=== PATIENT | male | born 1950 | race Caucasian/White ===

== ENCOUNTER → 2016-04-19 | Outpatient (CLI) | payer OTHER ==
[~2016-04-19] MED LIST: ALBUAER2 INH; ALLO100T PO; ANTICRE6 PO; ASPI325T45 PO; EFFSR/75 PO; EFFSR75 PO; EZET10TA38 PO; HYDR-5688 PO; IBUP-1050 PO; INDO-24 PO; INSDGI SC; INSUINJ4 SQ; IPRASOL4 NEB; LISI10TA PO; MAGN200T3 PO; MAGN400C3 PO; MAGNESIUM PO; METF-384 PO; MGNO400 PO; MULT-845 PO; OMEG10007 PO; TPRSR/50 PO; TRAM-10 PO; UMEC1AER INH; VNTHFA/IN INH; VYT1020 PO
--- NOTE | 2016-04-19 08:42 | DIAGNOSTIC IMAGING REPORT ---
MRI OF THE BRAIN WITHOUT CONTRAST CLINICAL HISTORY: Short-term memory loss. COMPARISON STUDY: None. TECHNIQUE: Utilizing a 1.5 Li magnet and dedicated coil, multiplanar, multiecho imaging of the brain was performed without IV contrast. FINDINGS: There are no areas of restricted diffusion. No acute intracranial hemorrhage, midline shift or mass effect is present. Ventricular system is normal. Basilar cisterns are patent. There are no extra-axial collections. Flow-voids for the major intracranial vessels are present. No intracranial masses are identified on this unenhanced exam. There are several white matter T2 hyperintense foci which suggest mild small vessel disease. Brain volume is within normal limits for age. Calvarial signal is maintained. There is a small mucous retention cyst within the left maxillary sinus. Orbits are unremarkable. There is no fluid within the mastoid air cells. IMPRESSION: 1. No acute intracranial findings. 2. A few scattered T2 hypertense foci which suggest minimal small vessel disease. 3. Unremarkable unenhanced MRI of the brain for age. Electronically signed by: Clyde Tapia M.D. 04/19/2016 8:40 AM Dictated Date/Time: 04/19/2016 8:33 AM
== END | disposition home or self-care (01) ==
LOC: C.MRI 07:54
PROVIDERS: ATTEND Psychiatry & Neurology Neurology
DX: R41.3 Other amnesia (principal)

== ENCOUNTER → 2016-04-22 | Outpatient (CLI) | payer OTHER ==
--- NOTE | 2016-04-22 09:35 | DIAGNOSTIC IMAGING REPORT ---
LEFT KNEE 3 VIEWS CLINICAL HISTORY: Left knee pain. No reported history of trauma. FINDINGS: AP, crosstable lateral, and sunrise views of the left knee are obtained. No prior studies are available for comparison at the time of dictation. The skeletal structures are well mineralized. No fracture is seen. There is only minimal degenerative joint space narrowing. No joint effusion is identified. Mild prepatellar soft tissue swelling is observed. IMPRESSION: Mild soft tissue swelling with no acute bony abnormality identified. Electronically signed by: Rene Woods M.D. 04/22/2016 9:34 AM Dictated Date/Time: 04/22/2016 9:33 AM
[2016-04-22 13:46] LABS: FERRITIN 139.2 ng/ml (8.0-388.0); THYROID STIMULATING HORMONE 1.53 uIu/ml (0.300-4.500)
== END | disposition home or self-care (01) ==
LOC: C.RADPV 09:02
PROVIDERS: ATTEND Psychiatry & Neurology Neurology
DX: M25.562 Pain in left knee (principal); Z11.59 Encounter for screening for other viral diseases; R41.3 Other amnesia; G25.81 Restless legs syndrome

== ENCOUNTER 2016-06-27 18:54 | Emergency (ER) | payer OTHER ==
[~2016-06-27] VITALS: Ht 182.9 cm; Wt 110.4 kg
[~2016-06-27 18:54] MED LIST changes: -ANTICRE6 PO; -EFFSR75 PO; -EZET10TA38 PO; -HYDR-5688 PO; -IBUP-1050 PO; -INSDGI SC; -MAGN200T3 PO; -MAGN400C3 PO; -MAGNESIUM PO; -TRAM-10 PO; -VNTHFA/IN INH
[2016-06-27 18:59] VITALS: TEMP 36.6; Ht 182.9 cm; Wt 110.4 kg
[2016-06-27] MEDS ORDERED: ADENOSINE IV SOLN 3 MG/ML 2 ML VIAL ONE (19:13)
[2016-06-27 19:30] LABS: BASO % 0.2 %; BASO ABS # 0.03 K/uL (0-0.2); COMPLETE YES; EOS % 1.2 %; IG% 0.9 %; LYMPH % 22.9 %; LYMPH ABS # 2.95 K/uL (1.2-3.4); MEAN CELL VOLUME 89.2 fL (80-100); MEAN CORPUSCULAR HEMOGLOBIN 31.1 pg (25-34); MEAN CORPUSCULAR HGB CONC 34.9 g/dl (32-36); MEAN PLATELET VOLUME 8.5 fL (7.4-10.4); MONO % 10.7 %; NEUT % 64.1 %; PLATELET COUNT 403 K/uL (130-400); RED BLOOD COUNT 4.37 M/uL (4.7-6.1); WHITE BLOOD COUNT 12.86 K/uL (4.8-10.8)
--- NOTE | 2016-06-27 19:34 | DIAGNOSTIC IMAGING REPORT ---
CHEST ONE VIEW PORTABLE CLINICAL HISTORY: Atypical chest pain COMPARISON STUDY: 02/28/2016 FINDINGS: There are postsurgical changes of a midline sternotomy. There is an overlying cardiac electrode pad the left base. There is no focal pulmonary consolidation. There is decreased interstitial prominence. There is no overt failure. There are no pleural effusions.[ A right midlung zone opacity likely represents a summation IMPRESSION: No active disease in the chest. Electronically signed by: Miguel Zavaleta M.D. 06/27/2016 7:32 PM Dictated Date/Time: 06/27/2016 7:30 PM
[2016-06-27] MEDS ORDERED: SODIUM CHLORIDE 0.9% 1000ML 1,000 ML IV STA (19:37)
[2016-06-27 19:44] LABS: BUN/CREATININE RATIO 18.8 (10-20); CALCIUM 8.5 mg/dl (8.5-10.1); CREATININE 1.3 mg/dl (0.60-1.40); POTASSIUM 4.5 mmol/L (3.5-5.1)
[2016-06-27] MEDS ORDERED: MAGN400C3 PO (19:52)
[2016-06-27] MEDS ORDERED: VNTHFA/IN INH (19:52)
[2016-06-27] MEDS ORDERED: EFFSR75 PO (19:52)
[2016-06-27] MEDS ORDERED: INSDGI SC (19:52)
[2016-06-27] MEDS ORDERED: IBUP-1050 PO (19:52)
[2016-06-27 21:01] VITALS: BP 134/86; PULSE 84; O2SAT 94
--- NOTE | 2016-06-28 01:04 | EMERGENCY ROOM VISIT NOTE ---
History Report prepared by Abhilash: Elizabeth Mclaughlin Under the Supervision of: Dr. Arthur Lamar D.O. First contact with patient: 19:07 Chief Complaint: TACHYCARDIA Stated Complaint: SVT EPISODE History of Present Illness The patient is a 66 year old male who presents to the Emergency Room with complaints of constant tachycardia beginning 3 hours ago. The patient states that this has happened to him 3 times before and he had SVT and today it feels the same as it has in the past. The patient complains of heartburn when the heart beating was severe. He denies any shortness of breath, chest pain, nausea , vomiting, diarrhea, urinary symptoms, and blood in the stool. He notes that he had an ascending aortic aneurism in 2004. He notes that he had an MRI done on knee and was on the way home when he started to feel strange. The patient denies any history of heart disease but notes that he has hypertension, high cholesterol, and diabetes. Source of History: patient Onset: 3 hours ago Position: other (heart) Quality: other (tachycardia) Timing: constant Associated Symptoms: No SOB, No chest pain, No diarrhea, No nausea, No urinary symptoms, No vomiting Note: he patient complains of heartburn when the heart beating was severe. He denies any blood in the stool. Review of Systems See HPI for pertinent positives & negatives. A total of 10 systems reviewed and were otherwise negative. Past Medical & Surgical Medical Problems: (1) Aorta Dissection,Thoracic (2) Aortic aneurysm (3) Chest pain (4) COPD (chronic obstructive pulmonary disease) (5) Diabetes (6) Diverticulosis Colon (W/O Ment Of Hemorrhage) (7) Gout, Unspecified (8) Hypertension (9) Kidney stones (10) Obstructive Sleep Apnea (Adult) (Pediatric) Surgical Problems: (1) History of appendectomy Family History Cancer Diabetes mellitus Heart disease Hypertension Social History Smoking Status: Never Smoker Alcohol Use: occasionally Marital Status: Housing Status: lives with significant other Occupation Status: employed Current/Historical Medications Scheduled Allopurinol (Zyloprim), 100 MG PO DAILY Aspirin (Aspirin), 325 MG PO DAILY Ezetimibe/Simvastatin (Vytorin 10-20 mg), 1 TAB PO DAILY Fish Oil ([place]-3), 1 CAP PO DAILY Insulin Glargine (Lantus), 48 UNITS SC QPM Lisinopril (Prinivil), 10 MG PO DAILY Magnesium Oxide (Magnesium-Oxide), 400 MG PO BID Magnesium Oxide (mg Supplement (Magnesium Oxide), 400 MG PO DAILY Metformin Hcl (Glucophage), 1,000 MG PO BID Metoprolol Succinate (Metoprolol Succinate ER), 50 MG PO DAILY Multiple Vitamins W/ Minerals (Centrum Silver Adult 50+), 1 TAB PO DAILY Umeclidinium-Vilanterol (Anoro Ellipta 62.5-25 Mcg/INH), 1 PUFF INH DAILY Venlafaxine Hcl (Effexor Extended Rel), 75 MG PO DAILY Scheduled PRN Albuterol Hfa (Ventolin Hfa), 2 PUFFS INH QID PRN for SOB/Wheezing Ibuprofen (Advil), 200-600 MG PO Q4H PRN for Pain Ipratropium-Albuterol (Duoneb), 1 TREATMENT NEB Q4H PRN for SOB/Wheezing Allergies Coded Allergies: Codeine (Verified Adverse Reaction, Mild, NAUSEA, 06/27/16) Physical Exam Vital Signs Date Time Temp Pulse Resp B/P Pulse Ox O2 Delivery O2 Flow Rate FiO2 06/27/16 21:01 84 20 134/86 94 06/27/16 19:53 90 20 132/77 91 Room Air 06/27/16 19:20 98 06/27/16 19:09 160 06/27/16 19:04 93 Room Air 06/27/16 18:59 36.6 164 20 105/66 94 Room Air Physical Exam GENERAL: sitting up in bed, disheveled, ill-appearing EYE EXAM: normal conjunctiva OROPHARYNX: no exudate, no erythema, lips, buccal mucosa, and tongue normal and mucous membranes are moist NECK: supple, no nuchal rigidity, no adenopathy, non-tender LUNGS: Clear to auscultation. Normal chest wall mechanics HEART: Tachycardic and regular, no murmurs, S1 normal and S2 normal ABDOMEN: abdomen soft, non-tender, normo-active bowel sounds, no masses, no rebound or guarding. BACK: Back is symmetrical on inspection and there is no deformity, no midline tenderness, no CVA tenderness. SKIN: no rashes and no bruising UPPER EXTREMITIES: upper extremities are grossly normal. Radial pulses equal bilaterally. LOWER EXTREMITIES: No pitting edema. Calves are equal bilaterally. NEURO EXAM: Normal sensorium, cranial nerves II-XII grossly intact, normal speech, no gross weakness of arms, no gross weakness of legs. Medical Decision & Procedures ER Provider Diagnostic Interpretation: Radiology results as stated below per my review and the radiologist's interpretation: CHEST ONE VIEW PORTABLE FINDINGS: There are postsurgical changes of a midline sternotomy. There is an overlying cardiac electrode pad the left base. There is no focal pulmonary consolidation. There is decreased interstitial prominence. There is no overt failure. There are no pleural effusions.[ A right midlung zone opacity likely represents a summation IMPRESSION: No active disease in the chest. Electronically signed by: Miguel Zavaleta M.D. 06/27/2016 7:32 PM Dictated Date/Time: 06/27/2016 7:30 PM Laboratory Results 06/27/16 19:12 Red Blood Count 4.37, Mean Corpuscular Volume 89.2, Mean Corpuscular Hemoglobin 31.1, Mean Corpuscular Hemoglobin Concent 34.9, Mean Platelet Volume 8.5, Neutrophils (%) (Auto) 64.1, Lymphocytes (%) (Auto) 22.9, Monocytes (%) (Auto) 10.7, Eosinophils (%) (Auto) 1.2, Basophils (%) (Auto) 0.2, Neutrophils # (Auto ) 8.22, Lymphocytes # (Auto) 2.95, Monocytes # (Auto) 1.38, Eosinophils # (Auto ) 0.16, Basophils # (Auto) 0.03 06/27/16 19:12 Test 06/27/16 19:12 White Blood Count 12.86 K/uL (4.8-10.8) Red Blood Count 4.37 M/uL (4.7-6.1) Hemoglobin 13.6 g/dL (14.0-18.0) Hematocrit 39.0 % (42-52) Mean Corpuscular Volume 89.2 fL (80-100) Mean Corpuscular Hemoglobin 31.1 pg (25-34) Mean Corpuscular Hemoglobin Concent 34.9 g/dl (32-36) Platelet Count 403 K/uL (130-400) Mean Platelet Volume 8.5 fL (7.4-10.4) Neutrophils (%) (Auto) 64.1 % Lymphocytes (%) (Auto) 22.9 % Monocytes (%) (Auto) 10.7 % Eosinophils (%) (Auto) 1.2 % Basophils (%) (Auto) 0.2 % Neutrophils # (Auto) 8.22 K/uL (1.4-6.5) Lymphocytes # (Auto) 2.95 K/uL (1.2-3.4) Monocytes # (Auto) 1.38 K/uL (0.11-0.59) Eosinophils # (Auto) 0.16 K/uL (0-0.5) Basophils # (Auto) 0.03 K/uL (0-0.2) RDW Standard Deviation 44.9 fL (36.4-46.3) RDW Coefficient of Variation 13.7 % (11.5-14.5) Immature Granulocyte % (Auto) 0.9 % Immature Granulocyte # (Auto) 0.12 K/uL (0.00-0.02) Anion Gap 9.0 mmol/L (3-11) Est Creatinine Clear Calc Drug Dose 73.7 ml/min Estimated GFR () 66.8 Estimated GFR (Non- 57.7 BUN/Creatinine Ratio 18.8 (10-20) Calcium Level 8.5 mg/dl (8.5-10.1) Laboratory results per my review. Medications Administered Medications (Trade) Dose Ordered Sig/Jazmín Route Start Time Stop Time Status Last Admin Dose Admin Adenosine 12 mg 12 mg STK-MED ONCE .ROUTE 06/27/16 19:13 06/27/16 19:14 DC 06/27/16 19:24 6 MG Sodium Chloride (Nss 1000ml) 1,000 ml @ 999 mls/hr Q1H1M STAT IV 06/27/16 19:37 06/27/16 20:37 DC 06/27/16 19:15 999 MLS/HR ECG Indication: tachycardia Rate (beats per minute): 159 Rhythm: SVT Findings: ST depression (Inferior and Lateral ), other (normal axis) Comparison ECG Date: 28-FEB-2016 Change: no significant change Change: EKG #2: Sinus Rhythm, 95, Normal [place], ST depressions in the inferior leads have improved, nonspecific ST changes in lateral. ED Course ED COURSE: Vital signs were reviewed and showed tachycardia The patients medical record was reviewed The above diagnostic studies were performed and reviewed. ED treatments and interventions as stated above. 1910: The patient was evaluated in room C5. A complete history and physical examination was performed. Patient was seen here on 02/27 for SVT. 1912: Adenosine 6mg IV. 1936: Sodium Chloride 1000 ml @ 999 mls/hr IV. 1947: I reevaluated the patient. He feels completely back to normal. 2002: On review of previous puls Ox he is between 21-94% with his COPD. 2031: I reevaluated the patient and he feels completely fine. 2044: Upon reevaluation, the patient is hemodynamically stable.I discussed my findings with the patient and he understands and agrees with the treatment plan. Based on the patients age, coexisting illnesses, exam and lab findings the decision to treat as an outpatient was made. The patient remained stable while under my care. The patient appeared well at the time of discharge. Medical Decision Differential diagnoses includes but is not limited to acute coronary syndrome, myocardial infarction, pericarditis, pulmonary embolus, aortic dissection, pneumonia, pneumothorax, musculoskeletal, shingles, esophageal. Patient is a 66-year-old male who presents the ER for palpitations which has been going on since 4 PM. He notes they did have some chest burning with this but has resolved. He has had a history of SVT. I was called into C5 or he was found to be in SVT with a heart rate in the 160s. He has had this a total 4 times before. He notes it feels exactly like this. Attempted Valsalva maneuver but unsuccessful. Explained the risk and benefits of chemical cardioversion and he was given 6 mg of IV adenosine. Following this he converted to normal sinus rhythm 90. CBC and BMP were unremarkable. I repeated to EKGs his final EKG was completely normal. His was 100% back to baseline and asymptomatic. Chest x-ray was unremarkable. His previous admission for SVT was reviewed. There appears to be no benefit in increasing his beta shahzad per cardiology. Pulse ox remained 91-94% and I reviewed his previous ER visits and this is consistent. This is secondary to COPD. Nothing to suggest a PE. He was discharged to follow-up with his primary care doctor and cardiology as an outpatient. Discussed with Pt concerning signs and symptoms to watch out for. Pt was instructed to follow up with their PCP and discussed with the patient their option to return to the ED at anytime for persistent or worsening symptoms. The appropriate anticipatory guidance and out- patient management, including indications for return to the emergency department , were explained at length to the patient and understood. Impression Primary Impression: SVT (supraventricular tachycardia) Scribe Attestation The scribe's documentation has been prepared under my direction and personally reviewed by me in its entirety. I confirm that the note above accurately reflects all work, treatment, procedures, and medical decision making performed by me. Departure Information Dispostion Home / Self-Care Referrals Dulce Gomez M.D. (PCP) Forms HOME CARE DOCUMENTATION FORM, IMPORTANT VISIT INFORMATION, WORK / SCHOOL INSTRUCTIONS Patient Instructions My [facility], Understanding Supraventricular Tachycardia SVT Additional Instructions Please follow up with your primary care doctor with in the next 24 hours. Any worsening of your symptoms, please return to the ED immediately. This includes any chest pain, shortness of breath, passing out, tachycardia, palpitations or any other concerning signs or symptoms from your standpoint.
[2016-07-19] MEDS ORDERED: TRAM-10 PO (11:00)
[2016-07-19] MEDS ORDERED: MAGNESIUM PO (11:00)
[2016-07-19] MEDS ORDERED: HYDR-5688 PO (11:00)
[2016-07-19] MEDS ORDERED: EZET10TA38 PO (11:00)
[2016-07-19] MEDS ORDERED: ANTICRE6 PO (11:08)
== END 2016-06-27 20:45 | disposition home or self-care (01) ==
LOC: C.EDB 18:55 → C.EDC 20:45
DX: I47.1 Supraventricular tachycardia (principal); I71.9 Aortic aneurysm of unspecified site, without rupture; J44.9 Chronic obstructive pulmonary disease, unspecified; E11.9 Type 2 diabetes mellitus without complications; I10 Essential (primary) hypertension; G47.33 Obstructive sleep apnea (adult) (pediatric); Z83.3 Family history of diabetes mellitus; Z82.49 Family history of ischemic heart disease and other diseases of the circulatory system; Z79.82 Long term (current) use of aspirin

== ENCOUNTER → 2016-07-31 | Outpatient (CLI) | payer OTHER ==
[~2016-07-31] MED LIST changes: -ALBUAER2 INH; +ANTICRE6 PO; -EFFSR/75 PO; +EFFSR75 PO; +EZET10TA38 PO; +HYDR-5688 PO; -INDO-24 PO; +INSDGI SC; -INSUINJ4 SQ; -IPRASOL4 NEB; +MAGN200T3 PO; +MAGNESIUM PO; -MGNO400 PO; +TRAM-10 PO; +VNTHFA/IN INH; -VYT1020 PO
[2016-07-31 13:14] LABS: ESTIMATED AVERAGE GLUCOSE 160 mg/dl; HA1C FLAG Normal (Normal)
[2016-07-31 14:12] LABS: ALKALINE PHOSPHATASE 96 U/L (45-117); ALT/SGPT 31 U/L (12-78); AST/SGOT 22 U/L (15-37); BLOOD UREA NITROGEN 17 mg/dl (7-18); BUN/CREATININE RATIO 15.6 (10-20); CALCIUM 8.8 mg/dl (8.5-10.1); CARBON DIOXIDE 26 mmol/L (21-32); CHLORIDE 110 mmol/L (98-107); CHOLESTEROL 118 mg/dl (0-200); CHOLESTEROL/HDL RATIO 3.3; GLUCOSE 112 mg/dl (70-99); HDL CHOLESTEROL 36 mg/dl; POTASSIUM 4.9 mmol/L (3.5-5.1); SODIUM 142 mmol/L (136-145)
[2016-07-31 14:24] LABS: LDL CHOLESTEROL CALCULATED 45 mg/dl; TRIGLYCERIDES 185 mg/dl (0-150); VERY LOW DENSITY LIPOPROT CALC 37 mg/dl
== END | disposition home or self-care (01) ==
LOC: C.LABPVFM 08:57
PROVIDERS: ATTEND Family Medicine
DX: I10 Essential (primary) hypertension (principal); E11.9 Type 2 diabetes mellitus without complications; F32.9 Major depressive disorder, single episode, unspecified; R53.83 Other fatigue; E83.42 Hypomagnesemia; J44.9 Chronic obstructive pulmonary disease, unspecified; M79.676 Pain in unspecified toe(s)

== ENCOUNTER 2016-08-09 05:23 | Day surgery (SDC) | payer OTHER ==
[2016-07-19 11:04] VITALS: BMI 32.0
--- NOTE | 2016-07-19 11:34 | PAT Medication Instructions ---
Service Date Jul 19, 2016. Current Home Medication List Albuterol Hfa (Ventolin Hfa), 2 PUFFS INH QID PRN for SOB/Wheezing Allopurinol (Zyloprim), 100 MG PO QPM Aspirin (Aspirin), 325 MG PO QPM Ezetimibe/Simvastatin (Vytorin 10MG/20MG), 1 TAB PO QPM Fish Oil ([place]-3), 1 CAP PO QPM Hydrocodone/Acetaminophen 5MG/325MG ([place] 5MG/325MG), 1-2 TAB PO PRN PRN for Pain Insulin Glargine (Lantus), 48 UNITS SC QPM Lisinopril (Prinivil), 10 MG PO QPM Metformin Hcl (Glucophage), 1,000 MG PO BID Metoprolol Succinate (Metoprolol Succinate ER), 50 MG PO QPM Multiple Vitamins W/ Minerals (Centrum Silver Adult 50+), 1 TAB PO QPM Tramadol (Ultram), 50 MG PO Q6H PRN for RN Umeclidinium-Vilanterol (Anoro Ellipta 62.5-25 Mcg/INH), 1 PUFF INH QAM Venlafaxine Hcl (Effexor Extended Rel), 75 MG PO QPM [Antibiotic], 1 TAB PO BID [Magnesium], 200 MG PO BID Medication Instructions For Your Scheduled Surgery - Hold the following medications 2 weeks prior to surgery: Fish Oil ([place]-3), 1 CAP PO QPM - Hold the following medications 48 hours prior to surgery: Metformin Hcl (Glucophage), 1,000 MG PO BID - Hold the following medications 24 hours prior to surgery: Lisinopril (Prinivil), 10 MG PO QPM - Hold the following medications the morning of surgery: [Magnesium], 200 MG PO BID - Take the following medications the morning of surgery with a sip of water OTHERWISE NOTHING TO EAT OR DRINK AFTER MIDNIGHT: Umeclidinium-Vilanterol (Anoro Ellipta 62.5-25 Mcg/INH), 1 PUFF INH QAM Hydrocodone/Acetaminophen 5MG/325MG ([place] 5MG/325MG), 1-2 TAB PO PRN PRN for Pain (may take if needed up to 4 hours prior to surgery) Tramadol (Ultram), 50 MG PO Q6H PRN (may take if needed up to 4 hours prior to surgery) Albuterol Hfa (Ventolin Hfa), 2 PUFFS INH QID PRN for SOB/Wheezing (use if needed; BRING TO HOSPITAL) - Take the following medications as scheduled the night before surgery: [Magnesium], 200 MG PO BID Venlafaxine Hcl (Effexor Extended Rel), 75 MG PO QPM Insulin Glargine (Lantus), 48 UNITS SC QPM Aspirin (Aspirin), 325 MG PO QPM (okay to continue per surgeon) Ezetimibe/Simvastatin (Vytorin 10MG/20MG), 1 TAB PO QPM Hydrocodone/Acetaminophen 5MG/325MG ([place] 5MG/325MG), 1-2 TAB PO PRN PRN for Pain Allopurinol (Zyloprim), 100 MG PO QPM Metoprolol Succinate (Metoprolol Succinate ER), 50 MG PO QPM Tramadol (Ultram), 50 MG PO Q6H PRN Multiple Vitamins W/ Minerals (Centrum Silver Adult 50+), 1 TAB PO QPM Albuterol Hfa (Ventolin Hfa), 2 PUFFS INH QID PRN for SOB/Wheezing If you have any questions please call us at [phone] or [phone] or [phone]
[2016-07-19 11:53] LABS: BASO % 0.7 %; BASO ABS # 0.06 K/uL (0-0.2); COMPLETE YES; EOS % 2.2 %; LYMPH ABS # 2.81 K/uL (1.2-3.4); MEAN CELL VOLUME 92.1 fL (80-100); MEAN CORPUSCULAR HEMOGLOBIN 30.8 pg (25-34); MEAN CORPUSCULAR HGB CONC 33.4 g/dl (32-36); MEAN PLATELET VOLUME 8.4 fL (7.4-10.4); MONO % 11.4 %; NEUT % 50.7 %; PLATELET COUNT 298 K/uL (130-400); RED BLOOD COUNT 4.45 M/uL (4.7-6.1); WHITE BLOOD COUNT 8.27 K/uL (4.8-10.8)
--- NOTE | 2016-08-08 20:23 | HISTORY & PHYSICAL EXAMINATION ---
DATE OF ADMISSION: 08/09/2016 CHIEF COMPLAINT: Left knee pain. HISTORY OF PRESENT ILLNESS: This is a 66-year-old male patient of Dr. Reyes'moses complaining of chronic left knee pain longstanding, now progressively getting worse. The patient has been diagnosed with a medial meniscus tear per MRI and wishes to proceed with a left knee arthroscopy and partial medial meniscectomy. PAST MEDICAL HISTORY: 1. Hypertension, hypercholesterolemia, irregular heartbeat with a diagnosis of SVT. 2. COPD. 3. Sleep apnea. 4. Diabetes with insulin. 5. Obesity. SOCIAL HISTORY: Nonsmoker and nondrinker. SURGICAL HISTORY: Coronary artery bypass surgery, surgery for an aortic aneurysm, appendectomy and shoulder surgery. REVIEW OF SYSTEMS: The patient complains of left knee pain. Otherwise denies any shortness of breath, chest pain, nausea, vomiting or joint complaints. FAMILY HISTORY: Noncontributory. MEDICATIONS: Include; aspirin 325 mg daily, lisinopril 10 mg daily, metoprolol 50 mg daily, venlafaxine 75 mg daily, metformin 1000 mg twice daily, fish oil daily, Vytorin 10/20 daily. He uses albuterol rescue inhaler daily. Centrum Silver daily, magnesium twice daily. He uses Lantus insulin 40 units daily. He uses tramadol for pain as needed. ALLERGIES: TO CODEINE. PHYSICAL EXAMINATION: GENERAL: Well-developed and well-nourished 66-year-old male patient, in no acute distress. He is alert, oriented x3 and pleasant. HEENT: Normocephalic and atraumatic. Extraocular motions are intact. Pupils are equal and reactive to light. HEART: Regular rate and rhythm, no murmurs are appreciated. LUNGS: Clear. ABDOMEN: Soft and nontender, bowel sounds are present. EXTREMITIES: Left knee reveals painful range of flexion. He has medial joint line tenderness with a positive Petros's medially. He has no calf tenderness. NEUROLOGIC: Neurovascularly he is intact with 5/5 strength in his left lower extremity. DIAGNOSES: Left knee medial meniscus tear, history of hypertension, hypercholesterolemia, supraventricular tachycardia, chronic obstructive pulmonary disease, sleep apnea, diabetes mellitus with insulin and obesity. PLAN: The patient was advised of his diagnoses. Indications, risks, benefits and postoperative course have all been reviewed. The patient wishes to proceed with a left knee arthroscopy with partial medial meniscectomy. Necessary consent forms, preoperative testing and clearances have been obtained. LANA
[~2016-08-09] VITALS: Ht 182.9 cm; Wt 108.7 kg
[~2016-08-09 05:23] MED LIST changes: -MAGN200T3 PO
[2016-08-09 05:40] VITALS: BP 148/81; PULSE 56; TEMP 36.6; O2SAT 95; Ht 182.9 cm; Wt 108.7 kg
[2016-08-09] MEDS ORDERED: CEFAZOLIN 2000 MG/60 ML D5W IV SCH (06:00)
[2016-08-09] MEDS ORDERED: LACTATED RINGER'S 1000ML 1,000 ML IV SCH (06:00)
--- NOTE | 2016-08-09 07:00 | History & Physical Bridge Note ---
H&P Re-Evaluation Bridge Note: I have examined the patient, reviewed the History & Physical and in the interval since the performance of the History & Physical I have noted the following changes of clinical significance: No changes noted
[2016-08-09] MEDS ORDERED: ALBUTEROL 0.083% NEBU SOLN 3 ML VIAL INH STA (07:02)
[2016-08-09] MEDS ORDERED: FENTANYL CITRATE INJ 50 MCG/1 ML 2 ML VIAL ONE ×3 (07:04→08:44)
[2016-08-09] MEDS ORDERED: KETAMINE HCL INJ 50 MG/ML 10 ML VIAL ONE (07:04)
[2016-08-09] MEDS ORDERED: MIDAZOLAM HCL 1 MG/ML 2ML VIAL ONE (07:04)
[2016-08-09] MEDS ORDERED: BUPIVACAINE/EPINEPHRINE 0.25% 1:200,000 30 ML VIAL ONE (07:07)
[2016-08-09 07:13] VITALS: PULSE 64; O2SAT 94
[2016-08-09] MEDS ORDERED: SODIUM CHLORIDE 0.9% 1000ML 1,000 ML IV SCH (07:39)
[2016-08-09] MEDS ORDERED: HYDR-5688 PO (07:42)
[2016-08-09] MEDS ORDERED: HYDROCODONE/ACETAMOPHEN 5/325MG TAB PO PRN ×2 (07:45)
--- NOTE | 2016-08-09 07:48 | Discharge Instructions ---
Discharge Instructions Date of Service August 09, 2016. Admission Reason for Admission: Left Knee Medical Meniscus Tear Discharge Discharge Diagnosis / Problem: Left knee scope, partial medial menisectomy Discharge Goals Goal(s): Improve function Activity Recommendations Activity Limitations: as noted below . Instructions / Follow-Up Instructions / Follow-Up See Home Instruction sheet printed in chart. Begin PT Next week, prescription provided. Pain meds as ordered. Weight bear as tolerated on Left leg, crutches if needed. Ice/ elevate as needed. Follow up w Dr. Reyes's office as scheduled, call [phone] to confirm appt. Current Hospital Diet Patient's current hospital diet: Discharge Diet Recommended Diet: Diabetes Type 2 Diet Pending Studies Studies pending at discharge: no Laboratory Results Hemoglobin A1c Test 07/31/16 09:03 Range/Units Estimated Average Glucose 160 mg/dl Hemoglobin A1c 7.2 H 4.5-5.6 % Lipid Panel Test 07/31/16 09:03 Range/Units Triglycerides Level 185 H 0-150 mg/dl Cholesterol Level 118 0-200 mg/dl HDL Cholesterol 36 mg/dl Cholesterol/HDL Ratio 3.3 LDL Cholesterol, Calculated 45 mg/dl Medical Emergencies . Who to Call and When: Medical Emergencies: If at any time you feel your situation is an emergency, please call 911 immediately. . Non-Emergent Contact Non-Emergency issues call your: Primary Care Provider . "Provider Documentation" section prepared by Raimundo Cullen. . VTE Core Measure Inpt VTE Proph given/why not?: SCD's [place] Drug Monitoring Program Search Results: patient reviewed within database, no issues identified
[2016-08-09] MEDS ORDERED: DEXAMETHASONE SOD INJ 4 MG/ML VIAL ONE (07:59)
[2016-08-09] MEDS ORDERED: PROPOFOL IV EMULSION 10 MG/ML 20 ML VIAL IV ONE (07:59)
[2016-08-09] MEDS ORDERED: LIDOCAINE HCL 2% 2 ML VIAL (20MG/ML) ONE (07:59)
[2016-08-09] MEDS ORDERED: ONDANSETRON INJ 2 MG/ML 2 ML VIAL ONE (07:59)
[2016-08-09] MEDS ORDERED: PHENYLEPHRINE 100MCG/ML 5ML SYR ONE (08:27)
[2016-08-09] MEDS ORDERED: GLYCOPYRROLATE INJ 0.2 MG/ML VIAL ONE (08:29)
[2016-08-09] MEDS ORDERED: EpHEDrine SULFATE INJ 50 MG/ML AMP ONE (08:29)
--- NOTE | 2016-08-09 08:33 | [facility] Operative Report ---
Operative Report Operative Date August 09, 2016. Pre-Operative Diagnosis Left knee medial meniscus tear Post-Operative Diagnosis same djd patellofemoral and medial compartment Procedure(s) Performed left knee arthroscopy and partial medial meniscectomy and chondroplasty medial femoral condyle Surgeon Dr. Reyes Mechanical Engineering Advisor Surgeon(s) none Estimated Blood Loss 5 ML Findings as above Specimens none per surgeon Anesthesia general and local Complication(s) None Disposition Recovery Room / PACU Indications medial meniscal tear I attest to the content of the Intraoperative Record and any orders documented therein. Any exceptions are noted below.
[2016-08-09] MEDS ORDERED: ESMOLOL HCL 10 MG/ML 10 ML VIAL ONE (08:39)
[2016-08-09] MEDS ORDERED: FENTANYL CITRATE INJ 50 MCG/1 ML 2 ML VIAL IV PRN (08:45)
[2016-08-09] MEDS ORDERED: FLUMAZENIL 0.1 MG/1 ML 10 ML VIAL IV PRN (08:45)
[2016-08-09] MEDS ORDERED: PROMETHAZINE HCL INJ 12.5 MG in SODIUM CHLORIDE 0.9% 50ML 50 ML IV PRN (08:45)
[2016-08-09] MEDS ORDERED: EpHEDrine SULFATE INJ 50 MG/ML AMP IV PRN (08:45)
[2016-08-09] MEDS ORDERED: ATROPINE SULFATE 0.1 MG/ML 5ML SYR IV PRN (08:45)
[2016-08-09] MEDS ORDERED: LABETALOL HCL IV 5 MG/ML 20ML IV PRN (08:45)
[2016-08-09] MEDS ORDERED: NALOXONE HCL 0.4 MG/1 ML VIAL/CARP IV PRN (08:45)
[2016-08-09] MEDS ORDERED: ONDANSETRON INJ 2 MG/ML 2 ML VIAL IV PRN (08:45)
--- NOTE | 2016-08-09 09:01 | OPERATIVE REPORT ---
DATE OF OPERATION: 08/09/2016 INDICATION FOR PROCEDURE: A 66-year-old male with left knee pain and instability. X-rays and MRI demonstrate good joint spaces on the plain films. However, he does have a complex medial meniscus tear on MRI and all ligaments are intact. PREOPERATIVE DIAGNOSIS: Left knee medial meniscus tear. POSTOPERATIVE DIAGNOSES: Same with degenerative joint disease, medial compartment and patellofemoral joint. PROCEDURE: Arthroscopy left knee with partial medial meniscectomy, chondroplasty medial femoral condyle. SURGEON: Dr. Reyes. TOOL DISPATCHER: None. ANESTHESIA: General. OPERATIVE PROCEDURE: The patient was taken to the operating room, anesthetized under a general anesthetic. Pneumatic tourniquet was placed on the left upper thigh. Knee exam demonstrated he had slight varus knee with good range of motion and no instability. His left leg was then placed into a leg holding device. Left lower extremity was prepped and draped with ChloraPrep in usual sterile fashion. Leg was elevated, exsanguinated with Esmarch bandage. Pneumatic tourniquet was raised to 300 mmHg. Arthroscopy was performed using inferomedial and inferolateral arthroscopy portals with following findings noted. The patella had good articular surface and trochlear groove had just some very subtle thinning of the articular cartilage in the central trochlear groove. In the medial femoral condyle on the far medial side he had some grade 3 fraying in the lateral aspect of the medial femoral condyle toward the flexion surface. There was some loose delaminating flaps of articular surface on the femoral condyle. Tibial plateau had a few spots of just some slight superficial scuffing and fissuring consistent with some mild DJD. Meniscus had a large radial tear starting from the mid meniscus extending obliquely posteriorly out to the periphery between the posterior third and anterior two-thirds junction. There were 2 large unstable flaps because of this tear. The anterior horn was intact. The cruciate ligaments were intact. The lateral meniscus was stable to probing and intact. Lateral compartment had normal articular surface findings. Partial medial meniscectomy was performed removing the anterior and posterior flaps around the radial tear making it into a U-shaped resection. We did have to take this tear out to close to the periphery with fairly large resection enough to create stable U-shaped resection of the torn flaps. The 4.5 resector blade was used to smooth out resected portions with the basket punches as well as a 3.5 angled incisor blade. The remainder of the meniscus was probed and noted to be stable. All debris was irrigated out of the knee joint. I did do a chondroplasty of the femoral condyle using the 3.5 and 4.5 blades to smooth down the loose delaminating flaps. The knee was copiously irrigated and free of all debris, injected with 30 mL of Marcaine with epinephrine. Port sites were closed with nylon sutures. Sterile dressing was applied and Rachid wrap was placed from foot to thigh. Tourniquet was let down. The patient tolerated the procedure well. Blood loss approximately 5 mL or less. I attest to the content of the Intraoperative Record and any orders documented therein. Any exceptions are noted below. MTDD
--- NOTE | 2016-08-09 09:13 | Anesthesiology Progress Note ---
Anesthesia Post Op Note Date & Time August 09, 2016 at 09:13 Vital Signs Pain Intensity: 4 Vital Signs Past 12 Hours Date Time Temp Pulse Resp B/P Pulse Ox O2 Delivery O2 Flow Rate FiO2 08/09/16 09:08 65 14 08/09/16 09:08 65 14 96 08/09/16 09:06 142/73 08/09/16 09:05 36.9 16 94 Room Air 10 08/09/16 09:05 36.9 65 16 142/73 94 Room Air 08/09/16 09:03 66 15 89 08/09/16 09:03 67 15 08/09/16 09:01 139/79 08/09/16 08:58 67 17 92 08/09/16 08:58 67 17 08/09/16 08:56 152/70 08/09/16 08:53 62 9 08/09/16 08:53 63 9 97 08/09/16 08:52 63 11 98 08/09/16 08:52 63 11 98 08/09/16 08:52 64 11 08/09/16 08:52 64 11 08/09/16 08:51 133/67 08/09/16 08:51 133/67 08/09/16 08:47 59 9 99 08/09/16 08:47 61 9 08/09/16 08:47 61 9 08/09/16 08:47 59 9 99 08/09/16 08:46 142/70 08/09/16 08:46 142/70 08/09/16 08:42 59 18 08/09/16 08:42 60 18 100 08/09/16 08:42 60 18 100 08/09/16 08:42 59 18 08/09/16 08:41 147/62 08/09/16 08:41 36.4 153 20 127/96 97 Mask 10 08/09/16 08:41 147/62 08/09/16 08:37 60 12 08/09/16 08:37 61 12 99 08/09/16 08:37 61 12 99 08/09/16 08:37 60 12 08/09/16 08:36 142/69 08/09/16 08:36 142/69 08/09/16 08:32 59 15 98 08/09/16 08:32 59 15 08/09/16 08:32 59 15 08/09/16 08:32 59 15 98 08/09/16 08:31 146/80 08/09/16 08:31 146/80 08/09/16 08:29 152/67 08/09/16 08:29 152/67 08/09/16 08:28 128/96 08/09/16 08:28 128/67 08/09/16 08:27 142 17 97 08/09/16 08:27 140 17 08/09/16 08:27 140 17 08/09/16 08:27 142 17 97 08/09/16 08:26 140/93 08/09/16 08:26 140/93 08/09/16 08:24 124/97 08/09/16 08:24 124/97 08/09/16 08:23 127/96 08/09/16 08:23 127/96 08/09/16 08:22 154 08/09/16 08:22 154 08/09/16 08:22 154 97 08/09/16 08:22 154 97 08/09/16 07:13 64 16 94 Room Air 08/09/16 05:40 36.6 56 20 148/81 95 Room Air Notes Mental Status: alert / awake / arousable, participated in evaluation Pt Amnestic to Procedure: Yes Nausea / Vomiting: adequately controlled Pain: adequately controlled Airway Patency, RR, SpO2: stable & adequate BP & HR: stable & adequate Hydration State: stable & adequate Anesthetic Complications: no major complications apparent
[2016-08-09 09:30] VITALS: BP 134/58; PULSE 61; TEMP 36.4; O2SAT 92
[2016-08-09 10:00] VITALS: BP 131/64; PULSE 59; O2SAT 97
[2016-08-09 10:30] VITALS: BP 146/69; PULSE 60; TEMP 36.4; O2SAT 97
== END 2016-08-09 10:50 | disposition home or self-care (01) ==
LOC: C.ACU 05:23
PROVIDERS: ATTEND Orthopaedic Surgery Sports Medicine
DX: M23.232 Derangement of other medial meniscus due to old tear or injury, left knee (principal); I10 Essential (primary) hypertension; E78.00 Pure hypercholesterolemia, unspecified; E11.9 Type 2 diabetes mellitus without complications; G47.30 Sleep apnea, unspecified; E66.9 Obesity, unspecified; M19.90 Unspecified osteoarthritis, unspecified site; J44.9 Chronic obstructive pulmonary disease, unspecified; Z79.4 Long term (current) use of insulin; Z95.1 Presence of aortocoronary bypass graft; Z79.82 Long term (current) use of aspirin

== ENCOUNTER → 2016-09-30 | Outpatient (CLI) | payer OTHER ==
[~2016-09-30] MED LIST changes: +MAGN200T3 PO; -TRAM-10 PO
--- NOTE | 2016-10-01 07:34 | PAP/PSG TECHNICIAN REPORT ---
[facility] Party Plan Demonstrator Polysomnogram Report Study name: None Report date: 10/01/2016 Study date: 09/30/2016 Referring Physician: JEAN PLUMMER DO, DO Name: HORTENCIA TRINH Interpreting Physician: Jean Plummer D.O. Date of : 1950 Party Plan Demonstrator: ADAN MartinezT. Sex: Male Age: 66 StudyType: PSG Weight: 237.4 lbs Height: 66 years, Height 6' 0" Neck Circum:18.5 inches BMI: 32.19 Medications: ANORO, VENLAFAXINE HCI ER 75 MG, LANTUS SOLO STAR 100 UNIT, METFORMIN HCI 1000 MG, ALLOPURINOL 100 MG, SIMVASTATIN 40 MG, LISINOPRIL 10 MG, METOPROLOL ER 50 MG, VENTOLIN HFA 108 MCG, MAGNESIUM OXIDE 400 MG, ASPIRIN 325 MG, FISH OIL 1000 MG. Patient History 66 yr. old male in room 5, presents [facility] for a diagnostic split night sleep study. pt. states that he had a routine study done in 2003 had an AHI of 70. Pt. stated that he tried c-pap but wasn't able to tolerate it and gave back the machine. Pt. states that he snores, has short term memory loss and has witnessed apnea's= 18, Neck = 18.5 inches. Parameters Monitored NPSG: E1-M2, E2-M1, Fp1-M2, Fp2-M1, F3-M2, F4-M2, F4-M1, C3-M2, C4-M2, C4-M1, O1-M2, O2-M2, O2-M1, T3-M2, T4-M1, P3-M2, P4-M1, CHIN1, CHIN2, HR, EKG, Legs, PFLOW, SNOR, FLOW, CFLOW, Tidal Volume, THOR, ABDO, SpO2, PLTH, CPRESS, ETCO2 Wave, ETCO2, pH Sleep Architecture Sleep Stages Time at Lights Off 10:09:57 PM STAGES Time (min.) TST (%) Time at Lights On 5:30:27 AM Wake 47.0 -- Total Recording Time (TRT) 439.00 min. N1 31.0 8 Total Sleep Period (TSP) 414.0 min. N2 312.0 80 Total Sleep Time (TST) 392.0min. N3 0.0 0 Awake Time 47.0 min. REM 49.0 13 Wake after Sleep Onset 22.5 min. Sleep Efficiency (SE) 89 % Sleep Onset Latency (QUIQUE) 26.0 min. Number of Stage 1 Shifts None Awakenings 6 Stage Changes 42 Number of REM periods 3 REM 49.0 13 REM Latency 339.5 min. NREM 343.0 88 Body Position Analysis Supine Right Left Side Prone Vertical Total Sleep Time (min.) 307.7 0.0 124.6 124.63 0.0 1.0 Total Sleep Time (%) 68% 0% 32% 32 0% N/A% Total Sleep Time REM (min.) 49.0 0.0 0.0 None 0.0 0.0 Total Sleep Time NREM (min.) 218.4 0.0 124.6 None 0.0 0.0 Intermittent Wake (min.) 40.4 3.1 2.6 None 0.0 1.0 Total Sleep Period (%) 69% None None None None None Arousals Myoclonus (PLM) * Events Count Index Events Count Index Spontaneous 44 7 Events Awake (PLMW) 2 2.6 Respiratory 13 2.0 Events Asleep w/ Arousal (PLMA) 21 3.2 PLM 20 3 Events Asleep w/o Arousal (PLMS) 341 52.2 Snoring 16 2 Total Asleep 362 55.4 Total 92 14 Total 364 50 Respiratory Analysis * CA OA MA CH H RERA Total Count 0 6 0 0 143 0 149 Index 0.0 0.9 0.0 0 21.9 0 22.8 Mean Duration 0.0 16.6 0.0 0.00 17.3 0.0 17.3 Longest Duration 0.0 19.2 0.0 0.00 0.0 0.0 35.6 Respiratory Event Summary Total Supine ~Supine Right Left Prone REM NREM Apneas Count 6 6 0 N/A 0 N/A 0 6 Index 0.9 1 0 N/A 0.0 N/A 0 1 Hypopneas (4% Desat) Count 143 141 2 N/A 2 N/A 7 136 Index 21.9 31.6 1 N/A 1.0 N/A 8.6 23.8 Apneas & All Hypopneas Count 149 147 2 N/A 2 N/A 7 142 Index 22.8 33 1 N/A 1 N/A 8.6 24.8 Respiratory Events (Pastry Decorator+All Hyp+RERA) Count 149 147 2 N/A 2 N/A 7 142 Index 22.8 33 1 N/A 1.0 N/A 8.6 24.8 Respiratory Related Arousal Count 13 147 0 N/A 0 N/A 0 13 Index 2.0 3 0 N/A 0 N/A 0 2 Snoring Analysis Supine Right Left Prone REM NREM Total Snore duration 22.7 min Snores count 771 N/A 288 N/A 23 1,036 1,059 Snore mean duration 1.3 Sec Snores index 173 N/A 139 N/A 28.2 181.2 162.1 TST with snoring (%) 5.8% Desaturation Event Summary: Minimum %SpO2 Event Count Mean/Min/Max Duration(sec.) Desaturation Index % Time In Bed > 90 196 21.9 / 7.0 / 52.8 115.9 23.1 86 - 90 39 18.4 / 9.0 / 38.8 7.1 74.7 81 - 85 0 N/A 0.0 2.1 76 - 80 0 N/A 0.0 0.1 71 - 75 0 N/A 0.0 0.0 66 - 70 0 N/A 0.0 0.0 61 - 65 0 N/A 0.0 0.0 56 - 60 0 N/A 0.0 0.0 51 - 55 0 N/A 0.0 0.0 < 50 0 N/A 0.0 0.0 Total REM NREM Awake <50% 0.0 min. 0.0 min. 0.0 min. 0.0 min. 51 - 60% 0.0 min. 0.0 min. 0.0 min. 0.0 min. 61 - 70% 0.0 min. 0.0 min. 0.0 min. 0.0 min. 71 - 80% 0.3 min. 0.0 min. 0.3 min. 0.0 min. 81 - 90% 337.1 min. 44.6 min. 261.6 min. 31.0 min. 91 - 100% 101.5 min. 4.4 min. 81.0 min. 16.0 min. Average 89 89 89 90 Minimum SpO2 79 85 79 83 Desaturation Event Index 27.7 13.5 33.6 0.0 # Desat. Events below 89% 169 8 161 0 Time(%) with Saturation below 89% 32.9 5.6 25.9 1.5 Time(min.) with Saturation below 89% 144.2 24.4 113.5 6.4 Time (mins) REM (mins) NREM (mins) % of TST SpO2 Below 90% 203 11 N192 61.6 SpO2 Below 88% 63 0 0 14 Heart Rate Analysis Min (bpm) Max (bpm) Average (bpm) Awake 54 75 65 NREM 53 127 63 REM 52 71 57 Overall 52 127 62 Supplemental O2 Values Minimum O2 level: None Value Start Time End Time Party Plan Demonstrator Comments PSG Study Mr. Trinh slept in the right, left, and supine positions. Cardiac arrhythmia or PLM's noted. No bruxism noted. Snoring was noted and scored as a 3 on a scale of 1 through 5. (0=no snoring, 5=snoring loud enough to be heard through a closed door or down the [address]) Mr. Trinh awoke to use the restroom zero times during the night. Mr. Trinh stated, I did sleep as well as I do when I am in my own bed. Very restless. The final report will be interpreted and signed by a sleep physician. The completed physician report will then be placed in the patient medical record. Therapy (cm H2O) 0 TIB (min.) 439.0 TST (min.) 392.0 Sleep Onset (min.) 26.0 REM Onset From Sleep (min.) 339.5 Sleep Efficiency % 89 Wakefulness (%) 11 Wakefulness (min.) 47.0 NREM 1 (%) 8 NREM 1 (min.) 31.0 NREM 2 (%) 80 NREM 2 (min.) 312.0 NREM 3 (%) 0 NREM 3 (min.) 0.0 REM (%) 13 REM (min.) 49.0 # Arousals 92 Arousal Index 14 # Snore 1,059 Snore Index 162.1 AHI 22.8 AHI Supine 33 AHI Non-Supine 1 NREM AHI 24.8 REM AHI 8.6 RDI 22.8 # Obstructive Apnea 6 # Central Apnea 0 # Mixed Apnea 0 # Hypopneas 143 RERAs 0 Total Respiratory Events 150 Time Below SpO2 89% (min.) 137.9 Mean NREM SpO2 (%) 89 Mean REM SpO2 (%) 89 Mean Sleep SpO2 (%) 89 Min NREM SpO2 (%) 79 Min REM SpO2 (%) 85 Position Supine (min.) 307.7 Position Non-supine (min.) 124.6 LM Index Sleep 55.4 LM Index NREM 59.8 LM Index REM 24.5 Mean Heart Rate (bpm) 62 Min Heart Rate (bpm) 52
--- NOTE | 2016-10-08 08:51 | Sleep Study ---
Sleep Study Report Date of Service: 09/30/2016 Sleep Study Report Clinical data: Patient is a 66-year-old male with a history of snoring, observed apneas, disturbed nocturnal sleep, and problems with concentration. He has an [place] score of 18 out of a possible 24. He had a sleep study done in 2003 showing severe sleep apnea. He did not do well with nasal CPAP therapy. His BMI is 32.19. This was an in-lab diagnostic sleep study. Sleep architecture: A total sleep. Was 414.0 minutes. The total sleep time was 392.0 minutes. Sleep efficiency was near normal at 89 percent. Sleep latency was prolonged mildly to 26.0 minutes. Wake after sleep onset was 22.5 minutes. The REM latency was 339.5 minutes which was prolonged. Sleep consisted of stage N1 8 percent, stage N2 80 percent, stage N3 0 percent, stage REM 13 percent. Arousal data: Patient had a total of 92 arousals including 44 spontaneous arousals, 13 respiratory arousals, 20 PLM arousals, and 16 snoring arousals. The arousal index was 14. PLM data: Patient had a total of 362 periodic limb movements of sleep for an index severely elevated at 55.4. He had 21 arousals associated with limb movements for a PLM arousal index of 3.2. Respiratory data: The patient had a total of 149 respiratory events including 6 obstructive apneas and 143 hypopneas. Hypopneas were scored according to the 4 percent desaturation rule. The apnea-hypopnea index was elevated at 22.8 events per hour. This reflects moderate obstructive sleep apnea. The mean duration of the hypopneas was 17.3 seconds. The longest apnea was 19.2 seconds. Oximetry data: The average saturation was 89 percent. The minimum saturation was 79 percent. He had a total of 144.2 minutes with saturations less than 89 percent. EKG data: The underlying cardiac rhythm was normal sinus. He had frequent extrasystoles that appeared to be primarily supraventricular. The cardiac rates ranged from 52 to 75 beats per minute with an average of 62 beats per minute. Corrugator Operator comments: The patient slept on the right, left, and supine positions. Cardiac arrhythmia and PLMS noted. No bruxism noted. Snoring was noted and scored as a 3 on a scale of 1 through 5. The patient was very restless. Impressions: 1. Obstructive sleep apnea-moderate 2. Periodic limb movement disorder with history of restless legs syndrome 3. Cardiac arrhythmia-supraventricular premature contractions Comments: The patient has moderate sleep apnea. This was associated with hypoxia. The patient should be treated for this. Trial of nasal CPAP or BiPAP would be advised. He has frequent periodic limb movements with a clinical history of restless legs. He does take venlafaxine which can contribute to restless legs. A ferritin level should be checked to rule out iron deficiency as a contributing factor in his leg movements. It does not appear that he is currently on medication for restless leg syndrome. Typically the sleep apnea should be treated 1st and then have a reassessment of his leg movement abnormalities. Recommendations: 1. It is suggested that the patient a trial of nasal CPAP or BiPAP. This could be done with an in-lab titration study. Alternatively he could be given a trial of auto CPAP. 2. Treatment of the underlying limb movement disorder should await the treatment of the sleep apnea. 3. It is suggested that the patient have a serum ferritin level checked and if it is less than 50 he should be treated with iron supplementation. 4. A weight reduction program is advised in light of the elevation of body mass index at 32.19. 5. It is suggested that the patient avoid sleeping in the supine position if possible as there is typically more respiratory events supine than other positions. Copies To 1: Dulce Gomez M.D.; Jean Correia DO
== END | disposition home or self-care (01) ==
LOC: C.NEUR 20:00
PROVIDERS: ATTEND Internal Medicine Pulmonary Disease
DX: G47.33 Obstructive sleep apnea (adult) (pediatric) (principal)

== ENCOUNTER → 2016-10-17 | Outpatient (CLI) | payer OTHER ==
[~2016-10-17] VITALS: Ht 182.9 cm; Wt 240.9 kg
[2016-10-17 14:24] VITALS: BP 124/73; PULSE 56; Ht 182.9 cm; Wt 240.9 kg
== END | disposition home or self-care (01) ==
LOC: C.NEUR 13:42
PROVIDERS: ATTEND Internal Medicine Pulmonary Disease
DX: R41.3 Other amnesia (principal); G25.81 Restless legs syndrome; G47.33 Obstructive sleep apnea (adult) (pediatric)

== ENCOUNTER 2016-11-01 21:17 | Emergency (ER) | payer OTHER ==
[~2016-11-01] VITALS: Ht 182.9 cm; Wt 111.1 kg
[~2016-11-01 21:17] MED LIST changes: -MAGN200T3 PO
[2016-11-01 21:36] VITALS: TEMP 37.4; Ht 182.9 cm; Wt 111.1 kg
[2016-11-01 21:40] VITALS: O2SAT 94
[2016-11-01] MEDS ORDERED: ADENOSINE IV SOLN 3 MG/ML 2 ML VIAL ONE (21:50)
[2016-11-01] MEDS ORDERED: SODIUM CHLORIDE 0.9% 1000ML 500 ML IV STA (21:58)
[2016-11-01 22:12] LABS: BASO % 0.4 %; BASO ABS # 0.03 K/uL (0-0.2); COMPLETE YES; EOS % 3.5 %; HEMATOCRIT 41.7 % (42-52); IG% 0.3 %; LYMPH % 32.1 %; LYMPH ABS # 2.32 K/uL (1.2-3.4); MEAN CELL VOLUME 91.6 fL (80-100); MEAN CORPUSCULAR HEMOGLOBIN 30.8 pg (25-34); MEAN CORPUSCULAR HGB CONC 33.6 g/dl (32-36); MEAN PLATELET VOLUME 8.9 fL (7.4-10.4); MONO % 16.3 %; NEUT % 47.4 %; PLATELET COUNT 235 K/uL (130-400); RED BLOOD COUNT 4.55 M/uL (4.7-6.1); WHITE BLOOD COUNT 7.22 K/uL (4.8-10.8)
[2016-11-01 22:17] LABS: BLOOD UREA NITROGEN 18 mg/dl (7-18); BUN/CREATININE RATIO 14.1 (10-20); CALCIUM 8.5 mg/dl (8.5-10.1); CARBON DIOXIDE 25 mmol/L (21-32); CHLORIDE 107 mmol/L (98-107); GLUCOSE 255 mg/dl (70-99); POTASSIUM 4.4 mmol/L (3.5-5.1); SODIUM 140 mmol/L (136-145)
[2016-11-01 22:20] LABS: MAGNESIUM 1.6 mg/dl (1.8-2.4)
[2016-11-01] MEDS ORDERED: MAGNESIUM SULFATE 1GM / D5W 1 GM BAG IV STA (22:31)
[2016-11-01] MEDS ORDERED: MAGN200T3 PO (22:39)
[2016-11-01 23:37] VITALS: BP 131/58; PULSE 85; O2SAT 96
--- NOTE | 2016-11-02 01:11 | EMERGENCY ROOM VISIT NOTE ---
History Report prepared by Abhilash: Rosi Medina Under the Supervision of: Dr. Ortiz Michel M.D. First contact with patient: 21:46 Chief Complaint: CARDIAC ASSESSMENT Stated Complaint: SVT Nursing Triage Summary: patient reports feeling this way at 2029 patient reports hx of SVT,AAA repair patient given adenosine in the past History of Present Illness The patient is a 66 year old male who presents to the Emergency Room with complaints of persistent tachycardia starting around 2029 today. The patient has a history of SVT. His last episode of SVT was 2 months ago. He has received adenosine in the past. He tried bearing down and cold water to the face which did not help. He denies any chest pain or abdominal pain. His symptoms are the same as his previous episodes of SVT. He was going about his day as normal today. He had normal fluid intake. He spoke with his manager civil 2 days ago who said that he did not need an ablation yet. He did not miss any medications. He has a history of diabetes. He is on aspirin. He denies any history of OK. He had surgery on his ascending aorta because of an aneurysm. Source of History: patient Onset: 2029 Position: other (global) Quality: other (tachycardia) Timing: other (persistent) Associated Symptoms: No chest pain, No abdominal pain Review of Systems See HPI for pertinent positives & negatives. A total of 10 systems reviewed and were otherwise negative. Past Medical & Surgical Medical Problems: (1) Aorta Dissection,Thoracic (2) Aortic aneurysm (3) Chest pain (4) COPD (chronic obstructive pulmonary disease) (5) Diabetes (6) Diverticulosis Colon (W/O Ment Of Hemorrhage) (7) Gout, Unspecified (8) Hypertension (9) Kidney stones (10) Obstructive Sleep Apnea (Adult) (Pediatric) Surgical Problems: (1) History of appendectomy Old medical records were reviewed. Nurse's notes were reviewed and I agree with. Family History Cancer Diabetes mellitus Heart disease Hypertension Social History Smoking Status: Former Smoker Alcohol Use: occasionally Marital Status: Housing Status: lives with significant other Occupation Status: employed Current/Historical Medications Scheduled Allopurinol (Zyloprim), 100 MG PO QPM Aspirin (Aspirin), 325 MG PO QPM Ezetimibe/Simvastatin (Vytorin 10MG/20MG), 1 TAB PO QPM Fish Oil ([place]-3), 1 CAP PO QPM Insulin Glargine (Lantus), 48 UNITS SC QPM Lisinopril (Prinivil), 10 MG PO QPM Magnesium (Magnesium), 200 MG PO BID Metformin Hcl (Glucophage), 1,000 MG PO BID Metoprolol Succinate (Metoprolol Succinate ER), 50 MG PO QPM Multiple Vitamins W/ Minerals (Centrum Silver Adult 50+), 1 TAB PO QPM Umeclidinium-Vilanterol (Anoro Ellipta 62.5-25 Mcg/INH), 1 PUFF INH QAM Venlafaxine Hcl (Effexor Extended Rel), 75 MG PO QPM Scheduled PRN Albuterol Hfa (Ventolin Hfa), 2 PUFFS INH QID PRN for SOB/Wheezing Hydrocodone/Acetaminophen 5MG/325MG ([place] 5MG/325MG), 1-2 TABLETS PO Q4H PRN for Pain Allergies Coded Allergies: Codeine (Verified Adverse Reaction, Mild, NAUSEA, 08/09/16) Physical Exam Vital Signs Date Time Temp Pulse Resp B/P (MAP) Pulse Ox O2 Delivery O2 Flow Rate FiO2 11/01/16 23:37 85 20 131/58 96 11/01/16 22:30 88 20 130/76 93 Room Air 11/01/16 21:58 91 11/01/16 21:54 88 18 108/93 94 Room Air 11/01/16 21:40 94 Room Air 11/01/16 21:36 37.4 159 20 121/107 96 Room Air 11/01/16 21:30 154 Physical Exam General: Non ill appearing middle age male in no acute distress. Well developed well nourished, breathing comfortably on room air. Normal speech HEENT: Normal cephalic atraumatic. Pupils are equal round and reactive to light. Extraocular movements are intact. Oropharynx is pink with moist mucous membranes. No swelling of the mouth lips or tongue. Neck: Supple with a midline trachea. No meningeal signs or stiffness, no JVD or bruits. No Stridor. Chest: Clear to auscultation bilaterally. No wheezes or rhonchi. No increased work of breathing. Heart: Tachycardic rate and regular rhythm, narrow complex tachycardia consistent with PSVT seen on the monitor. Abdomen: Soft nontender, nondistended without rebound guarding or rigidity. Extremities: No cyanosis clubbing or edema. No calf tenderness or assymetry Spine/Back. Non tender to palpation. No CVA tenderness Skin: Good turgor without rashes. Neurologic exam: Cranial nerves two through 12 are intact. Motor and sensation are intact and symmetrical throughout. Medical Decision & Procedures Laboratory Results 11/01/16 21:30 Red Blood Count 4.55, Mean Corpuscular Volume 91.6, Mean Corpuscular Hemoglobin 30.8, Mean Corpuscular Hemoglobin Concent 33.6, Mean Platelet Volume 8.9, Neutrophils (%) (Auto) 47.4, Lymphocytes (%) (Auto) 32.1, Monocytes (%) (Auto) 16.3, Eosinophils (%) (Auto) 3.5, Basophils (%) (Auto) 0.4, Neutrophils # (Auto ) 3.42, Lymphocytes # (Auto) 2.32, Monocytes # (Auto) 1.18, Eosinophils # (Auto ) 0.25, Basophils # (Auto) 0.03 11/01/16 21:30 Test 11/01/16 21:30 White Blood Count 7.22 K/uL (4.8-10.8) Red Blood Count 4.55 M/uL (4.7-6.1) Hemoglobin 14.0 g/dL (14.0-18.0) Hematocrit 41.7 % (42-52) Mean Corpuscular Volume 91.6 fL (80-100) Mean Corpuscular Hemoglobin 30.8 pg (25-34) Mean Corpuscular Hemoglobin Concent 33.6 g/dl (32-36) Platelet Count 235 K/uL (130-400) Mean Platelet Volume 8.9 fL (7.4-10.4) Neutrophils (%) (Auto) 47.4 % Lymphocytes (%) (Auto) 32.1 % Monocytes (%) (Auto) 16.3 % Eosinophils (%) (Auto) 3.5 % Basophils (%) (Auto) 0.4 % Neutrophils # (Auto) 3.42 K/uL (1.4-6.5) Lymphocytes # (Auto) 2.32 K/uL (1.2-3.4) Monocytes # (Auto) 1.18 K/uL (0.11-0.59) Eosinophils # (Auto) 0.25 K/uL (0-0.5) Basophils # (Auto) 0.03 K/uL (0-0.2) RDW Standard Deviation 47.4 fL (36.4-46.3) RDW Coefficient of Variation 14.1 % (11.5-14.5) Immature Granulocyte % (Auto) 0.3 % Immature Granulocyte # (Auto) 0.02 K/uL (0.00-0.02) Anion Gap 8.0 mmol/L (3-11) Est Creatinine Clear Calc Drug Dose 73.9 ml/min Estimated GFR () 66.8 Estimated GFR (Non- 57.7 BUN/Creatinine Ratio 14.1 (10-20) Calcium Level 8.5 mg/dl (8.5-10.1) Magnesium Level 1.6 mg/dl (1.8-2.4) Troponin I < 0.015 ng/ml (0-0.045) Laboratory studies as stated above per my review. Medications Administered Medications (Trade) Dose Ordered Sig/Jazmín Route Start Time Stop Time Status Last Admin Dose Admin Adenosine (Adenosine IV) 18 mg STK-MED ONCE .ROUTE 11/01/16 21:50 11/01/16 21:51 DC 11/01/16 21:54 6 MG Sodium Chloride 500 ml @ 999 mls/hr Q31M STAT IV 11/01/16 21:58 11/01/16 22:28 DC 11/01/16 21:58 999 MLS/HR Magnesium Sulfate (Magnesium Sulfate) 1 gm NOW STAT IV 11/01/16 22:31 11/01/16 22:32 DC 11/01/16 22:35 1 GM ECG Indication: palpitations Rate (beats per minute): 158 Rhythm: SVT Findings: no ectopy, other (nonspecific T wave abnormality) Comparison ECG Date: 27-Jun-2016 Change: SVT replaced NSR. ED Course 2146: Past medical records reviewed. The patient was evaluated in room A1, and a complete history and physical examination were performed. 2149: Adenosine 6 mg IV. 2155: A repeat EKG was obtained which showed NSR, rate 89, nonspecific T wave abnormality, no ectopy, compared to initial EKG, NSR has replaced SVT. 2157: NSS 500 mls @ 999 mls/hr IV. 2227: I reevaluated the patient. He is resting comfortably. 223: Magnesium Sulfate 1 gm IV. 2326: Upon reevaluation, the patient is resting comfortably. I discussed the results and treatment plan with him. He verbalized agreement of the treatment plan. The patient was discharged home. Medical Decision Differentials include, but are not limited to; PSVT, ACS, electrolyte or metabolic abnormality, ventricular arrhythmia. This patient comes in as described above. He has a rapid heart rate and was placed in room A1. He has a history of PSVT and says he did sit about every 2 months. His last episode here was in Apri. L he does tend to respond either vagal maneuvers and if that doesn't work he said adenosine a couple times as well. He has no chest pain or shortness breath and has had no recent illness. He's been keeping up with his fluids. IV access established placed on a pit and auxiliaries supervisor. EKG does confirm PSVT. He did try vagal maneuvers at home and we tried him here with no avail. We gave him adenosine 6 mg IV push and he converted into normal sinus rhythm. He tolerated this well and was observed for another hour or so in the ER he received some IV hydration. We checked his electrolytes his magnesium and it is a little bit low at 1.6. This could certainly be contributing. He does take magnesium at home and I did him 1 g of IV magnesium and he's can take an extra dose at home this evening as well. He has no elevation of troponin. He's remained asymptomatic and will be discharged home. I encouraged him follow-up with his regular doctor and/or manager civil. I do think he may ultimately need to be seen by brush polisher such as Dr. Man locally as he's had this with increasing frequency. He was encouraged to return ER if : worsening symptoms, recurrence of symptoms, chest pain, shortness of breath, any new problems or concerns. The patient and his were happy with plan and he was discharged home with his driving. Medication Reconcilliation Current Medication List: was personally reviewed by me Blood Pressure Screening Patient's blood pressure: Normal blood pressure Blood pressure disposition: Did not require urgent referral Impression Primary Impression: PSVT (paroxysmal supraventricular tachycardia) Scribe Attestation The scribe's documentation has been prepared under my direction and personally reviewed by me in its entirety. I confirm that the note above accurately reflects all work, treatment, procedures, and medical decision making performed by me. Departure Information Dispostion Home / Self-Care Referrals Dulce Gomez M.D. (PCP) Forms IMPORTANT VISIT INFORMATION Patient Instructions My [facility] Additional Instructions Rest. Drink plenty of fluids. Return if: Worsening of symptoms, chest pain, shortness of breath, recurrence of symptoms, any new problems or concerns Follow-up with your doctor on Friday for recheck. Call Dr. Alexander's office. You may need close follow-up with him as well and they may want to consider having you see Dr. Man
== END 2016-11-01 23:37 | disposition home or self-care (01) ==
LOC: C.EDB 21:17 → C.EDA 23:37
DX: I47.1 Supraventricular tachycardia (principal); E11.9 Type 2 diabetes mellitus without complications; I25.2 Old myocardial infarction; J44.9 Chronic obstructive pulmonary disease, unspecified; M10.9 Gout, unspecified; I10 Essential (primary) hypertension; Z87.440 Personal history of urinary (tract) infections; G47.33 Obstructive sleep apnea (adult) (pediatric); Z80.9 Family history of malignant neoplasm, unspecified; Z83.3 Family history of diabetes mellitus; Z82.49 Family history of ischemic heart disease and other diseases of the circulatory system; Z87.891 Personal history of nicotine dependence; Z79.4 Long term (current) use of insulin; Z79.899 Other long term (current) drug therapy

== ENCOUNTER → 2016-11-15 | Outpatient (CLI) | payer OTHER ==
[~2016-11-15] MED LIST changes: -ANTICRE6 PO; +MAGN200T3 PO; -MAGNESIUM PO
--- NOTE | 2016-11-15 13:58 | DIAGNOSTIC IMAGING REPORT ---
LEFT TIBIA AND FIBULA 2 VIEWS CLINICAL HISTORY: Left leg pain. No reported history of trauma. FINDINGS: AP and lateral views of the left tibia and fibula are obtained. No prior studies are available for comparison at the time of dictation. The skeletal structures appear osteopenic. No tibial or fibular fracture is seen. The knee and ankle joints appear maintained. Mild soft tissue swelling is present in the calf. IMPRESSION: Soft tissue swelling with no acute bony abnormality seen in the left tibia or fibula. Electronically signed by: Rene Woods M.D. 11/15/2016 1:57 PM Dictated Date/Time: 11/15/2016 1:56 PM
== END | disposition home or self-care (01) ==
LOC: C.RADPV 13:41
PROVIDERS: ATTEND Nurse Practitioner Family
DX: M79.662 Pain in left lower leg (principal)

== ENCOUNTER 2017-02-04 18:05 | Emergency (ER) | payer OTHER ==
[~2017-02-04] VITALS: Ht 182.9 cm; Wt 113.0 kg
[2017-02-04 18:13] VITALS: TEMP 36.8; Ht 182.9 cm; Wt 113.0 kg
[2017-02-04 18:19] VITALS: O2SAT 94
[2017-02-04] MEDS ORDERED: ADENOSINE IV SOLN 3 MG/ML 2 ML VIAL ONE (18:23)
[2017-02-04] MEDS ORDERED: ADENOSINE IV SOLN 3 MG/ML 2 ML VIAL IV STA ×2 (18:23)
[2017-02-04] MEDS ORDERED: SODIUM CHLORIDE 0.9% 1000ML 1,000 ML IV STA (18:27)
--- NOTE | 2017-02-04 18:32 | EMERGENCY ROOM VISIT NOTE ---
History Report prepared by Abhilash: Chyna Osorio Under the Supervision of: Dr. Lance Barahona M.D. First contact with patient: 18:19 Chief Complaint: TACHYCARDIA Stated Complaint: SVT History of Present Illness The patient is a 66 year old male who presents to the Emergency Room with complaints of constant chest burning beginning 30 minutes ago. He notes feeling nervous and fatigued beginning yesterday. The patient states he has had 4 episodes of SVT previously. He has had adenosine before and states it has worked very well for him. The patient follows up with a commercial lines assistant. who is discussing a possible ablation for the near future. The patient has a history of aortic aneurysm which was repaired in 2004 in [place]. He denies missing any of his medications this morning. The patient takes Aspirin daily. Source of History: patient Onset: 30 minutes agp Position: chest Quality: burning Timing: constant Modifying Factors (Relieving): other (none) Review of Systems See HPI for pertinent positives & negatives. A total of 10 systems reviewed and were otherwise negative. Past Medical & Surgical Medical Problems: (1) Aorta Dissection,Thoracic (2) Aortic aneurysm (3) Chest pain (4) COPD (chronic obstructive pulmonary disease) (5) Diabetes (6) Diverticulosis Colon (W/O Ment Of Hemorrhage) (7) Gout, Unspecified (8) Hypertension (9) Kidney stones (10) Obstructive Sleep Apnea (Adult) (Pediatric) Surgical Problems: (1) History of appendectomy Family History Cancer Diabetes mellitus Heart disease Hypertension Social History Smoking Status: Former Smoker Alcohol Use: occasionally Marital Status: Housing Status: lives with significant other Occupation Status: employed Current/Historical Medications Scheduled Allopurinol (Zyloprim), 100 MG PO QPM Aspirin (Aspirin), 325 MG PO QPM Ezetimibe/Simvastatin (Vytorin 10MG/20MG), 1 TAB PO QPM Fish Oil ([place]-3), 1 CAP PO QPM Insulin Glargine (Lantus), 48 UNITS SC QPM Lisinopril (Prinivil), 10 MG PO QPM Magnesium (Magnesium), 200 MG PO BID Metformin Hcl (Glucophage), 1,000 MG PO BID Metoprolol Succinate (Metoprolol Succinate ER), 50 MG PO QPM Multiple Vitamins W/ Minerals (Centrum Silver Adult 50+), 1 TAB PO QPM Umeclidinium-Vilanterol (Anoro Ellipta 62.5-25 Mcg/INH), 1 PUFF INH QAM Venlafaxine Hcl (Effexor Extended Rel), 75 MG PO QPM Scheduled PRN Albuterol Hfa (Ventolin Hfa), 2 PUFFS INH QID PRN for SOB/Wheezing Hydrocodone/Acetaminophen 5MG/325MG ([place] 5MG/325MG), 1-2 TABLETS PO Q4H PRN for Pain Allergies Coded Allergies: Codeine (Verified Adverse Reaction, Mild, NAUSEA, 08/09/16) Physical Exam Vital Signs Date Time Temp Pulse Resp B/P (MAP) Pulse Ox O2 Delivery O2 Flow Rate FiO2 02/04/17 19:18 75 18 140/78 95 02/04/17 18:32 95 Room Air 02/04/17 18:32 72 16 152/84 94 Room Air 02/04/17 18:26 77 02/04/17 18:25 147 02/04/17 18:19 94 Room Air 02/04/17 18:19 94 Room Air 02/04/17 18:13 36.8 150 18 102/68 95 Room Air Physical Exam GENERAL: Patient is a healthy-appearing well-nourished male HEAD: Normocephalic atraumatic EYES: Ocular movements intact pupils equal and react to light OROPHARYNX mucous membranes are moist no exudates present no erythema or edema present NECK: Supple no nuchal rigidity CHEST: Good equal expansion LUNGS: Clear and equal to auscultation CARDIAC: Normal S1 and S2 ABDOMEN: Soft nontender no guarding BACK: No CVA tenderness EXTREMITIES: No pain upon palpation normal muscle strength in all groups no clubbing cyanosis or edema NEURO: Patient is following commands and answering questions appropriately. Alert and oriented x3 Cranial Nerves 2-12 grossly intact Medical Decision & Procedures ER Provider Diagnostic Interpretation: Radiology results as stated below per my review and radiologist interpretation: CHEST ONE VIEW PORTABLE FINDINGS: Median sternotomy wires with breakage of one of the superior wires unchanged. Cardiomediastinal silhouette unchanged. Mild prominence of the right paratracheal region may relate prominent superior mediastinal fat. No focal infiltrate. No pleural effusion or pneumothorax. Osseous structures normal. Upper abdomen normal. IMPRESSION: 1. Postsurgical changes without evidence of acute intrathoracic pathology. Electronically signed by: Ben Bhatia M.D. Laboratory Results 02/04/17 18:22 Red Blood Count 4.66, Mean Corpuscular Volume 92.7, Mean Corpuscular Hemoglobin 31.1, Mean Corpuscular Hemoglobin Concent 33.6, Mean Platelet Volume 8.7, Neutrophils (%) (Auto) 51.5, Lymphocytes (%) (Auto) 33.0, Monocytes (%) (Auto) 12.7, Eosinophils (%) (Auto) 1.9, Basophils (%) (Auto) 0.6, Neutrophils # (Auto ) 5.25, Lymphocytes # (Auto) 3.36, Monocytes # (Auto) 1.29, Eosinophils # (Auto ) 0.19, Basophils # (Auto) 0.06 02/04/17 18:22 Test 02/04/17 18:22 White Blood Count 10.18 K/uL (4.8-10.8) Red Blood Count 4.66 M/uL (4.7-6.1) Hemoglobin 14.5 g/dL (14.0-18.0) Hematocrit 43.2 % (42-52) Mean Corpuscular Volume 92.7 fL (80-100) Mean Corpuscular Hemoglobin 31.1 pg (25-34) Mean Corpuscular Hemoglobin Concent 33.6 g/dl (32-36) Platelet Count 252 K/uL (130-400) Mean Platelet Volume 8.7 fL (7.4-10.4) Neutrophils (%) (Auto) 51.5 % Lymphocytes (%) (Auto) 33.0 % Monocytes (%) (Auto) 12.7 % Eosinophils (%) (Auto) 1.9 % Basophils (%) (Auto) 0.6 % Neutrophils # (Auto) 5.25 K/uL (1.4-6.5) Lymphocytes # (Auto) 3.36 K/uL (1.2-3.4) Monocytes # (Auto) 1.29 K/uL (0.11-0.59) Eosinophils # (Auto) 0.19 K/uL (0-0.5) Basophils # (Auto) 0.06 K/uL (0-0.2) RDW Standard Deviation 47.2 fL (36.4-46.3) RDW Coefficient of Variation 14.0 % (11.5-14.5) Immature Granulocyte % (Auto) 0.3 % Immature Granulocyte # (Auto) 0.03 K/uL (0.00-0.02) Anion Gap 7.0 mmol/L (3-11) Est Creatinine Clear Calc Drug Dose 83.5 ml/min Estimated GFR () 76.7 Estimated GFR (Non- 66.2 BUN/Creatinine Ratio 16.0 (10-20) Calcium Level 9.0 mg/dl (8.5-10.1) Magnesium Level 1.9 mg/dl (1.8-2.4) Total Bilirubin 0.2 mg/dl (0.2-1) Direct Bilirubin < 0.1 mg/dl (0-0.2) Aspartate Amino Transf (AST/SGOT) 30 U/L (15-37) Alanine Aminotransferase (ALT/SGPT) 43 U/L (12-78) Alkaline Phosphatase 133 U/L (45-117) Total Creatine Kinase 323 U/L (39-308) Creatine Kinase MB 3.4 ng/ml (0.5-3.6) Creatine Kinase MB Ratio 1.1 (0-3.0) Troponin I < 0.015 ng/ml (0-0.045) Total Protein 8.1 gm/dl (6.4-8.2) Albumin 4.0 gm/dl (3.4-5.0) Lipase 142 U/L (73-393) Labs reviewed by ED physician. Medications Administered Medications (Trade) Dose Ordered Sig/Jazmín Route Start Time Stop Time Status Last Admin Dose Admin Adenosine (Adenosine Iv) 6 mg NOW STAT IV 02/04/17 18:23 02/04/17 18:25 DC 02/04/17 18:29 6 MG Sodium Chloride 1,000 ml @ 999 mls/hr Q1H1M STAT IV 02/04/17 18:27 02/04/17 19:27 DC 02/04/17 18:30 999 MLS/HR ECG Indication: chest pain Rate (beats per minute): 148 Rhythm: SVT Findings: no acute ischemic change, no ectopy Comparison ECG Date: Repeat EKG: Sinus Rhythm rate of 70 bpm, no ectopy, no ischemia ED Course 1820: Past medical records reviewed. The patient was evaluated in room B2. A complete history and physical examination was performed. 1822: Adenosine 12 mg IV, Adenosine 6 mg IV, Adenosine 18 mg .ROUTE. 1827: Sodium Chloride 1000 ml @ 999 mls/hr. 182: After adenosine administration, the patient reports that he feels much better. 1910: On reevaluation, the patient is resting comfortably. 192: Upon reexamination the patient is resting comfortably. I discussed results and treatment plan with the patient. He verbalizes agreement and understanding. The patient is ready for discharge. Medical Decision Differential diagnosis: Etiologies such as cardiac ischemia, aortic dissection, pulmonary embolism, pneumonia, pneumothorax, musculoskeletal, infections, pericarditis, myocarditis , esophageal rupture, gastrointestinal, as well as others were entertained. This is a 66-year-old male who has a history of SVT that presents emergency department in SVT. The patient has been broken before with adenosine. He was given 6 mg of adenosine which resulted in immediate conversion to normal sinus rhythm. The patient's laboratory work shows an elevation in his CK as well as his BUN. I do feel he is slightly dehydrated. He was given a liter fluid here in the emergency department. I do feel he as well as to be discharged home for follow-up with his primary care physician and commercial lines assistant. Both patient and his are in agreement with the treatment plan. Blood Pressure Screening Patient's blood pressure: Elevated blood pressure Blood pressure disposition: Elevated BP felt to be situational Impression Primary Impression: SVT (supraventricular tachycardia) Additional Impression: Dehydration Scribe Attestation The scribe's documentation has been prepared under my direction and personally reviewed by me in its entirety. I confirm that the note above accurately reflects all work, treatment, procedures, and medical decision making performed by me. Departure Information Dispostion Home / Self-Care Referrals Dulce Gomez M.D. (PCP) Forms HOME CARE DOCUMENTATION FORM, IMPORTANT VISIT INFORMATION, WORK / SCHOOL INSTRUCTIONS Patient Instructions ED Tachycardia Pat PSVT, My [facility], Treatment for Supraventricular Tachycardia SVT, Understanding Supraventricular Tachycardia SVT Additional Instructions Follow up with DR Alexander's office Increase fluid intake next 48 hours You have been examined and treated today on an emergency basis only. This is not a substitute for, or an effort to provide, complete comprehensive medical care. It is impossible to recognize and treat all injuries or illnesses in a single emergency department visit. It is therefore important that you follow up closely with Dr Gomez. Call as soon as possible for an appointment. Thank you for your time and consideration. I look forward to speaking with you again soon. Please don't hesitate to call us if you have any questions. Problem Qualifiers
[2017-02-04 18:37] LABS: BASO % 0.6 %; BASO ABS # 0.06 K/uL (0-0.2); COMPLETE YES; EOS % 1.9 %; HEMATOCRIT 43.2 % (42-52); IG% 0.3 %; LYMPH ABS # 3.36 K/uL (1.2-3.4); MEAN CELL VOLUME 92.7 fL (80-100); MEAN CORPUSCULAR HEMOGLOBIN 31.1 pg (25-34); MEAN CORPUSCULAR HGB CONC 33.6 g/dl (32-36); MEAN PLATELET VOLUME 8.7 fL (7.4-10.4); MONO % 12.7 %; NEUT % 51.5 %; PLATELET COUNT 252 K/uL (130-400); RED BLOOD COUNT 4.66 M/uL (4.7-6.1); WHITE BLOOD COUNT 10.18 K/uL (4.8-10.8)
[2017-02-04 18:59] LABS: ALT/SGPT 43 U/L (12-78); BLOOD UREA NITROGEN 19 mg/dl (7-18); CARBON DIOXIDE 27 mmol/L (21-32); CHLORIDE 107 mmol/L (98-107); CREATININE 1.16 mg/dl (0.60-1.40); GLUCOSE 114 mg/dl (70-99); MAGNESIUM 1.9 mg/dl (1.8-2.4); POTASSIUM 4.3 mmol/L (3.5-5.1); SODIUM 141 mmol/L (136-145)
[2017-02-04 19:02] LABS: ALKALINE PHOSPHATASE 133 U/L (45-117); AST/SGOT 30 U/L (15-37); CKMB/CK RATIO 1.1 (0-3.0)
--- NOTE | 2017-02-04 19:03 | DIAGNOSTIC IMAGING REPORT ---
CHEST ONE VIEW PORTABLE CLINICAL HISTORY: 66 years-old Male presenting with CHEST PAIN. TECHNIQUE: Portable upright AP view of the chest was obtained. COMPARISON: 06/27/2016. FINDINGS: Median sternotomy wires with breakage of one of the superior wires unchanged. Cardiomediastinal silhouette unchanged. Mild prominence of the right paratracheal region may relate prominent superior mediastinal fat. No focal infiltrate. No pleural effusion or pneumothorax. Osseous structures normal. Upper abdomen normal. IMPRESSION: 1. Postsurgical changes without evidence of acute intrathoracic pathology. Electronically signed by: Ben Bhatia M.D. 02/04/2017 7:02 PM Dictated Date/Time: 02/04/2017 7:00 PM
[2017-02-04 19:18] VITALS: BP 140/78; PULSE 75; O2SAT 95
== END 2017-02-04 19:19 | disposition home or self-care (01) ==
LOC: C.EDB 18:07
DX: I47.1 Supraventricular tachycardia (principal); E86.0 Dehydration; R07.89 Other chest pain; R53.83 Other fatigue; R45.0 Nervousness; E11.9 Type 2 diabetes mellitus without complications; I10 Essential (primary) hypertension; G47.33 Obstructive sleep apnea (adult) (pediatric); J44.9 Chronic obstructive pulmonary disease, unspecified; Z79.4 Long term (current) use of insulin; Z79.82 Long term (current) use of aspirin; Z79.899 Other long term (current) drug therapy; Z87.442 Personal history of urinary calculi; Z87.891 Personal history of nicotine dependence; Z87.898 Personal history of other specified conditions; Z82.49 Family history of ischemic heart disease and other diseases of the circulatory system; Z83.3 Family history of diabetes mellitus

== ENCOUNTER 2017-03-05 23:34 | Emergency (ER) | payer OTHER ==
[~2017-03-05] VITALS: Ht 182.9 cm; Wt 114.3 kg
[~2017-03-05 23:34] MED LIST changes: -HYDR-5688 PO
[2017-03-05 23:38] VITALS: TEMP 36.5; Ht 182.9 cm; Wt 114.3 kg
[2017-03-05] MEDS ORDERED: ADENOSINE IV SOLN 3 MG/ML 2 ML VIAL ONE (23:47)
--- NOTE | 2017-03-05 23:58 | EMERGENCY ROOM VISIT NOTE ---
History Report prepared by Abhilsah: Gonzalo Lennon Under the Supervision of: Dr. Macy Muniz D.O. First contact with patient: 23:43 Chief Complaint: TACHYCARDIA Stated Complaint: SVT History of Present Illness The patient is a 66 year old male who presents to the Emergency Room with complaints of tachycardia at 140-150 that began 1 hour ago. He has a past medical history of an ascending aortic aneurysm repair, supraventricular tachycardia, and atrial fibrillation. He has had 6 episodes of SVT and 1 episode of atrial fibrillation in the past. He states that he does not think anything triggers it, but it may be triggered by his medications. Last night, the patient notes that he ran out of Magnesium, only missing one dose. He states that in the past, Adenosine had helped normalize his heart rate. When he is having an episode of SVT, he notes that he feels really nervous, has a mild burning across his chest, his arms get heavy, and he feels fatigued and diaphoretic. He denies any shortness of breath, lightheadedness, or dizziness. He notes that he attempted to place his face in the snow to lower his rate, but it did not work. He also has a past medical history of COPD and diabetes. Source of History: patient Onset: 1 hour ago Position: other (Heart Rate) Symptom Intensity: 140-150 bpm Quality: other (Tachycardia) Timing: constant Associated Symptoms: + diaphoresis, + chest pain (mild burning across chest) , + fatigue, No SOB Note: He denies any lightheadedness or dizziness. His arms feel heavy bilaterally. Review of Systems See HPI for pertinent positives & negatives. A total of 10 systems reviewed and were otherwise negative. Past Medical & Surgical Medical Problems: (1) Aorta Dissection,Thoracic (2) Aortic aneurysm (3) Chest pain (4) COPD (chronic obstructive pulmonary disease) (5) Diabetes (6) Diverticulosis Colon (W/O Ment Of Hemorrhage) (7) Gout, Unspecified (8) Hypertension (9) Kidney stones (10) Obstructive Sleep Apnea (Adult) (Pediatric) Surgical Problems: (1) History of appendectomy Family History Cancer Diabetes mellitus Heart disease Hypertension Social History Smoking Status: Former Smoker Alcohol Use: occasionally Marital Status: Housing Status: lives with significant other Occupation Status: employed Current/Historical Medications Scheduled Allopurinol (Zyloprim), 100 MG PO QPM Aspirin (Aspirin), 325 MG PO QPM Ezetimibe/Simvastatin (Vytorin 10MG/20MG), 1 TAB PO QPM Fish Oil ([place]-3), 1 CAP PO QPM Insulin Glargine (Lantus), 48 UNITS SC QPM Lisinopril (Prinivil), 10 MG PO QPM Magnesium (Magnesium), 200 MG PO BID Metformin Hcl (Glucophage), 1,000 MG PO BID Metoprolol Succinate (Metoprolol Succinate ER), 50 MG PO QPM Multiple Vitamins W/ Minerals (Centrum Silver Adult 50+), 1 TAB PO QPM Umeclidinium-Vilanterol (Anoro Ellipta 62.5-25 Mcg/INH), 1 PUFF INH QAM Venlafaxine Hcl (Effexor Extended Rel), 75 MG PO QPM Scheduled PRN Albuterol Hfa (Ventolin Hfa), 2 PUFFS INH QID PRN for SOB/Wheezing Allergies Coded Allergies: Codeine (Verified Adverse Reaction, Mild, NAUSEA, 03/06/17) Physical Exam Vital Signs Date Time Temp Pulse Resp B/P (MAP) Pulse Ox O2 Delivery O2 Flow Rate FiO2 03/06/17 02:46 65 18 128/76 93 03/06/17 01:38 61 20 135/78 93 Room Air 03/06/17 00:15 83 20 159/89 95 Room Air 03/06/17 00:05 98 Room Air 03/05/17 23:50 151 03/05/17 23:38 36.5 153 24 134/83 94 Room Air Physical Exam GENERAL: alert, well appearing, well nourished, no distress, non-toxic EYE EXAM: normal conjunctiva OROPHARYNX: no exudate, no erythema, lips, buccal mucosa, and tongue normal and mucous membranes are moist NECK: supple, no nuchal rigidity, no adenopathy, non-tender LUNGS: Clear to auscultation. Normal chest wall mechanics HEART: Tachycardic rate with a regular rhythm. No murmurs, S1 normal and S2 normal ABDOMEN: abdomen soft, non-tender, normo-active bowel sounds, no masses, no rebound or guarding. BACK: Back is symmetrical on inspection and there is no deformity, no midline tenderness, no CVA tenderness. SKIN: Well healed midline sternotomy scar. No rashes and no bruising UPPER EXTREMITIES: upper extremities are grossly normal. LOWER EXTREMITIES: No pitting edema. NEURO EXAM: Normal sensorium, cranial nerves II-XII grossly intact, normal speech, no gross weakness of arms, no gross weakness of legs. Medical Decision & Procedures ER Provider Diagnostic Interpretation: Radiology results have been interpreted by me. CHEST X-RAY 1 VIEW: No cardiomegaly, generous mediastinum, sternotomy wires notes, no effusion, no focal infiltrate, no pulmonary edema. Unchanged compared to prior. Laboratory Results 03/05/17 23:45 Red Blood Count 4.40, Mean Corpuscular Volume 93.6, Mean Corpuscular Hemoglobin 31.4, Mean Corpuscular Hemoglobin Concent 33.5, Mean Platelet Volume 9.0, Neutrophils (%) (Auto) 50.0, Lymphocytes (%) (Auto) 32.2, Monocytes (%) (Auto) 14.3, Eosinophils (%) (Auto) 2.6, Basophils (%) (Auto) 0.7, Neutrophils # (Auto ) 4.19, Lymphocytes # (Auto) 2.70, Monocytes # (Auto) 1.20, Eosinophils # (Auto ) 0.22, Basophils # (Auto) 0.06 03/05/17 23:45 Test 03/05/17 23:45 White Blood Count 8.39 K/uL (4.8-10.8) Red Blood Count 4.40 M/uL (4.7-6.1) Hemoglobin 13.8 g/dL (14.0-18.0) Hematocrit 41.2 % (42-52) Mean Corpuscular Volume 93.6 fL (80-100) Mean Corpuscular Hemoglobin 31.4 pg (25-34) Mean Corpuscular Hemoglobin Concent 33.5 g/dl (32-36) Platelet Count 250 K/uL (130-400) Mean Platelet Volume 9.0 fL (7.4-10.4) Neutrophils (%) (Auto) 50.0 % Lymphocytes (%) (Auto) 32.2 % Monocytes (%) (Auto) 14.3 % Eosinophils (%) (Auto) 2.6 % Basophils (%) (Auto) 0.7 % Neutrophils # (Auto) 4.19 K/uL (1.4-6.5) Lymphocytes # (Auto) 2.70 K/uL (1.2-3.4) Monocytes # (Auto) 1.20 K/uL (0.11-0.59) Eosinophils # (Auto) 0.22 K/uL (0-0.5) Basophils # (Auto) 0.06 K/uL (0-0.2) RDW Standard Deviation 47.6 fL (36.4-46.3) RDW Coefficient of Variation 14.0 % (11.5-14.5) Immature Granulocyte % (Auto) 0.2 % Immature Granulocyte # (Auto) 0.02 K/uL (0.00-0.02) Anion Gap 7.0 mmol/L (3-11) Est Creatinine Clear Calc Drug Dose 71.6 ml/min Estimated GFR () 63.3 Estimated GFR (Non- 54.6 BUN/Creatinine Ratio 13.9 (10-20) Calcium Level 8.2 mg/dl (8.5-10.1) Phosphorus Level 2.6 mg/dl (2.5-4.9) Magnesium Level 1.6 mg/dl (1.8-2.4) Total Bilirubin 0.3 mg/dl (0.2-1) Aspartate Amino Transf (AST/SGOT) 21 U/L (15-37) Alanine Aminotransferase (ALT/SGPT) 39 U/L (12-78) Alkaline Phosphatase 109 U/L (45-117) Troponin I < 0.015 ng/ml (0-0.045) Total Protein 7.5 gm/dl (6.4-8.2) Albumin 3.6 gm/dl (3.4-5.0) Globulin 3.9 gm/dl (2.5-4.0) Albumin/Globulin Ratio 0.9 (0.9-2) Thyroid Stimulating Hormone (TSH) 2.620 uIu/ml (0.300-4.500) Laboratory results per my review. Medications Administered Medications (Trade) Dose Ordered Sig/Jazmín Route Start Time Stop Time Status Last Admin Dose Admin Adenosine (Adenosine Iv) 12 mg STK-MED ONCE .ROUTE 03/05/17 23:47 03/05/17 23:48 DC 03/05/17 23:47 12 MG Magnesium Sulfate (Magnesium Sulfate) 1 gm NOW STAT IV 03/06/17 01:25 03/06/17 01:26 DC 03/06/17 01:36 1 GM ECG Indication: chest pain, other (Tachycardia) Rate (beats per minute): 152 Rhythm: SVT Findings: T-wave inversion (II, III, aVF, V5, V6), other (Normal QRS, normal QTC, normal axis) Change: 2nd ECG results: NSR 78, normal intervals, normal axis, previous seen t-wave inversions have now resolved. ED Course 2343: The patient was evaluated in room A11. A complete history and physical exam was performed. 2354: After pushing 6 mg of Adenosine, the patient's heart rate decreased and now seems to be in sinus rhythm. We will get a second ECG for confirmation. 0125: Ordered Magnesium Sulfate 1 gm IV 0144: I updated the patient at this time. He is feeling fine. There has been on recurrence of SVT. He will be getting a Mag and then be going home. 0247: Upon reevaluation, the patient is feeling better. I discussed the findings and the treatment plan with the patient. He verbalizes agreement and understanding. He was discharged home. Medical Decision Differential diagnoses includes but is not limited to acute coronary syndrome, myocardial infarction, pericarditis, pulmonary embolus, aortic dissection, pneumonia, pneumothorax, musculoskeletal, shingles, esophageal. Patient well-appearing here despite symptoms and complaints. Patient with multiple prior similar episodes. Patient does follow with cardiology regularly. He believes he had had a normal echo within the past year. Patient states abrupt onset, and was never noted any triggers. Patient denies any recent illness or fevers area patient found to have an elevated heart rate initially and appeared possibly of SVT, but also discussed the patient possible differential diagnosis of his dysrhythmia including atrial fibrillation and atrial flutter. Patient states he does not recall being told he had either of those previously. Administration of 6 mg IV adenosine, patient's heart rate slowed and broke to a normal sinus rhythm in the 70s and 80s. Patient symptoms then resolved. Patient had no recurrence of any SVT and no recurrence of any symptoms following resolution. Patient's magnesium level repleted and patient encouraged undiscovered missed any doses. Discussed with them follow-up with cardiology, symptoms to watch and return for, he verbalized understanding was agreeable with plan. I do not suspect ACS, PE, tamponade, effusion, occult infectious etiology including peritonitis or myocarditis, patient denies any other drug or alcohol use, patient appears in a euthyroid state. Patient well- appearing at time of discharge are stable vital signs and agreeable with his care and plan. Medication Reconcilliation Current Medication List: was personally reviewed by me Blood Pressure Screening Patient's blood pressure: Elevated blood pressure Blood pressure disposition: Elevated BP felt to be situational Impression Primary Impression: SVT (supraventricular tachycardia) Additional Impressions: Chest pain Hypomagnesemia Critical Care I have personally spent greater than 35 minutes of critical care time in the direct management of this patient. This includes bedside care, interpretation of diagnostic studies, and testing, discussion with consultants, patient, and family members, and other required patient management activities. This 35 minutes is in excess of all separately billable procedures. Scribe Attestation The scribe's documentation has been prepared under my direction and personally reviewed by me in its entirety. I confirm that the note above accurately reflects all work, treatment, procedures, and medical decision making performed by me. Departure Information Dispostion Home / Self-Care Referrals Dulce Gomez M.D. (PCP) Forms HOME CARE DOCUMENTATION FORM, IMPORTANT VISIT INFORMATION, WORK / SCHOOL INSTRUCTIONS Patient Instructions My [facility] Additional Instructions Please keep your appointment with your insert operator. If you have any recurrent episodes such as tonight, you may try the maneuvers your previously instructed on at home, otherwise please return to the emergency room immediately. These continue regular medications as prescribed and do not skip any doses. If you have any other new or concerning symptoms, please return the emergency room. Problem Qualifiers Additional Impressions: Chest pain Chest pain type: unspecified Qualified Codes: R07.9 - Chest pain, unspecified
[2017-03-06 00:26] LABS: BASO % 0.7 %; BASO ABS # 0.06 K/uL (0-0.2); COMPLETE YES; EOS % 2.6 %; HEMATOCRIT 41.2 % (42-52); IG% 0.2 %; LYMPH % 32.2 %; MEAN CELL VOLUME 93.6 fL (80-100); MEAN CORPUSCULAR HEMOGLOBIN 31.4 pg (25-34); MEAN CORPUSCULAR HGB CONC 33.5 g/dl (32-36); MONO % 14.3 %; PLATELET COUNT 250 K/uL (130-400); WHITE BLOOD COUNT 8.39 K/uL (4.8-10.8)
[2017-03-06 00:51] LABS: ALT/SGPT 39 U/L (12-78); AST/SGOT 21 U/L (15-37); BLOOD UREA NITROGEN 19 mg/dl (7-18); BUN/CREATININE RATIO 13.9 (10-20); CALCIUM 8.2 mg/dl (8.5-10.1); CARBON DIOXIDE 22 mmol/L (21-32); CHLORIDE 110 mmol/L (98-107); CREATININE 1.36 mg/dl (0.60-1.40); GLUCOSE 165 mg/dl (70-99); MAGNESIUM 1.6 mg/dl (1.8-2.4); POTASSIUM 3.9 mmol/L (3.5-5.1); SODIUM 139 mmol/L (136-145)
[2017-03-06 01:02] LABS: ALB/GLOB RATIO 0.9 (0.9-2); ALKALINE PHOSPHATASE 109 U/L (45-117); PHOSPHORUS 2.6 mg/dl (2.5-4.9)
[2017-03-06] MEDS ORDERED: MAGNESIUM SULFATE 1GM / D5W 1 GM BAG IV STA (01:25)
[2017-03-06 02:46] VITALS: BP 128/76; PULSE 65; O2SAT 93
--- NOTE | 2017-03-06 07:31 | DIAGNOSTIC IMAGING REPORT ---
CHEST ONE VIEW PORTABLE CLINICAL HISTORY: 66 years-old Male presenting with chest pain. TECHNIQUE: Portable upright AP view of the chest was obtained. COMPARISON: 02/04/2017. FINDINGS: Median sternotomy wires intact. Atherosclerosis of aortic arch. Cardiac silhouette normal in size. Prominence of pulmonary vasculature, stable slightly increased from prior. Lungs and pleural spaces clear. Osseous structures normal. Upper abdomen normal. IMPRESSION: 1. Pulmonary vascular congestion stable to slightly increased from prior consistent with volume overload. No rosalva pulmonary edema. Electronically signed by: Ben Bhatia M.D. 03/06/2017 7:29 AM Dictated Date/Time: 03/06/2017 7:28 AM
== END 2017-03-06 02:46 | disposition home or self-care (01) ==
LOC: C.EDB 23:35 → C.EDA 03-06 02:46
DX: I47.1 Supraventricular tachycardia (principal); E83.42 Hypomagnesemia; R07.9 Chest pain, unspecified; I48.91 Unspecified atrial fibrillation; J44.9 Chronic obstructive pulmonary disease, unspecified; E11.9 Type 2 diabetes mellitus without complications; M10.9 Gout, unspecified; I10 Essential (primary) hypertension; Z87.442 Personal history of urinary calculi; G47.33 Obstructive sleep apnea (adult) (pediatric); Z80.9 Family history of malignant neoplasm, unspecified; Z83.3 Family history of diabetes mellitus; Z82.49 Family history of ischemic heart disease and other diseases of the circulatory system; Z87.891 Personal history of nicotine dependence; Z79.82 Long term (current) use of aspirin; Z79.4 Long term (current) use of insulin; Z79.899 Other long term (current) drug therapy

== ENCOUNTER → 2017-03-13 | Day surgery (SDC) | payer OTHER ==
[2017-03-05 10:47] VITALS: BMI 31.0
[~2017-03-13] VITALS: Ht 182.9 cm; Wt 104.5 kg
[~2017-03-13] MED LIST changes: +AMOX875T PO; +ASPECOTC PO; -ASPI325T45 PO; +AZITTAB PO; +GFNSR600 PO; +IPRA-64 INH; +LCTX OR; +LEVO-18 PO; +LEVO1TAB34 PO; +LIDOCAINE HCL 2% 2 ML VIAL (20MG/ML) ONE; +MIDAZOLAM HCL 1 MG/ML 2ML VIAL ONE; +ONDANSETRON INJ 2 MG/ML 2 ML VIAL ONE; +OSEL75CA12 PO; +PRD20 PO; +PRED20TA PO; +PROPOFOL IV EMULSION 10 MG/ML 20 ML VIAL IV ONE; +SIMV40TA2 PO; +SLWMEC PO; +SODIUM CHLORIDE 0.9% 500ML 500 ML IV ONE; +TRMCR515 TOP
[2017-03-13 07:54] VITALS: Ht 182.9 cm; Wt 104.5 kg
--- NOTE | 2017-03-13 08:04 | Endo History and Physical ---
History & Physical Date of Service: Mar 13, 2017. Chief Complaint: Referring Physician: History of Present Illness FHx of colon cancer, here for screening colonoscopy Past Medical History Diabetes, Fractures, High Cholesterol Past Surgical History Hx Cardiac Surgery: Yes (HEART CATH, AORTIC ANUERYSM REPAIR) Hx Internal Defibrillator: No Hx Pacemaker: No Hx Abdominal Surgery: Yes (APPY) Hx of Implantable Prosthesis: No Hx Post-Op Nausea and Vomiting: No Hx Cancer Surgery: No Hx Thoracic Surgery: No Hx Orthopedic: Yes (ORIF RIGHT HIP, LT SHOULDER SURG) Hx Urinary Tract Surgery: Yes (URETEROSCOPY AND KIDNEY STONE REMOVED) Family History Colon CA, Polyp Social History Smoking Status: Never Smoker Hx Substance Use: No Hx Alcohol Use: Yes (RARELY) Allergies Coded Allergies: Codeine (Verified Adverse Reaction, Mild, NAUSEA, 03/13/17) Current Medications Reported Home Medications Medications Dose Route/Sig Max Daily Dose Days Date Category Magnesium 200 Mg Tab 200 Mg PO BID 11/01/16 Reported Vytorin 10MG/20MG (Ezetimibe/Simvastatin) Tab 1 Tab PO QPM 07/19/16 Reported Ventolin Hfa (Albuterol) 200 Puffs/12410 Mcg Aers 2 Puffs INH QID PRN 06/27/16 Reported Lantus (Insulin Glargine) 100 Unit/Ml Inj 48 Units SC QPM 06/27/16 Reported Effexor Extended Rel (Venlafaxine Hcl) 75 Mg Capcr 75 Mg PO QPM 06/27/16 Reported Centrum Silver Adult 50+ (Multiple Vitamins W/ Minerals) 1 Tab Tab 1 Tab PO QPM 04/24/15 Reported Anoro Ellipta 62.5-25 Mcg/INH (Umeclidinium-Vilanterol) 1 Aer Aer 1 Puff INH QAM 04/24/15 Reported Zyloprim (Allopurinol) 100 Mg Tab 100 Mg PO QPM 04/24/15 Reported Aspirin 325 Mg Tab 325 Mg PO QPM 04/24/15 Reported Glucophage (Metformin Hcl) 1,000 Mg Tab 1,000 Mg PO BID 04/24/15 Reported Metoprolol Succinate ER (Metoprolol Succinate) 50 Mg Tabcr 50 Mg PO QPM 12/02/14 Reported Prinivil (Lisinopril) 10 Mg Tab 10 Mg PO QPM 01/15/11 Reported [place]-3 (Fish Oil) 1 Ea Cap 1 Cap PO QPM 08/04/08 Reported Vital Signs Weight (Kilograms): 104.55 Height (Feet): 6 Height (Inches): 0 Physical Exam General Appearance: no apparent distress Respiratory/Chest: Auscultation: breath sounds normal Cardiovascular: Heart Auscultation: RRR Abdomen: Inspection & Palpation: soft, non-distended Assessment and Plan Stable for colonoscopy
--- NOTE | 2017-03-13 08:53 | Discharge Instructions ---
Endoscopy Patient Instructions Date / Procedure(s) Performed Mar 13, 2017. Colonoscopy Allergy Information Coded Allergies: Codeine (Verified Adverse Reaction, Mild, NAUSEA, 03/13/17) Discharge Date / Findings Mar 13, 2017. Polyps, resected. Diverticulosis Hemorrhoids Medication Instructions Stopped Medication(s): ASA GLUCOPHAGE Provider Instructions Activity Restrictions - No exercising or heavy lifting for 24 hours. - Do not drink alcohol the day of the procedure. - Do not drive a car or operate machinery until the day after the procedure. - Do not make any important decisions or sign important papers in 24 hours after the procedure. Following Day: - Return to full activity which may include returning to work/school. Diet Start your diet with liquids and light foods (jello, soup, juice, toast). Then eat your usual diet if not nauseated. Treatment For Common After Affects For mild abdominal pain, bloating, or excessive gas: - Rest - Eat lightly - Lie on right side Follow-Up Information Follow-up with PMD as scheduled Repeat colonoscopy in 3 years Anesthesia Information What You Should Know You have had a procedure that required some medicine to reduce anxiety and discomfort. This treatment is called moderate sedation. After receiving the treatment, you may be sleepy, but you will be able to breathe on your own. The effects of the treatment may last for several hours. Follow these instructions along with Activity/Diet recommendations noted above: * Do NOT do anything where dizziness or clumsiness would be dangerous. * Rest quietly at home today, then you can be up and about tomorrow. * Have a responsible person stay with you the rest of today. * You may have had an I.V. today. If so, you may take the dressing off later today. Recommendations Call your doctor if: * Trouble breathing * Continuous vomiting for more than 24 hours * Temperature above 101 degrees * Severe abdominal pain or bloating * Pain not relieved by pain medicine ordered * There is increased drainage or redness from any incision * A large amount of rectal bleeding greater than 2-3 tablespoons. (If you had a polyp/s removed or have hemorrhoids, a small amount of blood - from the rectum is to be expected.) * You have any unanswered questions or concerns. IN THE EVENT OF A SERIOUS EMERGENCY, GO TO THE NEAREST EMERGENCY ROOM Your discharge instructions were prepared by provider Valentina Ball. Patient Instructions Signature Page Barrett Trinh Patient (or Guardian) Signature/Date: I have read and understand the instructions given to me by my caregivers. Caregiver/RN/Doctor Signature/Date: The above-named patient and/or guardian has received patient instructions on this date. + Original Patient Signature Page (only) stays with chart. Please make copy for patient.
--- NOTE | 2017-03-13 08:59 | GI REPORT ---
Procedure Date: 03/13/2017 8:11 AM Procedure: Colonoscopy Indications: Screening in patient at increased risk: Family history of 1st-degree relative with colorectal cancer Medicines: Monitored Anesthesia Care Complications: No immediate complications. Estimated Blood Loss: Estimated blood loss: none. Procedure: Pre-Anesthesia Assessment: - Prior to the procedure, a History and Physical was performed, and patient medications and allergies were reviewed. The patient is competent. The risks and benefits of the procedure and the sedation options and risks were discussed with the patient. All questions were answered and informed consent was obtained. Patient identification and proposed procedure were verified by the physician and the nurse in the procedure room. Mental Status Examination: alert and oriented. Airway Examination: normal oropharyngeal airway and neck mobility. Respiratory Examination: clear to auscultation. CV Examination: normal. ASA Grade Assessment: III - A patient with severe systemic disease. After reviewing the risks and benefits, the patient was deemed in satisfactory condition to undergo the procedure. The anesthesia plan was to use monitored anesthesia care (MAC). Immediately prior to administration of medications, the patient was re-assessed for adequacy to receive sedatives. The heart rate, respiratory rate, oxygen saturations, blood pressure, adequacy of pulmonary ventilation, and response to care were monitored throughout the procedure. The physical status of the patient was re-assessed after the procedure. After I obtained informed consent, the scope was passed under direct vision. Throughout the procedure, the patient's blood pressure, pulse, and oxygen saturations were monitored continuously. The Scope was introduced through the anus and advanced to the cecum, identified by appendiceal orifice and ileocecal valve. The colonoscopy was performed without difficulty. The patient tolerated the procedure well. The quality of the bowel preparation was good. The ileocecal valve, appendiceal orifice, and rectum were photographed. Scope withdrawal time was 12 minutes. Findings: The perianal and digital rectal examinations were normal. Two sessile polyps were found in the cecum. The polyps were 5 mm in size. These polyps were removed with a cold snare. Resection and retrieval were complete. Verification of patient identification for the specimen was done by the physician and nurse using the patient's name and date. A 10 mm polyp was found in the ascending colon. The polyp was sessile. The polyp was removed with a hot snare. Resection and retrieval were complete. Three sessile polyps were found in the descending colon. The polyps were 6 mm in size. These polyps were removed with a cold snare. Resection and retrieval were complete. A 10 mm polyp was found in the sigmoid colon. The polyp was sessile. The polyp was removed with a hot snare. Resection and retrieval were complete. Multiple small and large-mouthed diverticula were found in the sigmoid colon. Non-bleeding internal hemorrhoids were found during retroflexion. The hemorrhoids were small. Impression: - Two 5 mm polyps in the cecum, removed with a cold snare. Resected and retrieved. - One 10 mm polyp in the ascending colon, removed with a hot snare. Resected and retrieved. - Three 6 mm polyps in the descending colon, removed with a cold snare. Resected and retrieved. - One 10 mm polyp in the sigmoid colon, removed with a hot snare. Resected and retrieved. - Diverticulosis in the sigmoid colon. - Non-bleeding internal hemorrhoids. Recommendation: - Discharge patient to home. - Await pathology results. - Repeat colonoscopy for surveillance based on pathology results. - Return to referring physician. Valentina Ball MD 03/13/2017 8:58:59 AM This report has been signed electronically. Note Initiated On: 03/13/2017 8:11 AM I attest to the content of the Intraoperative Record and orders documented therein, exceptions below
[2017-03-13 09:26] VITALS: BP 138/69; PULSE 54; O2SAT 92
--- NOTE | 2017-03-13 09:27 | Anesthesiology Progress Note ---
Anesthesia Post Op Note Date & Time Mar 13, 2017 at 09:27 Vital Signs Pain Intensity: 0 Vital Signs Past 12 Hours Date Time Temp Pulse Resp B/P (MAP) Pulse Ox O2 Delivery O2 Flow Rate FiO2 03/13/17 09:11 60 18 136/71 (92) 92 Room Air 03/13/17 08:56 65 18 121/79 (93) 95 Room Air 03/13/17 08:09 35.9 50 18 145/71 (95) 97 Room Air Notes Mental Status: alert / awake / arousable, participated in evaluation Pt Amnestic to Procedure: Yes Nausea / Vomiting: adequately controlled Pain: adequately controlled Airway Patency, RR, SpO2: stable & adequate BP & HR: stable & adequate Hydration State: stable & adequate Anesthetic Complications: no major complications apparent
== END | disposition home or self-care (01) ==
LOC: C.GI 07:46
PROVIDERS: ATTEND Student in an Organized Health Care Education/Training Program
DX: Z12.11 Encounter for screening for malignant neoplasm of colon (principal); Z80.0 Family history of malignant neoplasm of digestive organs; D12.2 Benign neoplasm of ascending colon; D12.0 Benign neoplasm of cecum; D12.4 Benign neoplasm of descending colon; D12.5 Benign neoplasm of sigmoid colon; K57.50 Diverticulosis of both small and large intestine without perforation or abscess without bleeding; K64.8 Other hemorrhoids; I10 Essential (primary) hypertension; I47.1 Supraventricular tachycardia; E78.00 Pure hypercholesterolemia, unspecified; E11.9 Type 2 diabetes mellitus without complications; J44.9 Chronic obstructive pulmonary disease, unspecified; G47.33 Obstructive sleep apnea (adult) (pediatric); K44.9 Diaphragmatic hernia without obstruction or gangrene; M19.90 Unspecified osteoarthritis, unspecified site; M10.9 Gout, unspecified; F32.9 Major depressive disorder, single episode, unspecified; E66.9 Obesity, unspecified; Z68.31 Body mass index [BMI] 31.0-31.9, adult; Z79.4 Long term (current) use of insulin; Z79.82 Long term (current) use of aspirin; Z79.899 Other long term (current) drug therapy

== ENCOUNTER 2017-03-18 21:13 | Emergency (ER) | payer OTHER ==
[~2017-03-18] VITALS: Ht 182.9 cm; Wt 110.4 kg
[~2017-03-18 21:13] MED LIST changes: -AMOX875T PO; -ASPECOTC PO; +ASPI325T45 PO; -AZITTAB PO; -GFNSR600 PO; -IPRA-64 INH; -LCTX OR; -LEVO-18 PO; -LEVO1TAB34 PO; -LIDOCAINE HCL 2% 2 ML VIAL (20MG/ML) ONE; -MIDAZOLAM HCL 1 MG/ML 2ML VIAL ONE; -ONDANSETRON INJ 2 MG/ML 2 ML VIAL ONE; -OSEL75CA12 PO; -PRD20 PO; -PRED20TA PO; -PROPOFOL IV EMULSION 10 MG/ML 20 ML VIAL IV ONE; -SIMV40TA2 PO; -SLWMEC PO; -SODIUM CHLORIDE 0.9% 500ML 500 ML IV ONE; -TRMCR515 TOP
[2017-03-18 21:27] VITALS: Ht 182.9 cm; Wt 110.4 kg
[2017-03-18] MEDS ORDERED: ALBUT/IPRATROP 3MG/0.5MG NEB 3 ML VIAL INH STA ×2 (21:44→22:50)
[2017-03-18] MEDS ORDERED: METHYLPREDNISOLONE 125 MG VIAL IV STA (21:44)
[2017-03-18 21:48] VITALS: O2SAT 93
--- NOTE | 2017-03-18 22:03 | DIAGNOSTIC IMAGING REPORT ---
CHEST ONE VIEW PORTABLE CLINICAL HISTORY: EVALUATE RESPIRATORY DISTRESS.DYSPNEA COMPARISON STUDY: Chest radiograph March 06, 2017. FINDINGS: Lung volumes are normal. No pneumothorax or pleural effusion is present. There is no evidence of pulmonary edema. There is no consolidation to suggest pneumonia. There are median sternotomy wires. Cardiomediastinal silhouette is stable. The patient is mildly rotated. IMPRESSION: No acute cardiopulmonary findings. Electronically signed by: Clyde Tapia M.D. 03/18/2017 10:02 PM Dictated Date/Time: 03/18/2017 10:01 PM
[2017-03-18] MEDS ORDERED: ACETAMINOPHEN 500 MG TAB PO STA (22:04)
[2017-03-18 22:09] LABS: BASO % 0.6 %; BASO ABS # 0.05 K/uL (0-0.2); COMPLETE YES; EOS % 0.3 %; HEMATOCRIT 44.2 % (42-52); IG% 0.3 %; LYMPH % 13.3 %; LYMPH ABS # 1.18 K/uL (1.2-3.4); MEAN CELL VOLUME 91.5 fL (80-100); MEAN CORPUSCULAR HEMOGLOBIN 30.8 pg (25-34); MEAN CORPUSCULAR HGB CONC 33.7 g/dl (32-36); MONO % 18.2 %; NEUT % 67.3 %; PLATELET COUNT 209 K/uL (130-400); RED BLOOD COUNT 4.83 M/uL (4.7-6.1); WHITE BLOOD COUNT 8.85 K/uL (4.8-10.8)
[2017-03-18 22:13] LABS: CALCIUM 8.9 mg/dl (8.5-10.1); CREATININE 1.19 mg/dl (0.60-1.40); POTASSIUM 4.4 mmol/L (3.5-5.1)
[2017-03-18] MEDS ORDERED: OSELTAMIVIR PHOSPHATE 75 MG CAP PO STA ×2 (22:13→23:50)
[2017-03-18 22:15] LABS: ALB/GLOB RATIO 0.9 (0.9-2)
--- NOTE | 2017-03-18 22:22 | EMERGENCY ROOM VISIT NOTE ---
History Report prepared by Abhilash: Elizabeth Cano Under the Supervision of: Dr. Yunier Hanks M.D. First contact with patient: 21:37 Chief Complaint: FEVER Stated Complaint: FEVER,NAUSEA History of Present Illness The patient is a 66 year old male who presents to the Emergency Room with complaints of a worsening fever starting yesterday. The patient states that he has a cough with substance production, body aches, and nausea. He states that it hit him fast. He reports that he took Tylenol this morning and took Ibuprofen two hours ago. He notes that he also took Aspirin this morning. The patient denies being around anyone sick. He notes a history of COPD and Diabetes. He states that he took his sugar four hours ago and it was 120. Pt denies LOC, headache, chills, diaphoresis, visual changes, neck pain, chest pain, breathing difficulties, nausea, vomiting, abdominal pain, back pain, melena, hematochezia, urinary symptoms, numbness, weakness, lymphadenopathy, rash, or other complaints. Source of History: patient Onset: yesterday Position: other (global) Quality: ache Timing: worsening Associated Symptoms: + cough, + nausea Note: The patient complains of substance production with her cough. Review of Systems See HPI for pertinent positives and negatives. A total of ten systems were reviewed and were otherwise negative. Past Medical & Surgical Medical Problems: (1) Aorta Dissection,Thoracic (2) Aortic aneurysm (3) Chest pain (4) COPD (chronic obstructive pulmonary disease) (5) Diabetes (6) Diverticulosis Colon (W/O Ment Of Hemorrhage) (7) Gout, Unspecified (8) Hypertension (9) Kidney stones (10) Obstructive Sleep Apnea (Adult) (Pediatric) Surgical Problems: (1) History of appendectomy Family History Cancer Diabetes mellitus Heart disease Hypertension Social History Smoking Status: Never Smoker Alcohol Use: occasionally Marital Status: Housing Status: lives with significant other Occupation Status: employed Current/Historical Medications Scheduled Allopurinol (Zyloprim), 100 MG PO QPM Aspirin (Aspirin), 325 MG PO QPM Ezetimibe/Simvastatin (Vytorin 10MG/20MG), 1 TAB PO QPM Fish Oil ([place]-3), 1 CAP PO QPM Insulin Glargine (Lantus), 48 UNITS SC QPM Lisinopril (Prinivil), 10 MG PO QPM Magnesium (Magnesium), 200 MG PO BID Metformin Hcl (Glucophage), 1,000 MG PO BID Metoprolol Succinate (Metoprolol Succinate ER), 50 MG PO QPM Multiple Vitamins W/ Minerals (Centrum Silver Adult 50+), 1 TAB PO QPM Oseltamivir (Tamiflu), 75 MG PO BID Prednisone (Prednisone), 20 MG PO DAILY Umeclidinium-Vilanterol (Anoro Ellipta 62.5-25 Mcg/INH), 1 PUFF INH QAM Venlafaxine Hcl (Effexor Extended Rel), 75 MG PO QPM Scheduled PRN Albuterol Hfa (Ventolin Hfa), 2 PUFFS INH QID PRN for SOB/Wheezing Allergies Coded Allergies: Codeine (Verified Adverse Reaction, Mild, NAUSEA, 03/18/17) Physical Exam Vital Signs Date Time Temp Pulse Resp B/P (MAP) Pulse Ox O2 Delivery O2 Flow Rate FiO2 03/19/17 00:08 36.8 91 18 163/72 93 Room Air 03/19/17 00:05 93 16 93 03/19/17 00:04 03/18/17 23:50 94 18 91 03/18/17 23:35 92 18 93 03/18/17 23:20 83 97 03/18/17 23:15 75 97 Nebulizer 03/18/17 23:13 36.7 03/18/17 23:00 82 17 93 03/18/17 22:45 82 16 93 03/18/17 22:43 37.1 82 20 137/77 94 Room Air 03/18/17 21:48 93 Room Air 03/18/17 21:42 82 03/18/17 21:27 37.0 93 20 161/72 93 Room Air Physical Exam GENERAL: Awake, alert, mildly ill appearing, no distress HEAD: Normocephalic, atraumatic. No edema. EYES: Normal conjunctiva. Sclera non-icteric. NOSE: Mild congestion. OROPHARYNX: Lips, tongue, and mucosa unremarkable. No erythema or exudate. NECK: Supple. No nuchal rigidity. FROM. No adenopathy. Negative jolt accentuation test. RESPIRATORY: CTA bilaterally. No wheezes rales or rhonchi. CARDIAC: Borderline tachycardic rate, normal rhythm. ABDOMEN: Soft, non distended. No tenderness to palpation. NEURO: Normal sensorium. SKIN: No rash or jaundice noted Medical Decision & Procedures ER Provider Diagnostic Interpretation: Radiology results as stated below per my review and radiologist interpretation: CHEST ONE VIEW PORTABLE CLINICAL HISTORY: EVALUATE RESPIRATORY DISTRESS.DYSPNEA COMPARISON STUDY: Chest radiograph March 06, 2017. FINDINGS: Lung volumes are normal. No pneumothorax or pleural effusion is present. There is no evidence of pulmonary edema. There is no consolidation to suggest pneumonia. There are median sternotomy wires. Cardiomediastinal silhouette is stable. The patient is mildly rotated. IMPRESSION: No acute cardiopulmonary findings. Electronically signed by: Clyde Tapia M.D. 03/18/2017 10:02 PM Dictated Date/Time: 03/18/2017 10:01 PM Laboratory Results 03/18/17 21:39 Red Blood Count 4.83, Mean Corpuscular Volume 91.5, Mean Corpuscular Hemoglobin 30.8, Mean Corpuscular Hemoglobin Concent 33.7, Mean Platelet Volume 9.0, Neutrophils (%) (Auto) 67.3, Lymphocytes (%) (Auto) 13.3, Monocytes (%) (Auto) 18.2, Eosinophils (%) (Auto) 0.3, Basophils (%) (Auto) 0.6, Neutrophils # (Auto ) 5.95, Lymphocytes # (Auto) 1.18, Monocytes # (Auto) 1.61, Eosinophils # (Auto ) 0.03, Basophils # (Auto) 0.05 03/18/17 21:39 Test 03/18/17 21:35 03/18/17 21:39 03/18/17 23:15 Influenza Type A Antigen POS for Influ A (NEG) Influenza Type B Antigen Neg for Influ B (NEG) White Blood Count 8.85 K/uL (4.8-10.8) Red Blood Count 4.83 M/uL (4.7-6.1) Hemoglobin 14.9 g/dL (14.0-18.0) Hematocrit 44.2 % (42-52) Mean Corpuscular Volume 91.5 fL (80-100) Mean Corpuscular Hemoglobin 30.8 pg (25-34) Mean Corpuscular Hemoglobin Concent 33.7 g/dl (32-36) Platelet Count 209 K/uL (130-400) Mean Platelet Volume 9.0 fL (7.4-10.4) Neutrophils (%) (Auto) 67.3 % Lymphocytes (%) (Auto) 13.3 % Monocytes (%) (Auto) 18.2 % Eosinophils (%) (Auto) 0.3 % Basophils (%) (Auto) 0.6 % Neutrophils # (Auto) 5.95 K/uL (1.4-6.5) Lymphocytes # (Auto) 1.18 K/uL (1.2-3.4) Monocytes # (Auto) 1.61 K/uL (0.11-0.59) Eosinophils # (Auto) 0.03 K/uL (0-0.5) Basophils # (Auto) 0.05 K/uL (0-0.2) RDW Standard Deviation 45.9 fL (36.4-46.3) RDW Coefficient of Variation 13.7 % (11.5-14.5) Immature Granulocyte % (Auto) 0.3 % Immature Granulocyte # (Auto) 0.03 K/uL (0.00-0.02) Anion Gap 9.0 mmol/L (3-11) Est Creatinine Clear Calc Drug Dose 80.5 ml/min Estimated GFR () 74.4 Estimated GFR (Non- 64.2 BUN/Creatinine Ratio 14.0 (10-20) Calcium Level 8.9 mg/dl (8.5-10.1) Total Bilirubin 0.5 mg/dl (0.2-1) Aspartate Amino Transf (AST/SGOT) 26 U/L (15-37) Alanine Aminotransferase (ALT/SGPT) 38 U/L (12-78) Alkaline Phosphatase 129 U/L (45-117) Total Protein 8.1 gm/dl (6.4-8.2) Albumin 3.9 gm/dl (3.4-5.0) Globulin 4.2 gm/dl (2.5-4.0) Albumin/Globulin Ratio 0.9 (0.9-2) Urine Color DK YELLOW Urine Appearance CLEAR (CLEAR) Urine pH 5.0 (4.5-7.5) Urine Specific [place] 1.030 (1.000-1.030) Urine Protein 1+ (NEG) Urine Glucose (UA) NEG (NEG) Urine Ketones TRACE (NEG) Urine Occult Blood NEG (NEG) Urine Nitrite NEG (NEG) Urine Bilirubin NEG (NEG) Urine Urobilinogen NEG (NEG) Urine Leukocyte Esterase NEG (NEG) Urine WBC (Auto) 1-5 /hpf (0-5) Urine RBC (Auto) 0-4 /hpf (0-4) Urine Hyaline Casts (Auto) 1-5 /lpf (0-5) Urine Epithelial Cells (Auto) >30 /lpf (0-5) Urine Bacteria (Auto) NEG (NEG) Urine Renal Epithelial Cells /lpf (0-5) Urine Mucus PRESENT (NONE PRSENT) Laboratory results reviewed by me Medications Administered Medications (Trade) Dose Ordered Sig/Jazmín Route Start Time Stop Time Status Last Admin Dose Admin Albuterol/ Ipratropium (Duoneb) 3 ml NOW STAT INH 03/18/17 21:44 03/18/17 21:46 DC 03/18/17 22:12 3 ML Methylprednisolone Sodium Succinate (Solu-Medrol IV) 125 mg NOW STAT IV 03/18/17 21:44 03/18/17 21:46 DC 03/18/17 22:12 125 MG Acetaminophen (Tylenol Tab) 1,000 mg NOW STAT PO 03/18/17 22:04 03/18/17 22:05 DC 03/18/17 22:12 1,000 MG Oseltamivir Phosphate (Tamiflu Cap) 75 mg NOW STAT PO 03/18/17 22:13 03/18/17 22:14 DC 03/18/17 22:29 75 MG Albuterol/ Ipratropium (Duoneb) 3 ml NOW STAT INH 03/18/17 22:50 03/18/17 22:51 DC 03/18/17 23:13 3 ML Oseltamivir Phosphate (Tamiflu Cap) 75 mg NOW STAT PO 03/18/17 23:50 03/18/17 23:53 DC 03/19/17 00:27 75 MG Prednisone (PredniSONE TAB) 60 mg NOW STAT PO 03/18/17 23:50 03/18/17 23:53 DC 03/19/17 00:05 60 MG ECG Indication: nausea Rate (beats per minute): 82 Rhythm: normal sinus Findings: no acute ischemic change, no ectopy ED Course 2138: The patient was evaluated in room A11B. A complete history and physical exam was performed. 2143: Ordered Solu-Medrol IV 125 mg IV, Duoneb 3 ml INH. 2204: Ordered Tylenol Tab 1000 mg PO. 2213: Ordered Tamiflu Cap 75 mg PO. 2218: I reevaluated the patient and he is feeling better. I updated him on his results. 2254: I reevaluated the patient and he is feeling better. 2330: Patient reassessed. Feeling better. 0015: Patient reassessed and is doing well. Prednisone given. Patient will have a Tamiflu given to go for the morning. He is feeling much better. Return instructions outlined. Medical Decision Prior records/ancillary studies reviewed. Triage Nursing notes reviewed and agree them. Additional history obtained from family. The patient's history was concerning for fever and flulike symptoms. Differential diagnosis: Etiologies such as influenza, otitis, pharyngitis, pneumonia,meningitis, urinary tract infection, sepsis, bacteremia, viral syndrome, as well as others were entertained. Physical examination: As above. Some mild left-sided wheezing. ER treatment provided: DuoNeb 2 Tylenol Tamiflu Solu-Medrol On reassessment the patient felt better. Present Diagnostics interpreted by me: ECG: No ischemia The labs revealed an unremarkable CBC and chemistry panel. The patient has a positive influenza A screen. Imaging studies: Chest x-ray as above The patient has influenza A. After the above treatment he is doing much better. Conservative management was discussed. He will follow-up with the primary clinic. He worsens in any way he will come back. He has a nebulizer at home. By the evaluation outlined above other emergent etiologies such as those listed in the differential, as well as others, were deemed relatively unlikely. The patient was educated about the findings as listed above. All questions were answered and the patient was pleased with the treatment. Return instructions were outlined and the patient was discharged in stable condition. The patient was referred to to his PCP for follow-up for a recheck of the current condition. Medication Reconcilliation Current Medication List: was personally reviewed by me Impression Primary Impression: Influenza Additional Impression: COPD (chronic obstructive pulmonary disease) Scribe Attestation The scribe's documentation has been prepared under my direction and personally reviewed by me in its entirety. I confirm that the note above accurately reflects all work, treatment, procedures, and medical decision making performed by me. Departure Information Dispostion Home / Self-Care Prescriptions Prednisone (Prednisone) 20 Mg Tab 20 MG PO DAILY for 3 Days, #3 TAB Prov: Yunier Hanks MD 03/19/17 Oseltamivir (Tamiflu) 75 Mg Cap 75 MG PO BID, #8 CAP Prov: Yunier Hanks MD 03/19/17 Referrals Dulce Gomez M.D. (PCP) Patient Instructions My [facility] Additional Instructions Tamiflu 75 mg twice daily for 5 days. You were given a morning dose for tomorrow. Fill the prescription and start Friday night . Prednisone 20 mg: Once daily until the prescription is finished. Fill the prescription and start that on Friday. Continue your nebulizers and other medications. Monitor blood sugars closely as the prednisone and illness can cause the sugars to elevate. Adjust her diet accordingly. Watch intake of simple carbohydrates and sugars. Acetaminophen(Tylenol) may be used for fever or pain. Use 1000mg every six hours as needed. Avoid using more than 4000mg in a 24 hour period. (AND/OR) Ibuprofen(Motrin, Advil) may be used for fever or pain. Use 600mg every six hours as needed. Take with food. Avoid using more than 2400mg in a 24 hour period. Do not use 2400mg per day for more than three consecutive days without physician direction. Prolonged inappropriate use can lead to stomach upset or ulcers. Stay away from anyone that may be or have a compromised immune system. Notify close contacts that become ill that you have influenza A. Have your spouse check in with her primary provider tomorrow. Rest and drink plenty of fluids. Controlling your fever with Tylenol and Ibuprofen as above will make you feel better. Wash your hands after nose blowing, sneezing, or coughing. Most germs are spread through contact, therefore improper hygiene may result in your close contacts and loved ones becoming ill just like you. Return to the ER for severe headache, neck stiffness, chest pain, difficulty breathing, fevers, vomiting, worsening of your condition, or as needed. Follow up with your primary physician this week for a recheck of your current condition. Problem Qualifiers
[2017-03-18 23:30] LABS: URINE APPEARANCE CLEAR (CLEAR); URINE BILIRUBIN NEG (NEG); URINE COLOR DK YELLOW; URINE EPITHELIAL CELL AUTO >30 /lpf (0-5); URINE NITRITE NEG (NEG); UROBILINOGEN NEG (NEG)
[2017-03-18 23:41] LABS: MANUAL MICROSCOPIC REQUIRED? NO; REVIEW REQ? YES
[2017-03-19 00:08] VITALS: BP 163/72; PULSE 91; TEMP 36.8; O2SAT 93
[2017-03-19] MEDS ORDERED: PRED20TA PO (00:08)
[2017-03-19] MEDS ORDERED: OSEL75CA12 PO (00:08)
[2017-03-19 00:14] LABS: URINE MUCUS PRESENT (NONE PRSENT)
== END 2017-03-19 00:29 | disposition home or self-care (01) ==
LOC: C.EDB 21:14 → C.EDA 03-19 00:29
DX: J09.X2 Influenza due to identified novel influenza A virus with other respiratory manifestations (principal); J44.9 Chronic obstructive pulmonary disease, unspecified; R11.0 Nausea; I10 Essential (primary) hypertension; E11.9 Type 2 diabetes mellitus without complications; G47.33 Obstructive sleep apnea (adult) (pediatric); Z79.4 Long term (current) use of insulin; Z79.82 Long term (current) use of aspirin; Z79.899 Other long term (current) drug therapy; Z86.79 Personal history of other diseases of the circulatory system; Z87.19 Personal history of other diseases of the digestive system; Z87.442 Personal history of urinary calculi; Z82.49 Family history of ischemic heart disease and other diseases of the circulatory system; Z83.3 Family history of diabetes mellitus

== ENCOUNTER 2017-03-20 19:08 | Inpatient (IN) | payer OTHER ==
[~2017-03-20] VITALS: Ht 182.9 cm; Wt 100.0 kg
[~2017-03-20 19:08] MED LIST changes: +ASPECOTC PO; -ASPI325T45 PO; +OSEL75CA12 PO; +PRED20TA PO
[2017-03-20] MEDS ORDERED: SODIUM CHLORIDE 0.9% 1000ML 2,000 ML IV STA (19:42)
[2017-03-20] MEDS ORDERED: LEVAQUIN 750MG / 150ML D5W IV STA (19:42)
--- NOTE | 2017-03-20 20:06 | DIAGNOSTIC IMAGING REPORT ---
CHEST ONE VIEW PORTABLE CLINICAL HISTORY: 66 years-old Male presenting with fever. TECHNIQUE: Portable upright AP view of the chest was obtained. COMPARISON: 03/18/2017. FINDINGS: Median sternotomy wires with breakage of one of the wires, unchanged. Atherosclerosis of the aortic arch. Cardiac silhouette normal in size. Left perihilar and basilar hazy opacities. This does not silhouette the left heart border but does result in partial obscuration of the medial left hemidiaphragm. No large pleural effusion or pneumothorax. Right lung and pleural space clear. Osseous structures normal. Upper abdomen normal. IMPRESSION: 1. Left lower lobe pneumonia. Electronically signed by: Ben Bhatia M.D. 03/20/2017 8:05 PM Dictated Date/Time: 03/20/2017 8:03 PM
[2017-03-20 20:09] LABS: HEMATOCRIT 40.4 % (42-52); MEAN CELL VOLUME 90.4 fL (80-100); MEAN CORPUSCULAR HEMOGLOBIN 31.3 pg (25-34); MEAN CORPUSCULAR HGB CONC 34.7 g/dl (32-36); MEAN PLATELET VOLUME 9.1 fL (7.4-10.4); PLATELET COUNT 197 K/uL (130-400); RED CELL DISTRIBUTION WIDTH SD 46.5 fL (36.4-46.3); WHITE BLOOD COUNT 4.28 K/uL (4.8-10.8)
[2017-03-20] MEDS ORDERED: CEFEPIME IV 1,000 MG in DEXTROSE 5% 100ML 100 ML IV STA (20:10)
[2017-03-20 20:13] LABS: ISTAT CREATININE 1.4 mg/dl (0.6-1.3); ISTAT IONIZED CALCIUM 1.03 mmol/l (1.12-1.32); ISTAT POTASSIUM 4.6 mEq/L (3.3-5.0)
[2017-03-20 20:28] LABS: ALBUMIN 3.4 gm/dl (3.4-5.0); ALT/SGPT 31 U/L (12-78); CALCIUM 8.4 mg/dl (8.5-10.1); CARBON DIOXIDE 18 mmol/L (21-32); CREATININE 1.56 mg/dl (0.60-1.40); GLUCOSE 202 mg/dl (70-99); POTASSIUM 4.3 mmol/L (3.5-5.1); SODIUM 134 mmol/L (136-145)
[2017-03-20 20:31] LABS: EOS % 0.5 %; EOS ABS # 0.02 K/uL (0-0.5); IG# 0.02 K/uL (0.00-0.02); LYMPH % 16.4 %; MONO % 11.4 %; MONO ABS # 0.49 K/uL (0.11-0.59); NEUT % 71.2 %; NEUT ABS # 3.05 K/uL (1.4-6.5)
[2017-03-20 20:33] LABS: ALKALINE PHOSPHATASE 98 U/L (45-117); AST/SGOT 24 U/L (15-37); CKMB 1.7 ng/ml (0.5-3.6); TOTAL PROTEIN 7.6 gm/dl (6.4-8.2)
[2017-03-20] MEDS ORDERED: MoRPHine SULFATE 10 MG/ML CARP/VIAL IV STA (20:44)
[2017-03-20] MEDS ORDERED: MAGNESIUM OXIDE 400 MG TAB PO ONE (21:55)
[2017-03-20] MEDS ORDERED: VENLAFAXINE HCL XR 75 MG CAPXR PO ONE (21:55)
[2017-03-20] MEDS ORDERED: INSULIN GLARGINE SOLOSTAR 100 UNITS/ML 3 ML PEN SC ONE (21:55)
[2017-03-20 22:06] LABS: BLOOD UREA NITROGEN 33 mg/dl (7-18)
[2017-03-20] MEDS ORDERED: GLUCAGON FOR INJ 1 MG VIAL SQ PRN (22:15)
[2017-03-20] MEDS ORDERED: GLUCOSE 10 TABS/TUBE PO PRN (22:15)
[2017-03-20] MEDS ORDERED: DEXTROSE 50% 50 ML SYR IV PRN (22:15)
[2017-03-20] MEDS ORDERED: GLUCOSE 40% GEL 15 GM TUBE PO PRN (22:15)
[2017-03-20] MEDS ORDERED: ONDANSETRON 8MG OD TAB PO PRN (22:15)
[2017-03-20] MEDS: MAGNESIUM SULFATE 1GM / D5W 1 GM in PREMIXED IN D5W 100 ML IV SCH ×2 (22:18→23:48)
[2017-03-20 23:00] VITALS: BP 134/76; PULSE 101; TEMP 38; O2SAT 92; BMI 33.4
--- NOTE | 2017-03-20 23:00 | NUR ---
Patient arrives at this time to room 222, transferred from stretcher to bed, clinical research monitor applied and vital signs obtained. Patient becomes very SOB with very minimal activity, SOB with speaking. Currently on 6L nasal cannula c saturations >90% at rest, desaturates to 86% rapidly with any exertion. Lungs noted to have coarse rhonchi bilaterally, wheezes through the L lung gonzalez. +1 edema noted to bilateral lower extremities. Magnesium Sulfate infusing into patent [id number] in the R hand. Admission information obtained at this time, see EMR for further admission details. present at bedside for completion of code word and fall risk paperwork. Primary RN Lara aware of patient arrival and updated to patient condition.
[2017-03-20] MEDS ORDERED: METHYLPREDNISOLONE IV 20 MG in SYRINGE 0 ML IV STA (23:19)
--- NOTE | 2017-03-20 23:24 | EMERGENCY ROOM VISIT NOTE ---
History Report prepared by Abhilash: Tanya White Under the Supervision of: Steffen GouldO. First contact with patient: 19:26 Chief Complaint: SHORTNESS OF BREATH Stated Complaint: SOB, FEVER, CONVULSIONS History of Present Illness The patient is a 66 year old male who presents to the Emergency Room with complaints of persistent shortness of breath that began yesterday. The patient states that he was seen in the Emergency Department 2 days ago, noting he was diagnosed with flu A. He notes that he felt better after his visit, noting he began feeling about a day after his visit. The patient states he has a runny nose, chills, nausea, and short of breath. He notes he has chest pain when he coughs. The patient states that he has not been eating or drinking anything lately. The patient took Tylenol 2 hours prior to arrival. He notes a history of COPD and diabetes, noting his sugar has been high lately. Pt denies headache , change in vision, fevers, vomiting, diarrhea, pain with urination, and melena. Patient denies diabetes, hypertension, hyperlipidemia, and CAD. Patient denies swelling of calves, recent trips, history of immobilization or recent surgery, prior history of DVT, hemoptysis, history of malignancy. Source of History: patient Onset: 2 nights ago Position: chest Quality: other (SOB) Timing: other (persistent) Associated Symptoms: + cough, + chest pain, + nausea Review of Systems See HPI for pertinent positives & negatives. A total of 10 systems reviewed and were otherwise negative. Past Medical & Surgical Medical Problems: (1) Aorta Dissection,Thoracic (2) Aortic aneurysm (3) Chest pain (4) COPD (chronic obstructive pulmonary disease) (5) Diabetes (6) Diverticulosis Colon (W/O Ment Of Hemorrhage) (7) Gout, Unspecified (8) Hypertension (9) Influenza A (10) Kidney stones (11) Obstructive Sleep Apnea (Adult) (Pediatric) (12) Pneumonia involving left lung Surgical Problems: (1) History of appendectomy Family History Cancer Diabetes mellitus Heart disease Hypertension Social History Smoking Status: Former Smoker Alcohol Use: occasionally Marital Status: Housing Status: lives with significant other Occupation Status: employed Current/Historical Medications Scheduled Allopurinol (Zyloprim), 100 MG PO QPM Aspirin (Aspirin), 325 MG PO QPM Ezetimibe/Simvastatin (Vytorin 10MG/20MG), 1 TAB PO QPM Fish Oil (Star-3), 1 CAP PO QPM Insulin Glargine (Lantus), 48 UNITS SC QPM Lisinopril (Prinivil), 10 MG PO QPM Magnesium (Magnesium), 200 MG PO BID Metformin Hcl (Glucophage), 1,000 MG PO BID Metoprolol Succinate (Metoprolol Succinate ER), 50 MG PO QPM Multiple Vitamins W/ Minerals (Centrum Silver Adult 50+), 1 TAB PO QPM Oseltamivir (Tamiflu), 75 MG PO BID Prednisone (Prednisone), 20 MG PO DAILY Umeclidinium-Vilanterol (Anoro Ellipta 62.5-25 Mcg/INH), 1 PUFF INH QAM Venlafaxine Hcl (Effexor Extended Rel), 75 MG PO QPM Scheduled PRN Albuterol Hfa (Ventolin Hfa), 2 PUFFS INH QID PRN for SOB/Wheezing Allergies Coded Allergies: Codeine (Verified Adverse Reaction, Mild, NAUSEA, 03/20/17) Physical Exam Vital Signs Date Time Temp Pulse Resp B/P (MAP) Pulse Ox O2 Delivery O2 Flow Rate FiO2 03/20/17 21:50 92 24 89 03/20/17 21:48 Nasal Cannula 6.0 03/20/17 21:35 99 29 90 Nasal Cannula 4.0 03/20/17 21:30 108/68 03/20/17 21:23 102 25 91 03/20/17 21:08 97 21 92 03/20/17 21:00 125/69 03/20/17 20:53 104 28 92 03/20/17 20:38 99 23 90 03/20/17 20:30 129/65 03/20/17 20:23 98 26 93 03/20/17 20:08 104 23 90 03/20/17 20:00 Nasal Cannula 4.0 03/20/17 20:00 125/69 03/20/17 19:53 101 31 90 03/20/17 19:41 107 03/20/17 19:38 106 29 90 03/20/17 19:37 124/67 03/20/17 19:34 88 Nasal Cannula 3.0 03/20/17 19:22 39.3 112 18 131/70 90 Room Air Physical Exam GENERAL: Sitting up in bed, alert, ill-appearing, well nourished, moderate distress EYE EXAM: normal conjunctiva. OROPHARYNX: no exudate, no erythema, lips, buccal mucosa, and tongue normal and mucous membranes are dry NECK: supple, no nuchal rigidity, no adenopathy, non-tender LUNGS: Diffused wheezing bilaterally. HEART: no murmurs, S1 normal and S2 normal ABDOMEN: abdomen soft, non-tender, normo-active bowel sounds, no masses, no rebound or guarding. BACK: Back is symmetrical on inspection and there is no deformity, no midline tenderness, no CVA tenderness. SKIN: no rashes and no bruising UPPER EXTREMITIES: upper extremities are grossly normal. LOWER EXTREMITIES: No pitting edema. NEURO EXAM: Normal sensorium, cranial nerves II-XII grossly intact, normal speech, no gross weakness of arms, no gross weakness of legs. Medical Decision & Procedures ER Provider Diagnostic Interpretation: Radiology results as stated below per my review and the radiologist's interpretation: CHEST ONE VIEW PORTABLE CLINICAL HISTORY: 66 years-old Male presenting with fever. TECHNIQUE: Portable upright AP view of the chest was obtained. COMPARISON: 03/18/2017. FINDINGS: Median sternotomy wires with breakage of one of the wires, unchanged. Atherosclerosis of the aortic arch. Cardiac silhouette normal in size. Left perihilar and basilar hazy opacities. This does not silhouette the left heart border but does result in partial obscuration of the medial left hemidiaphragm. No large pleural effusion or pneumothorax. Right lung and pleural space clear. Osseous structures normal. Upper abdomen normal. IMPRESSION: 1. Left lower lobe pneumonia. Electronically signed by: Ben Bhatia M.D. 03/20/2017 8:05 PM Dictated Date/Time: 03/20/2017 8:03 PM Laboratory Results 03/20/17 19:50 Red Blood Count 4.47, Mean Corpuscular Volume 90.4, Mean Corpuscular Hemoglobin 31.3, Mean Corpuscular Hemoglobin Concent 34.7, Mean Platelet Volume 9.1, Neutrophils (%) (Auto) 71.2, Lymphocytes (%) (Auto) 16.4, Monocytes (%) (Auto) 11.4, Eosinophils (%) (Auto) 0.5, Basophils (%) (Auto) 0.0, Neutrophils # (Auto ) 3.05, Lymphocytes # (Auto) 0.70, Monocytes # (Auto) 0.49, Eosinophils # (Auto ) 0.02, Basophils # (Auto) 0.00 03/20/17 19:50 Test 03/20/17 19:50 03/20/17 19:58 03/20/17 20:02 03/20/17 21:30 White Blood Count 4.28 K/uL (4.8-10.8) Red Blood Count 4.47 M/uL (4.7-6.1) Hemoglobin 14.0 g/dL (14.0-18.0) Hematocrit 40.4 % (42-52) Mean Corpuscular Volume 90.4 fL (80-100) Mean Corpuscular Hemoglobin 31.3 pg (25-34) Mean Corpuscular Hemoglobin Concent 34.7 g/dl (32-36) Platelet Count 197 K/uL (130-400) Mean Platelet Volume 9.1 fL (7.4-10.4) Neutrophils (%) (Auto) 71.2 % Lymphocytes (%) (Auto) 16.4 % Monocytes (%) (Auto) 11.4 % Eosinophils (%) (Auto) 0.5 % Basophils (%) (Auto) 0.0 % Neutrophils # (Auto) 3.05 K/uL (1.4-6.5) Lymphocytes # (Auto) 0.70 K/uL (1.2-3.4) Monocytes # (Auto) 0.49 K/uL (0.11-0.59) Eosinophils # (Auto) 0.02 K/uL (0-0.5) Basophils # (Auto) 0.00 K/uL (0-0.2) RDW Standard Deviation 46.5 fL (36.4-46.3) RDW Coefficient of Variation 14.0 % (11.5-14.5) Immature Granulocyte % (Auto) 0.5 % Immature Granulocyte # (Auto) 0.02 K/uL (0.00-0.02) Prothrombin Time 10.7 SECONDS (9.0-12.0) Prothromb Time International Ratio 1.0 (0.9-1.1) Est Creatinine Clear Calc Drug Dose 61.0 ml/min Estimated GFR () 53.6 Estimated GFR (Non- 46.3 BUN/Creatinine Ratio 21.0 (10-20) Calcium Level 8.4 mg/dl (8.5-10.1) Magnesium Level 1.2 mg/dl (1.8-2.4) Total Bilirubin 0.5 mg/dl (0.2-1) Direct Bilirubin 0.2 mg/dl (0-0.2) Aspartate Amino Transf (AST/SGOT) 24 U/L (15-37) Alanine Aminotransferase (ALT/SGPT) 31 U/L (12-78) Alkaline Phosphatase 98 U/L (45-117) Total Creatine Kinase 491 U/L (39-308) Creatine Kinase MB 1.7 ng/ml (0.5-3.6) Creatine Kinase MB Ratio 0.3 (0-3.0) Troponin I < 0.015 ng/ml (0-0.045) Total Protein 7.6 gm/dl (6.4-8.2) Albumin 3.4 gm/dl (3.4-5.0) Bedside Lactic Acid Venous 2.68 mmol/L (0.90-1.70) Bedside Hemoglobin 14.3 g/dl (14.0-18.0) Bedside Hematocrit 42 % (42-52) Bedside Sodium 136 mEq/L (135-144) Bedside Potassium 4.6 mEq/L (3.3-5.0) Bedside Chloride 104 mEq/L (101-112) Bedside Total CO2 18 mEq/l (24-31) Anion Gap 19.0 mmol/L (16-25) Bedside Blood Urea Nitrogen 32 mg/dl (7-18) Bedside Creatinine 1.4 mg/dl (0.6-1.3) Bedside Glucose (other) 213 mg/dl (70-99) Bedside Ionized Calcium (Rachael) 1.03 mmol/l (1.12-1.32) Lactic Acid Level 2.1 mmol/L (0.4-2.0) Laboratory results per my review. Medications Administered Medications (Trade) Dose Ordered Sig/Jazmín Route Start Time Stop Time Status Last Admin Dose Admin Sodium Chloride 2,000 ml @ 999 mls/hr Q2H1M STAT IV 03/20/17 19:42 03/20/17 21:42 DC 03/20/17 20:00 999 MLS/HR Levofloxacin (Levaquin / D5W) 750 mg NOW STAT IV 03/20/17 19:42 12/28/17 19:44 DC 03/20/17 20:00 750 MG Cefepime HCl 1000 mg/Dextrose 111 ml @ 200 mls/hr NOW STAT IV 03/20/17 20:10 03/20/17 20:43 DC 03/20/17 21:08 200 MLS/HR Morphine Sulfate (MoRPHine SULFATE INJ) 6 mg NOW STAT IV 03/20/17 20:44 03/20/17 20:46 DC 03/20/17 21:04 6 MG ECG Indication: SOB/dyspnea Rate (beats per minute): 105 Rhythm: sinus tachycardia Findings: ST depression (Lateral and inferior), no ectopy ED Course ED COURSE: Vital signs were reviewed and showed normal vitals. The patients medical record was reviewed The above diagnostic studies were performed and reviewed. ED treatments and interventions as stated above. 1929: The patient was evaluated in room C11. A complete history and physical examination was performed. 1941: Ordered Levofloxacin 750mg IV and Sodium Chloride 2000ml @ 999mls/hr IV. 2009: Ordered Cefepime HCL 1000mg/Dextrose 111ml @ 200mls/hr IV. 2043: Ordered Morphine Sulfate 6mg IV. 2109: I reviewed the patient's case with Dr. Brooks [facility] [place]. He will evaluate the patient for further management. Medical Decision Differential diagnosis: Etiologies such as sepsis, UTI, pneumonia, metabolic, electrolyte abnormalities , cardiac sources, intracerebral event, toxicologic, neurologic, as well as others were entertained. The patient is a 66 year old male who presents to the ED with complaints of persistent shortness of breath. Patient was seen in the ER 2 days ago for similar symptoms. At that time he was diagnosed with influenza and discharge. He notes his symptoms have worsened significantly. He has been taking Tamiflu. He admits to diffuse shaking chills and fevers. He's been unable to eat or drink. He is a diabetic. Labs show a white count of 4. Lactate was 2.8. Patient was given broad-spectrum IV antibiotics. He was given 2 L normal saline. Patient went for updated at bedside. Oxygen saturations continued decline slightly. O2 was increased to 5 L nasal cannula. Patient was monitored closely along the ER. He did maintain his blood pressures. He was tachycardic but this did improve with fluids. Patient was admitted to internal medicine with sepsis secondary to pneumonia and influenza a with a lactic acidosis. Medication Reconcilliation Current Medication List: was personally reviewed by me Blood Pressure Screening Patient's blood pressure: Normal blood pressure Consults Time Called: 2109 Consulting Physician: FAISAL Bolton Returned Call: 2109 I reviewed the patient's case with FAISAL Bolton. He will evaluate the patient for further management. Impression Primary Impression: Sepsis Additional Impressions: Lactic acid acidosis Pneumonia Influenza A Hypoxia Critical Care I have personally spent 35 minutes of critical care time in the direct management of this patient. This includes bedside care, interpretation of diagnostic studies, and testing, discussion with consultants, patient, and family members, and other required patient management activities. This 35 minutes is in excess of all separately billable procedures. Scribe Attestation The scribe's documentation has been prepared under my direction and personally reviewed by me in its entirety. I confirm that the note above accurately reflects all work, treatment, procedures, and medical decision making performed by me. Departure Information Referrals Dulce Gomez M.D. (PCP) Forms HOME CARE DOCUMENTATION FORM, IMPORTANT VISIT INFORMATION Patient Instructions My [facility] Problem Qualifiers Primary Impression: Sepsis Sepsis type: sepsis due to unspecified organism Qualified Codes: A41.9 - Sepsis, unspecified organism Additional Impressions: Pneumonia Pneumonia type: due to unspecified organism Laterality: left Lung location : unspecified part of lung Qualified Codes: J18.9 - Pneumonia, unspecified organism
[2017-03-20] MEDS ORDERED: IPRATROPIUM BROMIDE NEB SOLN 0.02% 2.5 ML VIAL INH PRN (23:30)
[2017-03-20] MEDS ORDERED: LEVALBUTEROL 1.25MG/0.5ML NEB INH PRN (23:30)
[2017-03-20] MEDS ORDERED: NSS + 20MEQ KCL 1000ML 1,000 ML IV SCH (23:30)
--- NOTE | 2017-03-20 23:30 | NUR ---
Respiratory paged to provide PRN treatment, primary RN placing patient on continuous pulse ox.
[2017-03-20] MEDS: GUAIFENESIN 600 MG TABCR PO SCH (23:57)
[2017-03-21] VITALS (10 sets, daily range): BP systolic 118–166; BP diastolic 73–77; PULSE 77–99; TEMP 36.7–37.1; O2SAT 92–97; BMI 33.1
[2017-03-21] MEDS ORDERED: CEFTRIAXONE SOD INJ 1 GM in DEXTROSE 5% ADD-VANTAGE 50ML 50 ML IV SCH ×2
--- NOTE | 2017-03-21 | NUR ---
Pt reporting neb improved his breathing. Remains on 2/l O2. Continue to monitor closely. Addendum: 03/21/17 at 0444 by Aurora Tinoco RN O2 6/l via NC
[2017-03-21] MEDS: ACETAMINOPHEN 325 MG TAB PO PRN ×2 (00:24→17:32)
[2017-03-21] MEDS: MAGNESIUM SULFATE 1GM / D5W 1 GM in PREMIXED IN D5W 100 ML IV SCH (00:51)
[2017-03-21] MEDS: IPRATROPIUM BROMIDE NEB SOLN 0.02% 2.5 ML VIAL INH SCH ×4 (02:30→19:34)
--- NOTE | 2017-03-21 02:30 | NUR ---
Pt's temp 37.1. Pt reporting "I feel so much better; I could go home." Resp low 20's. Moist harsh cough continues. Audible wheezing with activity. Scattered wheezes and rhonchi continue.
[2017-03-21] MEDS: LEVALBUTEROL 1.25MG/0.5ML NEB INH SCH ×4 (02:31→19:34)
--- NOTE | 2017-03-21 02:38 | History and Physical ---
History & Physical Date & Time of Service: Mar 21, 2017 at 02:16. The patient was seen and examined on 03/20/2017 Chief Complaint: Influenza A, Pneumonia Involving Left Lung Primary Care Physician: Dulce Gomez M.D. History of Present Illness Source: patient, spouse, hospital records The patient is a 66-year-old male presents to the emergency department with worsening shortness of breath and cough over the past 24 hours. He had been seen emergency department 2 days ago and was diagnosed with influenza A was started on Tamiflu. Initially felt better immediately after the visit, but then has developed a runny nose, chills, nausea shortness of breath worsening since that time. His chest hurts when he coughs he notes that his sugar has been higher than usual recently. He has not had any recent travels and was not aware of any sick exposures. Past Medical/Surgical History Medical Problems: (1) Aortic aneurysm Status: Resolved (2) Diabetes Status: Chronic (3) Hypertension Status: Chronic (4) Kidney stones Status: Resolved Family History Cancer Diabetes mellitus Heart disease Hypertension Social History Smoking Status: Former Smoker Smokeless Tobacco Use: No Alcohol Use: none Drug Use: none Marital Status: Housing status: lives with family Occupational Status: employed Immunizations History of Influenza Vaccine: No History of Tetanus Vaccine?: No History of Pneumococcal: No History of Hepatitis B Vaccine: No Multi-Drug Resistant Organisms History of MDRO: No Allergies Coded Allergies: Codeine (Verified Adverse Reaction, Mild, NAUSEA, 03/20/17) Home Medications Scheduled Allopurinol (Zyloprim), 100 MG PO QPM Aspirin (Aspirin), 325 MG PO QPM Ezetimibe/Simvastatin (Vytorin 10MG/20MG), 1 TAB PO QPM Fish Oil (Iselin-3), 1 CAP PO QPM Insulin Glargine (Lantus), 48 UNITS SC QPM Lisinopril (Prinivil), 10 MG PO QPM Magnesium (Magnesium), 200 MG PO BID Metformin Hcl (Glucophage), 1,000 MG PO BID Metoprolol Succinate (Metoprolol Succinate ER), 50 MG PO QPM Multiple Vitamins W/ Minerals (Centrum Silver Adult 50+), 1 TAB PO QPM Oseltamivir (Tamiflu), 75 MG PO BID Prednisone (Prednisone), 20 MG PO DAILY Umeclidinium-Vilanterol (Anoro Ellipta 62.5-25 Mcg/INH), 1 PUFF INH QAM Venlafaxine Hcl (Effexor Extended Rel), 75 MG PO QPM Scheduled PRN Albuterol Hfa (Ventolin Hfa), 2 PUFFS INH QID PRN for SOB/Wheezing Review of Systems The patient denies chest pain, palpitations, lower extremity swelling, vision change, hearing change, sore throat, fevers, chills, sweats, weight change,vomiting, diarrhea or constipation, abdominal pain, pelvic pain, blood in urine or stool, dysuria, urinary frequency or urgency, memory loss, loss of consciousness, rash, abnormal bruising or bleeding, imbalance, focal weakness, numbness or tingling in arms or legs, or night sweats. The review of systems is otherwise negative other than for that already noted above, and at least 10 systems have been reviewed. Physical Exam Vital Signs Date Time Temp Pulse Resp B/P (MAP) Pulse Ox O2 Delivery O2 Flow Rate FiO2 03/21/17 00:01 98 18 93 Nasal Cannula 6.0 03/20/17 23:00 38.0 101 22 134/76 92 Nasal Cannula 6.0 03/20/17 22:20 95 25 92 Nasal Cannula 6.0 03/20/17 22:18 108/66 03/20/17 22:05 96 22 89 03/20/17 22:00 101/65 03/20/17 21:50 92 24 89 03/20/17 21:48 Nasal Cannula 6.0 03/20/17 21:35 99 29 90 Nasal Cannula 4.0 03/20/17 21:30 108/68 03/20/17 21:23 102 25 91 03/20/17 21:08 97 21 92 03/20/17 21:00 125/69 03/20/17 20:53 104 28 92 03/20/17 20:38 99 23 90 03/20/17 20:30 129/65 03/20/17 20:23 98 26 93 03/20/17 20:08 104 23 90 03/20/17 20:00 Nasal Cannula 4.0 03/20/17 20:00 125/69 03/20/17 19:53 101 31 90 03/20/17 19:41 107 03/20/17 19:38 106 29 90 03/20/17 19:37 124/67 03/20/17 19:34 88 Nasal Cannula 3.0 03/20/17 19:22 39.3 112 18 131/70 90 Room Air The patient is awake, alert and oriented 3, looks extremely fatigued, normocephalic and atraumatic, sitting upright on the edge of the bed and in no acute distress. HEENT--PERRL, EOMI, mucous membranes and oropharynx dry. Neck--supple, no JVD or bruits, thyroid normal, trachea midline, no adenopathy. Heart--normal S1 and S2, no extra beats, no murmurs, rubs or gallops. Lungs--decreased breath sounds at the bases bilaterally left worse than right, coarse breath sounds and wheezes otherwise, no respiratory distress, no accessory muscle use. Abdomen--normal bowel sounds and soft, nontender and nondistended, no hernias or masses, no organomegaly. Extremities--no cyanosis, clubbing or edema. There are good distal pulses b/l. Dermatologic--normal skin turgor, normal color, warm and dry, no abnormal lymph nodes, no rash. Neurologic--cranial nerves II through XII grossly intact. Rheumatologic--normal range of motion. Psychiatric--normal affect. Diagnostics Laboratory Results Results Past 24 Hours Test 03/20/17 19:50 03/20/17 19:58 03/20/17 20:02 03/20/17 21:30 Range/Units White Blood Count 4.28 4.8-10.8 K/uL Red Blood Count 4.47 4.7-6.1 M/uL Hemoglobin 14.0 14.0-18.0 g/dL Hematocrit 40.4 42-52 % Mean Corpuscular Volume 90.4 80-100 fL Mean Corpuscular Hemoglobin 31.3 25-34 pg Mean Corpuscular Hemoglobin Concent 34.7 32-36 g/dl Platelet Count 197 130-400 K/uL Mean Platelet Volume 9.1 7.4-10.4 fL Neutrophils (%) (Auto) 71.2 % Lymphocytes (%) (Auto) 16.4 % Monocytes (%) (Auto) 11.4 % Eosinophils (%) (Auto) 0.5 % Basophils (%) (Auto) 0.0 % Neutrophils # (Auto) 3.05 1.4-6.5 K/uL Lymphocytes # (Auto) 0.70 1.2-3.4 K/uL Monocytes # (Auto) 0.49 0.11-0.59 K/uL Eosinophils # (Auto) 0.02 0-0.5 K/uL Basophils # (Auto) 0.00 0-0.2 K/uL RDW Standard Deviation 46.5 36.4-46.3 fL RDW Coefficient of Variation 14.0 11.5-14.5 % Immature Granulocyte % (Auto) 0.5 % Immature Granulocyte # (Auto) 0.02 0.00-0.02 K/uL Prothrombin Time 10.7 9.0-12.0 SECONDS Prothromb Time International Ratio 1.0 0.9-1.1 Sodium Level 134 136-145 mmol/L Potassium Level 4.3 3.5-5.1 mmol/L Chloride Level 103 98-107 mmol/L Carbon Dioxide Level 18 21-32 mmol/L Anion Gap 12.0 19.0 16-25 mmol/L Blood Urea Nitrogen 33 7-18 mg/dl Creatinine 1.56 0.60-1.40 mg/dl Est Creatinine Clear Calc Drug Dose 61.0 ml/min Estimated GFR () 53.6 Estimated GFR (Non- 46.3 BUN/Creatinine Ratio 21.0 10-20 Random Glucose 202 70-99 mg/dl Calcium Level 8.4 8.5-10.1 mg/dl Magnesium Level 1.2 1.8-2.4 mg/dl Total Bilirubin 0.5 0.2-1 mg/dl Direct Bilirubin 0.2 0-0.2 mg/dl Aspartate Amino Transf (AST/SGOT) 24 15-37 U/L Alanine Aminotransferase (ALT/SGPT) 31 12-78 U/L Alkaline Phosphatase 98 45-117 U/L Total Creatine Kinase 491 39-308 U/L Creatine Kinase MB 1.7 0.5-3.6 ng/ml Creatine Kinase MB Ratio 0.3 0-3.0 Troponin I < 0.015 0-0.045 ng/ml Total Protein 7.6 6.4-8.2 gm/dl Albumin 3.4 3.4-5.0 gm/dl Bedside Lactic Acid Venous 2.68 0.90-1.70 mmol/L Bedside Hemoglobin 14.3 14.0-18.0 g/dl Bedside Hematocrit 42 42-52 % Bedside Sodium 136 135-144 mEq/L Bedside Potassium 4.6 3.3-5.0 mEq/L Bedside Chloride 104 101-112 mEq/L Bedside Total CO2 18 24-31 mEq/l Bedside Blood Urea Nitrogen 32 7-18 mg/dl Bedside Creatinine 1.4 0.6-1.3 mg/dl Bedside Glucose (other) 213 70-99 mg/dl Bedside Ionized Calcium (Rachael) 1.03 1.12-1.32 mmol/l Lactic Acid Level 2.1 0.4-2.0 mmol/L Test 03/21/17 00:05 Range/Units Bedside Glucose 159 70-99 mg/dl Microbiology Results 03/20/17 Blood Culture, Received Pending 03/20/17 Blood Culture, Received Pending Diagnostic Radiology Patient Name: HORTENCIA HUGHES JR Unit Number: [id number] Dictated: 03/20/172002 Transcribed: 03/20/172002 PBS Printed Date/Time: [~ rep prt dt]/[~ rep prt tm] [~ rep ct labl] - [~ rep ct ivnm] [facility] Radiology Department [place] [id number] Dictated: 03/20/172002 Transcribed: 03/20/172002 PBS Printed Date/Time: [~ rep prt dt]/[~ rep prt tm] [~ rep ct labl] - [~ rep ct ivnm] [~ rep ct add3]] CHEST ONE VIEW PORTABLE CLINICAL HISTORY: 66 years-old Male presenting with fever. TECHNIQUE: Portable upright AP view of the chest was obtained. COMPARISON: 03/18/2017. FINDINGS: Median sternotomy wires with breakage of one of the wires, unchanged. Atherosclerosis of the aortic arch. Cardiac silhouette normal in size. Left perihilar and basilar hazy opacities. This does not silhouette the left heart border but does result in partial obscuration of the medial left hemidiaphragm. No large pleural effusion or pneumothorax. Right lung and pleural space clear. Osseous structures normal. Upper abdomen normal. IMPRESSION: 1. Left lower lobe pneumonia. Electronically signed by: Ben Bhatia M.D. 03/20/2017 8:05 PM Dictated Date/Time: 03/20/2017 8:03 PM The status of this report is Signed. Draft = Not yet reviewed or approved by Radiologist. Signed = Reviewed and approved by Radiologist. <AttendingPhy></AttendingPhy> <FamilyPhy>Dulce Gomez M.D.</FamilyPhy > <PrimaryPhy>Dulce Gomez M.D.</PrimaryPhy> <UnitNumber>[id number]</ UnitNumber> <VisitNumber>[id number]</VisitNumber> <PatientName>HORTENCIA HUGHES JR</PatientName> <DateOfBirth>1950</DateOfBirth> <Location>[facility]</Location > <ServiceDate>03/20/17</ServiceDate> <MNE>ESINDI</MNE> <OrderingPhy>Arthur Lamar DO</OrderingPhy> <OrderingPhyMNE>f rep ord dr de la rosa</OrderingPhyMNE> < DictatingPhyMNE>f rep dict dr de la rosa</DictatingPhyMNE> <CCListMNE>f rep ct mne</ CCListMNE> <AdmittingPhyMNE>f pt admit dr de la rosa</AdmittingPhyMNE> <AttendingPhyMNE >f pt attend dr de la rosa</AttendingPhyMNE> <ConsultingPhyMNE>f pt consult dr de la rosa</ConsultingPhyMNE> <FamilyPhyMNE>f pt fam dr de la rosa</FamilyPhyMNE> <OtherPhyMNE>f pt other dr de la rosa</OtherPhyMNE> < PrimaryPhyMNE>f pt prim care dr de la rosa</PrimaryPhyMNE> <ReferringPhyMNE>f pt referring dr de la rosa</ReferringPhyMNE> EKG EKG shows sinus tachycardia at 105 bpm, with new inferolateral changes compared to most recent EKG of 03/18/2017 Impression Assessment and Plan Left lower lobe pneumonia/influenza A-- Continue Tamiflu 75 mg by mouth twice a day Ceftriaxone 1 g IV daily Levofloxacin 500 mg IV every 24 hours Solu-Medrol 20 mg IV every 12 hours Guaifenesin extended release 600 mg by mouth twice a day Xopenex/Atrovent nebulizers every 6 hours while awake and every 2 hours when necessary Hold prednisone, and Anoro Ellipta Hypertension/history thoracic aortic dissection/new inferior lateral changes on EKG compared to 03/18/2017-- The patient will be admitted to telemetry for serial cardiac enzymes, serial EKGs, cardiac rhythm monitoring and a 2-D echocardiogram with Dopplers. Continue metoprolol succinate ER 50 mg by mouth every afternoon and aspirin 325 mg by mouth daily Hold lisinopril due to MIGUEL NSS with KCl 20 mEq at 50 ML's per hour Diabetes mellitus-- Decrease Lantus from 48 units to 24 units subcutaneous every evening due to significantly decreased oral intake, however, watch closely while on IV Solu- Medrol. Hold metformin Place on Accu-Cheks before meals and at bedtime with NovoLog coverage per scale Hyperlipidemia-- Continue Vytorin 10/20 daily and fish oil 1 capsule daily. Gout-- Continue allopurinol 100 mg daily Depression-- Continue Effexor XR 75 mg daily Kidney stones, history-- Keep hydrated Level of Care Telemetry Advanced Directives Existing Advance Directive: No Existing Living Will: No Existing Power of Pneumatic Jacketer: No Resuscitation Status FULL RESUSCITATION VTE Prophylaxis VTE Risk Assessment Done? Y/N: Yes Risk Level: Moderate Given or contraindicated: SCD's Social Service Consult None Apply
[2017-03-21] MEDS ORDERED: LEVALBUTEROL/IPRATROPIUM NEB INH SCH (03:00)
[2017-03-21 03:25] LABS: CKMB 1.7 ng/ml (0.5-3.6)
--- NOTE | 2017-03-21 04:00 | NUR ---
Pt awake. Assessment completed; see emr. SR/ST with activity Pt afebrile; diaphoretic. Lungs continue with I/E wheezes, rhonchi, O2 6/l via NC. Harsh cough, with bloody streaked sputum. Assisted pt oob to BR to void clear concentrated vijay urine; BHARDWAJ. Recovered with rest. Assisted with comfort bath; gown and linens changed. Pt drinking water, 800cc this shift. Call rodriguez within touch. Continue to monitor closely.
[2017-03-21 07:21] LABS: HEMATOCRIT 37.4 % (42-52); HEMOGLOBIN 12.4 g/dL (14.0-18.0); MEAN CELL VOLUME 91.7 fL (80-100); MEAN CORPUSCULAR HEMOGLOBIN 30.4 pg (25-34); MEAN CORPUSCULAR HGB CONC 33.2 g/dl (32-36); MEAN PLATELET VOLUME 8.9 fL (7.4-10.4); PLATELET COUNT 165 K/uL (130-400); RED CELL DISTRIBUTION WIDTH CV 14.5 % (11.5-14.5)
[2017-03-21 07:39] LABS: INR 1.1 (0.9-1.1); PTT PATIENT 31.9 SECONDS (21.0-31.0)
[2017-03-21 07:45] LABS: BASO % 0.1 %; BASO ABS # 0.01 K/uL (0-0.2); IG# 0.22 K/uL (0.00-0.02); LYMPH % 10.8 %; LYMPH ABS # 1.04 K/uL (1.2-3.4); MONO % 9.9 %; MONO ABS # 0.95 K/uL (0.11-0.59); NEUT % 76.9 %; NEUT ABS # 7.38 K/uL (1.4-6.5)
[2017-03-21 07:56] LABS: CALCIUM 7.9 mg/dl (8.5-10.1); CREATININE 1.67 mg/dl (0.60-1.40); POTASSIUM 5.1 mmol/L (3.5-5.1)
--- NOTE | 2017-03-21 09:00 | NUR ---
Pt in bed, alert and oriented. No complaints at this time. Assessment complete, for details see EMR. 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 Call rodriguez within reach, encouraged to ring for assistance. Will continue to monitor.
[2017-03-21] MEDS ORDERED: CEFEPIME IV 2,000 MG in DEXTROSE 5% 100ML 100 ML IV SCH (09:30)
[2017-03-21] MEDS: OSELTAMIVIR PHOSPHATE 75 MG CAP PO SCH ×2 (09:42→20:49)
[2017-03-21] MEDS: METHYLPREDNISOLONE IV 20 MG in SYRINGE 0 ML IV SCH ×2 (09:42→20:44)
[2017-03-21] MEDS: MAGNESIUM OXIDE 400 MG TAB PO SCH ×2 (09:43→20:49)
[2017-03-21] MEDS: INSULIN ASPART 100 UNITS/ML 3 ML PEN SC SCH ×4 (09:46→21:03)
[2017-03-21] MEDS: HEPARIN SOD 5000 UNIT/0.5 ML CARP SQ SCH ×2 (09:47→21:02)
[2017-03-21] MEDS: SODIUM CHLORIDE 0.9% 1000ML 1,000 ML IV SCH ×2 (10:13→20:03)
--- NOTE | 2017-03-21 10:26 | ECHOCARDIOGRAM REPORT ---
*NOTICE TO RECEIVING [employer] AGENCY This information is strictly Confidential and protected under [place] law. [place] law prohibits you from making any further disclosure of this information unless further disclosure is expressly permitted by the written consent of the person to whom it pertains or is authorized by law. A general authorization for the release of medical or other information is not sufficient for this purpose. Hospital accepts no responsibility if the information is made available to any other person, INCLUDING THE PATIENT. Interpretation Summary * Name: HORTENCIA HUGHES JR Study Date: 03/21/2017 08:18 AM BP: 135/73 mmHg * Patient Location: C.2T\S\E222\S\1 HR: 90 * : 1950 (M/d/yyyy) Gender: Male Height: 72 in * Age: 66 yrs Ethnicity: CA Weight: 243 lb * Ordering Physician: Darius Brooks * Referring Physician: Self, Referred * Performed By: Anh Thomas RDCS * * Reason For Study: INFEROLAT ISCHEMIA ON EKG * BSA: 2.3 m2 * -- Conclusions -- * Technically limited study * 1. Normal LV size. Borderline concentric LVH. * 2. Normal LV systolic function. LVEF 55-60%. No regional wall motion abnormalities. * 3. Normal RV size and function. * 4. Trace aortic regurgitation. * 5. Compared with prior study on 04/25/2015: No significant changes. Procedure Details * A contrast injection of Definity was performed to improve assessment of LV function. * Contrast was injected into an intravenous site in the left arm. * One vial of Definity ultrasound contrast was diluted in normal saline to a total volume of 10 ml. A total of '1' ml of solution was administered during imaging. * Lot # [id number] of Definity utilized for procedure. * Expiration date 1 MAY 12. * The attending nurse who injected the contrast agent was JENNIFER CABRERA. Left Ventricle * The left ventricle is grossly normal size. * There is borderline concentric left ventricular hypertrophy. * Ejection Fraction = 55-60%. * Flattened septum is consistent with RV volume overload. Right Ventricle * The right ventricle is not well visualized. * The right ventricle is grossly normal size. * The right ventricular systolic function is qualitatively normal. Atria * The left atrial size is normal. * Right atrium not well visualized. * No ASD detected; PFO is not assessed. Mitral Valve * The mitral valve is grossly normal. * There is no mitral valve stenosis. * Significant mitral regurgitation is absent. Tricuspid Valve * The tricuspid valve is not well visualized. * Significant tricuspid regurgitation is absent. Aortic Valve * The aortic valve is not well visualized. * No hemodynamically significant valvular aortic stenosis. * Trace aortic regurgitation. Pulmonic Valve * The pulmonary valve is inadequately visualized, but the Doppler data is adequate for interpretation. * Pulmonic stenosis is absent. * There is no significant pulmonary regurgitation. Pericardium/Pleural * There is no pericardial effusion. MMode 2D Measurements and Calculations LA dimension 4.3 cm LVAd ap4 36.8 cm\S\2 LVLd ap4 9.4 cm EDV(MOD-sp4) 118.7 ml EDV(sp4-el) 122.0 ml LVAs ap4 22.7 cm\S\2 LVLs ap4 7.8 cm ESV(MOD-sp4) 56.0 ml ESV(sp4-el) 55.8 ml EF(MOD-sp4) 52.8 % EF(sp4-el) 54.2 % LVAd ap2 35.9 cm\S\2 LVLd ap2 9.4 cm EDV(MOD-sp2) 120.9 ml EDV(sp2-el) 116.5 ml LVAs ap2 20.9 cm\S\2 LVLs ap2 7.3 cm ESV(MOD-sp2) 53.5 ml ESV(sp2-el) 50.9 ml EF(MOD-sp2) 55.8 % EF(sp2-el) 56.3 % LVLd %diff -0.10 % EDV(MOD-bp) 119.0 ml LVLs %diff -7.39 % ESV(MOD-bp) 56.8 ml EF(MOD-bp) 52.3 % SV(MOD-sp4) 62.7 ml SI(MOD-sp4) 27.1 ml/m\S\2 SV(MOD-sp2) 67.4 ml SI(MOD-sp2) 29.1 ml/m\S\2 SV(MOD-bp) 62.2 ml SI(MOD-bp) 26.9 ml/m\S\2 SV(sp4-el) 66.2 ml SI(sp4-el) 28.6 ml/m\S\2 SV(sp2-el) 65.6 ml SI(sp2-el) 28.3 ml/m\S\2 Doppler Measurements and Calculations MV E max timothy 95.5 cm/sec MV A max timothy 64.3 cm/sec MV E/A 1.5 MV dec time 0.18 sec Ao V2 max 173.4 cm/sec Ao max PG 12.0 mmHg Ao max PG (full) 6.9 mmHg LV V1 max PG 5.2 mmHg LV V1 max 113.8 cm/sec
[2017-03-21] MEDS ORDERED: VANCOMYCIN CONSULT ACTIVE PRN ×2 (10:30→11:15)
[2017-03-21] MEDS: CEFEPIME IV 2,000 MG in SYRINGE 7.5 ML IV SCH ×2 (10:33→17:26)
[2017-03-21] MEDS ORDERED: VANCOMYCIN IV 2,000 MG in SODIUM CHLORIDE 0.9% 500ML 500 ML IV SCH (11:00)
--- NOTE | 2017-03-21 11:23 | Pharmacy Progress Note ---
Pharmacy Antibiotic Consult Date of Service: Mar 21, 2017. Pharmacy Dosing Scope Pharmacy is consulted to initiate Vancomycin IV dosing therapy, order appropriate labs and adjust drug dose/frequency. Subjective The patient is a 66 year old male admitted on Mar 20, 2017 at 21:53. Objective Height (Feet): 6 Height (Inches): 0 Weight (Kilograms): 110.600 Lab Results (24hrs): Test 03/20/17 19:50 03/20/17 19:58 03/20/17 20:02 03/20/17 21:30 White Blood Count 4.28 K/uL (4.8-10.8) Red Blood Count 4.47 M/uL (4.7-6.1) Hemoglobin 14.0 g/dL (14.0-18.0) Hematocrit 40.4 % (42-52) Mean Corpuscular Volume 90.4 fL (80-100) Mean Corpuscular Hemoglobin 31.3 pg (25-34) Mean Corpuscular Hemoglobin Concent 34.7 g/dl (32-36) Platelet Count 197 K/uL (130-400) Mean Platelet Volume 9.1 fL (7.4-10.4) Neutrophils (%) (Auto) 71.2 % Lymphocytes (%) (Auto) 16.4 % Monocytes (%) (Auto) 11.4 % Eosinophils (%) (Auto) 0.5 % Basophils (%) (Auto) 0.0 % Neutrophils # (Auto) 3.05 K/uL (1.4-6.5) Lymphocytes # (Auto) 0.70 K/uL (1.2-3.4) Monocytes # (Auto) 0.49 K/uL (0.11-0.59) Eosinophils # (Auto) 0.02 K/uL (0-0.5) Basophils # (Auto) 0.00 K/uL (0-0.2) RDW Standard Deviation 46.5 fL (36.4-46.3) RDW Coefficient of Variation 14.0 % (11.5-14.5) Immature Granulocyte % (Auto) 0.5 % Immature Granulocyte # (Auto) 0.02 K/uL (0.00-0.02) Prothrombin Time 10.7 SECONDS (9.0-12.0) Prothromb Time International Ratio 1.0 (0.9-1.1) Sodium Level 134 mmol/L (136-145) Potassium Level 4.3 mmol/L (3.5-5.1) Chloride Level 103 mmol/L (98-107) Carbon Dioxide Level 18 mmol/L (21-32) Blood Urea Nitrogen 33 mg/dl (7-18) Creatinine 1.56 mg/dl (0.60-1.40) Est Creatinine Clear Calc Drug Dose 61.0 ml/min Estimated GFR () 53.6 Estimated GFR (Non- 46.3 BUN/Creatinine Ratio 21.0 (10-20) Random Glucose 202 mg/dl (70-99) Calcium Level 8.4 mg/dl (8.5-10.1) Magnesium Level 1.2 mg/dl (1.8-2.4) Total Bilirubin 0.5 mg/dl (0.2-1) Direct Bilirubin 0.2 mg/dl (0-0.2) Aspartate Amino Transf (AST/SGOT) 24 U/L (15-37) Alanine Aminotransferase (ALT/SGPT) 31 U/L (12-78) Alkaline Phosphatase 98 U/L (45-117) Total Protein 7.6 gm/dl (6.4-8.2) Albumin 3.4 gm/dl (3.4-5.0) Bedside Lactic Acid Venous 2.68 mmol/L (0.90-1.70) Bedside Hemoglobin 14.3 g/dl (14.0-18.0) Bedside Hematocrit 42 % (42-52) Bedside Sodium 136 mEq/L (135-144) Bedside Potassium 4.6 mEq/L (3.3-5.0) Bedside Chloride 104 mEq/L (101-112) Bedside Total CO2 18 mEq/l (24-31) Anion Gap 19.0 mmol/L (16-25) Bedside Blood Urea Nitrogen 32 mg/dl (7-18) Bedside Creatinine 1.4 mg/dl (0.6-1.3) Bedside Glucose (other) 213 mg/dl (70-99) Bedside Ionized Calcium (Rachael) 1.03 mmol/l (1.12-1.32) Lactic Acid Level 2.1 mmol/L (0.4-2.0) Test 03/21/17 00:05 03/21/17 02:44 03/21/17 03:30 03/21/17 07:02 Bedside Glucose 159 mg/dl (70-99) 200 mg/dl (70-99) Total Creatine Kinase 347 U/L (39-308) Creatine Kinase MB 1.7 ng/ml (0.5-3.6) Creatine Kinase MB Ratio 0.5 (0-3.0) Troponin I < 0.015 ng/ml (0-0.045) Urine Color YELLOW Urine Appearance CLEAR (CLEAR) Urine pH 5.0 (4.5-7.5) Urine Specific Waka 1.021 (1.000-1.030) Urine Protein TRACE (NEG) Urine Glucose (UA) NEG (NEG) Urine Ketones TRACE (NEG) Urine Occult Blood NEG (NEG) Urine Nitrite NEG (NEG) Urine Bilirubin NEG (NEG) Urine Urobilinogen NEG (NEG) Urine Leukocyte Esterase NEG (NEG) Urine WBC (Auto) 5-10 /hpf (0-5) Urine RBC (Auto) 0-4 /hpf (0-4) Urine Hyaline Casts (Auto) >30 /lpf (0-5) Urine Epithelial Cells (Auto) >30 /lpf (0-5) Urine Bacteria (Auto) NEG (NEG) Urine Renal Epithelial Cells /lpf (0-5) Urine Pathogenic Casts 1-5 WBC CASTS /lpf (0) Test 03/21/17 07:07 03/21/17 10:16 White Blood Count 9.60 K/uL (4.8-10.8) Red Blood Count 4.08 M/uL (4.7-6.1) Hemoglobin 12.4 g/dL (14.0-18.0) Hematocrit 37.4 % (42-52) Mean Corpuscular Volume 91.7 fL (80-100) Mean Corpuscular Hemoglobin 30.4 pg (25-34) Mean Corpuscular Hemoglobin Concent 33.2 g/dl (32-36) Platelet Count 165 K/uL (130-400) Mean Platelet Volume 8.9 fL (7.4-10.4) Neutrophils (%) (Auto) 76.9 % Lymphocytes (%) (Auto) 10.8 % Monocytes (%) (Auto) 9.9 % Eosinophils (%) (Auto) 0.0 % Basophils (%) (Auto) 0.1 % Neutrophils # (Auto) 7.38 K/uL (1.4-6.5) Lymphocytes # (Auto) 1.04 K/uL (1.2-3.4) Monocytes # (Auto) 0.95 K/uL (0.11-0.59) Eosinophils # (Auto) 0.00 K/uL (0-0.5) Basophils # (Auto) 0.01 K/uL (0-0.2) RDW Standard Deviation 49.0 fL (36.4-46.3) RDW Coefficient of Variation 14.5 % (11.5-14.5) Immature Granulocyte % (Auto) 2.3 % Immature Granulocyte # (Auto) 0.22 K/uL (0.00-0.02) Echinocytes 1+ Prothrombin Time 12.0 SECONDS (9.0-12.0) Prothromb Time International Ratio 1.1 (0.9-1.1) Activated Partial Thromboplast Time 31.9 SECONDS (21.0-31.0) Partial Thromboplastin Ratio 1.2 Sodium Level 132 mmol/L (136-145) Potassium Level 5.1 mmol/L (3.5-5.1) Chloride Level 102 mmol/L (98-107) Carbon Dioxide Level 19 mmol/L (21-32) Anion Gap 11.0 mmol/L (3-11) Blood Urea Nitrogen 33 mg/dl (7-18) Creatinine 1.67 mg/dl (0.60-1.40) Est Creatinine Clear Calc Drug Dose 57.4 ml/min Estimated GFR () 49.4 Estimated GFR (Non- 42.6 BUN/Creatinine Ratio 19.8 (10-20) Random Glucose 207 mg/dl (70-99) Calcium Level 7.9 mg/dl (8.5-10.1) Magnesium Level 2.0 mg/dl (1.8-2.4) Hepatitis C Antibody Screen NEG (NEG) Creatine Kinase MB Ratio (0-3.0) Assessment & Plan Pt is a 66yo M p/w worsening SOB. 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 Since then, he has developed chills, nausea, hypoxia. At this juncture his qSOFA score is 1: Nil AMS, RR>22, SBP>100 mmHg. He is currently sating at 97% via NC. Chest X-ray indicative of PNA. I have ordered a MRSA nasal swab to potentially help with de-escalation. His habitus is slightly indicative of Vancomycin accumulation, if his renal fxn doesn't improve it may be necessary to extend dosing interval. His renal fxn is below baseline. I have dosed his Vancomycin based on kinetic data bt his baseline and current renal fxn. Current population p'kinetics: t1/2= 13, ke=0.0517, Vd=0.7. Vancomycin: * Vancomycin 2000mg (18mg/kg) x1 to achieve a peak of ~30mcg/mL * Then Vancomycin 1750mg (16mg/kg) q14 * Goal trough for pulmonary source: 15-20mcg/mL * Trough ordered for 03/23 @ 0130, prior to [facility] will continue to follow and will adjust dose/frequency as necessary. Thank you
[2017-03-21 11:33] LABS: CKMB 1.9 ng/ml (0.5-3.6)
--- NOTE | 2017-03-21 12:00 | NUR ---
Pt in bed, family at bedside. No complaints. Call rodriguez within reach, will continue to monitor.
--- NOTE | 2017-03-21 12:25 | NUR ---
DIABETES: Pt seen on clinical alert for BS > 200mg/dl frequently. states this is just recently since being on prednisone. See DM network & DM teaching interventions. Addendum: 03/21/17 at 1226 by Ana Rosa Castro RN Amended: Links added.
--- NOTE | 2017-03-21 13:01 | CARDIOLOGY CONSULTATION ---
DATE OF CONSULTATION: 03/21/2017 DATE OF CONSULTATION: 03/21/2017 CONSULTATION REQUESTED BY: Dr. Scott. PRIMARY FANCY SEWER: Dr. Alexander. REASON FOR CONSULTATION: Abnormal EKG. HISTORY OF PRESENT ILLNESS: Mr. Trinh is a 66-year-old man with a history of thoracic aortic aneurysm status post surgical repair in 2006, COPD, insulin-dependent diabetes, who was admitted in the setting of influenza and pneumonia who was found to have subtle EKG changes on presenting EKG, for which cardiology was consulted. The patient states that he has been in his usual state of health recently. He was most recently seen by Dr. Alexander 4 months ago. Since that time, he has had no real significant changes to his health. He remains active and denies any limiting cardiac symptoms or chest pain. He states that he has put on some weight and plans to increase his exercise regimen in the new year. Approximately 5 days ago, the patient started noticing some generalized fatigue then developed fevers and chills, and presented to the ED 3 days ago. At that time his influenza A was positive and was started on Tamiflu. He initially felt better, in fact went for a 2 mile walk on treadmill the day after his ED visit, however the next day he began feeling worse with increasing shortness of breath, recurrent fevers, chills and rigors. He also endorsed intermittent productive cough of some yellow/red sputum. Due to symptoms returned to the ED, was noted on chest to have a left lower lobe infiltrate and was started on broad spectrum antibiotics for suspected pneumonia. Overnight, he has been treated with IV fluids and states that he feels better this morning, although still not at baseline. On arrival, he was hemodynamically stable and I initially hypoxic requiring up to 6 liters oxygen and tachycardic with sinus tachycardia. His initial EKG showed sinus tachycardia with borderline LVH. There was subtle ST T-wave depressions in V4, V5 and V6. The patient had no chest pain at that time. PAST MEDICAL HISTORY: 1. Thoracic aortic aneurysm status post repair with aortic valve sparing operation per patient. 2. COPD, moderate. 3. Insulin-dependent diabetes. 4. Hypertension. 5. Paroxysmal supraventricular tachycardia. 6. Depression. 7. Gout. FAMILY HISTORY: No history of premature coronary disease. SOCIAL HISTORY: He is for 43 years, quit smoking in the s. 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 HOME MEDICATIONS: Include allopurinol, Ellipta inhaler, aspirin, fish oil, DuoNebs, Lantus insulin, lisinopril 10 mg, magnesium oxide, metformin, metoprolol succinate 50 mg daily, simvastatin, triamcinolone, venlafaxine and Ventolin. REVIEW OF SYSTEMS: A 10-point review of systems completed and otherwise negative unless stated in HPI. PHYSICAL EXAMINATION: VITAL SIGNS: Temperature 37.1, pulse 90, blood pressure 135/73, he is satting 97% on 6 liters. GENERAL: The patient appears mildly ill but in no acute distress. HEAD, EYES, EARS, NOSE, AND THROAT: Sclerae are anicteric. Oropharynx is clear. NECK: Supple. He has JVP approximately 7 or 8. LUNGS: He has rhonchi and wheezing in his left mid to lower lobe with few crackles, otherwise prolonged expiratory phase and scattered wheezes on the right. CARDIAC: He has distant heart sounds, but regular. No appreciable murmurs. ABDOMEN: Soft, nontender. EXTREMITIES: Warm. He has no significant lower extremity edema. He had intact distal pulses. SKIN: Shows no rashes or lesions. NEUROLOGIC: Nonfocal. PSYCHIATRIC: Alert and appropriate. LABORATORY DATA: White blood cell count 9.6, hemoglobin was 12.4, platelets 165. Sodium 132, potassium 5.1, BUN of 33, creatinine of 1.6, glucose ranging from 150-200. Troponin negative x2. Chest x-ray showed a left lower lobe pneumonia. Echocardiogram showed normal LV size with borderline LVH. LV function was normal, although less robust than on prior studies. There were no regional wall motion abnormalities. There was trace AI. TELEMETRY: Telemetry reviewed, sinus rhythm with brief episodes of SVT, max [address]-T there was subtle T-wave inversions. IMPRESSION AND PLAN: 1. Pneumonia/influenza. 2. Paroxysmal Supraventricular tachycardia. 3. Subtle lateral ST changes on presenting EKG. 4. Hypertension. 5. Insulin-dependent diabetes. Mr. Trinh is here with recently diagnosed influenza infection now complicated by left lower lobe pneumonia. Upon presentation, he was noted to be tachycardic with an EKG with some subtle lateral ST changes. These have resolved on subsequent EKGs. Echo completed this morning showed normal LV function without significant wall motion abnormalities, although function was less robust than on prior studies. Overall suspicion for any active cardiac conditions including acute coronary syndrome is very low. The patient may have some degree of underlying coronary artery disease but has been largely asymptomatic as an outpatient without change in prior exercise tolerance. Going forward, I do not feel any additional inpatient cardiac testing is necessary at this time. Would plan to continue on his home cardiac regimen including beta shahzad, NIYAH inhibitor, and statin. Ideally, should be on a baby aspirin as well. As an outpatient, with subtle ST changes when tachycardia both on presenting EKG and with brief paroxysmal SVT on telemetry feel that it would be reasonable to do a stress test to rule out high risk disease. However , would defer to after resolution of acute illness. Thank you for allowing us to participate in the care of this patient. LANA
--- NOTE | 2017-03-21 14:09 | Hospitalist Progress Note ---
Hospitalist Progress Note Date of Service Mar 21, 2017. Subjective Pt evaluation today including: conversation w/ patient Pt feeling much better than yesterday, but still feeling poorly. Achy all over. Coughing but not much sputum production. No chest pain. Has some SOB and wheezing. No diarrhea, no abd pain. Has a mild headache that is worse with coughing. All Other Systems: Reviewed and Negative Objective Vital Signs Date Time Temp Pulse Resp B/P (MAP) Pulse Ox O2 Delivery O2 Flow Rate FiO2 03/21/17 11:45 Nasal Cannula 6.0 03/21/17 11:27 36.8 86 24 136/73 (94) 96 Nasal Cannula 6.0 03/21/17 09:00 Nasal Cannula 6.0 03/21/17 07:41 37.1 90 22 135/73 (93) 97 Nasal Cannula 6.0 03/21/17 07:09 80 18 94 Nasal Cannula 6.0 03/21/17 04:00 Nasal Cannula 6.0 03/21/17 04:00 37.1 98 25 118/73 (88) 92 Nasal Cannula 6.0 03/21/17 02:31 99 20 93 Nasal Cannula 6.0 03/21/17 00:01 98 18 93 Nasal Cannula 6.0 03/20/17 23:00 38.0 101 22 134/76 92 Nasal Cannula 6.0 03/20/17 22:20 95 25 92 Nasal Cannula 6.0 03/20/17 22:18 108/66 03/20/17 22:05 96 22 89 03/20/17 22:00 101/65 03/20/17 21:50 92 24 89 03/20/17 21:48 Nasal Cannula 6.0 03/20/17 21:35 99 29 90 Nasal Cannula 4.0 03/20/17 21:30 108/68 03/20/17 21:23 102 25 91 03/20/17 21:08 97 21 92 03/20/17 21:00 125/69 03/20/17 20:53 104 28 92 03/20/17 20:38 99 23 90 03/20/17 20:30 129/65 03/20/17 20:23 98 26 93 03/20/17 20:08 104 23 90 03/20/17 20:00 Nasal Cannula 4.0 03/20/17 20:00 125/69 03/20/17 19:53 101 31 90 03/20/17 19:41 107 03/20/17 19:38 106 29 90 03/20/17 19:37 124/67 03/20/17 19:34 88 Nasal Cannula 3.0 03/20/17 19:22 39.3 112 18 131/70 90 Room Air Physical Exam General Appearance: + mild distress (appears ill but is AAOx3) Eyes: normal inspection, EOMI, sclerae normal ENT: hearing grossly normal, pharynx normal Neck: trachea midline Respiratory/Chest: no respiratory distress, no accessory muscle use, + crackles (and rhonchi at left base and middle lung field; diffuse exp wheezes) Cardiovascular: regular rate, rhythm, no murmur, + pertinent finding (trace edema legs bilat) Abdomen: normal bowel sounds, non tender, soft Extremities: non-tender, no calf tenderness Neurologic/Psychiatric: alert, normal mood/affect, oriented x 3 Skin: normal color, no rash, + diaphoresis Laboratory Results Last 24 Hours Test 03/20/17 19:50 03/20/17 19:58 03/20/17 20:02 03/20/17 21:30 White Blood Count 4.28 K/uL Red Blood Count 4.47 M/uL Hemoglobin 14.0 g/dL Hematocrit 40.4 % Mean Corpuscular Volume 90.4 fL Mean Corpuscular Hemoglobin 31.3 pg Mean Corpuscular Hemoglobin Concent 34.7 g/dl Platelet Count 197 K/uL Mean Platelet Volume 9.1 fL Neutrophils (%) (Auto) 71.2 % Lymphocytes (%) (Auto) 16.4 % Monocytes (%) (Auto) 11.4 % Eosinophils (%) (Auto) 0.5 % Basophils (%) (Auto) 0.0 % Neutrophils # (Auto) 3.05 K/uL Lymphocytes # (Auto) 0.70 K/uL Monocytes # (Auto) 0.49 K/uL Eosinophils # (Auto) 0.02 K/uL Basophils # (Auto) 0.00 K/uL RDW Standard Deviation 46.5 fL RDW Coefficient of Variation 14.0 % Immature Granulocyte % (Auto) 0.5 % Immature Granulocyte # (Auto) 0.02 K/uL Prothrombin Time 10.7 SECONDS Prothromb Time International Ratio 1.0 Sodium Level 134 mmol/L Potassium Level 4.3 mmol/L Chloride Level 103 mmol/L Carbon Dioxide Level 18 mmol/L Anion Gap 12.0 mmol/L 19.0 mmol/L Blood Urea Nitrogen 33 mg/dl Creatinine 1.56 mg/dl Est Creatinine Clear Calc Drug Dose 61.0 ml/min Estimated GFR () 53.6 Estimated GFR (Non- 46.3 BUN/Creatinine Ratio 21.0 Random Glucose 202 mg/dl Calcium Level 8.4 mg/dl Magnesium Level 1.2 mg/dl Total Bilirubin 0.5 mg/dl Direct Bilirubin 0.2 mg/dl Aspartate Amino Transf (AST/SGOT) 24 U/L Alanine Aminotransferase (ALT/SGPT) 31 U/L Alkaline Phosphatase 98 U/L Total Creatine Kinase 491 U/L Creatine Kinase MB 1.7 ng/ml Creatine Kinase MB Ratio 0.3 Troponin I < 0.015 ng/ml Total Protein 7.6 gm/dl Albumin 3.4 gm/dl Bedside Lactic Acid Venous 2.68 mmol/L Bedside Hemoglobin 14.3 g/dl Bedside Hematocrit 42 % Bedside Sodium 136 mEq/L Bedside Potassium 4.6 mEq/L Bedside Chloride 104 mEq/L Bedside Total CO2 18 mEq/l Bedside Blood Urea Nitrogen 32 mg/dl Bedside Creatinine 1.4 mg/dl Bedside Glucose (other) 213 mg/dl Bedside Ionized Calcium (Rachael) 1.03 mmol/l Lactic Acid Level 2.1 mmol/L Test 03/21/17 00:05 03/21/17 02:44 03/21/17 03:30 03/21/17 07:02 Bedside Glucose 159 mg/dl 200 mg/dl Total Creatine Kinase 347 U/L Creatine Kinase MB 1.7 ng/ml Creatine Kinase MB Ratio 0.5 Troponin I < 0.015 ng/ml Urine Color YELLOW Urine Appearance CLEAR Urine pH 5.0 Urine Specific [place] 1.021 Urine Protein TRACE Urine Glucose (UA) NEG Urine Ketones TRACE Urine Occult Blood NEG Urine Nitrite NEG Urine Bilirubin NEG Urine Urobilinogen NEG Urine Leukocyte Esterase NEG Urine WBC (Auto) 5-10 /hpf Urine RBC (Auto) 0-4 /hpf Urine Hyaline Casts (Auto) >30 /lpf Urine Epithelial Cells (Auto) >30 /lpf Urine Bacteria (Auto) NEG Urine Renal Epithelial Cells /lpf Urine Pathogenic Casts 1-5 WBC CASTS /lpf Test 03/21/17 07:07 03/21/17 10:16 03/21/17 11:24 White Blood Count 9.60 K/uL Red Blood Count 4.08 M/uL Hemoglobin 12.4 g/dL Hematocrit 37.4 % Mean Corpuscular Volume 91.7 fL Mean Corpuscular Hemoglobin 30.4 pg Mean Corpuscular Hemoglobin Concent 33.2 g/dl Platelet Count 165 K/uL Mean Platelet Volume 8.9 fL Neutrophils (%) (Auto) 76.9 % Lymphocytes (%) (Auto) 10.8 % Monocytes (%) (Auto) 9.9 % Eosinophils (%) (Auto) 0.0 % Basophils (%) (Auto) 0.1 % Neutrophils # (Auto) 7.38 K/uL Lymphocytes # (Auto) 1.04 K/uL Monocytes # (Auto) 0.95 K/uL Eosinophils # (Auto) 0.00 K/uL Basophils # (Auto) 0.01 K/uL RDW Standard Deviation 49.0 fL RDW Coefficient of Variation 14.5 % Immature Granulocyte % (Auto) 2.3 % Immature Granulocyte # (Auto) 0.22 K/uL Echinocytes 1+ Prothrombin Time 12.0 SECONDS Prothromb Time International Ratio 1.1 Activated Partial Thromboplast Time 31.9 SECONDS Partial Thromboplastin Ratio 1.2 Sodium Level 132 mmol/L Potassium Level 5.1 mmol/L Chloride Level 102 mmol/L Carbon Dioxide Level 19 mmol/L Anion Gap 11.0 mmol/L Blood Urea Nitrogen 33 mg/dl Creatinine 1.67 mg/dl Est Creatinine Clear Calc Drug Dose 57.4 ml/min Estimated GFR () 49.4 Estimated GFR (Non- 42.6 BUN/Creatinine Ratio 19.8 Random Glucose 207 mg/dl Calcium Level 7.9 mg/dl Magnesium Level 2.0 mg/dl Hepatitis C Antibody Screen NEG Total Creatine Kinase 277 U/L Creatine Kinase MB 1.9 ng/ml Creatine Kinase MB Ratio 0.7 Troponin I < 0.015 ng/ml Bedside Glucose 252 mg/dl Assessment and Plan This pt is a 66 yo male with a h/o paroxysmal SVT, HTN, TAA repair, COPD, DMII, gout, depression, HL, and nephrolithiasis, who presents with worsening cough, fevers 2 days after being diagnosed with Influenza A. Found to have LLL PNA and sepsis. LLL PNA/Influenza A/Sepsis/COPD with exacerbation/Acute hypoxemic respiratory failure-- with tachycardia, fevers, post-influenza PNA. At risk for MRSA PNA post-flu. Not hypotensive, is improved somewhat since admission. Was leukopenic and now improved, on steroids as well. FluA+ from 03/18. Lactate elevated -Continue Tamiflu 75 mg by mouth twice a day for total 5 day course (last dose evening of 03/23) -Change abx for broader coverage to include MRSA with Cefepime, Vanco, and continue Levaquin for atypical coverage too (QT ok on ECG) -continue Solu-Medrol 20 mg IV every 12 hours -continue Guaifenesin extended release 600 mg by mouth twice a day -continue Xopenex/Atrovent nebulizers every 6 hours while awake and every 2 hours when necessary -on Anoro Ellipta at home but not available here, ok to hold while getting ATC nebs and IV steroids -wean supplemental O2 as able to keep POx>92% -continue IVFs but change to NS for hyperkalemia Hypertension/h/o TAA repair/new inferior lateral changes on EKG/PSVT-- troponin negative x 3, TWIs resolved with lower rate. Some brief SVT on tele here. BPs controlled ECHO normal EF but less robust than previous as per Cardio, mild AI, mod LVH. Could have underlying CAD but ACS ruled out -Continue metoprolol succinate ER 50 mg by mouth every afternoon and aspirin 325 mg by mouth daily -would perform outpatient stress test once recovered from acute illness -Holding lisinopril due to MIGUEL MIGUEL-wool dyer continues to increase to 1.67 here, baseline 1.14. Likely secondary to prerenal azotemia -IVFs -follow PRP -renally dose meds as per pharmacy -avoid nephrotoxins -holding ACEI Diabetes mellitus II, well controlled, on intermediate teacher insulin, with hyperglycemia secondary to steroids-HgbA1C 7.0% in 01/2017 -received half dose Lantus 24 units on first night of admission due to significantly decreased oral intake -now return to home Lantus dose 48 units qhs due to hyperglycemia Hold metformin -continue Accu-Cheks before meals and at bedtime with NovoLog coverage per scale Hyperlipidemia--stable Continue Vytorin 10/20 daily and fish oil 1 capsule daily. Gout--stable Continue allopurinol 100 mg daily Depression--stable Continue Effexor XR 75 mg daily Kidney stones, history-- Keep hydrated Proph-Heparin SQ Dispo-remain on tele FULL CODE
[2017-03-21] MEDS ORDERED: ALBUTEROL 0.083% NEBU SOLN 3 ML VIAL INH SCH (15:00)
--- NOTE | 2017-03-21 16:15 | NUR ---
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
--- NOTE | 2017-03-21 16:48 | NUR ---
A- BSG MISSED...NO COVERAGE GIVEN
[2017-03-21] MEDS ORDERED: LEVOFLOXACIN / D5W 500 MG in PREMIXED IN D5W 100 ML IV SCH (20:00)
--- NOTE | 2017-03-21 20:00 | NUR ---
Assessment completed; see emr. SR per telemetry. HR 70s. Pt denies chest pain or sob at rest. BHARDWAJ continues. Remains on 6/l O2 via NC. Lungs with EW, rhonchi scattered throughout lung gonzalez, crackles shelter up on left lung gonzalez. Pt reports head hurts with coughing; medicate with Tylenol. Cont pulse on. Call rodriguez within touch. Continue to monitor closely.
[2017-03-21] MEDS: LEVOFLOXACIN / D5W 750 MG in PREMIXED IN D5W 150 ML IV SCH (20:02)
[2017-03-21] MEDS: ASPIRIN 325 MG ECTAB PO SCH (20:45)
[2017-03-21] MEDS: GUAIFENESIN 600 MG TABCR PO SCH (20:45)
[2017-03-21] MEDS: METOPROLOL SUCC 50MG EXT REL TAB PO SCH (20:46)
[2017-03-21] MEDS: VENLAFAXINE HCL XR 75 MG CAPXR PO SCH (20:46)
[2017-03-21] MEDS: OMEGA-3 (PURIFIED FISH OIL) 1 GM CAP PO SCH (20:47)
[2017-03-21] MEDS: CEROVITE ADV FORMULA TAB PO SCH (20:47)
[2017-03-21] MEDS: EZETIMIBE/SIMVASTATIN 10/20 TAB PO SCH (20:48)
[2017-03-21] MEDS: ALLOPURINOL 100 MG TAB PO SCH (20:48)
[2017-03-21] MEDS ORDERED: VANCOMYCIN IV 1,000 MG in SODIUM CHLORIDE 0.9% 250ML 250 ML IV SCH (21:00)
[2017-03-21] MEDS: INSULIN GLARGINE SOLOSTAR 100 UNITS/ML 3 ML PEN SC SCH (21:01)
[2017-03-21] MEDS: VANCOMYCIN IV 1,750 MG in SODIUM CHLORIDE 0.9% 500ML 500 ML IV SCH (21:51)
[2017-03-22] VITALS (13 sets, daily range): BP systolic 142–166; BP diastolic 82–96; PULSE 63–77; TEMP 36.4–37; O2SAT 94–98
--- NOTE | 2017-03-22 | NUR ---
Pt awake. Assessment completed; see emr. VSS. Remains on 6/l O2 and cont pulse ox. Spo2 94%. Crackles long-term up left lung gonzalez with scattered rhonchi and EW. Pt denies chest pain or sob at rest. Denies needs at this time. Call rodriguez within touch. continue to monitor closely.
[2017-03-22] MEDS: LEVALBUTEROL 1.25MG/0.5ML NEB INH SCH ×4 (02:06→20:00)
[2017-03-22] MEDS: IPRATROPIUM BROMIDE NEB SOLN 0.02% 2.5 ML VIAL INH SCH ×4 (02:06→20:00)
[2017-03-22] MEDS: CEFEPIME IV 2,000 MG in SYRINGE 7.5 ML IV SCH ×3 (02:18→17:30)
--- NOTE | 2017-03-22 04:00 | NUR ---
Pt awake; reading. Assessment completed; see emr. SR per telemetry. Decreased O2 to 4/l. Pt's Spo2 remains upper 90s. Lungs sounds remain unchanged. Pt denies needs at this time. Call rodriguez within touch. Continue to monitor closely.
[2017-03-22 06:34] LABS: HEMATOCRIT 34.2 % (42-52); HEMOGLOBIN 11.4 g/dL (14.0-18.0); MEAN CELL VOLUME 91.7 fL (80-100); MEAN CORPUSCULAR HEMOGLOBIN 30.6 pg (25-34); MEAN CORPUSCULAR HGB CONC 33.3 g/dl (32-36); MEAN PLATELET VOLUME 9.2 fL (7.4-10.4); PLATELET COUNT 175 K/uL (130-400); RED CELL DISTRIBUTION WIDTH CV 14.4 % (11.5-14.5); RED CELL DISTRIBUTION WIDTH SD 48.8 fL (36.4-46.3); WHITE BLOOD COUNT 10.76 K/uL (4.8-10.8)
[2017-03-22 07:18] LABS: BASO % 0.1 %; BASO ABS # 0.01 K/uL (0-0.2); IG# 0.16 K/uL (0.00-0.02); LYMPH % 9.8 %; LYMPH ABS # 1.05 K/uL (1.2-3.4); MONO % 9.9 %; MONO ABS # 1.07 K/uL (0.11-0.59); NEUT % 78.7 %; NEUT ABS # 8.47 K/uL (1.4-6.5)
[2017-03-22 07:19] LABS: CALCIUM 8.4 mg/dl (8.5-10.1); CREATININE 1.1 mg/dl (0.60-1.40); POTASSIUM 4.9 mmol/L (3.5-5.1)
--- NOTE | 2017-03-22 08:20 | NUR ---
A/ID; A/OX4. Resting in bed. c/o productive cough that is blood tinged. Patient teaching reinforced about need for sputum sample. SR on monitor. Lungs with rales in bases with rhonchi scattered throughout. O2 on at 4L. Call rodriguez within reach.
[2017-03-22] MEDS: SODIUM CHLORIDE 0.9% 1000ML 1,000 ML IV SCH (09:06)
[2017-03-22] MEDS: INSULIN ASPART 100 UNITS/ML 3 ML PEN SC SCH ×4 (09:06→20:43)
[2017-03-22] MEDS: GUAIFENESIN 600 MG TABCR PO SCH ×2 (09:07→20:32)
[2017-03-22] MEDS: MAGNESIUM OXIDE 400 MG TAB PO SCH ×2 (09:07→20:30)
[2017-03-22] MEDS: METHYLPREDNISOLONE IV 20 MG in SYRINGE 0 ML IV SCH ×2 (09:07→20:30)
[2017-03-22] MEDS: OSELTAMIVIR PHOSPHATE 75 MG CAP PO SCH ×2 (09:08→20:31)
[2017-03-22] MEDS: HEPARIN SOD 5000 UNIT/0.5 ML CARP SQ SCH ×2 (09:10→20:44)
[2017-03-22] MEDS: VANCOMYCIN IV 1,750 MG in SODIUM CHLORIDE 0.9% 500ML 500 ML IV SCH (12:25)
--- NOTE | 2017-03-22 12:43 | NUR ---
Bloody sputum sample sent to lab per order. Audible wheezes with slight exertion. Lungs diminished with rhonchi, crackles and expiratory wheezes. Pulse ox 94% on 4L. Denies chest pain and palpitations. c/o lower back pain/ muscle spasms intermittently. Assisted OOB to chair with standby assist. Call rodriguez within reach. Family at bedside.
--- NOTE | 2017-03-22 14:43 | Hospitalist Progress Note ---
Hospitalist Progress Note Date of Service Mar 22, 2017. Subjective Pt evaluation today including: conversation w/ patient Pt feeling better today. Reports he has had some small amounts of hemoptysis the last 2 days that he forgot to tell me about. RN collected a sample today. Otherwise, he can now walk to the bathroom and back without BHARDWAJ. Feels he can breathe easier. O2 down to 4LNC. Afebrile Cardiovascular: No chest pain Musculoskeletal: + problem reported (lower back pain with sitting in bed a lot, improved with sitting in chair today) All Other Systems: Reviewed and Negative Objective Vital Signs Date Time Temp Pulse Resp B/P (MAP) Pulse Ox O2 Delivery O2 Flow Rate FiO2 03/22/17 14:09 67 18 94 Nasal Cannula 4.0 03/22/17 11:41 36.4 64 19 162/96 (118) 98 Nasal Cannula 4.0 03/22/17 08:00 97 Nasal Cannula 4.0 03/22/17 07:52 36.4 69 19 160/89 (112) 97 Nasal Cannula 4.0 03/22/17 07:05 63 18 98 Nasal Cannula 4.0 03/22/17 04:00 Nasal Cannula 6.0 03/22/17 04:00 37.0 69 20 150/85 (106) 97 Room Air 4.0 Nasal Cannula 03/22/17 02:06 77 18 96 Nasal Cannula 4.0 03/22/17 00:09 36.8 75 18 142/82 (102) 95 Nasal Cannula 03/22/17 00:00 Nasal Cannula 6.0 03/21/17 20:00 Nasal Cannula 6.0 03/21/17 19:37 77 18 96 Nasal Cannula 5.0 03/21/17 19:10 36.8 85 20 150/73 (98) 97 Nasal Cannula 5.0 03/21/17 16:00 Nasal Cannula 6.0 03/21/17 15:24 36.7 94 24 166/77 (106) 92 Nasal Cannula 5.0 Physical Exam General Appearance: WD/WN, no apparent distress Eyes: normal inspection, sclerae normal ENT: hearing grossly normal Neck: trachea midline Respiratory/Chest: no respiratory distress, no accessory muscle use, + crackles (in left lower and middle lung gonzalez), + wheezing (diffusely insp and exp) Cardiovascular: regular rate, rhythm, no edema, no murmur Abdomen: normal bowel sounds, non tender, soft, no organomegaly Extremities: non-tender, normal inspection, no pedal edema, no calf tenderness Neurologic/Psychiatric: alert, normal mood/affect, oriented x 3 Skin: normal color, warm/dry, no rash Laboratory Results Last 24 Hours Test 03/21/17 20:12 03/22/17 06:24 03/22/17 06:39 03/22/17 11:22 Bedside Glucose 265 mg/dl 234 mg/dl 264 mg/dl White Blood Count 10.76 K/uL Red Blood Count 3.73 M/uL Hemoglobin 11.4 g/dL Hematocrit 34.2 % Mean Corpuscular Volume 91.7 fL Mean Corpuscular Hemoglobin 30.6 pg Mean Corpuscular Hemoglobin Concent 33.3 g/dl Platelet Count 175 K/uL Mean Platelet Volume 9.2 fL Neutrophils (%) (Auto) 78.7 % Lymphocytes (%) (Auto) 9.8 % Monocytes (%) (Auto) 9.9 % Eosinophils (%) (Auto) 0.0 % Basophils (%) (Auto) 0.1 % Neutrophils # (Auto) 8.47 K/uL Lymphocytes # (Auto) 1.05 K/uL Monocytes # (Auto) 1.07 K/uL Eosinophils # (Auto) 0.00 K/uL Basophils # (Auto) 0.01 K/uL RDW Standard Deviation 48.8 fL RDW Coefficient of Variation 14.4 % Immature Granulocyte % (Auto) 1.5 % Immature Granulocyte # (Auto) 0.16 K/uL Toxic Granulation 1+ Toxic Vacuolation 1+ Dohle Bodies 1+ Sodium Level 135 mmol/L Potassium Level 4.9 mmol/L Chloride Level 104 mmol/L Carbon Dioxide Level 24 mmol/L Anion Gap 7.0 mmol/L Blood Urea Nitrogen 24 mg/dl Creatinine 1.10 mg/dl Est Creatinine Clear Calc Drug Dose 83.1 ml/min Estimated GFR () 81.8 Estimated GFR (Non- 70.6 BUN/Creatinine Ratio 22.0 Random Glucose 252 mg/dl Calcium Level 8.4 mg/dl Magnesium Level 2.1 mg/dl Assessment and Plan This pt is a 66 yo male with a h/o paroxysmal SVT, HTN, TAA repair, COPD, DMII, gout, depression, HL, and nephrolithiasis, who presents with worsening cough, fevers 2 days after being diagnosed with Influenza A. Found to have LLL PNA and sepsis. LLL PNA/Influenza A/Sepsis/COPD with exacerbation/Acute hypoxemic respiratory failure-- with tachycardia, fevers, post-influenza PNA. At risk for MRSA PNA post-flu but MRSA swab negative, BCxs no growth. Was leukopenic and now improved , on steroids as well. FluA+ from 03/18. Lactate elevated and then came down. Improving today, weaning down on O2, breathing is better. With hemoptysis-scant -dc Vanco now that MRSA swab neg and BCxs neg x almost 48 hrs -Continue Tamiflu 75 mg by mouth twice a day for total 5 day course (last dose evening of 03/23) -continue Cefepime and continue Levaquin for atypical coverage too (QT ok on ECG ) -continue Solu-Medrol 20 mg IV every 12 hours -continue Guaifenesin extended release 600 mg by mouth twice a day -continue Xopenex/Atrovent nebulizers every 6 hours while awake and every 2 hours when necessary -on Anoro Ellipta at home but not available here, ok to hold while getting ATC nebs and IV steroids -wean supplemental O2 as able to keep POx>92% -dc continue IVFs -follow BCxs, Sputum gram stain and cx Hypertension/h/o TAA repair/new inferior lateral changes on EKG/PSVT-- troponin negative x 3, TWIs resolved with lower rate. Some brief SVT on tele here x 1 episode. BPs elevated now, lisinopril was on hold for MIGUEL initially. No chest pain at all. ECHO normal EF but less robust than previous as per Cardio, mild AI, mod LVH. Could have underlying CAD but ACS ruled out -Continue metoprolol succinate ER 50 mg by mouth every afternoon and aspirin 325 mg by mouth daily -would perform outpatient stress test once recovered from acute illness -ok to restart lisinopril now that fur farmer improved MIGUEL-fur farmer peaked at 1.67 here, baseline 1.14. Likely secondary to prerenal azotemia. Now improved to 1.1 with IVFs -dc IVFs -follow PRP -renally dose meds as per pharmacy -avoid nephrotoxins Diabetes mellitus II, well controlled, on fdc insulin, with hyperglycemia secondary to steroids-HgbA1C 7.0% in 01/2017 -received half dose Lantus 24 units on first night of admission due to significantly decreased oral intake -now returned to home Lantus dose 48 units qhs due to hyperglycemia Hold metformin but can likely restart tomorrow if renal function remains normal -continue Accu-Cheks before meals and at bedtime with NovoLog coverage per scale --> tightened correction factor and carb coverage today Hyperlipidemia--stable Continue Vytorin 10/20 daily and fish oil 1 capsule daily. Gout--stable Continue allopurinol 100 mg daily Depression--stable Continue Effexor XR 75 mg daily Kidney stones, history-- Keep hydrated Proph-Heparin SQ Dispo-ok to transfer to medical FULL CODE
[2017-03-22] MEDS ORDERED: LISINOPRIL 10 MG TAB PO ONE (15:00)
--- NOTE | 2017-03-22 15:00 | NUR ---
Patient is being transferred to [facility]. Patient called his . Willow RODRIGUEZ was called with report. Patient left with belongings by wheelchair.
--- NOTE | 2017-03-22 15:27 | NUR ---
Lisinopril given for high b/p.
--- NOTE | 2017-03-22 16:00 | NUR ---
A: Pt arrived in room from 222-1, alert and oriented x4, denies pain, with ongoing IVF at R FA, Lungs are with expiratory wheezes and fine crackles at bases on 4L sat at 94%, with moist productive cough, +BS, soft, non tender, non distended abdomen, void on toilet/ urinal, VSS, call rodriguez within reach, orient to room environment, Will continue monitoring
[2017-03-22] MEDS: LEVOFLOXACIN / D5W 750 MG in PREMIXED IN D5W 150 ML IV SCH (20:27)
[2017-03-22] MEDS: VENLAFAXINE HCL XR 75 MG CAPXR PO SCH (20:30)
[2017-03-22] MEDS: ASPIRIN 325 MG ECTAB PO SCH (20:31)
[2017-03-22] MEDS: METOPROLOL SUCC 50MG EXT REL TAB PO SCH (20:31)
[2017-03-22] MEDS: CEROVITE ADV FORMULA TAB PO SCH (20:31)
[2017-03-22] MEDS: OMEGA-3 (PURIFIED FISH OIL) 1 GM CAP PO SCH (20:32)
[2017-03-22] MEDS: EZETIMIBE/SIMVASTATIN 10/20 TAB PO SCH (20:32)
[2017-03-22] MEDS: ALLOPURINOL 100 MG TAB PO SCH (20:32)
[2017-03-22] MEDS: INSULIN GLARGINE SOLOSTAR 100 UNITS/ML 3 ML PEN SC SCH (20:43)
[2017-03-23] VITALS (9 sets, daily range): BP systolic 165–184; BP diastolic 73–79; PULSE 50–77; TEMP 36.5–36.6; O2SAT 90–97
[2017-03-23] MEDS ORDERED: VANCOMYCIN TROUGH ONE (01:30)
[2017-03-23] MEDS: LEVALBUTEROL 1.25MG/0.5ML NEB INH SCH ×4 (02:15→19:56)
[2017-03-23] MEDS: IPRATROPIUM BROMIDE NEB SOLN 0.02% 2.5 ML VIAL INH SCH ×4 (02:15→19:56)
[2017-03-23] MEDS: CEFEPIME IV 2,000 MG in SYRINGE 7.5 ML IV SCH ×3 (02:43→18:20)
[2017-03-23 06:18] LABS: HEMATOCRIT 36.4 % (42-52); HEMOGLOBIN 12.3 g/dL (14.0-18.0); MEAN CELL VOLUME 91.9 fL (80-100); MEAN CORPUSCULAR HEMOGLOBIN 31.1 pg (25-34); MEAN CORPUSCULAR HGB CONC 33.8 g/dl (32-36); MEAN PLATELET VOLUME 9.8 fL (7.4-10.4); PLATELET COUNT 213 K/uL (130-400); RED CELL DISTRIBUTION WIDTH CV 14.5 % (11.5-14.5); RED CELL DISTRIBUTION WIDTH SD 49.4 fL (36.4-46.3); WHITE BLOOD COUNT 15.62 K/uL (4.8-10.8)
[2017-03-23 06:45] LABS: CALCIUM 8.9 mg/dl (8.5-10.1); CREATININE 1.2 mg/dl (0.60-1.40)
[2017-03-23 06:57] LABS: BASO % 0.4 %; BASO ABS # 0.06 K/uL (0-0.2); IG# 0.41 K/uL (0.00-0.02); LYMPH % 10.3 %; LYMPH ABS # 1.61 K/uL (1.2-3.4); MONO % 13.3 %; MONO ABS # 2.08 K/uL (0.11-0.59); NEUT % 73.4 %; NEUT ABS # 11.46 K/uL (1.4-6.5)
[2017-03-23] MEDS ORDERED: HydrALAZINE HCL 20 MG/ML VIAL IV. PRN (07:45)
[2017-03-23] MEDS: METHYLPREDNISOLONE IV 20 MG in SYRINGE 0 ML IV SCH (08:12)
[2017-03-23] MEDS: GUAIFENESIN 600 MG TABCR PO SCH ×2 (08:13→20:38)
[2017-03-23] MEDS: OSELTAMIVIR PHOSPHATE 75 MG CAP PO SCH ×2 (08:13→20:35)
[2017-03-23] MEDS: MAGNESIUM OXIDE 400 MG TAB PO SCH ×2 (08:14→20:35)
[2017-03-23] MEDS: LISINOPRIL 10 MG TAB PO SCH (08:14)
[2017-03-23] MEDS: INSULIN ASPART 100 UNITS/ML 3 ML PEN SC SCH ×3 (08:27→20:50)
[2017-03-23] MEDS: HEPARIN SOD 5000 UNIT/0.5 ML CARP SQ SCH ×2 (08:28→20:49)
--- NOTE | 2017-03-23 13:10 | NUR ---
ID: Patient alert and oriented, remains on droplet precautions for flu. VSS. Patient independent in room with steady gait. Patient lives at home with family plans to return home when medically stable. Discharge date uncertain at present. Will continue to monitor patients overall status.
[2017-03-23] MEDS ORDERED: NURSING VERBAL MED ORDER ONE (16:45)
[2017-03-23] MEDS ORDERED: INSULIN ASPART 100 UNITS/ML 3 ML PEN SC SCH (17:00)
--- NOTE | 2017-03-23 17:44 | Hospitalist Progress Note ---
Hospitalist Progress Note Date of Service Mar 23, 2017. Subjective Pt evaluation today including: conversation w/ patient Patient feeling improved today. I walked with him in the loop around the hallway and his oxygen stayed at or above 90% on room air. He did not feel short of breath or dyspneic on exertion. His cough is about the same as yesterday, but he is weaned completely off oxygen now. His sugars remained very elevated. When I came into the room, he was snoring very loudly while he was sleeping. He reports he never brought his CPAP in from home but will have his do that for tonight. Tolerating by mouth, no nausea vomiting or diarrhea. Remains afebrile. All Other Systems: Reviewed and Negative Objective Vital Signs Date Time Temp Pulse Resp B/P (MAP) Pulse Ox O2 Delivery O2 Flow Rate FiO2 03/23/17 16:00 90 Room Air 03/23/17 14:51 36.6 75 22 167/73 (104) 03/23/17 14:17 64 18 96 Nasal Cannula 2.0 03/23/17 08:00 95 Nasal Cannula 4.0 03/23/17 07:38 36.5 63 18 184/79 (114) 95 Room Air 03/23/17 07:07 59 18 97 Nasal Cannula 4.0 03/23/17 02:15 50 18 97 Nasal Cannula 4.0 03/23/17 00:00 Nasal Cannula 4.0 03/22/17 23:21 36.8 63 16 166/87 (113) 95 Nasal Cannula 4.0 03/22/17 20:00 70 18 95 Nasal Cannula 4.0 Physical Exam General Appearance: WD/WN, no apparent distress Eyes: normal inspection, sclerae normal ENT: hearing grossly normal Neck: trachea midline Respiratory/Chest: no respiratory distress, no accessory muscle use, + wheezing (diffuse wheezing and rhonchi throughout but improved from yesterday and moving air well throughout) Cardiovascular: regular rate, rhythm, no edema, no murmur Abdomen: normal bowel sounds, non tender, soft, no organomegaly Extremities: non-tender, normal inspection, no pedal edema, no calf tenderness Neurologic/Psychiatric: alert, normal mood/affect, oriented x 3 Skin: normal color, warm/dry, no rash Laboratory Results Last 24 Hours Test 03/22/17 20:32 03/23/17 05:37 03/23/17 07:32 03/23/17 11:22 Bedside Glucose 279 mg/dl 220 mg/dl 277 mg/dl White Blood Count 15.62 K/uL Red Blood Count 3.96 M/uL Hemoglobin 12.3 g/dL Hematocrit 36.4 % Mean Corpuscular Volume 91.9 fL Mean Corpuscular Hemoglobin 31.1 pg Mean Corpuscular Hemoglobin Concent 33.8 g/dl Platelet Count 213 K/uL Mean Platelet Volume 9.8 fL Neutrophils (%) (Auto) 73.4 % Lymphocytes (%) (Auto) 10.3 % Monocytes (%) (Auto) 13.3 % Eosinophils (%) (Auto) 0.0 % Basophils (%) (Auto) 0.4 % Neutrophils # (Auto) 11.46 K/uL Lymphocytes # (Auto) 1.61 K/uL Monocytes # (Auto) 2.08 K/uL Eosinophils # (Auto) 0.00 K/uL Basophils # (Auto) 0.06 K/uL RDW Standard Deviation 49.4 fL RDW Coefficient of Variation 14.5 % Immature Granulocyte % (Auto) 2.6 % Immature Granulocyte # (Auto) 0.41 K/uL Rouleau 1+ Sodium Level 135 mmol/L Potassium Level 5.0 mmol/L Chloride Level 105 mmol/L Carbon Dioxide Level 25 mmol/L Anion Gap 5.0 mmol/L Blood Urea Nitrogen 29 mg/dl Creatinine 1.20 mg/dl Est Creatinine Clear Calc Drug Dose 76.1 ml/min Estimated GFR () 73.6 Estimated GFR (Non- 63.5 BUN/Creatinine Ratio 24.3 Random Glucose 215 mg/dl Calcium Level 8.9 mg/dl Magnesium Level 1.9 mg/dl Test 03/23/17 16:21 Bedside Glucose 383 mg/dl Assessment and Plan This pt is a 66 yo male with a h/o paroxysmal SVT, HTN, TAA repair, COPD, DMII, gout, depression, HL, and nephrolithiasis, who presents with worsening cough, fevers 2 days after being diagnosed with Influenza A. Found to have LLL PNA and sepsis. LLL PNA/Influenza A/Sepsis/COPD with exacerbation/Acute hypoxemic respiratory failure-- with tachycardia, fevers, post-influenza PNA. At risk for MRSA PNA post-flu but MRSA swab negative, BCxs no growth. Was leukopenic and now improved , on steroids as well. FluA+ from 03/18. Lactate elevated and then came down. Improved today, weaned off O2, breathing is better. With hemoptysis-scant -dc Vanco now that MRSA swab neg and BCxs neg x almost 48 hrs -Continue Tamiflu 75 mg by mouth twice a day for total 5 day course (last dose evening of 03/23)- completed course tonight -continue Cefepime and continue Levaquin for atypical coverage too (QT ok on ECG ) -will discontinue Solu-Medrol IV given hyperglycemia and elevated BPS, both likely from steroids -switch to po prednisone 40mg daily in AM and taper down after dc -continue Guaifenesin extended release 600 mg by mouth twice a day -continue Xopenex/Atrovent nebulizers every 6 hours while awake and every 2 hours when necessary -on Anoro Ellipta at home but not available here, ok to hold while getting ATC nebs and IV steroids -follow BCxs NGTD, Sputum gram stain and cx light normal vince Hypertension/h/o TAA repair/new inferior lateral changes on EKG/PSVT-- troponin negative x 3, TWIs resolved with lower rate. Some brief SVT on tele here x 1 episode. BPs elevated now, lisinopril was on hold for MIGUEL initially. No chest pain at all. ECHO normal EF but less robust than previous as per Cardio, mild AI, mod LVH. Could have underlying CAD but ACS ruled out BPs elevated despite restarting lisinopril yesterday, could be secondary to IV steroids -Continue metoprolol succinate ER 50 mg by mouth every afternoon and aspirin 325 mg by mouth daily -would perform outpatient stress test once recovered from acute illness -continue lisinopril -IV hydralazine prn -dc-ing IV steroids MIGUEL-machine tender peaked at 1.67 here, baseline 1.14. Likely secondary to prerenal azotemia. Now improved to 1.2 with IVFs -dcd IVFs -follow PRP -renally dose meds as per pharmacy -avoid nephrotoxins Diabetes mellitus II, well controlled, on terminal worker insulin, with hyperglycemia secondary to steroids-HgbA1C 7.0% in 01/2017 -increase Lantus to 53 units qhs due to hyperglycemia -restart metformin as renal function normalized -continue Accu-Cheks before meals and at bedtime with NovoLog coverage per scale -->again tightened correction factor and carb coverage today Hyperlipidemia--stable Continue Vytorin 10/20 daily and fish oil 1 capsule daily. Gout--stable Continue allopurinol 100 mg daily Depression--stable Continue Effexor XR 75 mg daily Kidney stones, history-- Keep hydrated Proph-Heparin SQ Dispo-possibly to home tomorrow FULL CODE
[2017-03-23] MEDS: METFORMIN HCL 500 MG TAB PO SCH (18:21)
[2017-03-23] MEDS: LEVOFLOXACIN / D5W 750 MG in PREMIXED IN D5W 150 ML IV SCH (20:30)
[2017-03-23] MEDS: EZETIMIBE/SIMVASTATIN 10/20 TAB PO SCH (20:35)
[2017-03-23] MEDS: OMEGA-3 (PURIFIED FISH OIL) 1 GM CAP PO SCH (20:35)
[2017-03-23] MEDS: ALLOPURINOL 100 MG TAB PO SCH (20:38)
[2017-03-23] MEDS: ASPIRIN 325 MG ECTAB PO SCH (20:38)
[2017-03-23] MEDS: METOPROLOL SUCC 50MG EXT REL TAB PO SCH (20:38)
[2017-03-23] MEDS: CEROVITE ADV FORMULA TAB PO SCH (20:38)
[2017-03-23] MEDS: VENLAFAXINE HCL XR 75 MG CAPXR PO SCH (20:39)
[2017-03-23] MEDS: INSULIN GLARGINE SOLOSTAR 100 UNITS/ML 3 ML PEN SC SCH (20:50)
[2017-03-24] VITALS (9 sets, daily range): BP systolic 142–165; BP diastolic 78–79; PULSE 63–86; TEMP 36.6–36.7; O2SAT 86–94
[2017-03-24] MEDS: CEFEPIME IV 2,000 MG in SYRINGE 7.5 ML IV SCH ×2 (02:06→09:21)
[2017-03-24] MEDS: IPRATROPIUM BROMIDE NEB SOLN 0.02% 2.5 ML VIAL INH SCH ×4 (02:22→20:33)
[2017-03-24] MEDS: LEVALBUTEROL 1.25MG/0.5ML NEB INH SCH ×4 (02:22→20:33)
[2017-03-24 07:37] LABS: CALCIUM 8.9 mg/dl (8.5-10.1); CREATININE 1.23 mg/dl (0.60-1.40); POTASSIUM 3.8 mmol/L (3.5-5.1)
[2017-03-24] MEDS: METFORMIN HCL 500 MG TAB PO SCH ×2 (07:56→17:23)
[2017-03-24] MEDS: MAGNESIUM OXIDE 400 MG TAB PO SCH ×2 (07:57→20:26)
[2017-03-24] MEDS: GUAIFENESIN 600 MG TABCR PO SCH ×2 (07:57→20:27)
[2017-03-24] MEDS: LISINOPRIL 10 MG TAB PO SCH (07:59)
[2017-03-24] MEDS: INSULIN ASPART 100 UNITS/ML 3 ML PEN SC SCH ×4 (08:13→20:35)
[2017-03-24] MEDS: HEPARIN SOD 5000 UNIT/0.5 ML CARP SQ SCH ×2 (08:14→20:34)
--- NOTE | 2017-03-24 09:55 | NUR ---
The patient has demonstrated progress toward goals and readiness for discharge as demonstrated by:patient alert and oriented,vss,lungs clear,room air ,moist cough,droplet precautions,ambulating independently,heplock,receiving antibiotic therapy,possible discharge today
[2017-03-24 11:02] LABS: HEMATOCRIT 36.7 % (42-52); HEMOGLOBIN 12.3 g/dL (14.0-18.0); MEAN CELL VOLUME 91.1 fL (80-100); MEAN CORPUSCULAR HEMOGLOBIN 30.5 pg (25-34); MEAN CORPUSCULAR HGB CONC 33.5 g/dl (32-36); MEAN PLATELET VOLUME 9.4 fL (7.4-10.4); PLATELET COUNT 260 K/uL (130-400); RED CELL DISTRIBUTION WIDTH CV 14.3 % (11.5-14.5); RED CELL DISTRIBUTION WIDTH SD 47.8 fL (36.4-46.3); WHITE BLOOD COUNT 16.53 K/uL (4.8-10.8)
[2017-03-24] MEDS ORDERED: PRD20 PO (12:27)
[2017-03-24] MEDS ORDERED: INSDGI SC (12:27)
[2017-03-24] MEDS ORDERED: LEVO-18 PO (12:27)
[2017-03-24] MEDS ORDERED: GFNSR600 PO (12:27)
--- NOTE | 2017-03-24 12:40 | NUR ---
A:PATIENT AMBULATED 200 FT WITH RN WITH O2 SAT ON , WHILE AMBULATING READING OF 86%,88%,89%,90%,91%
--- NOTE | 2017-03-24 12:52 | Discharge Instructions ---
Discharge Instructions Date of Service Mar 24, 2017. Admission Reason for Admission: Influenza A, Pneumonia Involving Left Lung Discharge Discharge Diagnosis / Problem: Influenza, pneumonia Discharge Goals Goal(s): Decrease discomfort, Improve function, Diagnostic testing, Therapeutic intervention Activity Recommendations Activity Limitations: resume your previous activity (as tolerated) . Instructions / Follow-Up Instructions / Follow-Up You were admitted to the hospital after presenting with worsening shortness of breath and cough. You were found to have the flu as well as pneumonia. You were treated with an antiviral for the flu as well as IV antibiotics and steroids for the pneumonia. During your stay, you did have some transient EKG changes which resolved on their own, as well as 1 episode of SVT. You were evaluated by cardiology who recommended that you have a stress test done as an outpatient after the pneumonia resolves. Your blood pressure and blood sugars also became elevated, likely due to the steroids, so your home Lantus dose has been changed as described below. As you are now breathing better, but will require supplemental oxygen at 2 L via nasal cannula with exertion/walking. You are medically stable to return home. Medications: *Please take Levaquin (levofloxacin) 750 mg by mouth daily for 3 more days. This is an antibiotic. Please take the first dose tomorrow 03/25/17. *Please take prednisone as directed below. This is an oral steroid. -Take 40 mg (2 tablets) by mouth once a day for 2 more days, starting tomorrow, 03/25/17. Then, -Take 20 mg (1 tablet) by mouth once a day for 3 days, starting , 03/27 , until Friday, 03/29, then stop. *You may take Mucinex (guaifenesin) 600 mg by mouth twice daily for the next week. *Your Lantus dose has been increased to 50 units at nighttime, as your blood sugars have been elevated due to the steroids. If you are noticing low blood sugars, you can reduce the dose back to 48 units. *Continue your other home medications as prescribed. Use your albuterol inhaler every 4-6 hours as needed for shortness of breath and/or wheezing. Follow up: *You will be scheduled for a follow up appointment at Dr. Gomez's office. *Please keep your scheduled follow up appointment with Dr. Alexander later this month. It is recommended that you have an outpatient stress test once you recover, but your pneumonia may take a few weeks to fully resolve. Please seek medical attention if you experience fevers, chills, sweats, dizziness/lightheadedness, loss of consciousness, chest pain, shortness of breath, nausea, vomiting, numbness or tingling. Current Hospital Diet Patient's current hospital diet: AHA Diet (Heart Healthy), Diabetes Type 2 Diet Discharge Diet Recommended Diet: AHA Diet (Heart Healthy), Diabetes Type 2 Diet Procedures Procedures Performed: Chest xray Pending Studies Studies pending at discharge: yes List of pending studies: Final Blood cultures drawn 03/20/17-no growth to date Laboratory Results Last 24 Hours Test 03/23/17 20:18 03/24/17 06:23 03/24/17 07:36 03/24/17 11:24 Bedside Glucose 258 mg/dl 94 mg/dl 166 mg/dl White Blood Count 16.53 K/uL Red Blood Count 4.03 M/uL Hemoglobin 12.3 g/dL Hematocrit 36.7 % Mean Corpuscular Volume 91.1 fL Mean Corpuscular Hemoglobin 30.5 pg Mean Corpuscular Hemoglobin Concent 33.5 g/dl RDW Standard Deviation 47.8 fL RDW Coefficient of Variation 14.3 % Platelet Count 260 K/uL Mean Platelet Volume 9.4 fL Sodium Level 139 mmol/L Potassium Level 3.8 mmol/L Chloride Level 106 mmol/L Carbon Dioxide Level 28 mmol/L Anion Gap 5.0 mmol/L Blood Urea Nitrogen 33 mg/dl Creatinine 1.23 mg/dl Est Creatinine Clear Calc Drug Dose 74.3 ml/min Estimated GFR () 71.5 Estimated GFR (Non- 61.7 BUN/Creatinine Ratio 26.9 Random Glucose 100 mg/dl Calcium Level 8.9 mg/dl Test 03/24/17 15:54 Bedside Glucose 181 mg/dl Hemoglobin A1c Test 01/22/17 09:19 Range/Units Estimated Average Glucose 154 mg/dl Hemoglobin A1c 7.0 H 4.5-5.6 % Lipid Panel Test 01/22/17 09:19 Range/Units Triglycerides Level 214 H 0-150 mg/dl Cholesterol Level 113 0-200 mg/dl HDL Cholesterol 37 mg/dl Cholesterol/HDL Ratio 3.1 LDL Cholesterol, Calculated 33 mg/dl Medical Emergencies . Who to Call and When: Medical Emergencies: If at any time you feel your situation is an emergency, please call 911 immediately. . Non-Emergent Contact Non-Emergency issues call your: Primary Care Provider, Ac/Dc Rewinder Call Non-Emergent contact if: you have a fever, you have any medication questions . Past History Medical & Surgical History: (1) Influenza A (2) Pneumonia (3) PSVT (paroxysmal supraventricular tachycardia) . "Provider Documentation" section prepared by Marilyn Saldana. . VTE Core Measure Inpt VTE Proph given/why not?: Unfractionated heparin SQ, SCD's
--- NOTE | 2017-03-24 14:22 | NUR ---
Case Management- Patient doc potentially need home o2 on discharge. Two step has nt been completed at this time. Called [facility] in the meantime to find out what o2 supplier patient can use locally. Spoke with julio at [facility]. They coordinate o2 supplies we would need to fax them prescription face sheet two step and h&p and they coordinate home o2. Fax for [facility] [employer] [phone] CM following
--- NOTE | 2017-03-24 15:40 | Discharge Summary ---
Discharge Summary Date of Service Mar 24, 2017. Discharge Summary Admission Date: Mar 20, 2017 at 21:53 Discharge Date: Mar 24, 2017 Discharge Disposition: Home Principal Diagnosis: Influenza, pneumonia Problems/Secondary Diagnoses: Paroxysmal SVT Abnormal ECG Trace aortic regurgitation HTN H/o TAA repair COPD DM II Gout Depression HLD H/o nephrolithiasis Immunizations: Have You Had Influenza Vaccine: No History of Tetanus Vaccine?: No History of Pneumococcal: No History of Hepatitis B Vaccine: No Procedures: CHEST ONE VIEW PORTABLE CLINICAL HISTORY: 66 years-old Male presenting with fever. TECHNIQUE: Portable upright AP view of the chest was obtained. COMPARISON: 03/18/2017. FINDINGS: Median sternotomy wires with breakage of one of the wires, unchanged. Atherosclerosis of the aortic arch. Cardiac silhouette normal in size. Left perihilar and basilar hazy opacities. This does not silhouette the left heart border but does result in partial obscuration of the medial left hemidiaphragm. No large pleural effusion or pneumothorax. Right lung and pleural space clear. Osseous structures normal. Upper abdomen normal. IMPRESSION: 1. Left lower lobe pneumonia. Echo: Interpretation Summary * Name: HORTENCIA HUGHES JR Study Date: 03/21/2017 08:18 AM BP: 135/73 mmHg * Patient Location: [facility]\S\1 HR: 90 * : 1950 (M/d/yyyy) Gender: Male Height: 72 in * Age: 66 yrs Ethnicity: [place] Weight: 243 lb * Ordering Physician: Darius Brooks * Referring Physician: Self, Referred * Performed By: Anh Thomas RDCS * * Reason For Study: INFEROLAT ISCHEMIA ON EKG * BSA: 2.3 m2 * -- Conclusions -- * Technically limited study * 1. Normal LV size. Borderline concentric LVH. * 2. Normal LV systolic function. LVEF 55-60%. No regional wall motion abnormalities. * 3. Normal RV size and function. * 4. Trace aortic regurgitation. * 5. Compared with prior study on 04/25/2015: No significant changes. Procedure Details * A contrast injection of Definity was performed to improve assessment of LV function. * Contrast was injected into an intravenous site in the left arm. * One vial of Definity ultrasound contrast was diluted in normal saline to a total volume of 10 ml. A total of '1' ml of solution was administered during imaging. * Lot # [id number] of Definity utilized for procedure. * Expiration date 1 MAY 12. * The attending nurse who injected the contrast agent was JENNIFER CABRERA. Left Ventricle * The left ventricle is grossly normal size. * There is borderline concentric left ventricular hypertrophy. * Ejection Fraction = 55-60%. * Flattened septum is consistent with RV volume overload. Right Ventricle * The right ventricle is not well visualized. * The right ventricle is grossly normal size. * The right ventricular systolic function is qualitatively normal. Atria * The left atrial size is normal. * Right atrium not well visualized. * No ASD detected; PFO is not assessed. Mitral Valve * The mitral valve is grossly normal. * There is no mitral valve stenosis. * Significant mitral regurgitation is absent. Tricuspid Valve * The tricuspid valve is not well visualized. * Significant tricuspid regurgitation is absent. Aortic Valve * The aortic valve is not well visualized. * No hemodynamically significant valvular aortic stenosis. * Trace aortic regurgitation. Pulmonic Valve * The pulmonary valve is inadequately visualized, but the Doppler data is adequate for interpretation. * Pulmonic stenosis is absent. * There is no significant pulmonary regurgitation. Pericardium/Pleural * There is no pericardial effusion. Consultations: Cardiology Medication Reconciliation New Medications: Levofloxacin (Levaquin) 750 Mg Tab 1 TAB PO DAILY for 3 Days, #3 TAB First dose on 03/24/17 Guaifenesin Ext Rel (Mucinex Ext Rel) 600 Mg Tabcr 600 MG PO Q12 for 7 Days, #14 TABS Prednisone (Prednisone) 20 Mg Tab 20 MG PO UD for 5 Days, #7 TAB Take 40 mg (2 tabs) on 03/25 and 03/26, then 20 mg (1 tab) on 03/27, 03/28, 03/29, then stop Changed Medications: Insulin Glargine (Lantus) 100 Unit/Ml Inj 50 UNITS SC QPM for 30 Days, #30 DOSE (Changed from: 48 UNITS) Continued Medications: Albuterol Hfa (Ventolin Hfa) 200 Puffs/66896 Mcg Aers 2 PUFFS INH QID PRN for SOB/Wheezing, #1 INHALER Allopurinol (Zyloprim) 100 Mg Tab 100 MG PO QPM, TAB Aspirin (Aspirin) 325 Mg Tab 325 MG PO QPM Ezetimibe/Simvastatin (Vytorin 10MG/20MG) Tab 1 TAB PO QPM, TAB Fish Oil ([place]ille-3) 1 Ea Cap 1 CAP PO QPM Lisinopril (Prinivil) 10 Mg Tab 10 MG PO QPM, 0 Refills Magnesium (Magnesium) 200 Mg Tab 200 MG PO BID Metformin Hcl (Glucophage) 1,000 Mg Tab 1000 MG PO BID, TAB Metoprolol Succinate (Metoprolol Succinate ER) 50 Mg Tabcr 50 MG PO QPM Multiple Vitamins W/ Minerals (Centrum Silver Adult 50+) 1 Tab Tab 1 TAB PO QPM Umeclidinium-Vilanterol (Anoro Ellipta 62.5-25 Mcg/INH) 1 Aer Aer 1 PUFF INH QAM Venlafaxine Hcl (Effexor Extended Rel) 75 Mg Capcr 75 MG PO QPM, CAP Discontinued Medications: Oseltamivir (Tamiflu) 75 Mg Cap 75 MG PO BID, #8 CAP Discharge Exam The patient reports feeling well. He denies any shortness of breath at rest and was able to walk a few loops in the hallway without dyspnea on exertion, however he did feel fatigued afterwards. He still has a cough that is sometimes productive but is improving. He does note some wheezing as well. Nursing walked the patient again and he did desaturate, so a 2-step was done for home oxygen prior to discharge. The patient denies fevers, chills, sweats, chest pain, palpitations, claudication, shortness of breath, nausea, vomiting, abdominal pain, dysuria, hematuria, urinary retention, paralysis, weakness, numbness and tingling. Constitutional: No fever, No chills, No sweats Eyes: No worsening of vision, No eye pain, No diplopia ENT: No hearing loss, No nasal symptoms, No trouble swallowing Respiratory: +Cough, wheezing. No shortness of breath Cardiovascular: No chest pain, No claudication, No palpitations Abdomen: No pain, No nausea, No vomiting Musculoskeletal: No joint pain, No muscle pain, No swelling Genitourinary - Male: No dysuria, No urinary retention, No hematuria Neurologic: No paralysis, No weakness, No numbness/tingling Integumentary: No rash, No itch, No color change General appearance: Well-developed, well-nourished, no apparent distress Head: Normocephalic, atraumatic Eyes: Normal inspection, PERRL, EOMI ENT: Normal ENT inspection, hearing grossly normal, pharynx normal Neck: Supple, no JVD, trachea midline Respiratory/Chest: +Decreased breath sounds. Lungs clear to auscultation, no respiratory distress Cardiovascular: Regular rate & rhythm, no gallop, no murmur Abdomen/GI: Normal bowel sounds, non-tender, soft Extremities/Musculoskeletal: Normal inspection, no calf tenderness, no pedal edema Neurological/Psych: Alert, normal mood/affect, oriented x 3 Skin: Normal color, warm/dry, no rash Hospital Course 66 y/o male with a history of paroxysmal SVT, HTN, HLD, TAA repair, COPD, DM II , gout, depression, and nephrolithiasis, who presents with worsening cough and fevers. Diagnosed with influenza A 2 days prior to arrival. Found septic and with LLL PNA on admission Sepsis secondary to LLL PNA and influenza A--resolving -Diagnosed with influenza A 03/18, discharged from ED with Tamiflu. Returned feeling worse -Blood cultures negative -Sputum culture normal vince -MRSA swab negative, vanc d/c'd -Received cefepime and Levaquin while in pt. Will discharge with Levaquin 750 mg PO qd x 3 more days to complete 7 day course -Elevated lactic acid on admission, then trended down -Completed 5 day course of Tamiflu 03/23 -Weaned down on O2. Did desat with ambulation prior to d/c. 2 step completed, will need 2L NC with ambulation -Continue Mucinex 600 mg PO BID Acute respiratory failure, COPD exacerbation--resolving -Solu-Medrol d/c'd due to hyperglycemia and HTN -Prednisone 40 mg taper for discharge: 40 mg PO qd x 2 more days, then 20 mg PO qd x 3 days, then stop -O2 as above -Xopenex/Atrovent nebs here. Resume Anoro and albuterol at home MIGUEL--resolved -Baseline creatine 1.14, had been up to 1.67 while inpt -Resolved with IVFs, now back to baseline, stable pSVT, HTN, HLD--stable -Did have inferolateral TWI on EKG but resolved -Troponin negative x 3 -BP coming down with IV steroids stopped -1 episode of brief SVT on tele here -Cardiology consulted, no further testing needed at this time but recommend outpt stress testing after acute illness resolved. Continue current meds -Echo with LVEF of 55-60%, no wall motion abnormalities. No significant change from 04/25/15 study but EF less robust per cardio -Continue ASA, Toprol XL 50 mg PO qd, lisinopril 10 mg PO qd, and Vytorin 10/20 mg PO qd -IV hydralazine prn DM II--last hgbA1c 7.0 on 01/22/17 -Home Lantus increased from 48 to 53 units SC hs due to hyperglycemia/steroids. D/C with Lantus 50 units SC hs, can reduce back to 48 if getting hypoglycemic -Metformin 1000 mg PO BID resumed -Insulin sliding scale -Check BSGs q ac and qhs Gout--stable -Continue allopurinol 100 mg PO qd Depression--stable -Continue Effexor XR 75 mg PO qd DVT prophylaxis -Heparin 5000 units SC q12h Code Status -Level I, FULL RESUSCITATION STATUS Dispo -D/C home, oxygen w/ambulation Total Time Spent: Greater than 30 minutes This includes examination of the patient, discharge planning, medication reconciliation, and communication with other providers. Discharge Instructions Please refer to the electronic Patient Visit Report (Discharge Instructions) for additional information. Follow-Up F/u with PCP. Scheduled to see senior strategy manager (Dr. Alexander) later this month (04/08) Additional Copies To Dulce Gomez M.D.; [place] Alexander M.D. Reviewed: Pt Seen/Exam by Me History Physician Wildlife Photographer Supervision Note: I interviewed and examined the patient. Discussed with NAE Saldana and agree with findings and plan as documented in the note. Any exceptions or clarifications are listed here: Patient feeling better, is able to ambulate without dyspnea on exertion, however he will require 2 L nasal cannula oxygen upon discharge at home. His cough is improved and he is ready for discharge. Denies chest pain or diarrhea. Vitals reviewed NAD, in good spirits, sitting in chair RRR, no MGR Lungs with scattered wheezes and rhonchi, but moving air well and much improved from previous Abdomen positive bowel sounds soft nontender nondistended Extremities no edema 66-year-old male here with influenza a left lower lobe pneumonia, acute on chronic hypoxemic respiratory failure. -We'll discharge to home to finish out a course of Levaquin -He will go out on 2 L nasal cannula for use with exertion and can be weaned off of this through his PCP at follow-up visit -Finish out steroid tapering continue inhalers for COPD Documented By: Indy Scott
[2017-03-24] MEDS ORDERED: LEVOFLOXACIN 750 MG TAB PO ONE (16:00)
--- NOTE | 2017-03-24 16:38 | NUR ---
Case Management: Script and testing faxed to [facility]. Will have to await set up of oxygen by [employer]. Addendum: 03/24/17 at 1659 by Aurora Hernández SERV Face sheet, H&P, and discharge summary faxed to [facility].
[2017-03-24] MEDS: EZETIMIBE/SIMVASTATIN 10/20 TAB PO SCH (20:26)
[2017-03-24] MEDS: CEROVITE ADV FORMULA TAB PO SCH (20:26)
[2017-03-24] MEDS: ALLOPURINOL 100 MG TAB PO SCH (20:27)
[2017-03-24] MEDS: VENLAFAXINE HCL XR 75 MG CAPXR PO SCH (20:27)
[2017-03-24] MEDS: METOPROLOL SUCC 50MG EXT REL TAB PO SCH (20:27)
[2017-03-24] MEDS: ASPIRIN 325 MG ECTAB PO SCH (20:27)
[2017-03-24] MEDS: OMEGA-3 (PURIFIED FISH OIL) 1 GM CAP PO SCH (20:28)
[2017-03-24] MEDS: INSULIN GLARGINE SOLOSTAR 100 UNITS/ML 3 ML PEN SC SCH (20:35)
[2017-03-25 00:04] VITALS: BP_SYST 182; BP_SYST 183; BP_DIAS 82; BP_DIAS 87; PULSE 77; TEMP 36.6; O2SAT 93
[2017-03-25 00:15] VITALS: BP 170/90; PULSE 75
[2017-03-25] MEDS: IPRATROPIUM BROMIDE NEB SOLN 0.02% 2.5 ML VIAL INH SCH ×3 (03:00→13:58)
[2017-03-25] MEDS: LEVALBUTEROL 1.25MG/0.5ML NEB INH SCH ×3 (03:00→13:58)
[2017-03-25] MEDS: INSULIN ASPART 100 UNITS/ML 3 ML PEN SC SCH ×2 (06:30→11:00)
[2017-03-25 07:15] VITALS: PULSE 86; O2SAT 90
[2017-03-25 07:45] VITALS: BP 122/70; PULSE 60; TEMP 36.5; O2SAT 92
[2017-03-25] MEDS: HEPARIN SOD 5000 UNIT/0.5 ML CARP SQ SCH (07:56)
[2017-03-25] MEDS: METFORMIN HCL 500 MG TAB PO SCH (07:56)
[2017-03-25] MEDS: GUAIFENESIN 600 MG TABCR PO SCH (07:57)
[2017-03-25] MEDS: MAGNESIUM OXIDE 400 MG TAB PO SCH (07:57)
[2017-03-25] MEDS: LISINOPRIL 10 MG TAB PO SCH (07:57)
--- NOTE | 2017-03-25 09:00 | NUR ---
Case Management- [facility] that was faxed 03/24. Per ld they did not receive fax. Went over patient need for oxygen received ref # [id number] refaxed clinical she believes the oxygen company will be [place]. [facility] needs to run his benefits to ensur coverage for home o2 once they receive clinical. CM following
--- NOTE | 2017-03-25 10:09 | NUR ---
I have been asked to arrange a PCP follow up appointment for Mr. Trinh. Mr. Trinh has an already scheduled follow up appointment with Dr. Gomez, the appointment information is below as it has been documented in the discharge. MARTINEZ "Important Appointment Information Mr. Trinh, Please keep your already scheduled follow up appointment with Dr. Gomez on March at 10:00am. Thank you."
--- NOTE | 2017-03-25 12:33 | NUR ---
A: Patient alert and oriented x 4. No complaints of pain. independent in room. BSG stable at this time. See EMR for full head to toe assessment. D/C home today. Will continue to monitor.
[2017-03-25 13:58] VITALS: PULSE 67; O2SAT 94
--- NOTE | 2017-03-25 14:27 | NUR ---
Case Management-Spoke with rojas at [facility] patient approved for home o2 through [facility]. Spoke with ju from [facility] once they have documentation from us they send o2 in two to four hours. Explained that patients ride would be here at 1500. Per ju they will call patient directly to coordinate home o2 set up. Asked wilson lloyd if patient would be okay going home without home o2 at this time. Per darlin he should be fine just needs o2 for ambulation. Provided [facility] with patients cell. CM following
[2017-03-25 14:42] VITALS: Ht 182.9 cm; Wt 100.0 kg
--- NOTE | 2017-03-25 14:43 | NUR ---
DIABETES Pt identified for low BG < 70mg/dl via BG report. BG 202 on admit. A1c 7% (eAG 154) on 01/22/17. Current Meds: Lantus 53units PM daily, Novolog 1:6 plus CF:20 with BG goal of 100-150 and Metformin 1000mg BID. BG low (61) this AM. Treated with breakfast tray per pts request. BG 100 pre-lunch. Other values [phone] yesterday. Suspect low this AM d/t too much Lantus in r/t weaning steroids (Solu Medrol --> Prednisone). Please see [facility]: Inpatient Teaching Record (note pad icon) for additional info. INPATIENT RECOMMENDATIONS: 1. Fasting low BG this AM- decrease Lantus by 20% to prevent repeat lows. Addendum: 03/25/17 at [address] Amended: Links added.
--- NOTE | 2017-03-25 16:08 | Progress Note ---
Progress Note Date of Service Mar 24, 2017. (Marilyn Saldana, PEEWEE) 03/24/17 (Indy Scott MD) Progress Note Late entry for service on Mar 24, 2017 The patient reports feeling well. He denies any shortness of breath at rest or with exertion but did feel fatigued following a walk. The patient denies fevers , chills, sweats, chest pain, palpitations, claudication, shortness of breath, nausea, vomiting, abdominal pain, dysuria, hematuria, urinary retention, paralysis, weakness, numbness and tingling. Constitutional: No fever, No chills, No sweats Eyes: No worsening of vision, No eye pain, No diplopia ENT: No hearing loss, No nasal symptoms, No trouble swallowing Respiratory: +Cough, wheezing. No shortness of breath Cardiovascular: No chest pain, No claudication, No palpitations Abdomen: No pain, No nausea, No vomiting Musculoskeletal: No joint pain, No muscle pain, No swelling Genitourinary - Male: No dysuria, No urinary retention, No hematuria Neurologic: No paralysis, No weakness, No numbness/tingling Integumentary: No rash, No itch, No color change General appearance: Well-developed, well-nourished, no apparent distress Head: Normocephalic, atraumatic Eyes: Normal inspection, PERRL, EOMI ENT: Normal ENT inspection, hearing grossly normal, pharynx normal Neck: Supple, no JVD, trachea midline Respiratory/Chest: +Decreased breath sounds. Lungs clear to auscultation, no respiratory distress Cardiovascular: Regular rate & rhythm, no gallop, no murmur Abdomen/GI: Normal bowel sounds, non-tender, soft Extremities/Musculoskeletal: Normal inspection, no calf tenderness, no pedal edema Neurological/Psych: Alert, normal mood/affect, oriented x 3 Skin: Normal color, warm/dry, no rash 66 y/o male with a history of paroxysmal SVT, HTN, HLD, TAA repair, COPD, DM II , gout, depression, and nephrolithiasis, who presents with worsening cough and fevers. Diagnosed with influenza A 2 days prior to arrival. Found septic and with LLL PNA on admission Sepsis secondary to LLL PNA and influenza A--resolving -Diagnosed with influenza A 03/18, discharged from ED with Tamiflu. Returned feeling worse -Blood cultures negative -Sputum culture normal vince -MRSA swab negative, vanc d/c'd -Received cefepime and Levaquin while in pt. Will discharge with Levaquin 750 mg PO qd x 3 more days -Elevated lactic acid on admission, then trended down -Completed 5 day course of Tamiflu 03/23 -Weaned down on O2. Did desat with ambulation prior to d/c. 2 step completed, will need 2L NC with ambulation -Continue Mucinex 600 mg PO BID Acute respiratory failure, COPD exacerbation--resolving -Solu-Medrol d/c'd due to hyperglycemia and HTN -Prednisone 40 mg taper for discharge: 40 mg PO qd x 2 more days, then 20 mg PO qd x 3 days, then stop -O2 as above -Xopenex/Atrovent nebs here. Resume Anoro and albuterol at home MIGUEL--resolved -Baseline creatine 1.14, had been up to 1.67 while inpt -Resolved with IVFs, now back to baseline, stable pSVT, HTN, HLD--stable -Did have inferolateral TWI on EKG but resolved -Troponin negative x 3 -BP coming down with IV steroids stopped -1 episode of brief SVT on tele here -Cardiology consulted, no further testing needed at this time but recommend outpt stress testing after acute illness resolved. Continue current meds -Echo with LVEF of 55-60%, no wall motion abnormalities. No significant change from 04/25/15 study but EF less robust per cardio -Continue ASA, Toprol XL 50 mg PO qd, lisinopril 10 mg PO qd, and Vytorin 10/20 mg PO qd -IV hydralazine prn DM II--last hgbA1c 7.0 on 01/22/17 -Home Lantus increased from 48 to 53 units SC hs due to hyperglycemia/steroids. D/C with Lantus 50 units SC hs, can reduce back to 48 if getting hypoglycemic -Metformin 1000 mg PO BID resumed -Insulin sliding scale -Check BSGs q ac and qhs Gout--stable -Continue allopurinol 100 mg PO qd Depression--stable -Continue Effexor XR 75 mg PO qd DVT prophylaxis -Heparin 5000 units SC q12h Code Status -Level I, FULL RESUSCITATION STATUS Dispo -D/C home, oxygen w/ambulation (Marilyn Saldana ., PEEWEE) Physician Lace Cutter Supervision Note: I interviewed and examined the patient. Discussed with NAE Saldana and agree with findings and plan as documented in the note. Any exceptions or clarifications are listed here: Patient feeling better, is able to ambulate without dyspnea on exertion, however he will require 2 L nasal cannula oxygen upon discharge at home. His cough is improved and he is ready for discharge. Denies chest pain or diarrhea. Vitals reviewed NAD, in good spirits, sitting in chair RRR, no MGR Lungs with scattered wheezes and rhonchi, but moving air well and much improved from previous Abdomen positive bowel sounds soft nontender nondistended Extremities no edema 66-year-old male here with influenza a left lower lobe pneumonia, acute on chronic hypoxemic respiratory failure. -plan to discharge to home to finish out a course of Levaquin -He will go out on 2 L nasal cannula for use with exertion and can be weaned off of this through his PCP at follow-up visit -Finish out steroid tapering continue inhalers for COPD Documented By: Indy Scott (Indy Scott MD)
--- NOTE | 2017-03-25 16:20 | NUR ---
A: Pt discharged with instruction given, IV site removed, belonging with the pt.
--- NOTE | 2017-03-27 15:35 | Discharge Summary ---
Discharge Summary Date of Service Mar 25, 2017. (Marilyn Saldana, PEEWEE) Discharge Summary Admission Date: Mar 20, 2017 at 21:53 Discharge Date: Mar 25, 2017 Discharge Disposition: Home Principal Diagnosis: Influenza, pneumonia Problems/Secondary Diagnoses: Paroxysmal SVT Abnormal ECG Trace aortic regurgitation HTN H/o TAA repair COPD DM II Gout Depression HLD H/o nephrolithiasis Immunizations: Have You Had Influenza Vaccine: No History of Tetanus Vaccine?: No History of Pneumococcal: No History of Hepatitis B Vaccine: No Procedures: CHEST ONE VIEW PORTABLE CLINICAL HISTORY: 66 years-old Male presenting with fever. TECHNIQUE: Portable upright AP view of the chest was obtained. COMPARISON: 03/18/2017. FINDINGS: Median sternotomy wires with breakage of one of the wires, unchanged. Atherosclerosis of the aortic arch. Cardiac silhouette normal in size. Left perihilar and basilar hazy opacities. This does not silhouette the left heart border but does result in partial obscuration of the medial left hemidiaphragm. No large pleural effusion or pneumothorax. Right lung and pleural space clear. Osseous structures normal. Upper abdomen normal. IMPRESSION: 1. Left lower lobe pneumonia. Echo: Interpretation Summary * Name: HORTENCIA HUGHESJR Study Date: 03/21/2017 08:18 AM BP: 135/73 mmHg * Patient Location: [facility]\\22\S\1 HR: 90 * : 1950 (M/d/yyyy) Gender: Male Height: 72 in * Age: 66 yrs Ethnicity: [place] Weight: 243 lb * Ordering Physician: Darius Brooks * Referring Physician: Self, Referred * Performed By: Anh Thomas RDCS * * Reason For Study: INFEROLAT ISCHEMIA ON EKG * BSA: 2.3 m2 * -- Conclusions -- * Technically limited study * 1. Normal LV size. Borderline concentric LVH. * 2. Normal LV systolic function. LVEF 55-60%. No regional wall motion abnormalities. * 3. Normal RV size and function. * 4. Trace aortic regurgitation. * 5. Compared with prior study on 04/25/2015: No significant changes. Procedure Details * A contrast injection of Definity was performed to improve assessment of LV function. * Contrast was injected into an intravenous site in the left arm. * One vial of Definity ultrasound contrast was diluted in normal saline to a total volume of 10 ml. A total of '1' ml of solution was administered during imaging. * Lot # [id number] of Definity utilized for procedure. * Expiration date 1 MAY 12. * The attending nurse who injected the contrast agent was JENNIFER CABRERA. Left Ventricle * The left ventricle is grossly normal size. * There is borderline concentric left ventricular hypertrophy. * Ejection Fraction = 55-60%. * Flattened septum is consistent with RV volume overload. Right Ventricle * The right ventricle is not well visualized. * The right ventricle is grossly normal size. * The right ventricular systolic function is qualitatively normal. Atria * The left atrial size is normal. * Right atrium not well visualized. * No ASD detected; PFO is not assessed. Mitral Valve * The mitral valve is grossly normal. * There is no mitral valve stenosis. * Significant mitral regurgitation is absent. Tricuspid Valve * The tricuspid valve is not well visualized. * Significant tricuspid regurgitation is absent. Aortic Valve * The aortic valve is not well visualized. * No hemodynamically significant valvular aortic stenosis. * Trace aortic regurgitation. Pulmonic Valve * The pulmonary valve is inadequately visualized, but the Doppler data is adequate for interpretation. * Pulmonic stenosis is absent. * There is no significant pulmonary regurgitation. Pericardium/Pleural * There is no pericardial effusion. Consultations: Cardiology Medication Reconciliation New Medications: Levofloxacin (Levaquin) 750 Mg Tab 1 TAB PO DAILY for 3 Days, #3 TAB First dose on 03/24/17 Guaifenesin Ext Rel (Mucinex Ext Rel) 600 Mg Tabcr 600 MG PO Q12 for 7 Days, #14 TABS Prednisone (Prednisone) 20 Mg Tab 20 MG PO UD for 5 Days, #7 TAB Take 40 mg (2 tabs) on 03/25 and 03/26, then 20 mg (1 tab) on 03/27, 03/28, 03/29, then stop Changed Medications: Insulin Glargine (Lantus) 100 Unit/Ml Inj 50 UNITS SC QPM for 30 Days, #30 DOSE (Changed from: 48 UNITS) Continued Medications: Albuterol Hfa (Ventolin Hfa) 200 Puffs/19361 Mcg Aers 2 PUFFS INH QID PRN for SOB/Wheezing, #1 INHALER Allopurinol (Zyloprim) 100 Mg Tab 100 MG PO QPM, TAB Aspirin (Aspirin) 325 Mg Tab 325 MG PO QPM Ezetimibe/Simvastatin (Vytorin 10MG/20MG) Tab 1 TAB PO QPM, TAB Fish Oil ([place]-3) 1 Ea Cap 1 CAP PO QPM Lisinopril (Prinivil) 10 Mg Tab 10 MG PO QPM, 0 Refills Magnesium (Magnesium) 200 Mg Tab 200 MG PO BID Metformin Hcl (Glucophage) 1,000 Mg Tab 1000 MG PO BID, TAB Metoprolol Succinate (Metoprolol Succinate ER) 50 Mg Tabcr 50 MG PO QPM Multiple Vitamins W/ Minerals (Centrum Silver Adult 50+) 1 Tab Tab 1 TAB PO QPM Umeclidinium-Vilanterol (Anoro Ellipta 62.5-25 Mcg/INH) 1 Aer Aer 1 PUFF INH QAM Venlafaxine Hcl (Effexor Extended Rel) 75 Mg Capcr 75 MG PO QPM, CAP Discontinued Medications: Oseltamivir (Tamiflu) 75 Mg Cap 75 MG PO BID, #8 CAP Discharge Exam The patient reports feeling well. He denies any shortness of breath at rest and was able to walk a few loops in the hallway without dyspnea on exertion, however he did feel fatigued afterwards. He still has a cough that is sometimes productive but is improving. He does note some wheezing as well. Nursing walked the patient again and he did desaturate, so a 2-step was done for home oxygen prior to discharge. The patient denies fevers, chills, sweats, chest pain, palpitations, claudication, shortness of breath, nausea, vomiting, abdominal pain, dysuria, hematuria, urinary retention, paralysis, weakness, numbness and tingling. Constitutional: No fever, No chills, No sweats Eyes: No worsening of vision, No eye pain, No diplopia ENT: No hearing loss, No nasal symptoms, No trouble swallowing Respiratory: +Cough, wheezing. No shortness of breath Cardiovascular: No chest pain, No claudication, No palpitations Abdomen: No pain, No nausea, No vomiting Musculoskeletal: No joint pain, No muscle pain, No swelling Genitourinary - Male: No dysuria, No urinary retention, No hematuria Neurologic: No paralysis, No weakness, No numbness/tingling Integumentary: No rash, No itch, No color change General appearance: Well-developed, well-nourished, no apparent distress Head: Normocephalic, atraumatic Eyes: Normal inspection, PERRL, EOMI ENT: Normal ENT inspection, hearing grossly normal, pharynx normal Neck: Supple, no JVD, trachea midline Respiratory/Chest: +Decreased breath sounds. Lungs clear to auscultation, no respiratory distress Cardiovascular: Regular rate & rhythm, no gallop, no murmur Abdomen/GI: Normal bowel sounds, non-tender, soft Extremities/Musculoskeletal: Normal inspection, no calf tenderness, no pedal edema Neurological/Psych: Alert, normal mood/affect, oriented x 3 Skin: Normal color, warm/dry, no rash Hospital Course 66 y/o male with a history of paroxysmal SVT, HTN, HLD, TAA repair, COPD, DM II , gout, depression, and nephrolithiasis, who presents with worsening cough and fevers. Diagnosed with influenza A 2 days prior to arrival. Found septic and with LLL PNA on admission Sepsis secondary to LLL PNA and influenza A--resolving -Diagnosed with influenza A 03/18, discharged from ED with Tamiflu. Returned feeling worse -Blood cultures negative -Sputum culture normal vince -MRSA swab negative, vanc d/c'd -Received cefepime and Levaquin while in pt. Will discharge with Levaquin 750 mg PO qd x 3 more days to complete 7 day course -Elevated lactic acid on admission, then trended down -Completed 5 day course of Tamiflu 03/23 -Weaned down on O2. Did desat with ambulation prior to d/c. 2 step completed, will need 2L NC with ambulation -Continue Mucinex 600 mg PO BID Acute respiratory failure, COPD exacerbation--resolving -Solu-Medrol d/c'd due to hyperglycemia and HTN -Prednisone 40 mg taper for discharge: 40 mg PO qd x 2 more days, then 20 mg PO qd x 3 days, then stop -O2 as above -Xopenex/Atrovent nebs here. Resume Anoro and albuterol at home MIGUEL--resolved -Baseline creatine 1.14, had been up to 1.67 while inpt -Resolved with IVFs, now back to baseline, stable pSVT, HTN, HLD--stable -Did have inferolateral TWI on EKG but resolved -Troponin negative x 3 -BP coming down with IV steroids stopped -1 episode of brief SVT on tele here -Cardiology consulted, no further testing needed at this time but recommend outpt stress testing after acute illness resolved. Continue current meds -Echo with LVEF of 55-60%, no wall motion abnormalities. No significant change from 04/25/15 study but EF less robust per cardio -Continue ASA, Toprol XL 50 mg PO qd, lisinopril 10 mg PO qd, and Vytorin 10/20 mg PO qd -IV hydralazine prn DM II--last hgbA1c 7.0 on 01/22/17 -Home Lantus increased from 48 to 53 units SC hs due to hyperglycemia/steroids. D/C with Lantus 50 units SC hs, can reduce back to 48 if getting hypoglycemic -Metformin 1000 mg PO BID resumed -Insulin sliding scale -Check BSGs q ac and qhs Gout--stable -Continue allopurinol 100 mg PO qd Depression--stable -Continue Effexor XR 75 mg PO qd DVT prophylaxis -Heparin 5000 units SC q12h Code Status -Level I, FULL RESUSCITATION STATUS Dispo -D/C home, oxygen w/ambulation Total Time Spent: Greater than 30 minutes This includes examination of the patient, discharge planning, medication reconciliation, and communication with other providers. Discharge Instructions Please refer to the electronic Patient Visit Report (Discharge Instructions) for additional information. Follow-Up F/u with PCP. Scheduled to see gasket supervisor (Dr. Alexander) later this month (04/08) Additional Copies To Dulce Gomez M.D.; Montana Alexander M.D. (Marilyn Saldana ., PA-C) Supervising Note Dr. Dunlap I performed a history and physical examination on the patient. I reviewed above discharge summary note and agree with it. I discussed discharge plan with APC and patient. During my face to face encounter with the patient, I answered all of the patient's questions. (Hortencia Dunlap M.D.)
[2017-04-17] MEDS ORDERED: LCTX OR ×2 (11:08→11:15)
[2017-04-17] MEDS ORDERED: LEVO1TAB34 PO (11:14)
[2017-06-18] MEDS ORDERED: TRMCR515 TOP (11:18)
[2017-06-18] MEDS ORDERED: SLWMEC PO (11:18)
[2017-06-18] MEDS ORDERED: IPRA-64 INH (11:18)
[2017-06-19] MEDS ORDERED: SIMV40TA2 PO (10:24)
== END 2017-03-25 16:21 | disposition home or self-care (01) | DRG 871 ==
LOC: C.EDB 19:09 → C.2T 21:53 → ENRESERV 22:03 → C.MS2W 03-22 15:23
PROVIDERS: ADMIT Hospitalist; ATTEND Family Medicine
DX: A41.9 Sepsis, unspecified organism (principal); J18.9 Pneumonia, unspecified organism; J96.01 Acute respiratory failure with hypoxia; J10.00 Influenza due to other identified influenza virus with unspecified type of pneumonia; J44.1 Chronic obstructive pulmonary disease with (acute) exacerbation; N17.9 Acute kidney failure, unspecified; Z82.49 Family history of ischemic heart disease and other diseases of the circulatory system; Z83.3 Family history of diabetes mellitus; Z87.891 Personal history of nicotine dependence; I10 Essential (primary) hypertension; E78.5 Hyperlipidemia, unspecified; E11.9 Type 2 diabetes mellitus without complications; M10.9 Gout, unspecified; Z87.442 Personal history of urinary calculi

== ENCOUNTER 2017-04-01 23:14 | Emergency (ER) | payer OTHER ==
[~2017-04-01] VITALS: Ht 182.9 cm; Wt 108.3 kg
[~2017-04-01 23:14] MED LIST changes: -ASPECOTC PO; +ASPI325T45 PO; +GFNSR600 PO; -OSEL75CA12 PO; +PRD20 PO; -PRED20TA PO
[2017-04-01 23:17] VITALS: TEMP 36.7; Ht 182.9 cm; Wt 108.3 kg
[2017-04-01] MEDS ORDERED: KETOROLAC TROMETHAMINE 30 MG/ML VIAL IV STA (23:42)
[2017-04-01] MEDS ORDERED: OXYCODONE/ACETAMINOPHEN 5-325 TAB PO ONE (23:45)
[2017-04-02 00:08] LABS: BASO % 0.4 %; BASO ABS # 0.04 K/uL (0-0.2); HEMATOCRIT 43.1 % (42-52); HEMOGLOBIN 14.3 g/dL (14.0-18.0); IG# 0.08 K/uL (0.00-0.02); LYMPH % 25.7 %; LYMPH ABS # 2.64 K/uL (1.2-3.4); MEAN CELL VOLUME 93.1 fL (80-100); MEAN CORPUSCULAR HEMOGLOBIN 30.9 pg (25-34); MEAN CORPUSCULAR HGB CONC 33.2 g/dl (32-36); MEAN PLATELET VOLUME 8.8 fL (7.4-10.4); MONO % 11.1 %; MONO ABS # 1.14 K/uL (0.11-0.59); NEUT ABS # 6.28 K/uL (1.4-6.5); PLATELET COUNT 401 K/uL (130-400); RED CELL DISTRIBUTION WIDTH CV 14.7 % (11.5-14.5); RED CELL DISTRIBUTION WIDTH SD 49.5 fL (36.4-46.3); WHITE BLOOD COUNT 10.28 K/uL (4.8-10.8)
[2017-04-02 00:54] LABS: BLOOD UREA NITROGEN 23 mg/dl (7-18); CARBON DIOXIDE 26 mmol/L (21-32); CREATININE 1.31 mg/dl (0.60-1.40); GLUCOSE 231 mg/dl (70-99); POTASSIUM 4.6 mmol/L (3.5-5.1); SODIUM 138 mmol/L (136-145)
[2017-04-02] MEDS ORDERED: SODIUM CHLORIDE 0.9% 500ML 500 ML IV STA (01:11)
[2017-04-02] MEDS ORDERED: OPTIRAY 320 IV PRN (01:15)
[2017-04-02 05:07] VITALS: BP 124/68; PULSE 65; O2SAT 92
[2017-04-02] MEDS ORDERED: AMOXICILLIN/CLAVULANATE TAB 875 MG TAB PO ONE (05:15)
[2017-04-02] MEDS ORDERED: AMOX875T PO (05:17)
[2017-04-02] MEDS ORDERED: AZITTAB PO (05:17)
--- NOTE | 2017-04-02 06:31 | DIAGNOSTIC IMAGING REPORT ---
(CHEST FOR PE) ANGIO WITH CT DOSE: 568.34 mGycm HISTORY: Chest pain dyspnea TECHNIQUE: Multiaxial CT images of the chest were performed following the intravenous administration of contrast to evaluate the pulmonary arteries. Maximal intensity projection images were also obtained. A dose lowering technique was utilized adhering to the principles of ALARA. COMPARISON STUDY: None 2014 FINDINGS: Vascular is minimal atherosclerotic change. Pulmonary arterial vasculature enhances appropriately with no significant filling defects. Parenchymal infiltrate with consolidative change posterior aspect left lower lobe. Minimal right basilar atelectatic change. 6 mm pleural-based right middle lobe nodule unchanged in the prior exam. Mild stable cardiomegaly. IMPRESSION: No evidence for pulmonary embolus. Infiltrate left base. Stable 6 mm nodule right middle lobe. The above report was generated using voice recognition software. It may contain grammatical, syntax or spelling errors. Electronically signed by: Raimundo Reed M.D. 04/02/2017 6:30 AM Dictated Date/Time: 04/02/2017 6:28 AM
--- NOTE | 2017-04-02 07:48 | DIAGNOSTIC IMAGING REPORT ---
L RIBS UNILATERAL WITH PA CHEST CLINICAL HISTORY: left anterior rib pain pain COMPARISON STUDY: None FINDINGS: Nondisplaced cortical fracture anterior left seventh rib. Basilar interstitial change versus bibasilar atelectatic change. No evidence pneumothorax. IMPRESSION: 1. Hairline nondisplaced cortical fracture anterior left seventh rib. 2. No evidence pneumothorax. 3. Bibasilar atelectasis. The above report was generated using voice recognition software. It may contain grammatical, syntax or spelling errors. Electronically signed by: Raimundo Reed M.D. 04/02/2017 7:47 AM Dictated Date/Time: 04/02/2017 7:45 AM
--- NOTE | 2017-04-02 09:38 | EMERGENCY ROOM VISIT NOTE ---
History Report prepared by Abhilash: Elizabeth Cano Under the Supervision of: Dr. Carol Ann Carey D.O. First contact with patient: 23:27 Chief Complaint: RESPIRATORY PROBLEMS Stated Complaint: TROUBLE BREATHING History of Present Illness The patient is a 67 year old male who presents to the Emergency Room with complaints of worsening respiratory problems starting last night. The patient states that he started having a twinge of pain in his ribs on the left side last night. He reports that it was still there this morning and it felt sore. He states that it has been getting worse as the day has gone on. He notes that he was here on the and diagnosed with Influenza A and back on the and diagnosed with pneumonia on the left side. He reports that he was then admitted till the 24 of March. The patient states that he felt like he had gotten better. The patient states that the pain is worse when he coughs. The patient complains of a cough. The patient denies nausea, abdominal pain, and vomiting. The patient notes he has a history of SVT and an aortic aneurysm repair in 2001. He notes that he had an echocardiogram last week that was found to be normal. He notes that he uses Insulin and Lovenox shots. Source of History: patient Onset: last night Position: other (global) Quality: other (twinge, sore) Modifying Factors (Worsening): other (cough) Associated Symptoms: + cough, No nausea, No vomiting, No abdominal pain Review of Systems See HPI for pertinent positives & negatives. A total of 10 systems reviewed and were otherwise negative. Past Medical & Surgical Medical Problems: (1) Aorta Dissection,Thoracic (2) Aortic aneurysm (3) Chest pain (4) COPD (chronic obstructive pulmonary disease) (5) Diabetes (6) Diverticulosis Colon (W/O Ment Of Hemorrhage) (7) Gout, Unspecified (8) Hypertension (9) Influenza A (10) Kidney stones (11) Obstructive Sleep Apnea (Adult) (Pediatric) (12) Pneumonia involving left lung Surgical Problems: (1) H/O aortic aneurysm repair (2) History of appendectomy Family History Cancer Diabetes mellitus Heart disease Hypertension Social History Smoking Status: Former Smoker Alcohol Use: occasionally Drug Use: none Marital Status: Housing Status: lives with significant other Occupation Status: employed Current/Historical Medications Scheduled Allopurinol (Zyloprim), 100 MG PO QPM Amoxicillin & Pot Clavulanate (Augmentin 875-125 mg), 875 MG PO BID Aspirin (Aspirin), 325 MG PO QPM Azithromycin (Zithromax Z-Lenny), 1 PKT PO UD Ezetimibe/Simvastatin (Vytorin 10MG/20MG), 1 TAB PO QPM Fish Oil ([place]-3), 1 CAP PO QPM Insulin Glargine (Lantus), 50 UNITS SC QPM Lisinopril (Prinivil), 10 MG PO QPM Magnesium (Magnesium), 200 MG PO BID Metformin Hcl (Glucophage), 1,000 MG PO BID Metoprolol Succinate (Metoprolol Succinate ER), 50 MG PO QPM Multiple Vitamins W/ Minerals (Centrum Silver Adult 50+), 1 TAB PO QPM Umeclidinium-Vilanterol (Anoro Ellipta 62.5-25 Mcg/INH), 1 PUFF INH QAM Venlafaxine Hcl (Effexor Extended Rel), 75 MG PO QPM Scheduled PRN Albuterol Hfa (Ventolin Hfa), 2 PUFFS INH QID PRN for SOB/Wheezing Allergies Coded Allergies: Codeine (Verified Adverse Reaction, Mild, NAUSEA, 03/20/17) Physical Exam Vital Signs Date Time Temp Pulse Resp B/P (MAP) Pulse Ox O2 Delivery O2 Flow Rate FiO2 04/02/17 05:07 65 18 124/68 92 04/02/17 04:19 67 20 141/85 93 04/02/17 03:04 67 04/02/17 02:13 72 18 142/74 93 Room Air 04/02/17 00:23 66 20 148/70 93 Room Air 04/01/17 23:43 80 04/01/17 23:17 36.7 86 24 157/73 91 Room Air Physical Exam General: Appears extremely uncomfortable with coughing and deep breathing and therefore is breathing very shallow. HEENT: Head - normocephalic and atraumatic Pupils are equal, round, and reactive to light. Extraocular eye muscles are intact, and sclera are anicteric. Nose - moist nasal mucosa without discharge. Mouth - moist buccal mucosa. Oropharynx is nonerythematous and there is no tonsillar exudate or edema noted. Neck: Supple; no JVD, nuchal rigidity, cervical lymphadenopathy, or auscultated bruits. Heart: Regular rate and rhythm. There is a normal S1 and S2 with no murmurs, clicks, or gallops appreciated. Lungs: Clear to auscultation bilaterally with no wheezes, rales, or rhonchi. Lung sounds are diminished at the left lung base. Chest: Exquisite tenderness with even light palpation to the left anterior lower ribs. There were no skin lesions identified in that area Abdomen: Soft, completely nontender, nondistended, with good bowel sounds. There are no palpable pulsatile masses or hepatosplenomegaly. There is no guarding, rigidity, or rebound noted. Extremities: No evidence of cyanosis, clubbing, or edema. There are easily palpable peripheral pulses. Skin: warm and dry with good turgor and no rashes. Medical Decision & Procedures ER Provider Diagnostic Interpretation: Radiology results as stated below per my review and the radiologist's interpretation: CHEST X-RAY: The results were interpreted by me. No obvious rib fractures or pulmonary findings. CTA CHEST: Comparison: CT dated 12/02/2014 and CXR dated 03/20/2017 No evidence of pulmonary embolism. Opacity in the left lower lobe suspicious for pneumonia in the appropriate clinical setting. Recommend clinical correlation and follow-up imaging following completion of treatment to ensure resolution. Trace left pleural effusion. No pneumothorax. Emphysematous changes in the lungs, most prominent in the upper lobes. Additional findings: No thoracic aortic aneurysm or dissection. Stable 7 mm RML nodule. Stable osseous structures. Radiologist: Karla Nance MD Study ready at 01:58 and initial results transmitted at 03:06. Laboratory Results 04/02/17 00:00 Red Blood Count 4.63, Mean Corpuscular Volume 93.1, Mean Corpuscular Hemoglobin 30.9, Mean Corpuscular Hemoglobin Concent 33.2, Mean Platelet Volume 8.8, Neutrophils (%) (Auto) 61.0, Lymphocytes (%) (Auto) 25.7, Monocytes (%) (Auto) 11.1, Eosinophils (%) (Auto) 1.0, Basophils (%) (Auto) 0.4, Neutrophils # (Auto ) 6.28, Lymphocytes # (Auto) 2.64, Monocytes # (Auto) 1.14, Eosinophils # (Auto ) 0.10, Basophils # (Auto) 0.04 04/02/17 00:00 Test 04/02/17 00:00 White Blood Count 10.28 K/uL (4.8-10.8) Red Blood Count 4.63 M/uL (4.7-6.1) Hemoglobin 14.3 g/dL (14.0-18.0) Hematocrit 43.1 % (42-52) Mean Corpuscular Volume 93.1 fL (80-100) Mean Corpuscular Hemoglobin 30.9 pg (25-34) Mean Corpuscular Hemoglobin Concent 33.2 g/dl (32-36) Platelet Count 401 K/uL (130-400) Mean Platelet Volume 8.8 fL (7.4-10.4) Neutrophils (%) (Auto) 61.0 % Lymphocytes (%) (Auto) 25.7 % Monocytes (%) (Auto) 11.1 % Eosinophils (%) (Auto) 1.0 % Basophils (%) (Auto) 0.4 % Neutrophils # (Auto) 6.28 K/uL (1.4-6.5) Lymphocytes # (Auto) 2.64 K/uL (1.2-3.4) Monocytes # (Auto) 1.14 K/uL (0.11-0.59) Eosinophils # (Auto) 0.10 K/uL (0-0.5) Basophils # (Auto) 0.04 K/uL (0-0.2) RDW Standard Deviation 49.5 fL (36.4-46.3) RDW Coefficient of Variation 14.7 % (11.5-14.5) Immature Granulocyte % (Auto) 0.8 % Immature Granulocyte # (Auto) 0.08 K/uL (0.00-0.02) D-Dimer 770 ug/L FEU (0-500) Anion Gap 6.0 mmol/L (3-11) Est Creatinine Clear Calc Drug Dose 71.5 ml/min Estimated GFR () 65.8 Estimated GFR (Non- 56.7 BUN/Creatinine Ratio 17.9 (10-20) Calcium Level 9.0 mg/dl (8.5-10.1) Troponin I < 0.015 ng/ml (0-0.045) Laboratory results per my review. Medications Administered Medications (Trade) Dose Ordered Sig/Jazmín Route Start Time Stop Time Status Last Admin Dose Admin Ketorolac Tromethamine (Toradol Inj) 30 mg NOW STAT IV 04/01/17 23:42 04/01/17 23:45 DC 04/01/17 23:59 30 MG Oxycodone/ Acetaminophen (Percocet 5-325mg Tab) 2 tab NOW ONCE PO 04/01/17 23:45 04/01/17 23:46 DC 04/01/17 23:58 2 TAB Sodium Chloride 500 ml @ 999 mls/hr Q31M STAT IV 04/02/17 01:11 04/02/17 01:41 DC 04/02/17 01:11 999 MLS/HR Amoxicillin/ Clavulanate Potassium (Augmentin Tab) 875 mg ONE ONCE PO 04/02/17 05:15 04/02/17 05:16 DC 04/02/17 05:17 875 MG Procedure 2342: Ordered Toradol Inj 30 mg IV. 2345: Ordered Oxycodone/Acetaminophen 2 tab PO. 0111: Ordered NSS 500 ml @ 999 mls/hr IV. 0515: Ordered Augmenting Tab 875 mg PO. ECG Indication: SOB/dyspnea Rate (beats per minute): 72 Rhythm: normal sinus Findings: no acute ischemic change, no ectopy Comparison ECG Date: February Change: no significant change ED Course 2333: Past medical records reviewed. The patient was evaluated in room B8. A complete history and physical exam was performed. A twelve-lead EKG was obtained as described above. An IV lock was initiated and labs were drawn as above. 2342: Ordered Toradol Inj 30 mg IV. 2345: Ordered Oxycodone/Acetaminophen 2 tab PO. The patient had chest x-ray as described above. 0106: I reevaluated the patient and he has significant relief of pain. He can now take a deep breath. 0111: Ordered NSS 500 ml @ 999 mls/hr IV. The patient will go for CT scan of the chest to rule out PE. 0354: I reevaluated the patient and updated him on his test results. 0514: Upon reevaluation, the patient is resting comfortably. I discussed findings and results with him. He verbalized agreement of the treatment plan. The patient was discharged home. 0515: Ordered Augmentin Tab 875 mg PO. Medical Decision The patient is a 67 year old male who presents to the Emergency Room with complaints of worsening respiratory problems starting last night. Differential diagnoses include rib fracture, intrathoracic cartilage strain, pneumonia, PE. LABS: D dimer 770 No leukocytosis Stable H&H BUN 23 Creatine 1.3 Glucose 231 Normal troponin this is a 67-year-old male patient who presents to the emergency department with exquisite tenderness to the left anterior lower chest wall/ribs. The patient recently finished a course of Levaquin for a left-sided pneumonia. The patient had significant relief of his discomfort with IV Toradol. On chest x-ray, no obvious rib fractures were identified. However, the patient had an elevated d-dimer and therefore he went for CT scan of the chest. No PE was identified, however the patient has residual left lower lobe infiltrate. The patient had been treated with IV Levaquin, cefepime, and Rocephin. He was discharged home from the hospital on oral Levaquin. I decided to use double coverage in this situation with another atypical coverage-Zithromax and then Augmentin as well. I spent some time talking to the patient about the cause of his pain. There is most likely a small nondisplaced rib fracture on his left anterior chest wall secondary to coughing. I could not identify this initially. However the patient was symptom-free at the time of discharge. I encouraged him to continue to use NSAIDs the patient was asked to follow up with pulmonary medicine-Dr. Mo. Medication Reconcilliation Current Medication List: was personally reviewed by me Blood Pressure Screening Patient's blood pressure: Normal blood pressure Blood pressure disposition: Did not require urgent referral Impression Primary Impression: Left lower lobe pneumonia Additional Impression: Left-sided chest wall pain Scribe Attestation The scribe's documentation has been prepared under my direction and personally reviewed by me in its entirety. I confirm that the note above accurately reflects all work, treatment, procedures, and medical decision making performed by me. Departure Information Dispostion Home / Self-Care Prescriptions Amoxicillin & Pot Clavulanate (Augmentin 875-125 mg) 1 Tab Tab 875 MG PO BID, #20 TAB Prov: Carol Ann Carey D.O. 04/02/17 Azithromycin (ZITHROMAX Z-LENNY) 250 Mg Tab 1 PKT PO UD for 5 Days, #1 PKT Prov: Carol Ann Carey D.O. 04/02/17 Referrals No Doctor, Assigned (PCP) Forms HOME CARE DOCUMENTATION FORM, IMPORTANT VISIT INFORMATION, WORK / SCHOOL INSTRUCTIONS Patient Instructions My [facility] Additional Instructions Rest. Take Augmentin twice a day and a z-pack as directed. Return to The ED for worsening symptoms Use tylenol or motrin for chest wall pain Problem Qualifiers Primary Impression: Left lower lobe pneumonia Pneumonia type: due to unspecified organism Qualified Codes: J18.1 - Lobar pneumonia, unspecified organism
== END 2017-04-02 05:23 | disposition home or self-care (01) ==
LOC: C.EDB 23:15
DX: J18.1 Lobar pneumonia, unspecified organism (principal); R07.89 Other chest pain; J44.9 Chronic obstructive pulmonary disease, unspecified; E11.9 Type 2 diabetes mellitus without complications; I10 Essential (primary) hypertension; M10.9 Gout, unspecified; Z87.442 Personal history of urinary calculi; Z87.891 Personal history of nicotine dependence; Z83.3 Family history of diabetes mellitus; Z82.49 Family history of ischemic heart disease and other diseases of the circulatory system; Z79.4 Long term (current) use of insulin; Z79.82 Long term (current) use of aspirin; Z79.84 Long term (current) use of oral hypoglycemic drugs; Z79.899 Other long term (current) drug therapy

== ENCOUNTER → 2017-04-07 | Outpatient (CLI) | payer OTHER ==
[~2017-04-07] MED LIST changes: +AMOX875T PO; +AZITTAB PO; -GFNSR600 PO; -PRD20 PO
[2017-04-07 14:01] LABS: BLOOD UREA NITROGEN 18 mg/dl (7-18); CREATININE 1.23 mg/dl (0.60-1.40)
== END | disposition home or self-care (01) ==
LOC: C.LABPVFM 10:22
PROVIDERS: ATTEND Family Medicine
DX: E11.9 Type 2 diabetes mellitus without complications (principal)

== ENCOUNTER 2017-04-14 15:33 | Inpatient (IN) | payer OTHER ==
[~2017-04-14] VITALS: Ht 182.9 cm; Wt 108.2 kg
[~2017-04-14 15:33] MED LIST changes: -AMOX875T PO; -AZITTAB PO
[2017-04-14] MEDS ORDERED: ONDANSETRON INJ 2 MG/ML 2 ML VIAL IV STA (17:49)
[2017-04-14] MEDS ORDERED: FENTANYL CITRATE INJ 50 MCG/1 ML 2 ML VIAL IV STA ×2 (17:49→19:49)
--- NOTE | 2017-04-14 17:58 | EMERGENCY ROOM VISIT NOTE ---
History Report prepared by Abhilash: Nancy Osorio Under the Supervision of: Dr. Macy Muniz D.O. First contact with patient: 17:29 Chief Complaint: RIB PAIN Stated Complaint: BROKEN RIB, SEVERE PAIN, TROUBLE BREATHING History of Present Illness The patient is a 67 year old male who presents to the Emergency Room with complaints of severe worsening left flank pain beginning last night. The patient states his pain radiates up to his left abdomen. He reports movement and taking a deep breath worsen his pain. The patient states he recently had left sided pneumonia. He finished his last dose from his Augmentin course last night. The patient states he also recently broke his left rib. He states his rib pain has resided since breaking it. He also reports his symptoms from his pneumonia have resided. The patient has a history of kidney stones. He reports this pain does not feel like his previous kidney stones. He notes some nausea. Pt denies headache, change in vision, fevers, chest pain, shortness of breath, vomiting, diarrhea, pain with urination, and melena. Source of History: patient Onset: last night Position: other (flank-left) Symptom Intensity: severe Quality: other (radiates to abdomen) Timing: worsening Associated Symptoms: + nausea, + abdominal pain, + back pain, No fevers, No headache, No chest pain, No SOB, No vomiting, No diarrhea, No urinary symptoms Review of Systems See HPI for pertinent positives & negatives. A total of 10 systems reviewed and were otherwise negative. Past Medical & Surgical Medical Problems: (1) Aorta Dissection,Thoracic (2) Aortic aneurysm (3) Chest pain (4) COPD (chronic obstructive pulmonary disease) (5) Diabetes (6) Diverticulosis Colon (W/O Ment Of Hemorrhage) (7) Gout, Unspecified (8) Hypertension (9) Influenza A (10) Kidney stones (11) Obstructive Sleep Apnea (Adult) (Pediatric) (12) Pneumonia involving left lung (13) Pneumonia involving right lung Surgical Problems: (1) H/O aortic aneurysm repair (2) History of appendectomy Family History Cancer Diabetes mellitus Heart disease Hypertension Social History Smoking Status: Former Smoker Alcohol Use: occasionally Drug Use: none Marital Status: Housing Status: lives with significant other Occupation Status: employed Current/Historical Medications Scheduled Allopurinol (Zyloprim), 100 MG PO QPM Aspirin (Aspirin), 325 MG PO QPM Ezetimibe/Simvastatin (Vytorin 10MG/20MG), 1 TAB PO QPM Fish Oil ([place]-3), 1 CAP PO QPM Insulin Glargine (Lantus), 50 UNITS SC QPM Lisinopril (Prinivil), 10 MG PO QPM Magnesium (Magnesium), 200 MG PO BID Metformin Hcl (Glucophage), 1,000 MG PO BID Metoprolol Succinate (Metoprolol Succinate ER), 50 MG PO QPM Multiple Vitamins W/ Minerals (Centrum Silver Adult 50+), 1 TAB PO QPM Umeclidinium-Vilanterol (Anoro Ellipta 62.5-25 Mcg/INH), 1 PUFF INH QAM Venlafaxine Hcl (Effexor Extended Rel), 75 MG PO QPM Scheduled PRN Albuterol Hfa (Ventolin Hfa), 2 PUFFS INH QID PRN for SOB/Wheezing Allergies Coded Allergies: Codeine (Verified Adverse Reaction, Mild, NAUSEA, 03/20/17) Physical Exam Vital Signs Date Time Temp Pulse Resp B/P (MAP) Pulse Ox O2 Delivery O2 Flow Rate FiO2 04/14/17 22:02 86 04/14/17 20:59 80 18 145/95 94 Nasal Cannula 2.0 04/14/17 20:05 91 18 132/74 93 Nasal Cannula 2.0 04/14/17 19:09 91 18 132/74 91 Room Air 04/14/17 18:03 84 04/14/17 17:59 87 16 129/87 93 Room Air 04/14/17 15:43 36.8 74 22 133/74 94 Room Air Physical Exam GENERAL: alert, well appearing, well nourished, no distress, non-toxic EYE EXAM: normal conjunctiva, PERRL and EOM's grossly intact OROPHARYNX: no exudate, no erythema, lips, buccal mucosa, and tongue normal and mucous membranes are moist NECK: supple, no nuchal rigidity, no adenopathy, non-tender LUNGS: Clear to auscultation. Normal chest wall mechanics HEART: no murmurs, S1 normal and S2 normal ABDOMEN: abdomen soft, non-tender, normo-active bowel sounds, no masses, no rebound or guarding. BACK: Left flank tenderness to palpation. Back is symmetrical on inspection and there is no deformity, no midline tenderness, no CVA tenderness. SKIN: no rashes and no bruising UPPER EXTREMITIES: upper extremities are grossly normal. LOWER EXTREMITIES: No pitting edema. NEURO EXAM: Normal sensorium, cranial nerves II-XII grossly intact, normal speech, no gross weakness of arms, no gross weakness of legs. Medical Decision & Procedures ER Provider Diagnostic Interpretation: Radiology results have been interpreted by the radiologist and reviewed by me. CHEST 2 VIEWS ROUTINE FINDINGS: Persistent but smaller parenchymal infiltrate medial left lower lobe compared to the prior study. Subsegmental atelectasis right base. Mid and upper lungs are clear. IMPRESSION: Improving infiltrate left base with focal residual left retrocardiac region. Mild atelectasis right base. The above report was generated using voice recognition software. It may contain grammatical, syntax or spelling errors. Electronically signed by: Raimundo Reed M.D. ABD/PELVIS IV CONTRAST ONLY FINDINGS: Unchanging parenchymal infiltrate left base. Liver is uniform in appearance. Gallbladder is negative for distention. Kidneys enhance appropriately. The adrenal glands are normal. Spleen and pancreas are unremarkable. Bowel pattern is nonobstructive. Scattered colonic diverticuli with no evidence for diverticulitis. The abdominal aorta is normal in course and caliber. Bladder is midline. No free fluid within the pelvic cul-de-sac. IMPRESSION: No significant abnormality identified within the abdomen or pelvis. The above report was generated using voice recognition software. It may contain grammatical, syntax or spelling errors. Electronically signed by: Raimundo Reed M.D. (CHEST FOR PE) ANGIO WITH FINDINGS: There is a normal caliber thoracic aorta with no evidence for dissection. There is no evidence for pulmonary embolus. No pleural effusions. Parenchymal infiltrate left base unchanged. Small left effusion unchanged. Mild right basilar interstitial prominence unchanged. Small parenchymal infiltrative process right middle lobe. Stable 6 mm pleural nodule lateral aspect right midlung. IMPRESSION: 1. No evidence for pulmonary embolus. 2. Unchanging parenchymal infiltrate left base. 3. Small interval parenchymal infiltrate right middle lobe. The above report was generated using voice recognition software. It may contain grammatical, syntax or spelling errors. Electronically signed by: Raimundo Reed M.D. Laboratory Results Test 04/14/17 17:52 04/14/17 17:55 04/14/17 21:27 Total Bilirubin 0.3 mg/dl (0.2-1) Aspartate Amino Transf (AST/SGOT) U/L (15-37) Alanine Aminotransferase (ALT/SGPT) 43 U/L (12-78) Alkaline Phosphatase 128 U/L (45-117) Total Protein 8.3 gm/dl (6.4-8.2) Albumin 3.6 gm/dl (3.4-5.0) Globulin 4.7 gm/dl (2.5-4.0) Albumin/Globulin Ratio 0.8 (0.9-2) Urine Color YELLOW Urine Appearance CLEAR (CLEAR) Urine pH 5.0 (4.5-7.5) Urine Specific [place] 1.027 (1.000-1.030) Urine Protein NEG (NEG) Urine Glucose (UA) NEG (NEG) Urine Ketones NEG (NEG) Urine Occult Blood NEG (NEG) Urine Nitrite NEG (NEG) Urine Bilirubin NEG (NEG) Urine Urobilinogen NEG (NEG) Urine Leukocyte Esterase NEG (NEG) Troponin I < 0.015 ng/ml (0-0.045) Lipase 131 U/L (73-393) Laboratory results per my review. Medications Administered Medications (Trade) Dose Ordered Sig/Jazmín Route Start Time Stop Time Status Last Admin Dose Admin Fentanyl Citrate (Fentanyl Inj) 100 mcg NOW STAT IV 04/14/17 17:49 04/14/17 17:51 DC 04/14/17 18:01 100 MCG Ondansetron HCl (Zofran Inj) 4 mg NOW STAT IV 04/14/17 17:49 04/14/17 17:51 DC 04/14/17 18:01 4 MG Fentanyl Citrate (Fentanyl Inj) 100 mcg NOW STAT IV 04/14/17 19:49 04/14/17 19:50 DC 04/14/17 20:02 100 MCG Levofloxacin (Levaquin / D5W) 750 mg NOW STAT IV 04/14/17 20:08 04/14/17 20:10 DC 04/14/17 20:57 750 MG Sodium Chloride 1,000 ml @ 999 mls/hr Q1H1M STAT IV 04/14/17 20:36 04/14/17 21:36 DC 04/14/17 20:55 999 MLS/HR Ketorolac Tromethamine (Toradol Inj) 30 mg NOW STAT IV 04/14/17 20:36 04/14/17 20:38 DC 04/14/17 20:55 30 MG Methylprednisolone Sodium Succinate (Solu-Medrol IV) 60 mg NOW STAT IV 04/14/17 20:36 04/14/17 20:38 DC 04/14/17 20:54 60 MG Vancomycin HCl 2750 mg/Sodium Chloride 305 ml @ 125 mls/hr NOW STAT IV 04/14/17 21:22 04/14/17 23:48 DC 04/14/17 23:01 125 MLS/HR ECG Indication: back/shoulder pain Rate (beats per minute): 64 Rhythm: sinus rhythm Findings: T-wave inversion (in aVL), no acute ischemic change, no ectopy, other (normal axis normal intervals) Comparison ECG Date: 04/01/17 Change: no significant change Change: EKG interpreted by me. ED Course 1740: The patient was evaluated in room B9. A complete history and physical exam was performed. 1748: Ordered Zofran Inj 4 mg IV, Fentanyl Citrate 100 mcg IV. 1948: Ordered Fentanyl Citrate 100 mcg IV. 2007: Ordered Levofloxacin 750 mg IV. 2018: The patients pain is better after the medication. I updated him on his test results. He is agreeable to the treatment plan. 2035: Ordered Solu-Medrol IV 60 mg IV, Sodium Chloride 1000 ml @ 999 mls/hr IV. 2054: I reviewed the patient's case [facility] [place] [place] will evaluate the patient for further management. Medical Decision Differential diagnosis: Etiologies such as musculoskeletal, disc herniation, fracture, aortic disease, metastatic disease, cord compression, discitis, infection, renal colic, gastrointestinal, acute exacerbation of chronic back pain, sciatica, cauda equina, renal colic, appendicitis, diverticulitis, mesenteric ischemia, aortic pathology, infections, inflammatory bowel disease, PUD, biliary pathology, UTI, as well as others were entertained. Pt with stable VS. Well appearing despite results. Pain controlled here. Concern given apparent worsening pneumonia for failed outpt therapy. Pt with remote hx of tobacco use. No other recent travel or exposures, pt not immunocompromised. Pt aware of all results and is agreeable with plan for additional antibiotics and hospitalist evaluation. No evidence of bacteremia/ sepsis. Blood cultures pending. Medication Reconcilliation Current Medication List: was personally reviewed by me Blood Pressure Screening Patient's blood pressure: Elevated blood pressure Blood pressure disposition: Referred to PCP (evaluated by hospitalist) Consults Time Called: 2034 Consulting Physician: Dr. Johnson Returned Call: 2054 I reviewed the patient's case with Dr. Johnson. He will evaluate the patient for further management. Impression Primary Impression: Bilateral pneumonia Additional Impressions: Failure of outpatient treatment Left flank pain Scribe Attestation The scribe's documentation has been prepared under my direction and personally reviewed by me in its entirety. I confirm that the note above accurately reflects all work, treatment, procedures, and medical decision making performed by me. Departure Information Dispostion Being Evaluated By Hospitalist Referrals Dulce Gomez M.D. (PCP) Patient Instructions My [facility] Problem Qualifiers Primary Impression: Bilateral pneumonia Pneumonia type: due to unspecified organism Lung location: unspecified part of lung Qualified Codes: J18.9 - Pneumonia, unspecified organism
[2017-04-14 18:06] LABS: BASO % 0.2 %; BASO ABS # 0.03 K/uL (0-0.2); EOS % 1.5 %; EOS ABS # 0.19 K/uL (0-0.5); HEMATOCRIT 42.7 % (42-52); HEMOGLOBIN 14.2 g/dL (14.0-18.0); IG# 0.06 K/uL (0.00-0.02); LYMPH % 15.4 %; LYMPH ABS # 1.97 K/uL (1.2-3.4); MEAN CORPUSCULAR HEMOGLOBIN 30.6 pg (25-34); MEAN CORPUSCULAR HGB CONC 33.3 g/dl (32-36); MEAN PLATELET VOLUME 8.9 fL (7.4-10.4); MONO % 11.9 %; MONO ABS # 1.53 K/uL (0.11-0.59); NEUT % 70.5 %; NEUT ABS # 9.03 K/uL (1.4-6.5); PLATELET COUNT 245 K/uL (130-400); WHITE BLOOD COUNT 12.81 K/uL (4.8-10.8)
[2017-04-14 18:33] LABS: ALBUMIN 3.6 gm/dl (3.4-5.0); CALCIUM 9.2 mg/dl (8.5-10.1); CREATININE 1.3 mg/dl (0.60-1.40); TOTAL PROTEIN 8.3 gm/dl (6.4-8.2)
--- NOTE | 2017-04-14 18:48 | DIAGNOSTIC IMAGING REPORT ---
CHEST 2 VIEWS ROUTINE CLINICAL HISTORY: recent pneumonia, flank pain COMPARISON STUDY: 03/20/2017 FINDINGS: Persistent but smaller parenchymal infiltrate medial left lower lobe compared to the prior study. Subsegmental atelectasis right base. Mid and upper lungs are clear. IMPRESSION: Improving infiltrate left base with focal residual left retrocardiac region. Mild atelectasis right base. The above report was generated using voice recognition software. It may contain grammatical, syntax or spelling errors. Electronically signed by: Raimundo Reed M.D. 04/14/2017 6:47 PM Dictated Date/Time: 04/14/2017 6:46 PM
[2017-04-14] MEDS ORDERED: OPTIRAY 320 IV PRN (19:30)
--- NOTE | 2017-04-14 19:47 | DIAGNOSTIC IMAGING REPORT ---
(CHEST FOR PE) ANGIO WITH CT DOSE: HISTORY: Dyspnea TECHNIQUE: Multiaxial CT images of the chest were performed following the intravenous administration of contrast to evaluate the pulmonary arteries. Maximal intensity projection images were also obtained. A dose lowering technique was utilized adhering to the principles of ALARA. COMPARISON STUDY: 04/02/2017 FINDINGS: There is a normal caliber thoracic aorta with no evidence for dissection. There is no evidence for pulmonary embolus. No pleural effusions. Parenchymal infiltrate left base unchanged. Small left effusion unchanged. Mild right basilar interstitial prominence unchanged. Small parenchymal infiltrative process right middle lobe. Stable 6 mm pleural nodule lateral aspect right midlung. IMPRESSION: 1. No evidence for pulmonary embolus. 2. Unchanging parenchymal infiltrate left base. 3. Small interval parenchymal infiltrate right middle lobe. The above report was generated using voice recognition software. It may contain grammatical, syntax or spelling errors. Electronically signed by: Raimundo Reed M.D. 04/14/2017 7:46 PM Dictated Date/Time: 04/14/2017 7:41 PM
--- NOTE | 2017-04-14 19:50 | DIAGNOSTIC IMAGING REPORT ---
ABD/PELVIS IV CONTRAST ONLY CT DOSE: 1359.31 mGy.cm HISTORY: Trauma recent rib fx/pneumonia, left flank pain TECHNIQUE: Multiaxial CT images of the abdomen and pelvis were performed following the use of intravenous contrast. A dose lowering technique was utilized adhering to the principles of ALARA. COMPARISON STUDY: None. FINDINGS: Unchanging parenchymal infiltrate left base. Liver is uniform in appearance. Gallbladder is negative for distention. Kidneys enhance appropriately. The adrenal glands are normal. Spleen and pancreas are unremarkable. Bowel pattern is nonobstructive. Scattered colonic diverticuli with no evidence for diverticulitis. The abdominal aorta is normal in course and caliber. Bladder is midline. No free fluid within the pelvic cul-de-sac. IMPRESSION: No significant abnormality identified within the abdomen or pelvis. The above report was generated using voice recognition software. It may contain grammatical, syntax or spelling errors. Electronically signed by: Raimundo Reed M.D. 04/14/2017 7:49 PM Dictated Date/Time: 04/14/2017 7:47 PM
[2017-04-14] MEDS ORDERED: LEVAQUIN 750MG / 150ML D5W IV STA (20:08)
[2017-04-14] MEDS ORDERED: SODIUM CHLORIDE 0.9% 1000ML 1,000 ML IV STA (20:36)
[2017-04-14] MEDS ORDERED: METHYLPREDNISOLONE 125 MG VIAL IV STA (20:36)
[2017-04-14] MEDS ORDERED: KETOROLAC TROMETHAMINE 30 MG/ML VIAL IV STA (20:36)
[2017-04-14] MEDS ORDERED: VANCOMYCIN INJ 2,750 MG in SODIUM CHLORIDE 0.9% 250ML 250 ML IV STA (21:22)
[2017-04-14] MEDS ORDERED: VANCOMYCIN CONSULT ACTIVE PRN (21:30)
[2017-04-14 21:58] LABS: LIPASE 131 U/L (73-393)
[2017-04-14] MEDS ORDERED: ALUMINUM/MAGNESIUM/SIMETH (MAALOX MAX) 30 ML UDC PO PRN (22:00)
[2017-04-14] MEDS ORDERED: MAGNESIUM HYDROXIDE SUSP 30 ML UDC PO PRN (22:00)
[2017-04-14] MEDS ORDERED: ONDANSETRON INJ 2 MG/ML 2 ML VIAL IV PRN (22:00)
[2017-04-14] MEDS ORDERED: ACETAMINOPHEN 325 MG TAB PO PRN (22:00)
[2017-04-14] MEDS ORDERED: POLYETHYLENE (MIRALAX) 17 GM PACK PO PRN (23:15)
--- NOTE | 2017-04-14 23:48 | History and Physical ---
History & Physical Date & Time of Service: Apr 14, 2017 at 23:48 Chief Complaint: Pneumonia Involving Right Lung Primary Care Physician: Dulce Gomez M.D. History of Present Illness Source: patient, hospital records This is a 67 yo m with a h/o COPD, DMII, paroxysmal SVT and TAA repair (2001) that presents to us with sudden onset of left rib pain which started last night. The patient notes that he was laying in bed when he started to suffer from short lived, sharp intermittent left lower rib pain especially with deep breathing. This continued into today as well as progressive weakness which concerned both the and the patient. He denies any significant SOB or change in sputum production. He was originally assess on mar 18 and was positive for influenza. On mar 20 the patient returned and was found to have a left lower lobe PNA and treated with levaquin. The patient had similar symptoms on Apr 01 (the left rib pain) and was seen in the ED where he was given Azithro and Augmentin and d/c home. CTA completed to r/o PE and no PE however a new infiltrate in the right middle lobe with persistent infiltrate in the left lower lobe. Denies ever having any chest pain/ discomfort or presyncope. left rib pain is not reproducible with palpation Past Medical/Surgical History Paroxysmal SVT Abnormal ECG Trace aortic regurgitation HTN H/o TAA repair COPD DM II Gout Depression HLD H/o nephrolithiasis Family History Cancer Diabetes mellitus Heart disease Hypertension Social History Smoking Status: Former Smoker Smokeless Tobacco Use: No Alcohol Use: none Drug Use: none Marital Status: Housing status: lives with family Occupational Status: employed Immunizations History of Influenza Vaccine: No History of Tetanus Vaccine?: No History of Pneumococcal: No History of Hepatitis B Vaccine: No Multi-Drug Resistant Organisms History of MDRO: No Allergies Coded Allergies: Codeine (Verified Adverse Reaction, Mild, NAUSEA, 03/20/17) Home Medications Scheduled Allopurinol (Zyloprim), 100 MG PO QPM Aspirin (Aspirin), 325 MG PO QPM Ezetimibe/Simvastatin (Vytorin 10MG/20MG), 1 TAB PO QPM Fish Oil ([place]-3), 1 CAP PO QPM Insulin Glargine (Lantus), 50 UNITS SC QPM Lisinopril (Prinivil), 10 MG PO QPM Magnesium (Magnesium), 200 MG PO BID Metformin Hcl (Glucophage), 1,000 MG PO BID Metoprolol Succinate (Metoprolol Succinate ER), 50 MG PO QPM Multiple Vitamins W/ Minerals (Centrum Silver Adult 50+), 1 TAB PO QPM Umeclidinium-Vilanterol (Anoro Ellipta 62.5-25 Mcg/INH), 1 PUFF INH QAM Venlafaxine Hcl (Effexor Extended Rel), 75 MG PO QPM Scheduled PRN Albuterol Hfa (Ventolin Hfa), 2 PUFFS INH QID PRN for SOB/Wheezing Review of Systems Constitutional: No fever, No chills, No sweats Eyes: No worsening of vision ENT: No hearing loss Respiratory: + dyspnea on exertion, No cough, No sputum, No wheezing, No shortness of breath, No dyspnea at rest, No hemoptysis Cardiovascular: No chest pain Abdomen: No pain, No nausea, No vomiting, No diarrhea, No constipation Musculoskeletal: + problem reported (as above), No joint pain, No muscle pain Genitourinary - Male: No hematuria, No dysuria Neurologic: + weakness, No numbness/tingling, No balance problems Psychiatric: No depression symptoms Endocrine: + fatigue Hematologic / Lymphatic: No abnormal bleeding/bruising Integumentary: No rash Allergic / Immunologic: No environmental allergies Physical Exam Vital Signs Date Time Temp Pulse Resp B/P (MAP) Pulse Ox O2 Delivery O2 Flow Rate FiO2 04/14/17 22:37 36.8 86 18 148/75 94 Nasal Cannula 2.0 04/14/17 22:02 86 04/14/17 20:59 80 18 145/95 94 Nasal Cannula 2.0 04/14/17 20:05 91 18 132/74 93 Nasal Cannula 2.0 04/14/17 19:09 91 18 132/74 91 Room Air 04/14/17 18:03 84 04/14/17 17:59 87 16 129/87 93 Room Air 04/14/17 15:43 36.8 74 22 133/74 94 Room Air General Appearance: no apparent distress Head: normocephalic, atraumatic Eyes: normal inspection ENT: normal ENT inspection Neck: supple Respiratory/Chest: no respiratory distress, no accessory muscle use, + decreased breath sounds (bilat bases with crackles primarily left lower lobe) Cardiovascular: regular rate, rhythm, no murmur, normal peripheral pulses Abdomen/GI: normal bowel sounds, non tender, soft Back: normal inspection, no CVA tenderness, normal range of motion Extremities/Musculoskelatal: normal inspection, no calf tenderness, no pedal edema, normal range of motion Neurologic/Psych: alert, normal mood/affect, oriented x 3 Skin: normal color, warm/dry, no rash Lymphatic: no adenopathy Diagnostics Laboratory Results Results Past 24 Hours Test 04/14/17 17:52 04/14/17 17:55 04/14/17 21:27 04/14/17 22:18 Range/Units White Blood Count 12.81 4.8-10.8 K/uL Red Blood Count 4.64 4.7-6.1 M/uL Hemoglobin 14.2 14.0-18.0 g/dL Hematocrit 42.7 42-52 % Mean Corpuscular Volume 92.0 80-100 fL Mean Corpuscular Hemoglobin 30.6 25-34 pg Mean Corpuscular Hemoglobin Concent 33.3 32-36 g/dl Platelet Count 245 130-400 K/uL Mean Platelet Volume 8.9 7.4-10.4 fL Neutrophils (%) (Auto) 70.5 % Lymphocytes (%) (Auto) 15.4 % Monocytes (%) (Auto) 11.9 % Eosinophils (%) (Auto) 1.5 % Basophils (%) (Auto) 0.2 % Neutrophils # (Auto) 9.03 1.4-6.5 K/uL Lymphocytes # (Auto) 1.97 1.2-3.4 K/uL Monocytes # (Auto) 1.53 0.11-0.59 K/uL Eosinophils # (Auto) 0.19 0-0.5 K/uL Basophils # (Auto) 0.03 0-0.2 K/uL RDW Standard Deviation 47.0 36.4-46.3 fL RDW Coefficient of Variation 14.0 11.5-14.5 % Immature Granulocyte % (Auto) 0.5 % Immature Granulocyte # (Auto) 0.06 0.00-0.02 K/uL Sodium Level 135 136-145 mmol/L Potassium Level 3.5-5.1 mmol/L Chloride Level 106 98-107 mmol/L Carbon Dioxide Level 21 21-32 mmol/L Anion Gap 8.0 3-11 mmol/L Blood Urea Nitrogen 26 7-18 mg/dl Creatinine 1.30 0.60-1.40 mg/dl Est Creatinine Clear Calc Drug Dose 72.0 ml/min Estimated GFR () 66.4 Estimated GFR (Non- 57.3 BUN/Creatinine Ratio 20.0 10-20 Random Glucose 123 70-99 mg/dl Calcium Level 9.2 8.5-10.1 mg/dl Total Bilirubin 0.3 0.2-1 mg/dl Aspartate Amino Transf (AST/SGOT) 15-37 U/L Alanine Aminotransferase (ALT/SGPT) 43 12-78 U/L Alkaline Phosphatase 128 45-117 U/L Total Protein 8.3 6.4-8.2 gm/dl Albumin 3.6 3.4-5.0 gm/dl Globulin 4.7 2.5-4.0 gm/dl Albumin/Globulin Ratio 0.8 0.9-2 Urine Color YELLOW Urine Appearance CLEAR CLEAR Urine pH 5.0 4.5-7.5 Urine Specific [place] 1.027 1.000-1.030 Urine Protein NEG NEG Urine Glucose (UA) NEG NEG Urine Ketones NEG NEG Urine Occult Blood NEG NEG Urine Nitrite NEG NEG Urine Bilirubin NEG NEG Urine Urobilinogen NEG NEG Urine Leukocyte Esterase NEG NEG Troponin I < 0.015 0-0.045 ng/ml Lipase 131 73-393 U/L Microbiology Results 04/14/17 Blood Culture, Received Pending 04/14/17 Blood Culture, Received Pending Diagnostic Radiology ABD/PELVIS IV CONTRAST ONLY CT DOSE: 1359.31 mGy.cm HISTORY: Trauma recent rib fx/pneumonia, left flank pain TECHNIQUE: Multiaxial CT images of the abdomen and pelvis were performed following the use of intravenous contrast. A dose lowering technique was utilized adhering to the principles of ALARA. COMPARISON STUDY: None. FINDINGS: Unchanging parenchymal infiltrate left base. Liver is uniform in appearance. Gallbladder is negative for distention. Kidneys enhance appropriately. The adrenal glands are normal. Spleen and pancreas are unremarkable. Bowel pattern is nonobstructive. Scattered colonic diverticuli with no evidence for diverticulitis. The abdominal aorta is normal in course and caliber. Bladder is midline. No free fluid within the pelvic cul-de-sac. IMPRESSION: No significant abnormality identified within the abdomen or pelvis. (CHEST FOR PE) ANGIO WITH CT DOSE: HISTORY: Dyspnea TECHNIQUE: Multiaxial CT images of the chest were performed following the intravenous administration of contrast to evaluate the pulmonary arteries. Maximal intensity projection images were also obtained. A dose lowering technique was utilized adhering to the principles of ALARA. COMPARISON STUDY: 04/02/2017 FINDINGS: There is a normal caliber thoracic aorta with no evidence for dissection. There is no evidence for pulmonary embolus. No pleural effusions. Parenchymal infiltrate left base unchanged. Small left effusion unchanged. Mild right basilar interstitial prominence unchanged. Small parenchymal infiltrative process right middle lobe. Stable 6 mm pleural nodule lateral aspect right midlung. IMPRESSION: 1. No evidence for pulmonary embolus. 2. Unchanging parenchymal infiltrate left base. 3. Small interval parenchymal infiltrate right middle lobe. CHEST 2 VIEWS ROUTINE CLINICAL HISTORY: recent pneumonia, flank pain COMPARISON STUDY: 03/20/2017 FINDINGS: Persistent but smaller parenchymal infiltrate medial left lower lobe compared to the prior study. Subsegmental atelectasis right base. Mid and upper lungs are clear. IMPRESSION: Improving infiltrate left base with focal residual left retrocardiac region. Mild atelectasis right base. EKG Normal sinus rhythm Nonspecific T wave abnormality When compared with ECG of 01-APR-2017 23:36, No significant change was found Confirmed by JOMAR COLEY ([id number]) on 04/14/2017 7:14:47 PM Impression Assessment and Plan This is a 67 yo m with a h/o COPD, TAA repair, DMII suffering from a new infiltrate in the right middle lobe concerning for a newly developing PNA in light of recently being treated for left lower lobe PNA and influenza A. Patient is moving air well,without hypoxia so at this time unlikely associated with a COPD exacerbation. Right middle lobe infiltrate concerning for new PNA, recent left lower lobe PNA - med surg obs - Zosyn and Vanco empirically for recent admission , Levaquin given in ED - Pulm consult Quat ( low on my differential), mycoplasma and legionella - sputum culture - blood culture pending - speech eval to assess for aspiration risk - troponin negative COPD- stable - continue albuterol prn Mod ROSA - CPAP CAD/ TAA repair/ HTN - ASA 81 mg - Vytorin and Coenzyme q 10 cont - Lisinopril 10 mg and Toprol 50 mg cont Depression - Effexor 75 mg cont DMII - Metformin held - insulin 50 units lantus pm and insulin ISS DVT prophylaxis - heparin bid Full code Attending addendum: I have physically seen this patient, have supervised the medical residents activities, and agree with the H&P unless as otherwise noted. Assessment and Plan: Bilateral pneumonia/persistent left lower lobe/new right middle lobe/COPD exacerbation/sleep apnea-- Vancomycin IV, Zosyn IV and Levaquin IV Sputum Gram stain and culture, blood cultures Duonebs every 4 hours while awake and every 2 hours when necessary. Guaifenesin extended release 600 mg by mouth twice a day Pulmicort Respules 0.5 mg inhaled twice a day Continue CPAP at at bedtime CAD/hypertension/TAA repair-- Continue metoprolol succinate 50 mg by mouth daily, lisinopril 10 mg by mouth daily, Vytorin, and CoQ10. Level of Care Med/Surg Advanced Directives Existing Advance Directive: No Existing Living Will: No Existing Power of Corporate Legal Manager: No Resuscitation Status FULL RESUSCITATION VTE Prophylaxis VTE Risk Assessment Done? Y/N: Yes Risk Level: Moderate Given or contraindicated: Unfractionated heparin SQ Social Service Consult None Apply Note Total Time: Critical Care 30 - 74 minutes Additional Copies To Dulce Gomez M.D.
[2017-04-15 00:01] VITALS: BP 161/84; PULSE 86; TEMP 37; O2SAT 90; Ht 182.9 cm; Wt 108.2 kg
[2017-04-15] MEDS ORDERED: IV FLUIDS COMPLETED PRN (00:30)
[2017-04-15] MEDS ORDERED: ALBUTEROL HFA 8 GM INHALER INH PRN (01:00)
[2017-04-15] MEDS: MAGNESIUM OXIDE 400 MG TAB PO SCH ×3 (02:28→20:58)
[2017-04-15] MEDS: ASPIRIN 325 MG ECTAB PO SCH (02:29)
[2017-04-15] MEDS: VENLAFAXINE HCL XR 75 MG CAPXR PO SCH ×2 (02:30→20:57)
[2017-04-15] MEDS: CEROVITE ADV FORMULA TAB PO SCH ×2 (02:30→20:58)
[2017-04-15] MEDS: OMEGA-3 (PURIFIED FISH OIL) 1 GM CAP PO SCH ×2 (02:30→20:57)
[2017-04-15] MEDS: LISINOPRIL 10 MG TAB PO SCH ×2 (02:31→20:58)
[2017-04-15] MEDS: METOPROLOL SUCC 50MG EXT REL TAB PO SCH ×2 (02:31→20:57)
[2017-04-15] MEDS: EZETIMIBE/SIMVASTATIN 10/20 TAB PO SCH ×2 (02:31→20:57)
[2017-04-15] MEDS: INSULIN GLARGINE SOLOSTAR 100 UNITS/ML 3 ML PEN SC SCH ×2 (02:34→21:20)
[2017-04-15] MEDS ORDERED: PIPERACILL/TAZOBAC CONSULT ACTIVE PRN (04:30)
[2017-04-15] MEDS ORDERED: VANCOMYCIN CONSULT ACTIVE PRN (04:30)
[2017-04-15] MEDS ORDERED: PIPERACILL/TAZOBAC IV 3.375 GM in DEXTROSE 5% 100ML IV ONE (04:45)
[2017-04-15 04:52] LABS: BASO % 0.1 %; BASO ABS # 0.01 K/uL (0-0.2); HEMATOCRIT 36.7 % (42-52); HEMOGLOBIN 12.3 g/dL (14.0-18.0); IG# 0.04 K/uL (0.00-0.02); LYMPH % 9.2 %; LYMPH ABS # 1.01 K/uL (1.2-3.4); MEAN CELL VOLUME 91.1 fL (80-100); MEAN CORPUSCULAR HEMOGLOBIN 30.5 pg (25-34); MEAN CORPUSCULAR HGB CONC 33.5 g/dl (32-36); MEAN PLATELET VOLUME 8.8 fL (7.4-10.4); MONO % 7.4 %; MONO ABS # 0.81 K/uL (0.11-0.59); NEUT % 82.9 %; NEUT ABS # 9.06 K/uL (1.4-6.5); PLATELET COUNT 199 K/uL (130-400); RED CELL DISTRIBUTION WIDTH CV 13.8 % (11.5-14.5); RED CELL DISTRIBUTION WIDTH SD 45.9 fL (36.4-46.3); WHITE BLOOD COUNT 10.93 K/uL (4.8-10.8)
[2017-04-15 05:08] LABS: CALCIUM 8.2 mg/dl (8.5-10.1); CREATININE 1.26 mg/dl (0.60-1.40); POTASSIUM 5.3 mmol/L (3.5-5.1)
[2017-04-15] MEDS ORDERED: PIPERACILL/TAZOBAC IV 3.375 GM in DEXTROSE 5% 100ML 100 ML IV SCH (06:00)
[2017-04-15] MEDS: INSULIN ASPART 100 UNITS/ML 3 ML PEN SC SCH ×4 (06:30→20:59)
[2017-04-15] MEDS: ANORO ELLIPTA~ORDER AWAITING ACTION SCH ×2 (08:00→14:25)
[2017-04-15 08:04] VITALS: BP 153/76; PULSE 78; TEMP 36.9; O2SAT 92
[2017-04-15] MEDS: VANCOMYCIN INJ 1,500 MG in SODIUM CHLORIDE 0.9% 500ML 500 ML IV SCH ×2 (08:54→20:56)
[2017-04-15] MEDS ORDERED: VANCOMYCIN INJ 1,000 MG in SODIUM CHLORIDE 0.9% 250ML 250 ML IV SCH (09:00)
[2017-04-15] MEDS: HEPARIN SOD 5000 UNIT/0.5 ML CARP SQ SCH ×2 (09:20→21:20)
--- NOTE | 2017-04-15 09:21 | Pulmonary Consultation ---
History General Date of Service: Apr 15, 2017. Chief Complaint: persistent cough status post multilobe pneumonia Stated Complaint: Pneumonia Involving Right middle lobe of Lung HPI The patient is a 67 year old male who presents to [facility] with complaints of Pneumonia Involving Right Lung. The patient's primary care provider is Dulce Gomez M.D.. The patient was diagnosed with influenza A on March 18, 2017. He was treated with Tamiflu and has some improvement. However he was found to have a left lower lobe pneumonia at that time. He was treated with antibiotics and sent home. He then had second episode where he presented to the emergency department and was found with persistent opacity at the left lower lobe and was again sent home on a different course of antibiotics. The patient then began to have pain which was pleuritic in nature along the left lower rib on the anterior migrating to the flank. Due to the sharp intense pain he presented to the emergency department and was found to have a new focal pneumonia at the right middle lobe. A CTA was completed and was negative for pulmonary embolus. The patient was admitted for further workup and pulmonary evaluation. The patient is a 67-year-old male [place] and [place]. He has never had difficulty with pulmonary issues in the past. He is a past smoker with a 19-pfap-pgot history and quit smoking in 1995. He has not had any hypoxia. He does have occasional sputum production but it is always clear. He has no hemoptysis. He has no prior exposure to tuberculosis and has never had a positive PPD. He has no recent travel outside the country. Chest x-ray and CT scan show no apical opacities or cavitary lesions. The patient does have some emphysema noted on CT scan. 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 He has been exposed to some chlorine but otherwise has no location exposure and no prior vocational hospitalizations. The patient reports that currently pain is completely resolved. He has no shortness breath. He has no significant cough. He has no production of sputum this morning. He has no fever, sweats, rigors. Historian: patient, other (chart review) Review of Systems A total of 12 systems was reviewed and is negative other than as listed above in the HPI All Other Symptoms All Other Systems: Reviewed and Negative Past Medical History Past Medical History: Medical Problems: (1) Aorta Dissection,Thoracic (2) Aortic aneurysm (3) Chest pain (4) COPD (chronic obstructive pulmonary disease) (5) Diabetes (6) Diverticulosis Colon (W/O Ment Of Hemorrhage) (7) Gout, Unspecified (8) Hypertension (9) Influenza A 03/18/17 (10) Kidney stones (11) Obstructive Sleep Apnea (Adult) (12) multilobar Pneumonia (13) [id number]-[id number] history of tobacco abuse - 1995 Past Surgical History: Surgical Problems: (1) H/O aortic aneurysm repair (2) History of appendectomy Family History Cancer Diabetes mellitus Heart disease Hypertension Social History Hx Tobacco Use In Past Year?: Yes (quit in 1995) Smoking Status: Former Smoker (20 pack year history quit in 1995) Drug Use: none Marital status: Housing status: lives with family Occupational Status: employed ([employer]) Immunizations History of Influenza Vaccine: No History of Tetanus Vaccine?: No History of Pneumococcal: No History of Hepatitis B Vaccine: No History of MDRO History of MDRO: No Allergies Coded Allergies: Codeine (Verified Adverse Reaction, Mild, NAUSEA, 03/20/17) Current Medications Reported Home Medications Medications Dose Route/Sig Max Daily Dose Days Date Category Lantus (Insulin Glargine) 100 Unit/Ml Inj 50 Units SC QPM 30 03/24/17 Rx Magnesium 200 Mg Tab 200 Mg PO BID 11/01/16 Reported Vytorin 10MG/20MG (Ezetimibe/Simvastatin) Tab 1 Tab PO QPM 07/19/16 Reported Ventolin Hfa (Albuterol) 200 Puffs/25919 Mcg Aers 2 Puffs INH QID PRN 06/27/16 Reported Effexor Extended Rel (Venlafaxine Hcl) 75 Mg Capcr 75 Mg PO QPM 06/27/16 Reported Centrum Silver Adult 50+ (Multiple Vitamins W/ Minerals) 1 Tab Tab 1 Tab PO QPM 04/24/15 Reported Anoro Ellipta 62.5-25 Mcg/INH (Umeclidinium-Vilanterol) 1 Aer Aer 1 Puff INH QAM 04/24/15 Reported Zyloprim (Allopurinol) 100 Mg Tab 100 Mg PO QPM 04/24/15 Reported Aspirin 325 Mg Tab 325 Mg PO QPM 04/24/15 Reported Glucophage (Metformin Hcl) 1,000 Mg Tab 1,000 Mg PO BID 04/24/15 Reported Metoprolol Succinate ER (Metoprolol Succinate) 50 Mg Tabcr 50 Mg PO QPM 12/02/14 Reported Prinivil (Lisinopril) 10 Mg Tab 10 Mg PO QPM 01/15/11 Reported Bondurant-3 (Fish Oil) 1 Ea Cap 1 Cap PO QPM 08/04/08 Reported Physical Physical Exam Vital Signs: Date Time Temp Pulse Resp B/P (MAP) Pulse Ox O2 Delivery O2 Flow Rate FiO2 04/15/17 08:04 36.9 78 18 153/76 (101) 92 04/15/17 00:01 37.0 86 18 161/84 90 Room Air 04/14/17 22:37 36.8 86 18 148/75 94 Nasal Cannula 2.0 04/14/17 22:02 86 04/14/17 20:59 80 18 145/95 94 Nasal Cannula 2.0 04/14/17 20:05 91 18 132/74 93 Nasal Cannula 2.0 04/14/17 19:09 91 18 132/74 91 Room Air 04/14/17 18:03 84 04/14/17 17:59 87 16 129/87 93 Room Air 04/14/17 15:43 36.8 74 22 133/74 94 Room Air Weight in Kilograms: 108.2 GENERAL : No acute distress. Pleasant EYES: No icterus, gaze conjugate. PERRL NOSE: No evidence of epistaxis MOUTH: No lesions or candidiasis NECK: Supple. No JVD LUNGS: Patient has coarse breath sounds throughout. However, aeration noted from bilateral apices to bilateral bases. No bronchospasm CHEST: No reproducible pain with palpation HEART: Regular, rate controlled ABDOMEN: Soft, NT, ND, BS Present EXTREMITIES: No LE edema, pedal pulses intact NEURO: [facility] Diagn[facility] Labs Results Past 24 Hours Test 04/14/17 17:52 04/14/17 17:55 04/14/17 21:27 04/14/17 22:18 Range/Units White Blood Count 12.81 4.8-10.8 K/uL Red Blood Count 4.64 4.7-6.1 M/uL Hemoglobin 14.2 14.0-18.0 g/dL Hematocrit 42.7 42-52 % Mean Corpuscular Volume 92.0 80-100 fL Mean Corpuscular Hemoglobin 30.6 25-34 pg Mean Corpuscular Hemoglobin Concent 33.3 32-36 g/dl Platelet Count 245 130-400 K/uL Mean Platelet Volume 8.9 7.4-10.4 fL Neutrophils (%) (Auto) 70.5 % Lymphocytes (%) (Auto) 15.4 % Monocytes (%) (Auto) 11.9 % Eosinophils (%) (Auto) 1.5 % Basophils (%) (Auto) 0.2 % Neutrophils # (Auto) 9.03 1.4-6.5 K/uL Lymphocytes # (Auto) 1.97 1.2-3.4 K/uL Monocytes # (Auto) 1.53 0.11-0.59 K/uL Eosinophils # (Auto) 0.19 0-0.5 K/uL Basophils # (Auto) 0.03 0-0.2 K/uL RDW Standard Deviation 47.0 36.4-46.3 fL RDW Coefficient of Variation 14.0 11.5-14.5 % Immature Granulocyte % (Auto) 0.5 % Immature Granulocyte # (Auto) 0.06 0.00-0.02 K/uL Sodium Level 135 136-145 mmol/L Potassium Level 3.5-5.1 mmol/L Chloride Level 106 98-107 mmol/L Carbon Dioxide Level 21 21-32 mmol/L Anion Gap 8.0 3-11 mmol/L Blood Urea Nitrogen 26 7-18 mg/dl Creatinine 1.30 0.60-1.40 mg/dl Est Creatinine Clear Calc Drug Dose 72.0 ml/min Estimated GFR () 66.4 Estimated GFR (Non- 57.3 BUN/Creatinine Ratio 20.0 10-20 Random Glucose 123 70-99 mg/dl Calcium Level 9.2 8.5-10.1 mg/dl Total Bilirubin 0.3 0.2-1 mg/dl Aspartate Amino Transf (AST/SGOT) 15-37 U/L Alanine Aminotransferase (ALT/SGPT) 43 12-78 U/L Alkaline Phosphatase 128 45-117 U/L Total Protein 8.3 6.4-8.2 gm/dl Albumin 3.6 3.4-5.0 gm/dl Globulin 4.7 2.5-4.0 gm/dl Albumin/Globulin Ratio 0.8 0.9-2 Urine Color YELLOW Urine Appearance CLEAR CLEAR Urine pH 5.0 4.5-7.5 Urine Specific Ulysses 1.027 1.000-1.030 Urine Protein NEG NEG Urine Glucose (UA) NEG NEG Urine Ketones NEG NEG Urine Occult Blood NEG NEG Urine Nitrite NEG NEG Urine Bilirubin NEG NEG Urine Urobilinogen NEG NEG Urine Leukocyte Esterase NEG NEG Troponin I < 0.015 0-0.045 ng/ml Lipase 131 73-393 U/L Test 04/15/17 00:00 04/15/17 00:11 04/15/17 04:36 04/15/17 07:27 Range/Units Bedside Glucose 186 154 70-99 mg/dl White Blood Count 10.93 4.8-10.8 K/uL Red Blood Count 4.03 4.7-6.1 M/uL Hemoglobin 12.3 14.0-18.0 g/dL Hematocrit 36.7 42-52 % Mean Corpuscular Volume 91.1 80-100 fL Mean Corpuscular Hemoglobin 30.5 25-34 pg Mean Corpuscular Hemoglobin Concent 33.5 32-36 g/dl Platelet Count 199 130-400 K/uL Mean Platelet Volume 8.8 7.4-10.4 fL Neutrophils (%) (Auto) 82.9 % Lymphocytes (%) (Auto) 9.2 % Monocytes (%) (Auto) 7.4 % Eosinophils (%) (Auto) 0.0 % Basophils (%) (Auto) 0.1 % Neutrophils # (Auto) 9.06 1.4-6.5 K/uL Lymphocytes # (Auto) 1.01 1.2-3.4 K/uL Monocytes # (Auto) 0.81 0.11-0.59 K/uL Eosinophils # (Auto) 0.00 0-0.5 K/uL Basophils # (Auto) 0.01 0-0.2 K/uL RDW Standard Deviation 45.9 36.4-46.3 fL RDW Coefficient of Variation 13.8 11.5-14.5 % Immature Granulocyte % (Auto) 0.4 % Immature Granulocyte # (Auto) 0.04 0.00-0.02 K/uL Sodium Level 134 136-145 mmol/L Potassium Level 5.3 3.5-5.1 mmol/L Chloride Level 106 98-107 mmol/L Carbon Dioxide Level 20 21-32 mmol/L Anion Gap 8.0 3-11 mmol/L Blood Urea Nitrogen 26 7-18 mg/dl Creatinine 1.26 0.60-1.40 mg/dl Est Creatinine Clear Calc Drug Dose 74.3 ml/min Estimated GFR () 68.9 Estimated GFR (Non- 59.5 BUN/Creatinine Ratio 20.7 10-20 Random Glucose 199 70-99 mg/dl Calcium Level 8.2 8.5-10.1 mg/dl Procalcitonin 0.11 0-0.5 ng/ml Microbiology Results 04/14/17 Blood Culture, Received Pending 04/14/17 Blood Culture, Received Pending 04/15/17 Gram Stain - Final, Resulted 04/15/17 Sputum Culture, Resulted Pending Diagnostic Radiology (CHEST FOR PE) ANGIO WITH CT DOSE: HISTORY: Dyspnea TECHNIQUE: Multiaxial CT images of the chest were performed following the intravenous administration of contrast to evaluate the pulmonary arteries. Maximal intensity projection images were also obtained. A dose lowering technique was utilized adhering to the principles of ALARA. COMPARISON STUDY: 04/02/2017 FINDINGS: There is a normal caliber thoracic aorta with no evidence for dissection. There is no evidence for pulmonary embolus. No pleural effusions. Parenchymal infiltrate left base unchanged. Small left effusion unchanged. Mild right basilar interstitial prominence unchanged. Small parenchymal infiltrative process right middle lobe. Stable 6 mm pleural nodule lateral aspect right midlung. IMPRESSION: 1. No evidence for pulmonary embolus. 2. Unchanging parenchymal infiltrate left base. 3. Small interval parenchymal infiltrate right middle lobe. Electronically signed by: Raimundo Reed M.D. 04/14/2017 7:46 PM Impression Assessment and Plan MULTILOBAR PNEUMONIA * Suspect this is sequela from positive influenza A March 18, 2018 * Patient has been through multiple courses of antibiotics - now on Zosyn and vancomycin and levofloxacin * Patient is at risk for Legionella with standing water in a [place] for primary water source at home * Continue with antibiotic treatment and await cultures * Would suggest discontinuation of isolation precautions as patient has no risk factors or clinical findings suggesting tuberculosis * Continue supportive care * Follow up outpatient for resolution of chest x-ray opacities * Will schedule outpatient follow-up with pulmonary * No fever, sputum production, hemoptysis, hypoxia, hypercapnia. COPD * Prior tobacco abuse history but not a current smoker for many years * Continue with neb treatments as needed * No hypoxia * No significant sputum production * Treat supportively 6mm RIGHT MIDDLE LOBE PULMONARY NODULE * 81-hwpi-gdxf smoking history - quit in 1995 * Place pulmonary nodule consult * Follow-up outpatient DVT PROPHYLAXIS * Heparin subcutaneous every 12 hours * Ambulate as tolerated Thank you for including us in the care of this patient. Please refer to Dr. Baldomero claros addendum for further recommendations.
[2017-04-15] MEDS: PIPERACILL/TAZOBAC IV 3.375 GM in DEXTROSE 5% 100ML IV SCH ×2 (11:00→17:16)
--- NOTE | 2017-04-15 14:11 | Pharmacy Progress Note ---
Pharmacy Abx Initial Consult Date of Service Apr 15, 2017. Pharmacy Dosing Scope Date of Consult: 04/14/17 Consultation requested by: Dr. Brower Pharmacy is consulted to initiate Vancomycin and zosyn IV dosing therapy, order appropriate labs and adjust drug dose/frequency. Subjective The patient is a 67 year old male admitted on Apr 15, 2017 at 11:35. Objective Height (Feet): 6 Height (Inches): 0.00 Weight (Kilograms): 108.200 Vital Signs (Past 12Hrs) Vital Signs Past 12 Hours Date Time Temp Pulse Resp B/P (MAP) Pulse Ox O2 Delivery O2 Flow Rate FiO2 04/15/17 08:04 36.9 78 18 153/76 (101) 92 04/15/17 08:00 Room Air Lab Results (24Hrs) Laboratory Tests (24 Hours) Test 04/15/17 04:36 White Blood Count 10.93 K/uL (4.8-10.8) H Red Blood Count 4.03 M/uL (4.7-6.1) L Hemoglobin 12.3 g/dL (14.0-18.0) L Hematocrit 36.7 % (42-52) L Mean Corpuscular Volume 91.1 fL (80-100) Mean Corpuscular Hemoglobin 30.5 pg (25-34) Mean Corpuscular Hemoglobin Concent 33.5 g/dl (32-36) Platelet Count 199 K/uL (130-400) Mean Platelet Volume 8.8 fL (7.4-10.4) Neutrophils (%) (Auto) 82.9 % Lymphocytes (%) (Auto) 9.2 % Monocytes (%) (Auto) 7.4 % Eosinophils (%) (Auto) 0.0 % Basophils (%) (Auto) 0.1 % Neutrophils # (Auto) 9.06 K/uL (1.4-6.5) H Lymphocytes # (Auto) 1.01 K/uL (1.2-3.4) L Monocytes # (Auto) 0.81 K/uL (0.11-0.59) H Eosinophils # (Auto) 0.00 K/uL (0-0.5) Basophils # (Auto) 0.01 K/uL (0-0.2) Procalcitonin 0.11 ng/ml (0-0.5) Micro Results Date/Time Source Procedure Growth Status 04/14/17 21:27 Blood Blood Culture Pending Received 04/14/17 21:19 Blood Blood Culture Pending Received 04/15/17 00:00 Nasal MRSA DNA Surveillance Screen - Final Specimen Negative for MRSA by DNA Probe Complete 04/15/17 00:00 Sputum Expectorated Sputum Gram Stain - Final Resulted 04/15/17 00:00 Sputum Expectorated Sputum Sputum Culture Pending Resulted Risk Factors for Resistance * Antimicrobial use within the last 90 days: 03/20-started levaquin 04/01- started zithromax and augmentin Assessment & Plan Assessment 67 year old male PMH of COPD. Pt had recent antibiotics for pneumonia in Feb and early Mar. * Renal function at baseline * WBC elevated * Pt is afebrile * Sputum and blood cultures pending * MRSA nasal swab pending Plan Vancomycin and Zosyn for treatment of pneumonia. Vancomycin IV * Loading dose: 2250 mg (21 mg/kg) * Maintenance dose: 1500 mg IV (15 mg/kg) every 12 hours * Goal trough level for pneumonia : 15 to 20 mcg/mL * Trough level ordered for 04/16 @2030 Piperacillin/tazobactam * 3.375 g bolus administered over 30 minutes, then 3.375 g IV extended infusion every 8 hours for CrCl greater than 20 mL/min Pharmacy will continue to follow and will adjust dose/frequency as necessary. Thank you.
[2017-04-15 15:22] VITALS: BP 145/71; PULSE 71; TEMP 36.6; O2SAT 91
--- NOTE | 2017-04-15 19:06 | Progress Note ---
Subjective Date of Service: Apr 15, 2017. Subjective Pt evaluation today including: conversation w/ patient, physical exam, chart review, lab review, review of studies, review of inpatient medication list Problem List Medical Problems: (1) Bilateral pneumonia Status: Acute (2) Dehydration Status: Acute (3) Failure of outpatient treatment Status: Acute (4) Hypomagnesemia Status: Acute (5) Influenza Status: Acute (6) Left flank pain Status: Acute (7) Left lower lobe pneumonia Status: Acute (8) Left-sided chest wall pain Status: Acute (9) Precordial chest pain Status: Acute (10) SVT (supraventricular tachycardia) Status: Acute (11) SVT (supraventricular tachycardia) Status: Acute (12) SVT (supraventricular tachycardia) Status: Acute Review of Systems Constitutional: + fever, No see HPI, No chills, No sweats, No weight loss, No weakness, No fatigue, No problem reported Eyes: No see HPI, No worsening of vision, No eye pain, No redness, No discharge , No diplopia, No problem reported ENT: No see HPI, No hearing loss, No unusual epistaxis, No nasal symptoms, No sore throat, No tinnitus, No dental problems, No trouble swallowing, No problem reported Respiratory: + cough, + sputum, No see HPI, No wheezing, No shortness of breath , No dyspnea on exertion, No dyspnea at rest, No hemoptysis, No problem reported Cardiac: No see HPI, No chest pain, No orthopnea, No PND, No edema, No claudication, No palpitations, No problem reported Breast: No see HPI, No breast lump, No change in shape, No nipple discharge, No breast pain, No problem reported Abdomen: No see HPI, No pain, No nausea, No vomiting, No diarrhea, No constipation, No GI bleeding, No problem reported Musculoskeletal: No see HPI, No joint pain, No muscle pain, No swelling, No calf pain, No problem reported Male : No see HPI, No dysuria, No urinary frequency, No incontinence, No nocturia more than once/night, No slowing stream, No hematuria, No sexual dysfunction, No problem reported Neurologic: No see HPI, No memory loss, No paralysis, No weakness, No numbness/ tingling, No vertigo, No balance problems, No problem reported Psychiatric: No see HPI, No depression symptoms, No anhedonism, No anxiety, No insomnia, No substance abuse, No problem reported Heme: No see HPI, No abnormal bleeding/bruising, No clotting problems, No swollen lymph nodes, No night sweats, No problem reported Endo: No see HPI, No fatigue, No excessive thirst, No excessive urination, No problem reported Skin: No see HPI, No rash, No itch, No new/changing skin lesions, No color change, No bleeding, No problem reported Objective Vital Signs Date Time Temp Pulse Resp B/P (MAP) Pulse Ox O2 Delivery O2 Flow Rate FiO2 04/15/17 16:00 Room Air 04/15/17 15:22 36.6 71 18 145/71 (95) 91 Room Air 04/15/17 08:04 36.9 78 18 153/76 (101) 92 04/15/17 08:00 Room Air 04/15/17 00:01 37.0 86 18 161/84 90 Room Air 04/14/17 22:37 36.8 86 18 148/75 94 Nasal Cannula 2.0 04/14/17 22:02 86 04/14/17 20:59 80 18 145/95 94 Nasal Cannula 2.0 04/14/17 20:05 91 18 132/74 93 Nasal Cannula 2.0 04/14/17 19:09 91 18 132/74 91 Room Air Physical Exam General Appearance: WD/WN, no apparent distress Eyes: normal inspection, EOMI ENT: normal ENT inspection, hearing grossly normal Neck: supple Respiratory/Chest: chest non-tender, lungs clear, normal breath sounds, no respiratory distress, no accessory muscle use Cardiovascular: regular rate, rhythm, no edema, no gallop, no JVD, no murmur Abdomen: normal bowel sounds, non tender, soft, no organomegaly, no pulsatile mass Extremities: normal range of motion, non-tender, normal inspection, no pedal edema, no calf tenderness Neurologic/Psychiatric: internet marketing assistant II-XII nml as tested, no motor/sensory deficits, alert, normal mood/affect, oriented x 3 Skin: normal color, warm/dry, no rash Laboratory Results Last 24 Hours Test 04/14/17 21:27 04/14/17 22:18 04/15/17 00:00 04/15/17 00:11 Troponin I < 0.015 ng/ml Lipase 131 U/L Bedside Glucose 186 mg/dl Test 04/15/17 04:36 04/15/17 07:27 White Blood Count 10.93 K/uL Red Blood Count 4.03 M/uL Hemoglobin 12.3 g/dL Hematocrit 36.7 % Mean Corpuscular Volume 91.1 fL Mean Corpuscular Hemoglobin 30.5 pg Mean Corpuscular Hemoglobin Concent 33.5 g/dl Platelet Count 199 K/uL Mean Platelet Volume 8.8 fL Neutrophils (%) (Auto) 82.9 % Lymphocytes (%) (Auto) 9.2 % Monocytes (%) (Auto) 7.4 % Eosinophils (%) (Auto) 0.0 % Basophils (%) (Auto) 0.1 % Neutrophils # (Auto) 9.06 K/uL Lymphocytes # (Auto) 1.01 K/uL Monocytes # (Auto) 0.81 K/uL Eosinophils # (Auto) 0.00 K/uL Basophils # (Auto) 0.01 K/uL RDW Standard Deviation 45.9 fL RDW Coefficient of Variation 13.8 % Immature Granulocyte % (Auto) 0.4 % Immature Granulocyte # (Auto) 0.04 K/uL Sodium Level 134 mmol/L Potassium Level 5.3 mmol/L Chloride Level 106 mmol/L Carbon Dioxide Level 20 mmol/L Anion Gap 8.0 mmol/L Blood Urea Nitrogen 26 mg/dl Creatinine 1.26 mg/dl Est Creatinine Clear Calc Drug Dose 74.3 ml/min Estimated GFR () 68.9 Estimated GFR (Non- 59.5 BUN/Creatinine Ratio 20.7 Random Glucose 199 mg/dl Calcium Level 8.2 mg/dl Procalcitonin 0.11 ng/ml Bedside Glucose 154 mg/dl Assessment and Plan 67-year-old man with past medical history of gout, COPD, obstructive sleep apnea , aortic dissection status post repair presented to the hospital with multilobar pneumonia Assessment Multilobar pneumonia, likely secondary bacterial pneumonia status post recent flu pneumonia in the end of the last month COPD without exacerbation History of kidney stones Continue history of obstructive sleep apnea History of aortic repair Remote history of smoking quit 20 years ago/20 packs per year smoking history 6 mm right middle lobe pulmonary nodule, needs follow-up Plan Plan Continue telemetry Oxygen supplement as per protocol, currently does not require any Follow-up Blood culture/sputum culture Urine legionella antigen Group a strep screen Initiate broad-spectrum antibiotics covering typical and atypical microorganisms , currently on Vanco/Zosyn/levofloxacin Start patient on lactobacillus to prevent C. difficile Continue home medications IV fluid hydration as needed Monitor labs in a.m. Bronchodilators Monitor oxygen saturation DVT prophylaxis/heparin subcutaneous
[2017-04-15 20:10] VITALS: O2SAT 91
[2017-04-15] MEDS: ALLOPURINOL 100 MG TAB PO SCH (20:57)
[2017-04-15] MEDS ORDERED: LEVALBUTEROL/IPRATROPIUM NEB INH SCH (21:00)
[2017-04-15 23:04] VITALS: BP 130/73; PULSE 72; TEMP 36.7; O2SAT 92
[2017-04-16] MEDS: IPRATROPIUM BROMIDE NEB SOLN 0.02% 2.5 ML VIAL INH SCH ×4 (02:07→18:54)
[2017-04-16] MEDS: LEVALBUTEROL 0.63MG/3 ML NEB INH SCH ×4 (02:07→18:54)
[2017-04-16] MEDS: PIPERACILL/TAZOBAC IV 3.375 GM in DEXTROSE 5% 100ML IV SCH ×3 (02:28→18:21)
[2017-04-16] MEDS: INSULIN ASPART 100 UNITS/ML 3 ML PEN SC SCH ×5 (06:30→20:41)
[2017-04-16 06:58] VITALS: PULSE 74; O2SAT 94
[2017-04-16 07:24] VITALS: BP 121/68; PULSE 54; TEMP 36.7; O2SAT 94
[2017-04-16] MEDS: ANORO ELLIPTA~ORDER AWAITING ACTION SCH ×4 (07:38→23:43)
[2017-04-16 07:43] LABS: BASO % 0.3 %; BASO ABS # 0.02 K/uL (0-0.2); EOS % 2.8 %; HEMATOCRIT 34.7 % (42-52); HEMOGLOBIN 11.6 g/dL (14.0-18.0); IG# 0.04 K/uL (0.00-0.02); LYMPH % 30.6 %; LYMPH ABS # 2.18 K/uL (1.2-3.4); MEAN CELL VOLUME 91.6 fL (80-100); MEAN CORPUSCULAR HEMOGLOBIN 30.6 pg (25-34); MEAN CORPUSCULAR HGB CONC 33.4 g/dl (32-36); MEAN PLATELET VOLUME 8.6 fL (7.4-10.4); MONO % 15.1 %; MONO ABS # 1.08 K/uL (0.11-0.59); NEUT % 50.6 %; NEUT ABS # 3.61 K/uL (1.4-6.5); PLATELET COUNT 218 K/uL (130-400); RED CELL DISTRIBUTION WIDTH SD 46.8 fL (36.4-46.3); WHITE BLOOD COUNT 7.13 K/uL (4.8-10.8)
[2017-04-16 08:09] LABS: ALBUMIN 2.7 gm/dl (3.4-5.0); CALCIUM 8.5 mg/dl (8.5-10.1); CREATININE 1.12 mg/dl (0.60-1.40); POTASSIUM 3.8 mmol/L (3.5-5.1); TOTAL PROTEIN 6.5 gm/dl (6.4-8.2)
[2017-04-16] MEDS: LACTOBACILLUS ACIDOPHILUS 1 GM PACK PO SCH ×3 (09:04→16:22)
[2017-04-16] MEDS: MAGNESIUM OXIDE 400 MG TAB PO SCH ×2 (09:04→20:48)
[2017-04-16] MEDS: VANCOMYCIN INJ 1,500 MG in SODIUM CHLORIDE 0.9% 500ML 500 ML IV SCH (09:04)
[2017-04-16] MEDS: HEPARIN SOD 5000 UNIT/0.5 ML CARP SQ SCH ×2 (09:12→20:53)
[2017-04-16] MEDS ORDERED: MAGNESIUM OXIDE 400 MG TAB PO ONE (09:30)
[2017-04-16 14:37] VITALS: PULSE 62; O2SAT 95
--- NOTE | 2017-04-16 16:03 | Progress Note ---
Subjective Date of Service: Apr 16, 2017. Subjective Pt evaluation today including: conversation w/ patient, physical exam, chart review, lab review, review of inpatient medication list Pain: pain is controlled, feeling better, no shortness of breath Voiding: no voiding problems, no incontinence Problem List Medical Problems: (1) Bilateral pneumonia Status: Acute (2) Dehydration Status: Acute (3) Failure of outpatient treatment Status: Acute (4) Hypomagnesemia Status: Acute (5) Influenza Status: Acute (6) Left flank pain Status: Acute (7) Left lower lobe pneumonia Status: Acute (8) Left-sided chest wall pain Status: Acute (9) Precordial chest pain Status: Acute (10) SVT (supraventricular tachycardia) Status: Acute (11) SVT (supraventricular tachycardia) Status: Acute (12) SVT (supraventricular tachycardia) Status: Acute Review of Systems Constitutional: No see HPI, No fever, No chills, No sweats, No weight loss, No weakness, No fatigue, No problem reported Eyes: No see HPI, No worsening of vision, No eye pain, No redness, No discharge , No diplopia, No problem reported ENT: No see HPI, No hearing loss, No unusual epistaxis, No nasal symptoms, No sore throat, No tinnitus, No dental problems, No trouble swallowing, No problem reported Respiratory: No see HPI, No cough, No sputum, No wheezing, No shortness of breath, No dyspnea on exertion, No dyspnea at rest, No hemoptysis, No problem reported Cardiac: No see HPI, No chest pain, No orthopnea, No PND, No edema, No claudication, No palpitations, No problem reported Breast: No see HPI, No breast lump, No change in shape, No nipple discharge, No breast pain, No problem reported Abdomen: No see HPI, No pain, No nausea, No vomiting, No diarrhea, No constipation, No GI bleeding, No problem reported Musculoskeletal: No see HPI, No joint pain, No muscle pain, No swelling, No calf pain, No problem reported Male : No see HPI, No dysuria, No urinary frequency, No incontinence, No nocturia more than once/night, No slowing stream, No hematuria, No sexual dysfunction, No problem reported Neurologic: No see HPI, No memory loss, No paralysis, No weakness, No numbness/ tingling, No vertigo, No balance problems, No problem reported Psychiatric: No see HPI, No depression symptoms, No anhedonism, No anxiety, No insomnia, No substance abuse, No problem reported Heme: No see HPI, No abnormal bleeding/bruising, No clotting problems, No swollen lymph nodes, No night sweats, No problem reported Endo: No see HPI, No fatigue, No excessive thirst, No excessive urination, No problem reported Skin: No see HPI, No rash, No itch, No new/changing skin lesions, No color change, No bleeding, No problem reported Objective Vital Signs Date Time Temp Pulse Resp B/P (MAP) Pulse Ox O2 Delivery O2 Flow Rate FiO2 04/16/17 14:37 62 16 95 Room Air 04/16/17 08:11 Room Air 04/16/17 07:24 36.7 54 18 121/68 (85) 94 Room Air 04/16/17 06:58 74 16 94 Room Air 04/16/17 00:20 Room Air 04/15/17 23:04 36.7 72 18 130/73 (92) 92 Room Air 04/15/17 20:10 91 Room Air Physical Exam General Appearance: WD/WN, no apparent distress Eyes: normal inspection, EOMI ENT: normal ENT inspection, hearing grossly normal Neck: supple Respiratory/Chest: chest non-tender, lungs clear, normal breath sounds, no respiratory distress, no accessory muscle use Cardiovascular: regular rate, rhythm, no edema, no gallop, no JVD, no murmur Abdomen: normal bowel sounds, non tender, soft, no organomegaly, no pulsatile mass Extremities: normal range of motion, non-tender, normal inspection, no pedal edema, no calf tenderness 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/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, no motor/sensory deficits, alert, normal mood/affect, oriented x 3 Skin: normal color, warm/dry, no rash Laboratory Results Last 24 Hours Test 04/15/17 16:23 04/15/17 20:39 04/15/17 21:35 04/16/17 07:05 Bedside Glucose 143 mg/dl 152 mg/dl White Blood Count 7.13 K/uL Red Blood Count 3.79 M/uL Hemoglobin 11.6 g/dL Hematocrit 34.7 % Mean Corpuscular Volume 91.6 fL Mean Corpuscular Hemoglobin 30.6 pg Mean Corpuscular Hemoglobin Concent 33.4 g/dl Platelet Count 218 K/uL Mean Platelet Volume 8.6 fL Neutrophils (%) (Auto) 50.6 % Lymphocytes (%) (Auto) 30.6 % Monocytes (%) (Auto) 15.1 % Eosinophils (%) (Auto) 2.8 % Basophils (%) (Auto) 0.3 % Neutrophils # (Auto) 3.61 K/uL Lymphocytes # (Auto) 2.18 K/uL Monocytes # (Auto) 1.08 K/uL Eosinophils # (Auto) 0.20 K/uL Basophils # (Auto) 0.02 K/uL RDW Standard Deviation 46.8 fL RDW Coefficient of Variation 14.0 % Immature Granulocyte % (Auto) 0.6 % Immature Granulocyte # (Auto) 0.04 K/uL Sodium Level 138 mmol/L Potassium Level 3.8 mmol/L Chloride Level 107 mmol/L Carbon Dioxide Level 24 mmol/L Anion Gap 7.0 mmol/L Blood Urea Nitrogen 18 mg/dl Creatinine 1.12 mg/dl Est Creatinine Clear Calc Drug Dose 83.6 ml/min Estimated GFR () 79.5 Estimated GFR (Non- 68.6 BUN/Creatinine Ratio 15.8 Random Glucose 102 mg/dl Calcium Level 8.5 mg/dl Magnesium Level 1.6 mg/dl Total Bilirubin 0.2 mg/dl Aspartate Amino Transf (AST/SGOT) 18 U/L Alanine Aminotransferase (ALT/SGPT) 28 U/L Alkaline Phosphatase 88 U/L Total Protein 6.5 gm/dl Albumin 2.7 gm/dl Globulin 3.8 gm/dl Albumin/Globulin Ratio 0.7 Test 04/16/17 07:24 04/16/17 10:58 Bedside Glucose 103 mg/dl 117 mg/dl Assessment and Plan 67-year-old man with past medical history of gout, COPD, obstructive sleep apnea , aortic dissection status post repair presented to the hospital with multilobar pneumonia Assessment right middle lobe pneumonia, likely secondary bacterial pneumonia status post recent flu pneumonia in the end of the last month COPD without exacerbation History of kidney stones Continue history of obstructive sleep apnea History of aortic repair Remote history of smoking quit 20 years ago/20 packs per year smoking history 6 mm right middle lobe pulmonary nodule, needs follow-up Plan Plan Continue telemetry Oxygen supplement as per protocol, currently does not require any Follow-up Blood culture/sputum culture, are all negative thus far Urine legionella antigen Group a strep screen, is negative DC vancomycin is nasal swab was negative for MRSA DC Zosyn and continue on levofloxacin alone in preparation for discharge tomorrow Continue patient on lactobacillus to prevent C. difficile Continue home medications IV fluid hydration as needed Monitor labs in a.m. Bronchodilators Monitor oxygen saturation DVT prophylaxis/heparin subcutaneous
[2017-04-16 16:26] VITALS: BP 144/75; PULSE 62; TEMP 36.7; O2SAT 93
[2017-04-16 18:54] VITALS: PULSE 68; O2SAT 95
[2017-04-16] MEDS ORDERED: VANCOMYCIN TROUGH ONE (20:30)
[2017-04-16] MEDS: ASPIRIN 325 MG ECTAB PO SCH (20:46)
[2017-04-16] MEDS: CEROVITE ADV FORMULA TAB PO SCH (20:46)
[2017-04-16] MEDS: VENLAFAXINE HCL XR 75 MG CAPXR PO SCH (20:48)
[2017-04-16] MEDS: ALLOPURINOL 100 MG TAB PO SCH (20:48)
[2017-04-16] MEDS: OMEGA-3 (PURIFIED FISH OIL) 1 GM CAP PO SCH (20:48)
[2017-04-16] MEDS: LISINOPRIL 10 MG TAB PO SCH (20:48)
[2017-04-16] MEDS: EZETIMIBE/SIMVASTATIN 10/20 TAB PO SCH (20:49)
[2017-04-16] MEDS: METOPROLOL SUCC 50MG EXT REL TAB PO SCH (20:50)
[2017-04-16] MEDS: INSULIN GLARGINE SOLOSTAR 100 UNITS/ML 3 ML PEN SC SCH (20:52)
[2017-04-16 23:48] VITALS: BP 148/79; PULSE 64; TEMP 36.4; O2SAT 92
[2017-04-17 01:35] VITALS: PULSE 71; O2SAT 90
[2017-04-17] MEDS: IPRATROPIUM BROMIDE NEB SOLN 0.02% 2.5 ML VIAL INH SCH ×2 (01:35→07:01)
[2017-04-17] MEDS: LEVALBUTEROL 0.63MG/3 ML NEB INH SCH ×2 (01:35→07:01)
[2017-04-17] MEDS: PIPERACILL/TAZOBAC IV 3.375 GM in DEXTROSE 5% 100ML IV SCH ×2 (02:13→09:19)
[2017-04-17 06:29] LABS: BASO % 0.8 %; BASO ABS # 0.05 K/uL (0-0.2); EOS ABS # 0.25 K/uL (0-0.5); HEMATOCRIT 37.2 % (42-52); HEMOGLOBIN 12.6 g/dL (14.0-18.0); IG# 0.16 K/uL (0.00-0.02); LYMPH % 32.4 %; MEAN CELL VOLUME 90.1 fL (80-100); MEAN CORPUSCULAR HEMOGLOBIN 30.5 pg (25-34); MEAN CORPUSCULAR HGB CONC 33.9 g/dl (32-36); MEAN PLATELET VOLUME 8.5 fL (7.4-10.4); MONO % 17.3 %; MONO ABS # 1.07 K/uL (0.11-0.59); NEUT % 42.9 %; NEUT ABS # 2.65 K/uL (1.4-6.5); PLATELET COUNT 243 K/uL (130-400); RED CELL DISTRIBUTION WIDTH SD 46.5 fL (36.4-46.3); WHITE BLOOD COUNT 6.18 K/uL (4.8-10.8)
[2017-04-17 07:00] VITALS: PULSE 87; O2SAT 91
[2017-04-17 07:03] LABS: CALCIUM 8.4 mg/dl (8.5-10.1); CREATININE 1.12 mg/dl (0.60-1.40); POTASSIUM 3.6 mmol/L (3.5-5.1)
[2017-04-17 08:00] VITALS: BP 134/64; PULSE 87; TEMP 36.5; O2SAT 91
[2017-04-17] MEDS: LACTOBACILLUS ACIDOPHILUS 1 GM PACK PO SCH ×3 (08:00→11:38)
[2017-04-17] MEDS: ANORO ELLIPTA~ORDER AWAITING ACTION SCH (08:00)
[2017-04-17] MEDS: HEPARIN SOD 5000 UNIT/0.5 ML CARP SQ SCH (08:04)
[2017-04-17] MEDS: INSULIN ASPART 100 UNITS/ML 3 ML PEN SC SCH ×2 (08:04→11:54)
[2017-04-17] MEDS: MAGNESIUM OXIDE 400 MG TAB PO SCH (08:06)
[2017-04-17 08:39] LABS: QUANTIF MITOGEN-NIL 6.02 IU/ML; QUANTIFERON NEGATIVE (NEGATIVE); QUANTIFERON NIL 0.13 IU/ML
[2017-04-17] MEDS ORDERED: LCTX OR ×2 (11:08→11:15)
[2017-04-17] MEDS ORDERED: LEVO1TAB34 PO (11:14)
--- NOTE | 2017-04-17 11:16 | Discharge Instructions ---
Discharge Instructions Date of Service Apr 17, 2017. Admission Reason for Admission: Pneumonia Involving Right Lung Discharge Discharge Diagnosis / Problem: RLL pneumonia Discharge Goals Goal(s): Decrease discomfort, Improve nutritional status, Diagnostic testing Activity Recommendations Activity Limitations: resume your previous activity Lifting Limitations: none . Current Hospital Diet Patient's current hospital diet: AHA Diet (Heart Healthy), Diabetes Type 2 Diet Discharge Diet Recommended Diet: Diabetes Type 2 Diet Pending Studies Studies pending at discharge: no Laboratory Results Hemoglobin A1c Test 01/22/17 09:19 Range/Units Estimated Average Glucose 154 mg/dl Hemoglobin A1c 7.0 H 4.5-5.6 % Lipid Panel Test 01/22/17 09:19 Range/Units Triglycerides Level 214 H 0-150 mg/dl Cholesterol Level 113 0-200 mg/dl HDL Cholesterol 37 mg/dl Cholesterol/HDL Ratio 3.1 LDL Cholesterol, Calculated 33 mg/dl Medical Emergencies . Who to Call and When: Medical Emergencies: If at any time you feel your situation is an emergency, please call 911 immediately. . Non-Emergent Contact Non-Emergency issues call your: Primary Care Provider . . "Provider Documentation" section prepared by Vimal Steward. . VTE Core Measure Inpt VTE Proph given/why not?: Unfractionated heparin SQ
--- NOTE | 2017-04-17 11:30 | Discharge Summary ---
Discharge Summary Date of Service Apr 17, 2017. Discharge Summary Admission Date: Apr 15, 2017 at 11:35 Discharge Date: Apr 17, 2017 Discharge Disposition: Home Principal Diagnosis: right middle lobe opneumonia Problems/Secondary Diagnoses: COPD without exacerbation History of kidney stones Continue history of obstructive sleep apnea History of aortic repair Remote history of smoking quit 20 years ago/20 packs per year smoking history 6 mm right middle lobe pulmonary nodule, needs follow-up Immunizations: Have You Had Influenza Vaccine: No History of Tetanus Vaccine?: No History of Pneumococcal: No History of Hepatitis B Vaccine: No Medication Reconciliation New Medications: Lactobacillus Acidophilus (Floranex) 1 Tab Tab 2 TAB OR TID for 12 Days Levofloxacin (Levaquin) 500 Mg Tab 1 TAB PO DAILY for 5 Days, #4 TAB Continued Medications: Albuterol Hfa (Ventolin Hfa) 200 Puffs/67147 Mcg Aers 2 PUFFS INH QID PRN for SOB/Wheezing, #1 INHALER Allopurinol (Zyloprim) 100 Mg Tab 100 MG PO QPM, TAB Aspirin (Aspirin) 325 Mg Tab 325 MG PO QPM Ezetimibe/Simvastatin (Vytorin 10MG/20MG) Tab 1 TAB PO QPM, TAB Fish Oil ([place]-3) 1 Ea Cap 1 CAP PO QPM Insulin Glargine (Lantus) 100 Unit/Ml Inj 50 UNITS SC QPM for 30 Days, #30 DOSE Lisinopril (Prinivil) 10 Mg Tab 10 MG PO QPM, 0 Refills Magnesium (Magnesium) 200 Mg Tab 200 MG PO BID Metformin Hcl (Glucophage) 1,000 Mg Tab 1000 MG PO BID, TAB Metoprolol Succinate (Metoprolol Succinate ER) 50 Mg Tabcr 50 MG PO QPM Multiple Vitamins W/ Minerals (Centrum Silver Adult 50+) 1 Tab Tab 1 TAB PO QPM Umeclidinium-Vilanterol (Anoro Ellipta 62.5-25 Mcg/INH) 1 Aer Aer 1 PUFF INH QAM Venlafaxine Hcl (Effexor Extended Rel) 75 Mg Capcr 75 MG PO QPM, CAP Discharge Exam Review of Systems: Constitutional: No fever, No chills, No sweats, No weight loss, No weakness , No fatigue, No problem reported Eyes: No worsening of vision, No eye pain, No redness, No discharge, No diplopia, No problem reported ENT: No hearing loss, No unusual epistaxis, No nasal symptoms, No sore throat, No tinnitus, No dental problems, No trouble swallowing, No problem reported Respiratory: No cough, No sputum, No wheezing, No shortness of breath, No dyspnea on exertion, No dyspnea at rest, No hemoptysis, No problem reported Cardiovascular: No chest pain, No orthopnea, No PND, No edema, No claudication, No palpitations, No problem reported Abdomen: No pain, No nausea, No vomiting, No diarrhea, No constipation, No GI bleeding, No problem reported Musculoskeletal: No joint pain, No muscle pain, No swelling, No calf pain, No problem reported Genitourinary - Female: No dysuria, No urinary frequency, No urinary urgency , No urinary incontinence, No urinary retention, No hematuria, No dysmenorrhea, No menorrhagia, No metrorrhagia, No rash, No vaginal bleeding, No vaginal discharge, No vaginal itching, No vulvodynia, No , No problem reported Genitourinary - Male: No hematuria, No dysuria, No urinary frequency, No urinary urgency, No urinary hesitancy, No urinary retention, No urinary incontinence, No penile discharge, No lesions, No impotence, No problem reported Neurologic: No memory loss, No paralysis, No weakness, No numbness/tingling , No vertigo, No balance problems, No problem reported Psychiatric: No depression symptoms, No anhedonism, No anxiety, No insomnia , No substance abuse, No problem reported Endocrine: No fatigue, No excessive thirst, No excessive urination, No problem reported Hematologic / Lymphatic: No abnormal bleeding/bruising, No clotting problems , No swollen lymph nodes, No night sweats, No problem reported Integumentary: No rash, No itch, No new/changing skin lesions, No color change, No bleeding, No problem reported Physical Exam: General Appearance: WD/WN, no apparent distress Eyes: normal inspection, EOMI ENT: normal ENT inspection, hearing grossly normal Neck: supple Respiratory/Chest: chest non-tender, lungs clear, normal breath sounds, no respiratory distress, no accessory muscle use Cardiovascular: regular rate, rhythm, no edema, no gallop, no JVD, no murmur Abdomen / GI: normal bowel sounds, non tender, soft, no organomegaly, no pulsatile mass Extremities: normal inspection, no calf tenderness, normal capillary refill , no pedal edema, normal range of motion 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 leukocytosis initially started on vanco/zosyn/levofloxacin also placed on TB airborn isolation by admitting physician QuantiFeron gold test was negative. nasal MRSA was negative vanco and levo were stopped. WBC count improved to normal cough and SOB improved he was found today to be within acceptable medical condition for discharge. zosyn was switched to levofloxacin instructed to do CXR in 6 weeks to confirm resolution all cultures were negative Total Time Spent: Greater than 30 minutes This includes examination of the patient, discharge planning, medication reconciliation, and communication with other providers. Discharge Instructions Please refer to the electronic Patient Visit Report (Discharge Instructions) for additional information.
[2017-04-17 11:40] VITALS: BP 134/64; PULSE 87; TEMP 36.5; O2SAT 91
== END 2017-04-17 12:22 | disposition home or self-care (01) | DRG 195 ==
LOC: C.EDB 15:34 → C.MS2W 22:02 → EDBEDREQ 22:04 → CANRESERV 22:07 → ENRESERV 22:07 → OBSVTOIN 04-15 11:35
PROVIDERS: ADMIT Hospitalist; ATTEND Internal Medicine
DX: J18.1 Lobar pneumonia, unspecified organism (principal); J44.9 Chronic obstructive pulmonary disease, unspecified; I10 Essential (primary) hypertension; E11.9 Type 2 diabetes mellitus without complications; G47.33 Obstructive sleep apnea (adult) (pediatric); M10.9 Gout, unspecified; R91.1 Solitary pulmonary nodule; Z91.19 Patient's noncompliance with other medical treatment and regimen; Z79.82 Long term (current) use of aspirin; Z79.4 Long term (current) use of insulin; Z79.899 Other long term (current) drug therapy; Z87.442 Personal history of urinary calculi; Z82.49 Family history of ischemic heart disease and other diseases of the circulatory system; Z83.3 Family history of diabetes mellitus; Z80.9 Family history of malignant neoplasm, unspecified

== ENCOUNTER → 2017-04-22 | Outpatient (CLI) | payer OTHER ==
[~2017-04-22] MED LIST changes: +LCTX OR; +LEVO1TAB34 PO
== END | disposition home or self-care (01) ==
LOC: C.PATHSPEC 18:26
PROVIDERS: ATTEND Dentist Oral and Maxillofacial Surgery
DX: D10.39 Benign neoplasm of other parts of mouth (principal)

== ENCOUNTER 2017-05-11 17:51 | Emergency (ER) | payer OTHER ==
[~2017-05-11] VITALS: Ht 182.9 cm; Wt 110.4 kg
[~2017-05-11 17:51] MED LIST changes: -LEVO1TAB34 PO
[2017-05-11 17:59] VITALS: TEMP 36.4; Ht 182.9 cm; Wt 110.4 kg
[2017-05-11] MEDS ORDERED: ADENOSINE IV SOLN 3 MG/ML 2 ML VIAL ONE (18:07)
--- NOTE | 2017-05-11 18:18 | EMERGENCY ROOM VISIT NOTE ---
History Report prepared by Abhilash: Rosi Medina Under the Supervision of: Dr. Valentine Grubbs M.D. First contact with patient: 18:05 Chief Complaint: RAPID HEART RATE Stated Complaint: SVT History of Present Illness The patient is a 67 year old male who presents to the Emergency Room with complaints of persistent rapid heart rate starting around 1 hour ago. The patient was watching curling on TV when he suddenly felt his heart start to race. He has had this several times in the past and has required medicines to slow his heart rate down. He last had this 2 months ago. He follows with cardiology. He currently feels tired. He denies any SOB or chest pain. He has a history of ascending aortic aneurysm repair. He is on aspirin. He was recently hospitalized with pneumonia. He feels his pneumonia has resolved. Source of History: patient Onset: 1 hour ago Position: other (global) Quality: other (rapid heart rate) Timing: other (persistent) Associated Symptoms: + fatigue, No chest pain, No SOB Review of Systems See HPI for pertinent positives & negatives. A total of 10 systems reviewed and were otherwise negative. Past Medical & Surgical Medical Problems: (1) Aorta Dissection,Thoracic (2) Aortic aneurysm (3) Chest pain (4) COPD (chronic obstructive pulmonary disease) (5) Diabetes (6) Diverticulosis Colon (W/O Ment Of Hemorrhage) (7) Gout, Unspecified (8) Hypertension (9) Influenza A (10) Kidney stones (11) Obstructive Sleep Apnea (Adult) (Pediatric) (12) Pneumonia involving left lung (13) Pneumonia involving right lung Surgical Problems: (1) H/O aortic aneurysm repair (2) History of appendectomy Family History Cancer Diabetes mellitus Heart disease Hypertension Social History Smoking Status: Former Smoker Alcohol Use: occasionally Drug Use: none Marital Status: Housing Status: lives with significant other Occupation Status: employed Current/Historical Medications Scheduled Allopurinol (Zyloprim), 100 MG PO QPM Aspirin (Aspirin), 325 MG PO QPM Ezetimibe/Simvastatin (Vytorin 10MG/20MG), 1 TAB PO QPM Fish Oil ([place]-3), 1 CAP PO QPM Insulin Glargine (Lantus), 50 UNITS SC QPM Lisinopril (Prinivil), 10 MG PO QPM Magnesium (Magnesium), 200 MG PO BID Metformin Hcl (Glucophage), 1,000 MG PO BID Metoprolol Succinate (Metoprolol Succinate ER), 50 MG PO QPM Multiple Vitamins W/ Minerals (Centrum Silver Adult 50+), 1 TAB PO QPM Umeclidinium-Vilanterol (Anoro Ellipta 62.5-25 Mcg/INH), 1 PUFF INH QAM Venlafaxine Hcl (Effexor Extended Rel), 75 MG PO QPM Scheduled PRN Albuterol Hfa (Ventolin Hfa), 2 PUFFS INH QID PRN for SOB/Wheezing Allergies Coded Allergies: Codeine (Verified Adverse Reaction, Mild, NAUSEA, 05/11/17) Physical Exam Vital Signs Date Time Temp Pulse Resp B/P (MAP) Pulse Ox O2 Delivery O2 Flow Rate FiO2 05/11/17 21:49 62 18 153/83 96 05/11/17 21:00 63 18 144/77 95 Room Air 05/11/17 20:36 74 05/11/17 20:30 67 18 161/87 96 Room Air 05/11/17 20:00 77 18 133/80 94 Room Air 05/11/17 19:30 78 19 141/80 93 Room Air 05/11/17 19:08 71 20 134/76 95 Room Air 05/11/17 18:15 77 20 154/82 95 Room Air 05/11/17 18:15 75 05/11/17 18:08 155 05/11/17 18:07 95 Room Air 05/11/17 17:59 36.4 162 19 115/71 94 Room Air Physical Exam Vital signs reviewed. General: Well-appearing male, in no significant distress. HEENT: No scleral icterus, PERRLA, neck supple. Atraumatic. Cardiovascular: Rapid and regular, no extra sounds. Pulmonary: Clear to auscultation bilaterally, normal work of breathing. Abdomen: Soft, nontender, nondistended, positive bowel sounds. Musculoskeletal: Atraumatic, no peripheral edema. Neurologic: Patient awake alert and oriented x 3 Skin: Warm, dry, no rash Medical Decision & Procedures ER Provider Diagnostic Interpretation: X-ray results as stated below per interpretation by me and the radiologist: CHEST ONE VIEW PORTABLE HISTORY: Tachycardia. COMPARISON: Chest 04/14/2017. FINDINGS: There are poststernotomy changes. The heart remains top normal in size. No focal lung consolidations to suggest pneumonia. No evidence for pulmonary edema. No pleural effusions. No pneumothorax. IMPRESSION: No acute process. Electronically signed by: Joaquim Ornelas M.D. 05/11/2017 6:30 PM Dictated Date/Time: 05/11/2017 6:29 PM Laboratory Results 05/11/17 18:05 Red Blood Count 4.38, Mean Corpuscular Volume 91.8, Mean Corpuscular Hemoglobin 30.6, Mean Corpuscular Hemoglobin Concent 33.3, Mean Platelet Volume 8.5, Neutrophils (%) (Auto) 55.0, Lymphocytes (%) (Auto) 30.3, Monocytes (%) (Auto) 11.5, Eosinophils (%) (Auto) 2.1, Basophils (%) (Auto) 0.5, Neutrophils # (Auto ) 5.12, Lymphocytes # (Auto) 2.83, Monocytes # (Auto) 1.07, Eosinophils # (Auto ) 0.20, Basophils # (Auto) 0.05 05/11/17 18:05 Test 05/11/17 18:05 05/11/17 18:12 White Blood Count 9.33 K/uL (4.8-10.8) Red Blood Count 4.38 M/uL (4.7-6.1) Hemoglobin 13.4 g/dL (14.0-18.0) Hematocrit 40.2 % (42-52) Mean Corpuscular Volume 91.8 fL (80-100) Mean Corpuscular Hemoglobin 30.6 pg (25-34) Mean Corpuscular Hemoglobin Concent 33.3 g/dl (32-36) Platelet Count 229 K/uL (130-400) Mean Platelet Volume 8.5 fL (7.4-10.4) Neutrophils (%) (Auto) 55.0 % Lymphocytes (%) (Auto) 30.3 % Monocytes (%) (Auto) 11.5 % Eosinophils (%) (Auto) 2.1 % Basophils (%) (Auto) 0.5 % Neutrophils # (Auto) 5.12 K/uL (1.4-6.5) Lymphocytes # (Auto) 2.83 K/uL (1.2-3.4) Monocytes # (Auto) 1.07 K/uL (0.11-0.59) Eosinophils # (Auto) 0.20 K/uL (0-0.5) Basophils # (Auto) 0.05 K/uL (0-0.2) RDW Standard Deviation 49.8 fL (36.4-46.3) RDW Coefficient of Variation 15.0 % (11.5-14.5) Immature Granulocyte % (Auto) 0.6 % Immature Granulocyte # (Auto) 0.06 K/uL (0.00-0.02) Anion Gap 11.0 mmol/L (3-11) Est Creatinine Clear Calc Drug Dose 69.5 ml/min Estimated GFR () 62.8 Estimated GFR (Non- 54.2 BUN/Creatinine Ratio 13.9 (10-20) Calcium Level 8.3 mg/dl (8.5-10.1) Magnesium Level 1.3 mg/dl (1.8-2.4) Total Bilirubin 0.2 mg/dl (0.2-1) Direct Bilirubin < 0.1 mg/dl (0-0.2) Aspartate Amino Transf (AST/SGOT) 29 U/L (15-37) Alanine Aminotransferase (ALT/SGPT) 41 U/L (12-78) Alkaline Phosphatase 98 U/L (45-117) Total Creatine Kinase 197 U/L (39-308) Creatine Kinase MB 2.7 ng/ml (0.5-3.6) Creatine Kinase MB Ratio 1.4 (0-3.0) Total Protein 7.6 gm/dl (6.4-8.2) Albumin 3.6 gm/dl (3.4-5.0) Thyroid Stimulating Hormone (TSH) 1.570 uIu/ml (0.300-4.500) Bedside Troponin I < 0.030 ng/ml (0-0.045) Laboratory results per my review. Medications Administered Medications (Trade) Dose Ordered Sig/Jazmín Route Start Time Stop Time Status Last Admin Dose Admin Adenosine (Adenosine Iv) 18 mg STK-MED ONCE .ROUTE 05/11/17 18:07 05/11/17 18:08 DC 05/11/17 18:25 6 MG Magnesium Sulfate (Magnesium Sulfate) 2 gm NOW STAT IV 05/11/17 18:52 05/11/17 18:53 DC 05/11/17 19:07 2 GM ECG Per My Interpretation Indication: tachycardia Rate (beats per minute): 156 Rhythm: SVT Findings: nonspecific-ST abn, no ectopy, other (QTC 457) ED Course 1804: Past medical records reviewed. The patient was evaluated in room A1. A complete history and physical examination was performed. 1806: Adenosine 6 mg IV. 1811: Repeat EKG per my interpretation shows NSR, rate 82, occasional PVC, T wave flattening inferior, no acute ischemic changes, QTC 397. 1851: Magnesium Sulfate 2 gm IV. 2122: Upon reevaluation, the patient appeared to have improvement of his symptoms. I discussed findings with him. He verbalized agreement of the treatment plan. He was discharged home. Medical Decision Differential diagnosis: Etiologies such as premature contractions, electrolyte abnormality, cardiac dysrhythmia, thyroid dysfunction, pulmonary embolism, infection, gastrointestinal, as well as others were entertained. This patient was evaluated and appeared to be in no significant distress. Patient is found to be in an SVT with a rate in the 160s. IV access was obtained and laboratory work was drawn. Patient was placed on the site monitor. Patient was medicated with 6 mg of IV adenosine which broke the patient's rhythm. Laboratory work reveals a hypomagnesemia at 1.3. The patient was given 2 g of IV magnesium. He does take magnesium supplements daily , 400 mg twice a day. He will increase this to 800 mg twice a day for the next 1 week. Patient was advised to follow-up with his primary care physician and have his laboratory work repeated at that time. 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 He will return to the ER for worsening of symptoms or any medical concerns. Medication Reconcilliation Current Medication List: was personally reviewed by me Blood Pressure Screening Patient's blood pressure: Elevated blood pressure Blood pressure disposition: Elevated BP felt to be situational Impression Primary Impression: SVT (supraventricular tachycardia) Additional Impression: Hypomagnesemia Scribe Attestation The scribe's documentation has been prepared under my direction and personally reviewed by me in its entirety. I confirm that the note above accurately reflects all work, treatment, procedures, and medical decision making performed by me. Departure Information Dispostion Home / Self-Care Referrals Dulce Gomez M.D. Forms HOME CARE DOCUMENTATION FORM, IMPORTANT VISIT INFORMATION, WORK / SCHOOL INSTRUCTIONS Patient Instructions My [facility] Additional Instructions Diagnosis: SVT, hypomagnesemia Increase your magnesium supplementation to 800 mg twice daily. Continue your medications as prescribed. Have your laboratory work repeated in one to 2 weeks. Follow-up with your physician Return to the emergency department for worsening of symptoms or any medical concerns. Problem Qualifiers
[2017-05-11 18:27] LABS: BASO % 0.5 %; BASO ABS # 0.05 K/uL (0-0.2); EOS % 2.1 %; HEMATOCRIT 40.2 % (42-52); HEMOGLOBIN 13.4 g/dL (14.0-18.0); IG# 0.06 K/uL (0.00-0.02); LYMPH % 30.3 %; LYMPH ABS # 2.83 K/uL (1.2-3.4); MEAN CELL VOLUME 91.8 fL (80-100); MEAN CORPUSCULAR HEMOGLOBIN 30.6 pg (25-34); MEAN CORPUSCULAR HGB CONC 33.3 g/dl (32-36); MEAN PLATELET VOLUME 8.5 fL (7.4-10.4); MONO % 11.5 %; MONO ABS # 1.07 K/uL (0.11-0.59); NEUT ABS # 5.12 K/uL (1.4-6.5); PLATELET COUNT 229 K/uL (130-400); RED CELL DISTRIBUTION WIDTH SD 49.8 fL (36.4-46.3); WHITE BLOOD COUNT 9.33 K/uL (4.8-10.8)
--- NOTE | 2017-05-11 18:31 | DIAGNOSTIC IMAGING REPORT ---
CHEST ONE VIEW PORTABLE HISTORY: Tachycardia. COMPARISON: Chest 04/14/2017. FINDINGS: There are poststernotomy changes. The heart remains top normal in size. No focal lung consolidations to suggest pneumonia. No evidence for pulmonary edema. No pleural effusions. No pneumothorax. IMPRESSION: No acute process. Electronically signed by: Joaquim Ornelas M.D. 05/11/2017 6:30 PM Dictated Date/Time: 05/11/2017 6:29 PM
[2017-05-11 18:37] LABS: ALBUMIN 3.6 gm/dl (3.4-5.0); ALT/SGPT 41 U/L (12-78); AST/SGOT 29 U/L (15-37); BLOOD UREA NITROGEN 19 mg/dl (7-18); CALCIUM 8.3 mg/dl (8.5-10.1); CARBON DIOXIDE 22 mmol/L (21-32); CREATININE 1.36 mg/dl (0.60-1.40); GLUCOSE 155 mg/dl (70-99); POTASSIUM 4.8 mmol/L (3.5-5.1); SODIUM 140 mmol/L (136-145)
[2017-05-11 18:48] LABS: ALKALINE PHOSPHATASE 98 U/L (45-117); CKMB 2.7 ng/ml (0.5-3.6); TOTAL PROTEIN 7.6 gm/dl (6.4-8.2)
[2017-05-11] MEDS ORDERED: MAGNESIUM SULFATE 1GM / D5W 1 GM BAG IV STA (18:52)
[2017-05-11 21:49] VITALS: BP 153/83; PULSE 62; O2SAT 96
== END 2017-05-11 21:51 | disposition home or self-care (01) ==
LOC: C.EDB 17:52 → C.EDA 21:51
DX: I47.1 Supraventricular tachycardia (principal); E83.42 Hypomagnesemia; J44.9 Chronic obstructive pulmonary disease, unspecified; E11.9 Type 2 diabetes mellitus without complications; I10 Essential (primary) hypertension; Z79.82 Long term (current) use of aspirin; Z79.84 Long term (current) use of oral hypoglycemic drugs; Z79.4 Long term (current) use of insulin; Z87.442 Personal history of urinary calculi; Z87.891 Personal history of nicotine dependence; K57.30 Diverticulosis of large intestine without perforation or abscess without bleeding; Z83.3 Family history of diabetes mellitus; Z82.49 Family history of ischemic heart disease and other diseases of the circulatory system; Z88.5 Allergy status to narcotic agent

== ENCOUNTER 2017-05-24 13:15 | Emergency (ER) | payer OTHER ==
[~2017-05-24] VITALS: Ht 182.9 cm; Wt 111.1 kg
[~2017-05-24 13:15] MED LIST changes: -LCTX OR
[2017-05-24 13:20] VITALS: TEMP 36.4
[2017-05-24 13:31] VITALS: O2SAT 93; Ht 182.9 cm; Wt 111.1 kg
--- NOTE | 2017-05-24 13:45 | DIAGNOSTIC IMAGING REPORT ---
CHEST ONE VIEW PORTABLE CLINICAL HISTORY: 67 years-old Male presenting with EVALUATE RESPIRATORY DISTRESS.DYSPNEA. TECHNIQUE: Portable upright AP view of the chest was obtained. COMPARISON: 05/11/2017. FINDINGS: Median sternotomy wires. Cardiac silhouette top normal in size. Lungs and pleural spaces clear. Osseous structures normal. Upper abdomen normal. IMPRESSION: 1. No acute cardiopulmonary disease. Electronically signed by: Ben Bhatia M.D. 05/24/2017 1:43 PM Dictated Date/Time: 05/24/2017 1:42 PM
[2017-05-24 13:50] LABS: BASO % 0.8 %; BASO ABS # 0.06 K/uL (0-0.2); EOS ABS # 0.08 K/uL (0-0.5); HEMATOCRIT 42.6 % (42-52); HEMOGLOBIN 14.4 g/dL (14.0-18.0); IG# 0.04 K/uL (0.00-0.02); LYMPH % 28.8 %; MEAN CELL VOLUME 89.9 fL (80-100); MEAN CORPUSCULAR HEMOGLOBIN 30.4 pg (25-34); MEAN CORPUSCULAR HGB CONC 33.8 g/dl (32-36); MEAN PLATELET VOLUME 8.4 fL (7.4-10.4); MONO % 11.7 %; MONO ABS # 0.93 K/uL (0.11-0.59); NEUT % 57.2 %; NEUT ABS # 4.57 K/uL (1.4-6.5); PLATELET COUNT 330 K/uL (130-400); RED CELL DISTRIBUTION WIDTH CV 14.1 % (11.5-14.5); RED CELL DISTRIBUTION WIDTH SD 46.1 fL (36.4-46.3); WHITE BLOOD COUNT 7.98 K/uL (4.8-10.8)
[2017-05-24 14:00] LABS: PTT PATIENT 26.4 SECONDS (21.0-31.0)
--- NOTE | 2017-05-24 14:09 | EMERGENCY ROOM VISIT NOTE ---
History Report prepared by Abhilash: Nancy Osorio Under the Supervision of: Dr. [place] Thomas D.O. First contact with patient: 13:23 Chief Complaint: CARDIAC ASSESSMENT Stated Complaint: SVT/POSS HEART ATTACK History of Present Illness The patient is a 67 year old male who presents to the Emergency Room with complaints of episode of possible SVT beginning an hour ago. The patient denies any chest pain or shortness of breath. The patient was last in SVT two weeks ago. He states he has been eating and drinking normally. The patient reports he was doing some light exertion when he started to feel like he was in SVT. After his last episode of SVT, his magnesium medication was doubled. The patient has a heart catheterization 6 months ago and he reports everything was clear. The patient takes metoprolol. Source of History: patient Onset: an hour ago Position: other Quality: other (SVT) Timing: other (episode) Associated Symptoms: No chest pain, No SOB Review of Systems See HPI for pertinent positives & negatives. A total of 10 systems reviewed and were otherwise negative. Past Medical & Surgical Medical Problems: (1) Aorta Dissection,Thoracic (2) Aortic aneurysm (3) Chest pain (4) COPD (chronic obstructive pulmonary disease) (5) Diabetes (6) Diverticulosis Colon (W/O Ment Of Hemorrhage) (7) Gout, Unspecified (8) Hypertension (9) Influenza A (10) Kidney stones (11) Obstructive Sleep Apnea (Adult) (Pediatric) (12) Pneumonia involving left lung (13) Pneumonia involving right lung Surgical Problems: (1) H/O aortic aneurysm repair (2) History of appendectomy Family History Cancer Diabetes mellitus Heart disease Hypertension Social History Smoking Status: Former Smoker Alcohol Use: occasionally Drug Use: none Marital Status: Housing Status: lives with significant other Occupation Status: employed Current/Historical Medications Scheduled Allopurinol (Zyloprim), 100 MG PO QPM Aspirin (Aspirin), 325 MG PO QPM Ezetimibe/Simvastatin (Vytorin 10MG/20MG), 1 TAB PO QPM Fish Oil ([place]-3), 1 CAP PO QPM Insulin Glargine (Lantus), 50 UNITS SC QPM Lisinopril (Prinivil), 10 MG PO QPM Magnesium (Magnesium), 200 MG PO BID Metformin Hcl (Glucophage), 1,000 MG PO BID Metoprolol Succinate (Metoprolol Succinate ER), 50 MG PO QPM Multiple Vitamins W/ Minerals (Centrum Silver Adult 50+), 1 TAB PO QPM Umeclidinium-Vilanterol (Anoro Ellipta 62.5-25 Mcg/INH), 1 PUFF INH QAM Venlafaxine Hcl (Effexor Extended Rel), 75 MG PO QPM Scheduled PRN Albuterol Hfa (Ventolin Hfa), 2 PUFFS INH QID PRN for SOB/Wheezing Allergies Coded Allergies: Codeine (Verified Adverse Reaction, Mild, NAUSEA, 05/11/17) Physical Exam Vital Signs Date Time Temp Pulse Resp B/P (MAP) Pulse Ox O2 Delivery O2 Flow Rate FiO2 05/24/17 15:25 73 18 123/64 97 05/24/17 14:26 84 16 111/66 97 Room Air 05/24/17 13:54 87 05/24/17 13:44 87 18 106/67 95 Room Air 05/24/17 13:31 93 Room Air 05/24/17 13:31 93 Room Air 05/24/17 13:20 36.4 162 18 94/59 94 Room Air Physical Exam GENERAL: Patient is awake, alert, and in mild acute distress. Patient is very anxious appearing. EYES: The conjunctivae are clear. The pupils are round and reactive. EARS, NOSE, MOUTH AND THROAT: The nose is without any evidence of any deformity. Mucous membranes are moist tongue is midline NECK: The neck is nontender and supple. RESPIRATORY: Normal respiratory effort is noted there is no evidence of wheezing rhonchi or rales CARDIOVASCULAR: Tachycardic but regular, no definite murmur appreciated. GASTROINTESTINAL: The abdomen is soft. Bowel sounds are present in all quadrants. Abdomen is nontender MUSCULOSKELETAL/EXTREMITIES: There is no evidence of gross deformity full range of motion is noted in the hips and shoulders SKIN: There is no obvious evidence of any rash. There are no petechiae, pallor or cyanosis noted. NEUROLOGIC: Patient is awake alert and oriented x3 strength is symmetric patellar reflexes are 2+ bilaterally Medical Decision & Procedures ER Provider Diagnostic Interpretation: Radiology results as stated below per my review and radiologist interpretation: CHEST ONE VIEW PORTABLE FINDINGS: Median sternotomy wires. Cardiac silhouette top normal in size. Lungs and pleural spaces clear. Osseous structures normal. Upper abdomen normal. IMPRESSION: 1. No acute cardiopulmonary disease. Electronically signed by: Ben Bhatia M.D. Laboratory Results 05/24/17 13:30 Red Blood Count 4.74, Mean Corpuscular Volume 89.9, Mean Corpuscular Hemoglobin 30.4, Mean Corpuscular Hemoglobin Concent 33.8, Mean Platelet Volume 8.4, Neutrophils (%) (Auto) 57.2, Lymphocytes (%) (Auto) 28.8, Monocytes (%) (Auto) 11.7, Eosinophils (%) (Auto) 1.0, Basophils (%) (Auto) 0.8, Neutrophils # (Auto ) 4.57, Lymphocytes # (Auto) 2.30, Monocytes # (Auto) 0.93, Eosinophils # (Auto ) 0.08, Basophils # (Auto) 0.06 05/24/17 13:30 Test 05/24/17 13:30 White Blood Count 7.98 K/uL (4.8-10.8) Red Blood Count 4.74 M/uL (4.7-6.1) Hemoglobin 14.4 g/dL (14.0-18.0) Hematocrit 42.6 % (42-52) Mean Corpuscular Volume 89.9 fL (80-100) Mean Corpuscular Hemoglobin 30.4 pg (25-34) Mean Corpuscular Hemoglobin Concent 33.8 g/dl (32-36) Platelet Count 330 K/uL (130-400) Mean Platelet Volume 8.4 fL (7.4-10.4) Neutrophils (%) (Auto) 57.2 % Lymphocytes (%) (Auto) 28.8 % Monocytes (%) (Auto) 11.7 % Eosinophils (%) (Auto) 1.0 % Basophils (%) (Auto) 0.8 % Neutrophils # (Auto) 4.57 K/uL (1.4-6.5) Lymphocytes # (Auto) 2.30 K/uL (1.2-3.4) Monocytes # (Auto) 0.93 K/uL (0.11-0.59) Eosinophils # (Auto) 0.08 K/uL (0-0.5) Basophils # (Auto) 0.06 K/uL (0-0.2) RDW Standard Deviation 46.1 fL (36.4-46.3) RDW Coefficient of Variation 14.1 % (11.5-14.5) Immature Granulocyte % (Auto) 0.5 % Immature Granulocyte # (Auto) 0.04 K/uL (0.00-0.02) Prothrombin Time 10.4 SECONDS (9.0-12.0) Prothromb Time International Ratio 1.0 (0.9-1.1) Activated Partial Thromboplast Time 26.4 SECONDS (21.0-31.0) Partial Thromboplastin Ratio 1.0 Anion Gap 9.0 mmol/L (3-11) Est Creatinine Clear Calc Drug Dose 49.4 ml/min Estimated GFR () 41.4 Estimated GFR (Non- 35.7 BUN/Creatinine Ratio 10.9 (10-20) Calcium Level 8.7 mg/dl (8.5-10.1) Magnesium Level 1.8 mg/dl (1.8-2.4) Total Bilirubin 0.3 mg/dl (0.2-1) Aspartate Amino Transf (AST/SGOT) 28 U/L (15-37) Alanine Aminotransferase (ALT/SGPT) 49 U/L (12-78) Alkaline Phosphatase 118 U/L (45-117) Troponin I < 0.015 ng/ml (0-0.045) Total Protein 8.1 gm/dl (6.4-8.2) Albumin 3.8 gm/dl (3.4-5.0) Globulin 4.3 gm/dl (2.5-4.0) Albumin/Globulin Ratio 0.9 (0.9-2) Laboratory results per my review. Medications Administered Medications (Trade) Dose Ordered Sig/Jazmín Route Start Time Stop Time Status Last Admin Dose Admin Sodium Chloride 1,000 ml @ 999 mls/hr Q1H1M STAT IV 05/24/17 14:15 05/24/17 15:15 DC 05/24/17 14:15 999 MLS/HR ECG Per My Interpretation Indication: tachycardia Rate (beats per minute): 87 Rhythm: normal sinus Findings: other (no PVC, no acute ST segment) Comparison ECG Date: 05/21/17 ED Course 1323: The patient was evaluated in room B1. A complete history and physical examination were performed. 1415: Ordered NSS 1,000 ml @ 999 mls/hr IV 1504: Upon reevaluation, the patient is resting comfortably. I discussed the results and treatment plan with him. He verbalized agreement of the treatment plan. The patient was discharged home. Medical Decision Differential diagnosis: Etiologies such as premature contractions, electrolyte abnormality, cardiac dysrhythmia, thyroid dysfunction, pulmonary embolism, infection, gastrointestinal, as well as others were entertained. Nursing notes reviewed. Patient's previous electronic medical records reviewed. The patient is a 67-year-old male who has a history of SVT who presented to the emergency department for an evaluation of palpitations and dizziness. The patient's pulse was thready and very fast. He was not on the cyber legal advisor yet but we attempted Valsalva maneuvers which broke the patient's SVT. He had a strong regular pulse. When he was placed on the monitor he was in normal sinus rhythm. I discussed patient's laboratory and radiographic studies with him. He was found to have mild dehydration so he was treated with IV fluids. He was encouraged to rest and avoid any strenuous activity. I also encouraged him to follow-up with his primary care physician as soon as possible as well as his primary cardiology group. I also recommended that he return to the emergency department immediately if symptoms change worsen or the need arises. Medication Reconcilliation Current Medication List: was personally reviewed by me Blood Pressure Screening Patient's blood pressure: Normal blood pressure Impression Primary Impression: SVT (supraventricular tachycardia) Additional Impression: Palpitation Scribe Attestation The scribe's documentation has been prepared under my direction and personally reviewed by me in its entirety. I confirm that the note above accurately reflects all work, treatment, procedures, and medical decision making performed by me. Departure Information Dispostion Home / Self-Care Referrals Dulce Gomez M.D. (PCP) Forms IMPORTANT VISIT INFORMATION Patient Instructions My [facility], Treatment for Supraventricular Tachycardia SVT, Understanding Supraventricular Tachycardia SVT Additional Instructions Continue all medications as prescribed. Rest and avoid any strenuous activity. Continue to keep yourself well hydrated and drink plenty clear liquids. Return to the emergency department immediately if symptoms worsen or if need arises. Follow-up with your primary mulcher operator as soon as possible. Problem Qualifiers
[2017-05-24 14:11] LABS: ALBUMIN 3.8 gm/dl (3.4-5.0); ALT/SGPT 49 U/L (12-78); AST/SGOT 28 U/L (15-37); BLOOD UREA NITROGEN 21 mg/dl (7-18); CALCIUM 8.7 mg/dl (8.5-10.1); CARBON DIOXIDE 22 mmol/L (21-32); CREATININE 1.92 mg/dl (0.60-1.40); GLUCOSE 228 mg/dl (70-99); POTASSIUM 5.5 mmol/L (3.5-5.1); SODIUM 139 mmol/L (136-145)
[2017-05-24] MEDS ORDERED: SODIUM CHLORIDE 0.9% 1000ML 1,000 ML IV STA (14:15)
[2017-05-24 14:19] LABS: ALKALINE PHOSPHATASE 118 U/L (45-117); TOTAL PROTEIN 8.1 gm/dl (6.4-8.2)
[2017-05-24 15:25] VITALS: BP 123/64; PULSE 73; O2SAT 97
== END 2017-05-24 15:28 | disposition home or self-care (01) ==
LOC: C.EDB 13:17
DX: I47.1 Supraventricular tachycardia (principal); E86.0 Dehydration; Z79.899 Other long term (current) drug therapy; I71.01 Dissection of thoracic aorta; I71.9 Aortic aneurysm of unspecified site, without rupture; J44.9 Chronic obstructive pulmonary disease, unspecified; E11.9 Type 2 diabetes mellitus without complications; M10.9 Gout, unspecified; I10 Essential (primary) hypertension; Z87.442 Personal history of urinary calculi; G47.33 Obstructive sleep apnea (adult) (pediatric); Z87.01 Personal history of pneumonia (recurrent); Z87.891 Personal history of nicotine dependence; Z80.9 Family history of malignant neoplasm, unspecified; Z83.3 Family history of diabetes mellitus; Z82.49 Family history of ischemic heart disease and other diseases of the circulatory system; Z79.82 Long term (current) use of aspirin; Z79.4 Long term (current) use of insulin; Z79.84 Long term (current) use of oral hypoglycemic drugs; Z88.5 Allergy status to narcotic agent

== ENCOUNTER → 2017-06-04 | Outpatient (CLI) | payer OTHER ==
[2017-06-04 12:30] LABS: BASO % 0.4 %; BASO ABS # 0.04 K/uL (0-0.2); EOS % 1.9 %; EOS ABS # 0.17 K/uL (0-0.5); HEMATOCRIT 41.2 % (42-52); HEMOGLOBIN 13.4 g/dL (14.0-18.0); IG# 0.03 K/uL (0.00-0.02); LYMPH % 24.2 %; MEAN CELL VOLUME 91.8 fL (80-100); MEAN CORPUSCULAR HEMOGLOBIN 29.8 pg (25-34); MEAN CORPUSCULAR HGB CONC 32.5 g/dl (32-36); MONO % 12.1 %; NEUT % 61.1 %; NEUT ABS # 5.54 K/uL (1.4-6.5); PLATELET COUNT 271 K/uL (130-400); RED CELL DISTRIBUTION WIDTH CV 14.5 % (11.5-14.5); WHITE BLOOD COUNT 9.08 K/uL (4.8-10.8)
[2017-06-04 12:38] LABS: INR 0.9 (0.9-1.1); PTT PATIENT 25.9 SECONDS (21.0-31.0)
[2017-06-04 13:09] LABS: BLOOD UREA NITROGEN 19 mg/dl (7-18); CALCIUM 8.7 mg/dl (8.5-10.1); CARBON DIOXIDE 23 mmol/L (21-32); CREATININE 1.01 mg/dl (0.60-1.40); GLUCOSE 117 mg/dl (70-99); POTASSIUM 4.8 mmol/L (3.5-5.1); SODIUM 139 mmol/L (136-145)
== END | disposition home or self-care (01) ==
LOC: C.LABPVFM 09:39
PROVIDERS: ATTEND Physician Assistant Medical
DX: I47.1 Supraventricular tachycardia (principal)

== ENCOUNTER 2017-06-19 10:28 | Day surgery (SDC) | payer OTHER ==
[~2017-06-19] VITALS: Ht 182.9 cm; Wt 109.0 kg
[2017-06-19] VITALS (9 sets, daily range): BP systolic 122–158; BP diastolic 68–88; PULSE 54–66; TEMP 36.4–36.9; O2SAT 93–96; Ht 182.9 cm; Wt 109.0 kg
[~2017-06-19 10:28] MED LIST changes: +IPRASOL4 INH; -MAGN200T3 PO; +SIMV40TA2 PO; +SLWMEC PO; +TRMCR515 TOP
--- NOTE | 2017-06-19 10:43 | Pre Sedation Assessment ---
Pre Sedation Assessment General Date of Sedation: Jun 19, 2017. Vital Signs Past 12 Hours Date Time Temp Pulse Resp B/P (MAP) Pulse Ox O2 Delivery O2 Flow Rate FiO2 06/19/17 09:45 36.5 54 16 158/68 (98) 96 Room Air Review Cardiovascular: regular rate, rhythm Pre-Sedation Airway Assessment Smoking Status: Former Smoker Hx of Sleep Apnea: No Hx of difficult intubation: No Short Thick Neck: No Oral Cavity: WNL Mallampati Classification: Class III ASA Classification: Class II Procedure Planning Contraindications for Sedation: None Current Medications Reviewed: Yes Notes The planned sedation has been discussed with the patient. Informed Consent was obtained. I have identified the patient, determined the appropriateness of sedation and have assessed the patient immediately prior to the procedure. All medicine(s) and interventions are by my order.
[2017-06-19] MEDS ORDERED: FENTANYL CITRATE INJ 50 MCG/1 ML 2 ML VIAL ONE ×2 (10:51→12:40)
[2017-06-19] MEDS ORDERED: MIDAZOLAM HCL 5 MG/ML 1 ML VIAL ONE ×2 (10:52→12:41)
[2017-06-19] MEDS ORDERED: ISOPROTERENOL 200 MCG / 50ML D5W IV ONE (11:52)
--- NOTE | 2017-06-19 13:36 | Cardiology Procedure Brief Nt ---
Preliminary Cardiology Note Procedure Date Jun 19, 2017. Pre-Procedure Diagnosis SVT Post-Procedure Diagnosis AVNRT Procedure(s) Performed EPS/ablation Recreational Specialist Ryan Acosta Command Post Craftsman(s) none Estimated Blood Loss 10cc Preliminary Findings Inducible AVNRT Recommendations bedrest fror 4 hours Specimens none Complication(s) None Disposition PCU
[2017-06-19] MEDS ORDERED: ACETAMINOPHEN 325 MG TAB PO PRN (13:45)
--- NOTE | 2017-06-19 14:29 | [facility] Operative Report ---
Operative Report Date of Service Jun 19, 2017. Operative Report Procedure performed: Ablation of SVT, complete electrophysiologic testing including pacing from the left atrium via the coronary sinus, program stimulation on and off isoproterenol for arrhythmia induction, ultrasound- guided vascular access, 3 dimensional electro anatomical mapping Exhibit Builder: Ryan Acosta MD Indication: The patient is a 67-year-old gentleman with a longstanding history of SVT. The patient has a multiple documented episodes over the past several months. Based on the recurrent nature of these events and continued symptoms he was advised to consider electrophysiologic testing and possible ablation today Procedure detail: The patient was informed of the risks benefits and alternatives to the intended procedure. He understood such and wished to proceed. He was taken to the electrophysiology suite in a fasting state. Conscious sedation was administered per protocol the patient was monitored electrocardiographically throughout today's procedure. The right internal jugular area right femoral areas were prepped and draped in usual sterile fashion. The right internal jugular vein was subsequently access using modified Selinger technique under ultrasound guidance and a 6 [place] venous sheath was placed at the site over guidewire. Right femoral vein was then accessed 3 times using Seldinger technique. Sheaths were placed over guidewires at this site. The sheaths were used to facilitate passage of the EP catheters to the respective chambers under fluoroscopic guidance. This included right ventricular his bundle and coronary sinus catheters. The patient's baseline conduction system was characterized. Subsequently an arrhythmia was induced using programmed stimulation on and off isoproterenol. The elements of the tachycardia were identified and three- dimensional electro anatomical mapping was also performed to 8 an ablation. Afterward a radiofrequency ablation catheter was advanced to the area of interest. Radiofrequency lesions were placed into the tachycardia was no longer inducible. Repeat electrophysiologic testing was then performed on and off isoproterenol. At the conclusion of the case sheaths and catheters were removed. Hemostasis was achieved at the access sites using manual pressure. The patient tolerated procedure well. There no immediate complications. Findings: Baseline intracardiac intervals Cycle length in the atrium 986 milliseconds Cycle length in the ventricle 1006 milliseconds UT duration 122 milliseconds QRS duration 102 milliseconds QT interval 438 milliseconds AH interval 54 milliseconds HV interval 46 milliseconds Av Wenckebach occurred at 320 milliseconds VA Wenckebach occurred at 390 milliseconds. It should be noted that retrograde conduction was decremental and concentric. Tachycardia: On high doses of isoproterenol using programmed stimulation, a tachycardia was induced. Tachycardia cycle length was 340 milliseconds. VA time was 20 milliseconds. Retrograde conduction appeared to be earliest at the his bundle catheter. Ventricular entrainment revealed a long post pacing interval. History refractory PVCs introduced during the tachycardia failed to advance the atrial signal except with extreme prematurity. Transiently we did see evidence of a 2nd tachycardia with similar characteristics but a long VA time. Retrograde conduction appeared to be concentric in still earlier at the his bundle catheter. Ablation: A 7 [place] 4 mm radiofrequency ablation catheter was advanced to the area of the slow pathway. Electro anatomical mapping help to identify both slow pathway and his bundle signal. Radiofrequency lesions were placed with good power and temperature and multiple junctional beats were noted. There was no episodes of retrograde conduction block or AV krista block. Post ablation intervals: Cycle length in the atrium 770 milliseconds Cycle length in the ventricle 770 milliseconds UT interval 140 milliseconds QRS duration 94 milliseconds QT interval 398 milliseconds AH interval 64 milliseconds HV interval 56 milliseconds Av Wenckebach occurred at 340 milliseconds Program stimulation revealed the effective refractory period of the fast pathway to be 250 milliseconds Subsequent to ablation there were no inducible arrhythmias. There was 1 single echo beat noted on high doses of isoproterenol. Impression: Successful modification of the slow inputs to the AV node rendering typical AVNRT noninducible No evidence accessory pathway conduction A 2nd tachycardia with different retrograde activation was seen but was transient in nature. This prevented additional testing. 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 Any exceptions are noted below.
[2017-06-19] MEDS ORDERED: IV FLUIDS COMPLETED PRN (14:30)
--- NOTE | 2017-06-19 16:30 | Discharge Instructions ---
Discharge Instructions Procedure Procedure Date: Jun 19, 2017. Reason for Visit: SVT. Discharge Discharge Date: Jun 19, 2017. Discharge Diagnosis: AVNRT Last Recorded Wt (Kilograms): 109.000 Anesthesia Post Anesthesia Instructions: If you have had General Anesthesia or IV Sedation: * Do not drive today. * Resume driving when surgeon permits. * Do not make important decisions or sign legal documents today. * Call surgeon for: 1. Temperature elevations greater than 101 degrees F. 2. Uncontrollable pain. 3. Excessive bleeding. 4. Persistent nausea and vomiting. 5. Medication intolerance (nausea, vomiting or rash). * For nausea and vomiting use only clear liquids such as: tea, soda, bouillon until nausea subsides, then gradually increase diet as tolerated. * If you have any concerns or questions, call your surgeon's office. If physician is unavailable and it is an emergency, call 911 or go to the nearest emergency room. Instructions Activity Recommendations: lifting limitation Return to School/Work: with the following limitations Recommended Home Diet: resume previous diet Allergies: Coded Allergies: Codeine (Verified Adverse Reaction, Mild, NAUSEA, 06/19/17) Provider Instructions No lifting over 10# or straining for 5-7 days. Follow Up Jarred Joaquiny Recommendations: Call your doctor if: * Temperature above 101 degrees * Pain not relieved by pain medicine ordered * There is increased drainage or redness from any incision * You have any unanswered questions or concerns. Your Doctors Instructions noted above were prepared by provider Obed Acosta. Patient Signature Section: Patient Instructions Signature Page Barrett Juliushaley Patient (or Guardian) Signature/Date: I have read and understand the instructions given to me by my caregivers. Caregiver/RN/Doctor Signature/Date: The above-named patient and/or guardian has received patient instructions on this date. + Original Patient Signature Page (only) stays with chart. Please make copy for patient.
== END 2017-06-19 19:23 | disposition home or self-care (01) ==
LOC: C.EP 10:28 → ENRESERV 11:10 → C.2T 13:39
PROVIDERS: ADMIT Internal Medicine Clinical Cardiac Electrophysiology; ATTEND Internal Medicine Cardiovascular Disease
DX: I47.1 Supraventricular tachycardia (principal); E83.42 Hypomagnesemia; I10 Essential (primary) hypertension; E78.00 Pure hypercholesterolemia, unspecified; E11.9 Type 2 diabetes mellitus without complications; J44.9 Chronic obstructive pulmonary disease, unspecified; F32.9 Major depressive disorder, single episode, unspecified; M10.9 Gout, unspecified; G47.33 Obstructive sleep apnea (adult) (pediatric); G25.81 Restless legs syndrome; Z80.0 Family history of malignant neoplasm of digestive organs; Z83.3 Family history of diabetes mellitus; Z87.891 Personal history of nicotine dependence; Z79.82 Long term (current) use of aspirin; Z79.899 Other long term (current) drug therapy

== ENCOUNTER → 2017-06-30 | Outpatient (CLI) | payer OTHER ==
[~2017-06-30] MED LIST changes: +ASPECOTC PO; -ASPI325T45 PO; -EZET10TA38 PO; -TRMCR515 TOP
[2017-06-30 13:24] LABS: HEMOGLOBIN A1C 7.2 % (4.5-5.6)
[2017-06-30 13:34] LABS: ALBUMIN 3.7 gm/dl (3.4-5.0); ALT/SGPT 40 U/L (12-78); BLOOD UREA NITROGEN 15 mg/dl (7-18); CALCIUM 8.6 mg/dl (8.5-10.1); CARBON DIOXIDE 22 mmol/L (21-32); CHOLESTEROL 133 mg/dl (0-200); CREATININE 1.21 mg/dl (0.60-1.40); GLUCOSE 127 mg/dl (70-99); POTASSIUM 4.2 mmol/L (3.5-5.1); SODIUM 141 mmol/L (136-145)
[2017-06-30 13:37] LABS: ALKALINE PHOSPHATASE 117 U/L (45-117); AST/SGOT 28 U/L (15-37); LDL CHOLESTEROL CALCULATED 42 mg/dl; TOTAL PROTEIN 7.3 gm/dl (6.4-8.2)
== END | disposition home or self-care (01) ==
LOC: C.LABPVFM 08:10
PROVIDERS: ATTEND Family Medicine
DX: I10 Essential (primary) hypertension (principal); E11.9 Type 2 diabetes mellitus without complications; F32.9 Major depressive disorder, single episode, unspecified; I47.1 Supraventricular tachycardia; J44.9 Chronic obstructive pulmonary disease, unspecified; E87.5 Hyperkalemia

== ENCOUNTER 2022-05-01 11:32 | Inpatient (IN) ==
--- NOTE | 2022-05-01 11:43 | Emergency Department Note ---
Impression & Plan Acute respiratory failure with hypoxia, Right lower lobe pneumonia, COPD exacerbation ED Provider Note NAME: HORTENCIA HUGHES JR AGE: 72 SEX: M : 1950 ARRIVES VIA: Walk-In INFORMANT: Patient, ED PROVIDER(S): Saurabh Stoll MD CHIEF COMPLAINT: Shortness of breath, cough, rigors MEDICAL DECISION MAKING: Patient presented due to concern for shortness of breath and chest pain. Blood work is obtained along with an EKG. I did order the patient nebulizer treatment, CPAP/BiPAP, and CTA of the chest. The patient blood work showed a white count of 11 normal hemoglobin and platelet count. Coags are normal. Patient's kidney function was grossly unremarkable. LFTs unremarkable and troponin is not elevated. Patient does have an elevated procalcitonin of eights and did receive empiric antibiotics Rocephin and azithromycin. EKG does show some new changes but the patient pain is most likely consistent with lung disease. Patient CT angiography does not show any evidence of PE but does show evidence of right sided pneumonia. The patient's VBG does not show any significant hypercarbia. Initial lactate of 2.9 the p atient did receive additional IV fluids. I did speak with the on-call hospitalist Dr. Davis and the patient was admitted to the medicine service. Critical Care: I have personally spent 75 minutes of critical care time in direct management of this patient. This includes bedside care, interpretation of diagnostic studies, and testing, discussion with consultants, patient, and family members, and other require inpatient management activities. This 75 minutes is in excess of all separately billable procedures. Prior /Outside records reviewed: I did look at the patient's most recent CT angiography of the chest in February 2022 which showed no evidence of PE and stable pulmonary nodules. Due to the patient's primary care visit from Angelita Etienne and Hayes Mcduffie from April 22, 2022. The patient did have COPD exacerbation and hypertension. Patient was treated with a course of steroids at that time. I did review the patient's most recent echocardiogram which was performed [facility] 2022 which showed left ventricular size wall motion and systolic function are normal with mild concentric left ventricular hypertrophy. EF was 60 to 65% with borderline dilated ascending aorta. Comments noted the aortic root is normal size aortic arch is normal in dimension borderline dilated ascending aorta. Listed at 3.7 cm. Differential diagnosis: Reactive airway disease, pneumonia, pneumothorax, COPD, CHF, infections, cardiac ischemia, pulmonary embolism, musculoskeletal, gastrointestinal, as well as other pathologies. Diagnostics, as interpreted by me: ECG: Sinus tachycardia, PACs, ST and T wave abnormalities with T wave inversions noted in the lateral and inferior leads. These are new from comparison EKG February 27, 2022. Cardiac monitoring: An order was placed for continuous cardiac monitoring. The monitor shows a rate of 92 with sinus rhythm. Patient was placed on pulse oximetry Medical decision rules: None Imaging studies: See below HPI: Patient presents due to concern for right-sided chest pain and shortness of breath which began around 4 AM this morning. The patient was seen in the outpatient setting recently and started on prednisone as he has a known history of COPD. Patient does not wear any oxygen on a regular basis but does use a C PAP but did not use it last evening. Patient states he did not wear it because he was so uncomfortable as he had this right-sided chest pain which she describes as sharp and pleuritic. No recent falls or trauma. Patient does not have a known history of a left descending thoracic aortic aneurysm repair completed at [place] by Dr. Del Rio years ago. Patient did have a recent echocardiogram completed. Patient denies any nausea or vomiting. Does report that he had rigors and chills. They are concerned about the possibility pneumonia. No calf pain leg swelling or history of DVT. No recent surgeries procedures or hospitalizations PAST MEDICAL HISTORY: See Below PAST SURGICAL HISTORY: See Below SOCIAL HISTORY: See Below HOME MEDICATIONS: See Below ALLERGIES: See Below VITALS: See Below PHYSICAL EXAMINATION: GENERAL: NAD, wearing a mask, non-toxic. EYE EXAM: Normal conjunctiva. PERRL, no anisocoria and EOM's grossly intact w/o pain. NECK: Supple, no nuchal rigidity, no adenopathy, non-tender. No signs of meningismus. FROM of the neck with good chin to chest and neck extension. No stridor. LUNGS: Scant wheezes noted, normal chest wall mechanics. HEART: Tachycardic and regular, no MRG. ABDOMEN: Abdomen soft, non-tender, normo-active bowel sounds, no masses, no rebound or guarding. BACK: No CVA TTP. SKIN: No rashes and no bruising. UPPER EXTREMITIES: Upper extremities are grossly normal. LOWER EXTREMITIES: Grossly normal, no edema. Negative Homans' sign bilaterally. NEURO EXAM: A&O x3, cranial nerves II-XII grossly intact, normal speech, moves all 4 extremities. Past Med/Surg History Medical History Abdominal bloating Aortic valve insufficiency COPD (chronic obstructive pulmonary disease) inhaler daily/prn, nebulizer prn Depression Diabetes type 2 Gout History of anesthesia reaction In 2009--during rotator cuff sx at [facility] pt had difficulty with breathing during sx, per pt they stopped the sx and moved it to [facility] and then pt had no further issues...pt states this the only time he has ever had any issues with anesthesia History of COVID-19 diagnosed 12/2019--mild symptoms, no symptoms now History of kidney stones Hypertension PSVT (paroxysmal supraventricular tachycardia) Sleep apnea cpap Surgical History H/O aortic aneurysm repair (~12/2006) 2006 @ [facility] [place]follows with Dr. Alexander History of appendectomy History of arthroscopy of knee History of cardiac cath 2001 prior to AAA repair--no stents History of cardiac radiofrequency ablation (RFA) (~05/2017) for SVT History of colonoscopy last 03/2020 @ [facility] History of cystoscopy History of repair of left rotator cuff Hx of left cataract extraction Family History Father Colorectal cancer Grandmother (Paternal) Colorectal cancer Mother Diabetes Other Family history non-contributory No family history of adverse response to anesthesia Denies family history of Ovarian cancer Prostate cancer Myocardial infarction Breast cancer Social History Smoking Status: Former smoker Tobacco Type: Cigarettes Cigarettes Per Day: 20; Second Hand Exposure: No; Hx Alcohol Use: Yes Alcohol type: beer Hx Substance Use: No Preferred Language: Somali Communication Ability: Effective Receptionist Nurse Required: No Beliefs That Will Affect Care: None marital status: Current Living Situation: Spouse current occupational status: retired Other Information That Helps Us Care for You: No Feels Safe at Home: Yes Safety Concerns: Feels Safe At This Time Childhood Exposure to Second-Hand Smoke: No caffeine: Yes Dental Care, Regularly: No Physical Activity Frequency: Daily Seatbelt Use: always Sunscreen Use: No Assistive Devices: CPAP and Nebulizer Allergies Allergies Allergy/AdvReac Type Severity Reaction Status Date / Time codeine AdvReac Mild NAUSEA Verified 05/01/22 15:32 Home Meds Home Medications Medication Instructions Recorded Confirmed aspirin 325 mg tablet 325 mg PO QPM 01/11/18 05/01/22 ipratropium 0.5 mg-albuterol 3 mg 3 ml inhalation Q4H PRN Shortness 01/11/18 05/01/22 (2.5 mg base)/3 mL nebulization Of Breath Or Wheezing soln [id number] acid 300 1 tab PO QPM 01/11/18 05/01/22 mcg-lycopene 600 mcg-lutein 300 mcg tablet (Centrum Silver Men) triamcinolone acetonide 0.1 % 1 appln topical BID PRN rash #1 g 01/01/19 05/01/22 topical cream cholecalciferol (vitamin D3) 125 5,000 unit PO QPM 12/31/19 05/01/22 mcg (5,000 unit) capsule donepezil 5 mg tablet 5 mg PO QPM 11/22/21 05/01/22 prednisone 10 mg tablet See Rx Instructions .Route .COMPLEX 04/23/22 05/01/22 Previous Rx's Medication Instructions Recorded allopurinol 100 mg tablet 100 mg PO QPM #90 tabs 10/12/21 insulin degludec 200 unit/mL (3 75 unit (0.375 mL) subcut HS 90 10/12/21 mL) subcutaneous pen (ba days #36 mL FlexTouch U-200 insulin) metformin 1,000 mg tablet 1,000 mg PO BID #180 tabs 10/12/21 metoprolol succinate 50 mg 50 mg PO QPM #90 tabs 10/12/21 tablet,extended release 24 hr simvastatin 40 mg tablet 40 mg PO PM #90 tabs 10/12/21 venlafaxine 75 mg capsule,extended 75 mg PO QPM #90 caps 10/12/21 release 24 hr (Effexor XR) albuterol sulfate 90 mcg/actuation 2 puff inhalation QID PRN 12/07/21 aerosol inhaler Shortness Of Breath Or Wheezing #8.5 grams fluticasone fur. 100 mcg-umeclid 1 inh inhalation QAM #180 ea 12/07/21 62.5 mcg-vilant 25 mcg inhalat.powder (Trelegy Ellipta) lisinopril 20 mg tablet 20 mg PO QPM #90 tabs 01/08/22 Results & Data (ED) Vital Signs Vital Signs - 24 hr 05/01/22 14:30 05/01/22 14:30 Pulse Rate 80 Pulse Rate from SpO2 Sensor 85 Respiratory Rate 21 Blood Pressure 113/61 Blood Pressure Mean 78 Pulse Oximetry 92 Home Medications Current Medication List: was personally reviewed by me Laboratory Data Attestation: I reviewed the patient's lab results. 05/01/22 11:50 05/01/22 11:50 Lab Results 05/01/22 05/01/22 05/01/22 Range/Units 11:50 11:50 11:50 WBC 11.76 H (4.8-10.8) K/ul RBC 4.68 L (4.70-6.10) M/uL Hgb 14.1 (14.0-18.0) g/dl POC Hgb (14.0-18.0) g/dl Hct 42.5 (42.0-52.0) % POC Hct (42-52) % MCV 90.8 (80.0-100.0) fL MCH 30.1 (25.0-34.0) pg MCHC 33.2 (32.0-36.0) g/dL RDW Std Deviation 46.7 H (36.4-46.3) fL RDW Coeff of Analilia 14.3 (11.5-14.5) % Plt Count 315 (130-400) K/uL MPV 9.1 L (9.4-12.4) fL Immature Gran % (Auto) 0.3 % Neut % (Auto) 71.9 % Lymph % (Auto) 19.6 % Snyder % (Auto) 7.7 % Eos % (Auto) 0.2 % Baso % (Auto) 0.3 % Neut # (Auto) 8.45 H (1.40-6.50) K/uL Lymph # (Auto) 2.31 (1.2-3.4) K/uL Snyder # (Auto) 0.90 H (0.11-0.59) K/uL Eos # (Auto) 0.02 (0-0.50) K/uL Baso # (Auto) 0.04 (0-0.2) K/uL Immature Gran # (Auto) 0.04 (0.01-0.20) K/uL PT 11.5 (9.0-12.0) Seconds INR 1.1 (0.9-1.1) APTT 21.2 (21.0-31.0) Seconds PTT Ratio 0.8 VBG pH (7.36-7.41) VBG pCO2 (38-50) mmHg VBG pO2 mmHg VBG HCO3 mmol/L VBG O2 Saturation % VBG Base Excess mEq/L POC Sodium (135-144) mmol/L Sodium 141 (136-145) mmol/L POC Potassium (3.3-5.0) mmol/L Potassium 3.4 L (3.5-5.1) mmol/L POC Chloride (101-112) mmol/L Chloride 108 H (98-107) mmol/L Carbon Dioxide 24 (21-32) mmol/L POC Total CO2 (24-31) mmol/L Anion Gap 9 (3-11) POC Anion Gap (16-25) mmol/L POC BUN (7-18) mg/dl BUN 23 (6-23) mg/dl Creatinine 1.34 (0.6-1.4) mg/dl POC Creatinine (0.6-1.3) mg/dl Est Cr Clr Drug Dosing 56.3 ml/min Est GFR ( Amer) 61.8 ml/min Est GFR (Non-Af Amer) 53.3 ml/min BUN/Creatinine Ratio 17.2 (10-20) Glucose 92 (70-99(Fasting)) mg/dl POC Glucose (other) (70-99) mg/dl Lactate (0.4-2.0) mmol/L Calcium 9.2 (8.5-10.1) mg/dl POC Ioniz Calcium Rachael (1.12-1.32) mmol/l Total Bilirubin 0.6 (0.2-1.0) mg/dl AST 13 (13-39) U/L ALT 17 (7-52) U/L Alkaline Phosphatase 71 (34-104) U/L Troponin I High Sens 13.8 (0-20) pg/ml Total Protein 6.8 (6.0-8.3) gm/dl Albumin 3.8 (3.4-5.0) gm/dl Globulin 3.0 (2.5-4.0) gm/dl Albumin/Globulin Ratio 1.3 (0.9-2) Lipase 14 (11-82) U/L Procalcitonin (0-0.5) ng/ml SARS-CoV-2 (PCR) (Negative) Influenza Type A (PCR) (Neg) Influenza Type B (PCR) (Neg) RSV (RT-PCR) (Neg) 05/01/22 05/01/22 05/01/22 Range/Units 11:50 11:50 11:56 WBC (4.8-10.8) K/ul RBC (4.70-6.10) M/uL Hgb (14.0-18.0) g/dl POC Hgb 14.6 (14.0-18.0) g/dl Hct (42.0-52.0) % POC Hct 43 (42-52) % MCV (80.0-100.0) fL MCH (25.0-34.0) pg MCHC (32.0-36.0) g/dL RDW Std Deviation (36.4-46.3) fL RDW Coeff of Analilia (11.5-14.5) % Plt Count (130-400) K/uL MPV (9.4-12.4) fL Immature Gran % (Auto) % Neut % (Auto) % Lymph % (Auto) % Snyder % (Auto) % Eos % (Auto) % Baso % (Auto) % Neut # (Auto) (1.40-6.50) K/uL Lymph # (Auto) (1.2-3.4) K/uL Snyder # (Auto) (0.11-0.59) K/uL Eos # (Auto) (0-0.50) K/uL Baso # (Auto) (0-0.2) K/uL Immature Gran # (Auto) (0.01-0.20) K/uL PT (9.0-12.0) Seconds INR (0.9-1.1) APTT (21.0-31.0) Seconds PTT Ratio VBG pH (7.36-7.41) VBG pCO2 (38-50) mmHg VBG pO2 mmHg VBG HCO3 mmol/L VBG O2 Saturation % VBG Base Excess mEq/L POC Sodium 141 (135-144) mmol/L Sodium (136-145) mmol/L POC Potassium 3.5 (3.3-5.0) mmol/L Potassium (3.5-5.1) mmol/L POC Chloride 106 (101-112) mmol/L Chloride (98-107) mmol/L Carbon Dioxide (21-32) mmol/L POC Total CO2 23 L (24-31) mmol/L Anion Gap (3-11) POC Anion Gap 16.0 (16-25) mmol/L POC BUN 24 H (7-18) mg/dl BUN (6-23) mg/dl Creatinine (0.6-1.4) mg/dl POC Creatinine 1.3 (0.6-1.3) mg/dl Est Cr Clr Drug Dosing ml/min Est GFR ( Amer) ml/min Est GFR (Non-Af Amer) ml/min BUN/Creatinine Ratio (10-20) Glucose (70-99(Fasting)) mg/dl POC Glucose (other) 95 (70-99) mg/dl Lactate (0.4-2.0) mmol/L Calcium (8.5-10.1) mg/dl POC Ioniz Calcium Rachael 1.19 (1.12-1.32) mmol/l Total Bilirubin (0.2-1.0) mg/dl AST (13-39) U/L ALT (7-52) U/L Alkaline Phosphatase (34-104) U/L Troponin I High Sens (0-20) pg/ml Total Protein (6.0-8.3) gm/dl Albumin (3.4-5.0) gm/dl Globulin (2.5-4.0) gm/dl Albumin/Globulin Ratio (0.9-2) Lipase (11-82) U/L Procalcitonin 8.05 H (0-0.5) ng/ml SARS-CoV-2 (PCR) NEGATIVE (Negative) Influenza Type A (PCR) Negative (Neg) Influenza Type B (PCR) Negative (Neg) RSV (RT-PCR) Negative (Neg) 05/01/22 05/01/22 Range/Units 12:50 12:50 WBC (4.8-10.8) K/ul RBC (4.70-6.10) M/uL Hgb (14.0-18.0) g/dl POC Hgb (14.0-18.0) g/dl Hct (42.0-52.0) % POC Hct (42-52) % MCV (80.0-100.0) fL MCH (25.0-34.0) pg MCHC (32.0-36.0) g/dL RDW Std Deviation (36.4-46.3) fL RDW Coeff of Analilia (11.5-14.5) % Plt Count (130-400) K/uL MPV (9.4-12.4) fL Immature Gran % (Auto) % Neut % (Auto) % Lymph % (Auto) % Snyder % (Auto) % Eos % (Auto) % Baso % (Auto) % Neut # (Auto) (1.40-6.50) K/uL Lymph # (Auto) (1.2-3.4) K/uL Snyder # (Auto) (0.11-0.59) K/uL Eos # (Auto) (0-0.50) K/uL Baso # (Auto) (0-0.2) K/uL Immature Gran # (Auto) (0.01-0.20) K/uL PT (9.0-12.0) Seconds INR (0.9-1.1) APTT (21.0-31.0) Seconds PTT Ratio VBG pH 7.36 (7.36-7.41) VBG pCO2 43 (38-50) mmHg VBG pO2 22 mmHg VBG HCO3 24 mmol/L VBG O2 Saturation < 60.0 % VBG Base Excess -1.3 mEq/L POC Sodium (135-144) mmol/L Sodium (136-145) mmol/L POC Potassium (3.3-5.0) mmol/L Potassium (3.5-5.1) mmol/L POC Chloride (101-112) mmol/L Chloride (98-107) mmol/L Carbon Dioxide (21-32) mmol/L POC Total CO2 (24-31) mmol/L Anion Gap (3-11) POC Anion Gap (16-25) mmol/L POC BUN (7-18) mg/dl BUN (6-23) mg/dl Creatinine (0.6-1.4) mg/dl POC Creatinine (0.6-1.3) mg/dl Est Cr Clr Drug Dosing ml/min Est GFR ( Amer) ml/min Est GFR (Non-Af Amer) ml/min BUN/Creatinine Ratio (10-20) Glucose (70-99(Fasting)) mg/dl POC Glucose (other) (70-99) mg/dl Lactate 2.9 H* (0.4-2.0) mmol/L Calcium (8.5-10.1) mg/dl POC Ioniz Calcium Rachael (1.12-1.32) mmol/l Total Bilirubin (0.2-1.0) mg/dl AST (13-39) U/L ALT (7-52) U/L Alkaline Phosphatase (34-104) U/L Troponin I High Sens (0-20) pg/ml Total Protein (6.0-8.3) gm/dl Albumin (3.4-5.0) gm/dl Globulin (2.5-4.0) gm/dl Albumin/Globulin Ratio (0.9-2) Lipase (11-82) U/L Procalcitonin (0-0.5) ng/ml SARS-CoV-2 (PCR) (Negative) Influenza Type A (PCR) (Neg) Influenza Type B (PCR) (Neg) RSV (RT-PCR) (Neg) Administered Medications Allopurinol (Allopurinol 100 Mg Tab) 100 mg PO QPM LIZETH Stop: 05/31/22 20:59 Last Admin: 05/01/22 21:01 Dose: 100 mg Documented By: HFS Aspirin (Aspirin 325 Mg Ectab) 325 mg PO QPM LIZETH Stop: 05/31/22 20:59 Last Admin: 05/01/22 21:00 Dose: 325 mg Documented By: HFS Azithromycin (Azithromycin 250 Mg Tab) 500 mg PO QAM LIZETH Stop: 05/04/22 08:59 Last Admin: 05/02/22 08:58 Dose: 500 mg Documented By: AK Donepezil HCl (Donepezil Hcl 5 Mg Tab) 5 mg PO QPM LIZETH Stop: 05/31/22 20:59 Last Admin: 05/01/22 21:04 Dose: 5 mg Documented By: REBECCA Enoxaparin Sodium (Enoxaparin Inj 40 Mg/0.4 Ml Syr) 40 mg SQ QAM [facility] Stop: 06/01/22 08:59 Last Admin: 05/02/22 09:00 Dose: 40 mg Documented By: TY Fluticasone Furoate (Fluticasone Furoate 100mcg 14 Puffs/Inhaler) 1 puffs INH DAILY [facility] Stop: 06/01/22 08:59 Last Admin: 05/02/22 08:59 Dose: 1 puffs Documented By: TY Ampicillin Sodium/Sulbactam Sodium 3,000 mg/ Sodium Chloride 108 mls @ 200 mls/hr IV Q6H [facility]; Protocol Stop: 05/08/22 17:59 Last Admin: 05/02/22 13:57 Dose: 200 mls/hr Documented By: GRACIE Co-signed By: MARIAN Infusion: 05/02/22 07:56 Dose: 0 mls/hr Documented By: Admin: 05/02/22 07:23 Dose: 200 mls/hr Documented By: Infusion: 05/02/22 02:30 Dose: 0 mls/hr Documented By: Admin: 05/02/22 01:33 Dose: 200 mls/hr Documented By: Infusion: 05/01/22 23:25 Dose: 0 mls/hr Documented By: Admin: 05/01/22 18:47 Dose: 200 mls/hr Documented By: TY Methylprednisolone 40 mg/ (Syringe) 0.64 mls @ 1.5 mls/min IV QAM [facility] Stop: 05/04/22 08:59 Last Admin: 05/02/22 09:00 Dose: 1.5 mls/min Documented By: TY Insulin Aspart (Insulin Aspart Per Unit) 0 units SC ACHS [facility] Stop: 05/31/22 20:59 Last Admin: 05/02/22 12:33 Dose: 10 units Documented By: GRACIE Co-signed By: MARIAN Admin: 05/02/22 09:07 Dose: 16 units Documented By: TY Co-signed By: SHO Admin: 05/01/22 21:13 Dose: 3 units Documented By: [facility] Co-signed By: MAYO Insulin Glargine (Lantus Per Unit Charge) 20 units SQ BID [facility] Stop: 06/01/22 08:59 Last Admin: 05/02/22 09:08 Dose: 20 units Documented By: TY Co-signed By: AM Ipratropium [place] (Ipratropium [place] Neb Soln 0.02% 2.5 Ml Vial) 0.5 mg INH Q6R [facility] Stop: 05/31/22 18:59 Last Admin: 05/02/22 13:02 Dose: 0.5 mg Documented By: Admin: 05/02/22 07:16 Dose: 0.5 mg Documented By: Admin: 05/02/22 00:52 Dose: 0.5 mg Documented By: Admin: 05/01/22 19:42 Dose: 0.5 mg Documented By: HENRY Levalbuterol HCl (Levalbuterol Hcl 0.63 Mg/3 Ml Neb) 0.63 mg NEB Q6R [facility] Stop: 05/31/22 18:59 Last Admin: 05/02/22 13:02 Dose: 0.63 mg Documented By: Admin: 05/02/22 07:16 Dose: 0.63 mg Documented By: Admin: 05/02/22 00:53 Dose: 0.63 mg Documented By: Admin: 05/01/22 19:42 Dose: 0.63 mg Documented By: HENRY Magnesium Oxide (Magnesium Oxide 400 Mg Tab) 800 mg PO BID [facility] Stop: 05/31/22 22:29 Last Admin: 05/02/22 08:59 Dose: 800 mg Documented By: Admin: 05/01/22 23:22 Dose: 800 mg Documented By: REBECCA Metoprolol Succinate (Metoprolol Succ 50mg Ext Rel Tab) 50 mg PO QPM [facility] Stop: 05/31/22 20:59 Last Admin: 05/01/22 21:00 Dose: 50 mg Documented By: REBECCA Multivitamins/Minerals (Cerovite Adv Formula Tab) 1 tab PO QPM [facility] Stop: 05/31/22 20:59 Last Admin: 05/01/22 21:00 Dose: 1 tab Documented By: REBECCA Simvastatin (Simvastatin 40 Mg Tab) 40 mg PO PM [facility] Stop: 05/31/22 20:59 Last Admin: 05/01/22 21:00 Dose: 40 mg Documented By: REBECCA Umeclidinium/Vilanterol (Umeclidinium/Vilanterol 62.5/25mcg 7 Puffs/Inhaler) 1 puffs INH DAILY [facility] Stop: 06/01/22 08:59 Last Admin: 05/02/22 08:59 Dose: 1 puffs Documented By: TY Venlafaxine HCl (Venlafaxine Hcl Xr 75 Mg Capxr) 75 mg PO QPM [facility] Stop: 05/31/22 20:59 Last Admin: 05/01/22 21:00 Dose: 75 mg Documented By: REBECCA Vitamin D (Cholecalciferol 5,000 Units 125 Mcg Tab) 5,000 units PO QPM [facility] Stop: 05/31/22 20:59 Last Admin: 05/01/22 21:00 Dose: 5,000 units Documented By: REBECCA Discontinued Medications Albuterol (Albut/Ipratrop 3mg/0.5mg Neb 3 Ml Vial) 3 ml NEB NOW STA; Protocol Stop: 05/01/22 11:53 Last Admin: 05/01/22 12:48 Dose: 3 ml Documented By: GORDON Albuterol (Albut/Ipratrop 3mg/0.5mg Neb 3 Ml Vial) 3 ml NEB NOW STA; Protocol Stop: 05/01/22 12:38 Last Admin: 05/01/22 12:48 Dose: 3 ml Documented By: GORDON Azithromycin (Azithromycin 250 Mg Tab) 500 mg PO NOW ONE Stop: 05/01/22 13:02 Last Admin: 05/01/22 13:57 Dose: 500 mg Documented By: Fentanyl Citrate (Fentanyl Citrate 100 Mcg/2 Ml Vial) 25 mcg IV NOW ONE Stop: 05/01/22 14:01 Last Admin: 05/01/22 14:38 Dose: 25 mcg Documented By: EVE Sodium Chloride (Nss 1000ml) 1,000 mls @ 999 mls/hr IV .Q1H1M STA Stop: 05/01/22 12:52 Last Infusion: 05/01/22 15:11 Dose: 0 mls/hr Documented By: Admin: 05/01/22 12:54 Dose: 999 mls/hr Documented By: Sodium Chloride (Nss 1000ml) 500 mls @ 999 mls/hr IV .Q31M ONE Stop: 05/01/22 13:31 Last Infusion: 05/01/22 15:12 Dose: 0 mls/hr Documented By: Admin: 05/01/22 13:39 Dose: 999 mls/hr Documented By: AB Ceftriaxone Sodium (Rocephin) 2,000 mg in 70 mls @ 140 mls/hr IV NOW STA Stop: 05/01/22 13:30 Last Infusion: 05/01/22 15:12 Dose: 0 mls/hr Documented By: Admin: 05/01/22 13:38 Dose: 140 mls/hr Documented By: AB Lactated Ringer's (Lr) 1,000 mls @ 125 mls/hr IV .Q8H [facility] Stop: 05/02/22 11:44 Last Admin: 05/01/22 20:53 Dose: 125 mls/hr Documented By: HFS Magnesium Sulfate/Dextrose (Magnesium Sulfate / D5w) 1 gm in 100 mls @ 50 mls/hr IV Q2H [facility] Stop: 05/02/22 00:59 Last Infusion: 05/02/22 01:37 Dose: 0 mls/hr Documented By: Admin: 05/01/22 23:20 Dose: 50 mls/hr Documented By: Infusion: 05/01/22 23:13 Dose: 50 mls/hr Documented By: Admin: 05/01/22 21:13 Dose: 50 mls/hr Documented By: HFS Magnesium Sulfate/Dextrose (Magnesium Sulfate / D5w) 1 gm in 100 mls @ 50 mls/hr IV Q2H [facility] Stop: 05/02/22 02:29 Last Infusion: 05/02/22 07:31 Dose: 0 mls/hr Documented By: Admin: 05/02/22 05:31 Dose: 50 mls/hr Documented By: Infusion: 05/02/22 04:54 Dose: 50 mls/hr Documented By: Admin: 05/02/22 02:54 Dose: 50 mls/hr Documented By: HFS Insulin Glargine (Lantus Per Unit Charge) 20 units SQ ONE ONE Stop: 05/01/22 20:31 Last Admin: 05/01/22 21:13 Dose: 20 units Documented By: HFS Co-signed By: MAYO Ioversol (Optiray 320 500ml) 115 ml IV ONCE ONE Stop: 05/01/22 12:39 Last Admin: 05/01/22 12:39 Dose: 115 ml Documented By: JOAQUINA Methylprednisolone (Methylprednisolone 125 Mg/2 Ml Vial) 125 mg IV NOW STA Stop: 05/01/22 11:53 Last Admin: 05/01/22 12:54 Dose: 125 mg Documented By: AB Morphine Sulfate (Morphine Sulfate 4 Mg/Ml 1 Ml Carp\Vial) 4 mg IV NOW STA Stop: 05/01/22 11:53 Last Admin: 05/01/22 12:55 Dose: 4 mg Documented By: AB Ondansetron HCl (Ondansetron Inj 2 Mg/Ml 2 Ml Vial) Confirm Administered Dose 4 mg .ROUTE .STK-MED ONE Stop: 05/01/22 13:58 Last Admin: 05/01/22 14:02 Dose: Not Given Documented By: KN Ondansetron HCl (Ondansetron Inj 2 Mg/Ml 2 Ml Vial) 4 mg IV NOW STA Stop: 05/01/22 14:01 Last Admin: 05/01/22 14:01 Dose: 4 mg Documented By: KN Potassium Chloride (Potassium Chloride Crtab 20 Meq Tabcr) 20 meq PO NOW STA Stop: 05/01/22 22:32 Last Admin: 05/01/22 23:22 Dose: 20 meq Documented By: [facility] Imaging Data Radiologist's Impression: Chest CTA 05/01/22 11:52 CT angio chest PE protocol CT DOSE: 770.85 mGy.cm HISTORY: 72 years-old Male with L sided chest pain, descending aneurysm repair. Acute left-sided chest pain TECHNIQUE: Multiple CTA images of the chest were obtained after the intravenous administration of 115 ml Optiray. Coronal and sagittal MIPS were obtained from the axial data set and were submitted for review. All measurements were obtained according to NASCET criteria. A dose lowering technique was utilized adhering to the principles of ALARA. COMPARISON: CTA chest 02/27/2022, 01/28/2021, 12/23/2019 FINDINGS: CTA: The heart is normal in size. There is no pericardial effusion. Mild coronary artery calcifications. Prior median sternotomy. Unremarkable thoracic aorta. Segmental and subsegmental pulmonary arterial branches of the lung bases are suboptimally visualized secondary to respiratory motion artifact. No pulmonary emboli are identified. CT CHEST: Unremarkable thyroid. 1.6 cm subcarinal 1.1 cm right hilar lymph nodes are similar in size to prior. Moderate pulmonary emphysema. No pneumothorax, pleural effusion or overt pulmonary edema. Stable benign 8 mm solid nodule within the lateral segment right middle lobe. Mild dependent subsegmental left basilar atelectasis. 3 mm solid nodule of the left upper lobe on image 71 series 4. Mild bronchial wall thickening. Dense airspace consolidation with groundglass densities noted throughout the right lower lobe are new from prior. Tracheobronchial secretions with mild right basilar mucous plugging. 8 mm hypodense focus of the left hepatic lobe on image 19 series 2 is unchanged and favored to be benign. No acute process of the imaged upper abdomen. The osseous structures appear intact. IMPRESSION: 1. Dense airspace consolidation of the right lower lobe suggestive of pneumonia. 2. Tracheobronchial secretions with right basilar mucous plugging. Correlate clinically to exclude aspiration. 3. Likely reactive right hilar and subcarinal lymphadenopathy. 4. Moderate emphysema. 5. No pulmonary emboli identified. ACT 112: Negative or not required by law. The above report was generated using voice recognition software. It may contain grammatical, syntax or spelling errors. Electronically signed by: Darnell Bernal M.D. 05/01/2022 1:13 PM Discharge Plan Visit Data Chief Complaint: Chest Pain Stated Complaint: CHEST PAIN, SOB, NAUSEA ED Provider: Saurabh Stoll Discharge Problem: Acute respiratory failure with hypoxia, Right lower lobe pneumonia, COPD exacerbation Patient Disposition: Admitted As Inpatient Discharge Instructions Interventions: ED Discharge Assessment Last Done: 05/01/22 17:18
[2022-05-01] MEDS ORDERED: MoRPHine SULFATE 4 MG/ML 1 ML CARP\\VIAL IV STA (11:52)
[2022-05-01] MEDS ORDERED: ALBUT/IPRATROP 3MG/0.5MG NEB 3 ML VIAL NEB STA ×2 (11:52→12:37)
[2022-05-01] MEDS ORDERED: methylPREDNISolone 125 MG/2 ML VIAL IV STA (11:52)
[2022-05-01] MEDS ORDERED: SODIUM CHLORIDE 0.9% 1000ML 1,000 ML IV STA (11:52)
[2022-05-01 12:15] LABS: iSTAT Creatinine 1.3 mg/dl (0.6-1.3); iSTAT Hemoglobin 14.6 g/dl (14.0-18.0); iSTAT Ionized Calcium 1.19 mmol/l (1.12-1.32); iSTAT Potassium 3.5 mmol/L (3.3-5.0)
[2022-05-01] MEDS ORDERED: OPTIRAY 320 500ml IV ONE (12:38)
[2022-05-01 12:44] LABS: Hematocrit (blood only) 42.5 % (42.0-52.0); Hemoglobin 14.1 g/dl (14.0-18.0); Mean Corpuscular Hemoglobin 30.1 pg (25.0-34.0); Mean Corpuscular Hgb Conc 33.2 g/dL (32.0-36.0); Mean Corpuscular Volume 90.8 fL (80.0-100.0); Mean Platelet Volume 9.1 fL (9.4-12.4); Platelet Count 315 K/uL (130-400); RDW Coefficient of Variation 14.3 % (11.5-14.5); RDW Standard Deviation 46.7 fL (36.4-46.3); Red Blood Count 4.68 M/uL (4.70-6.10); White Blood Count 11.76 K/ul (4.8-10.8)
[2022-05-01 12:47] LABS: Albumin Globulin Ratio 1.3 (0.9-2); Albumin Level 3.8 gm/dl (3.4-5.0); BUN Creatinine Ratio 17.2 (10-20); Bilirubin,Total 0.6 mg/dl (0.2-1.0); Calcium 9.2 mg/dl (8.5-10.1); Creatinine Clr Calc Pharmacy 56.3 ml/min; Est GFR (African American) 61.8 ml/min; Est GFR (Non-African American) 53.3 ml/min; Potassium 3.4 mmol/L (3.5-5.1); Total Protein 6.8 gm/dl (6.0-8.3)
[2022-05-01 12:51] LABS: Troponin I High Sensitivity 13.8 pg/ml (0-20)
[2022-05-01 12:56] LABS: INR 1.1 (0.9-1.1); Partial Thromboplastin Ratio 0.8; Partial Thromboplastin Time 21.2 Seconds (21.0-31.0); Prothrombin Time 11.5 Seconds (9.0-12.0)
[2022-05-01] MEDS ORDERED: SODIUM CHLORIDE 0.9% 1000ML 500 ML IV ONE (13:01)
[2022-05-01] MEDS ORDERED: cefTRIAXone SODIUM 2,000 MG/70 ML BAG IV STA (13:01)
[2022-05-01] MEDS ORDERED: AZITHROMYCIN 250 MG TAB PO ONE (13:01)
[2022-05-01 13:07] LABS: Base Excess VBG -1.3 mEq/L; HCO3 VBG 24 mmol/L; Oxygen Saturation VBG < 60.0 %; PCO2 VBG 43 mmHg (38-50); PO2 VBG 22 mmHg; pH VBG 7.36 (7.36-7.41)
[2022-05-01 13:10] LABS: Basophils # (auto) 0.04 K/uL (0-0.2); Basophils % (auto) 0.3 %; Eosinophils # (auto) 0.02 K/uL (0-0.50); Eosinophils % (auto) 0.2 %; Immature Granulocytes # (auto) 0.04 K/uL (0.01-0.20); Immature Granulocytes % (auto) 0.3 %; Lymphocytes # (auto) 2.31 K/uL (1.2-3.4); Lymphocytes % (auto) 19.6 %; Monocytes % (auto) 7.7 %; Neutrophils # (auto) 8.45 K/uL (1.40-6.50); Neutrophils % (auto) 71.9 %
--- NOTE | 2022-05-01 13:14 | CT Scan Report ---
CT angio chest PE protocol CT DOSE: 770.85 mGy.cm HISTORY: 72 years-old Male with L sided chest pain, descending aneurysm repair. Acute left-sided ch est pain TECHNIQUE: Multiple CTA images of the chest were obtained after the intravenous administration of 115 ml Optiray. Coronal and sagittal MIPS were obtained from the axial data set and were submitted for review. All measurements were obtained according to NASCET criteria. A dose lowering technique was u tilized adhering to the principles of ALARA. COMPARISON: CTA chest 02/27/2022, 01/28/2021, 12/23/2019 FINDINGS: CTA: The heart is normal in size. There is no pericardial effusion. Mild coronary artery calcifications. P rior median sternotomy. Unremarkable thoracic aorta. Segmental and subsegmental pulmonary arterial br anches of the lung bases are suboptimally visualized secondary to respiratory motion artifact. No pul monary emboli are identified. CT CHEST: Unremarkable thyroid. 1.6 cm subcarinal 1.1 cm right hilar lymph nodes are similar in size to prior. Moderate pulmonary emphysema. No pneumothorax, pleural effusion or overt pulmonary edema. Stable casey gn 8 mm solid nodule within the lateral segment right middle lobe. Mild dependent subsegmental left b asilar atelectasis. 3 mm solid nodule of the left upper lobe on image 71 series 4. Mild bronchial wal l thickening. Dense airspace consolidation with groundglass densities noted throughout the right lowe r lobe are new from prior. Tracheobronchial secretions with mild right basilar mucous plugging. 8 mm hypodense focus of the left hepatic lobe on image 19 series 2 is unchanged and favored to be scott ign. No acute process of the imaged upper abdomen. The osseous structures appear intact. IMPRESSION: 1. Dense airspace consolidation of the right lower lobe suggestive of pneumonia. 2. Tracheobronchial secretions with right basilar mucous plugging. Correlate clinically to exclude as piration. 3. Likely reactive right hilar and subcarinal lymphadenopathy. 4. Moderate emphysema. 5. No pulmonary emboli identified. ACT 112: Negative or not required by law. The above report was generated using voice recognition software. It may contain grammatical, syntax o r spelling errors. Electronically signed by: Darnell Bernal M.D. 05/01/2022 1:13 PM
[2022-05-01] MEDS ORDERED: ONDANSETRON INJ 2 MG/ML 2 ML VIAL ONE (13:57)
[2022-05-01] MEDS ORDERED: fentaNYL citrate 100 MCG/2 ML VIAL IV ONE (14:00)
[2022-05-01] MEDS ORDERED: ONDANSETRON INJ 2 MG/ML 2 ML VIAL IV STA (14:00)
--- NOTE | 2022-05-01 14:14 | Electrocardiogram Report ---
Test Reason : Blood Pressure : / mmHG Vent. Rate : 117 BPM Atrial Rate : 117 BPM P-R Int : 124 ms QRS Dur : 082 ms QT Int : 292 ms P-R-T Axes : 028 076 263 degrees QTc Int : 407 ms Sinus tachycardia with Premature atrial complexes Abnormal ECG When compared with ECG of 27-FEB-2022 16:43, Vent. rate has increased BY 45 BPM T wave inversion now evident in Inferior leads T wave inversion now evident in Lateral leads Confirmed by Black Poon ([id number]) on 05/01/2022 2:14:26 PM Referred By: Confirmed By:Black Poon
--- NOTE | 2022-05-01 14:39 | History & Physical Report ---
Date of Service May 01, 2022 Assessment & Plan (1) Acute respiratory failure with hypoxia: Plan: Secondary to right lower lobe pneumonia +/- COPD exacerbation Cepheid: Influenza, COVID, RSV PCR negative Aim O2 sats > 90%, no CO2 retention on VBG, no need for ABG Elevated lactic acid likely due to hypoxia rather than fluid issue, will repeat with AM labs (2) Sepsis: Plan: Source: PNA Lactate 2.9 -> 2.5, suspect due to hypoxia rather than fluids given lack of improvement after 1.5L NSS. Will start LR @ 125ml/hr overnight for 2L. qSOFA 0 - although borderline for both RR and BP (3) Right lower lobe pneumonia: Plan: Definitive lobar pneumonia on CT with procalcitonin 8.05. Ceftriaxone IV and azithromycin p.o. given in the ER. Switch antibiotics to Unasyn 3 g IV every 6 hourly for 7 days and azithromycin 500 mg p.o. daily for 3 days Sputum culture due to COPD Incentive spirometer Flutter valve (4) COPD exacerbation: Plan: Main driving etiology is his pneumonia as above but give concurrent wheezing noted by ER physician and his at bedside therefore will treat with short course of steroids Continue Solu-Medrol 40 mg IV for 2 further days Levalbuterol/ipratropium nebs 4 times daily Continue his usual maintenance inhaler Trelegy Ellipta or hospital formulary equivalent. (5) ROSA (obstructive sleep apnea): Plan: CPAP HS (6) Gout: Plan: No acute flare Continue allopurinol 100 mg p.o. daily (7) Depression: Plan: Continue venlafaxine 75 mg extended release p.o. daily (8) Memory impairment: Plan: Continue donepezil 5 mg p.o. daily (9) Hypomagnesemia: Plan: Chronic decreased levels. At level to initial labs. (10) Diabetes: Plan: Hemoglobin A1c 7.0 in September. Repeat with a.m. labs Usually on metformin 1000 mg p.o. twice daily and Tresiba 75 units HS We will split his usual Tresiba to basal bolus dosing during inpatient admi ssion: Start Lantus 35 units at bedtime NovoLog: --Goal BSG Range: Low 110 mg/dL, High 140 mg/dL --Correction Factor: 15 mg/dL/unit --Carbohydrate ratio = 5 g/unit --BSGs ACHS if eating, q6h if npo (11) Hypertension: Plan: Stop lisinopril due to relative hypotension in the setting of pneumonia as above Restart when able Plan VTE prophylaxis - Lovenox 40 mg subcu daily Diet - T2DM Disposition - admit to PCU due to sepsis and significant oxygen requirement Admission and Anticipated Discharge Date Admission Date: May 01, 2022 History of Present Illness Chief Complaint: Shortness of breath Primary Care Provider: DO Barrett Orona Ziggy is a 72 year old male with COPD who presents to the ER with nausea, sweating and shortness of breath. He reports a 2-week history of his usual COPD symptoms with shortness of breath, cough and wheezing (although notably at his appointment more than a week ago he also reported a 2-week history of symptoms therefore possibly going on for longer than this). He was prescribed prednisone taper by his primary care physician on April 22 for suspected COPD exacerbation however he reports no significant improvement with this medication. His symptoms progressively got worse over the last week but were relatively intermittent with good and bad days. Yesterday he was out cutting wood and appeared to be doing okay. This morning he started having chills with much worse cough, shortness of breath and new onset right-sided chest pain. He is not on any oxygen at baseline. In the ER initial O2 sats 86% on room air. He was placed on CPAP due to significant oxygen requirement and increased work of breathing. When seen he is requiring 9LPM O2 to maintain O2 sats > 90%. CT showed dense airspace consolidation in the right lower lobe suggestive of pneumonia. He was given a dose of ceftriaxone and azithromycin to cover for pneumonia. He was given 125 mg Solu-Medrol IV and DuoNebs due to wheezing on exam. He was referred to medicine for admission ongoing management of acute respiratory failure with hypoxia and COPD/pneumonia. Allergies Allergy/AdvReac Type Severity Reaction Status Date / Time codeine AdvReac Mild NAUSEA Verified 05/01/22 15:32 Home Medications Medication Instructions Recorded Confirmed Type aspirin 325 mg tablet 325 mg PO QPM 01/11/18 05/01/22 History ipratropium 0.5 mg-albuterol 3 mg 3 ml inhalation Q4H PRN Shortness 01/11/18 05/01/22 History (2.5 mg base)/3 mL nebulization Of Breath Or Wheezing soln [id number] acid 300 1 tab PO QPM 01/11/18 05/01/22 History mcg-lycopene 600 mcg-lutein 300 mcg tablet (Centrum Silver Men) triamcinolone acetonide 0.1 % 1 appln topical BID PRN rash #1 g 01/01/19 05/01/22 History topical cream cholecalciferol (vitamin D3) 125 5,000 unit PO QPM 12/31/19 05/01/22 History mcg (5,000 unit) capsule allopurinol 100 mg tablet 100 mg PO QPM #90 tabs 10/12/21 05/01/22 Rx insulin degludec 200 unit/mL (3 75 unit (0.375 mL) subcut HS 90 10/12/21 05/01/22 Rx mL) subcutaneous pen ( days #36 mL FlexTouch U-200 insulin) metformin 1,000 mg tablet 1,000 mg PO BID #180 tabs 10/12/21 05/01/22 Rx metoprolol succinate 50 mg 50 mg PO QPM #90 tabs 10/12/21 05/01/22 Rx tablet,extended release 24 hr simvastatin 40 mg tablet 40 mg PO PM #90 tabs 10/12/21 05/01/22 Rx venlafaxine 75 mg capsule,extended 75 mg PO QPM #90 caps 10/12/21 05/01/22 Rx release 24 hr (Effexor XR) donepezil 5 mg tablet 5 mg PO QPM 11/22/21 05/01/22 History albuterol sulfate 90 mcg/actuation 2 puff inhalation QID PRN 12/07/21 05/01/22 Rx aerosol inhaler Shortness Of Breath Or Wheezing #8.5 grams fluticasone fur. 100 mcg-umeclid 1 inh inhalation QAM #180 ea 12/07/21 05/01/22 Rx 62.5 mcg-vilant 25 mcg inhalat.powder (Trelegy Ellipta) lisinopril 20 mg tablet 20 mg PO QPM #90 tabs 01/08/22 05/01/22 Rx prednisone 10 mg tablet See Rx Instructions .Route .COMPLEX 04/23/22 05/01/22 History Past Med/Surg History Medical History (Updated 05/01/22 @ 19:38 by Ney Davis MD) Abdominal bloating Aortic valve insufficiency COPD (chronic obstructive pulmonary disease) inhaler daily/prn, nebulizer prn Depression Diabetes type 2 Gout History of anesthesia reaction In 2009--during rotator cuff sx at [facility] pt had difficulty with breathing during sx, per pt they stopped the sx and moved it to [facility] and then pt had no further issues...pt states this the only time he has ever had any issues with anesthesia History of COVID-19 diagnosed 12/2019--mild symptoms, no symptoms now History of kidney stones Hypertension PSVT (paroxysmal supraventricular tachycardia) Sleep apnea cpap Surgical History H/O aortic aneurysm repair (~12/2006) [address] [facility] [place]--follows with Dr. Alexander History of appendectomy History of arthroscopy of knee History of cardiac cath 2001 prior to AAA repair--no stents History of cardiac radiofrequency ablation (RFA) (~05/2017) for SVT History of colonoscopy last 03/2020 @ [facility] History of cystoscopy History of repair of left rotator cuff Hx of left cataract extraction Family History Father Colorectal cancer Grandmother (Paternal) Colorectal cancer Mother Diabetes Other Family history non-contributory No family history of adverse response to anesthesia Denies family history of Ovarian cancer Prostate cancer Myocardial infarction Breast cancer Social History Smoking Status: Former smoker Tobacco Type: Cigarettes Cigarettes Per Day: 20; Second Hand Exposure: No; Hx Alcohol Use: Yes Alcohol type: beer Hx Substance Use: No Preferred Language: Ukrainian Communication Ability: Effective Production Specialist Required: No Beliefs That Will Affect Care: None marital status: Current Living Situation: Spouse current occupational status: retired Other Information That Helps Us Care for You: No Feels Safe at Home: Yes Safety Concerns: Feels Safe At This Time Childhood Exposure to Second-Hand Smoke: No caffeine: Yes Dental Care, Regularly: No Physical Activity Frequency: Daily Seatbelt Use: always Sunscreen Use: No Assistive Devices: CPAP Review of Systems Review of Systems: All systems reviewed & are unremarkable except as noted in HPI & below Physical Exam Constitutional: WD/WN, vitals as above Eyes: PERRL, conjunctivae normal, anicteric sclerae ENMT: external ear and nose normal, oropharynx normal Respiratory: + labored breathing, + uses accessory muscles and able to speak in complete sentences; expiratory phase not prolonged, no audible wheezes and no stridor Auscultation: + crackles (Coarse right-sided posteriorly and anteriorly); breath sounds present, no diminished lung sounds, no rales, no rhonchi and no wheezes Gastrointestinal (Abdomen): normal bowel sounds, soft, nontender, no hepatosplenomegaly Musculoskeletal: no cyanosis or clubbing, extremities motor strength 5/5 Skin: no rashes, warm and dry Neurologic: moves all extremities and awake; not confused Psychiatric: A+Ox3, euthymic affect Results & Data Results & Data ([facility]) Vital Signs (Past 12 Hours) Vital Signs Temp Pulse Pulse Resp BP Pulse Ox O2 Del Method 05/01/22 12:51 90 31 H 92 05/01/22 12:49 87 22 92 CPAP 05/01/22 11:56 86 L Room Air, Nasal Cannula 05/01/22 11:37 36.8 C 88 18 98/50 L 89 L Room Air FiO2 05/01/22 12:51 45 05/01/22 12:49 45 05/01/22 11:56 05/01/22 11:37 Laboratory Results Abnormal lab results 05/01/22 05/01/22 05/01/22 Range/Units 11:50 11:50 11:50 WBC 11.76 H (4.8-10.8) K/ul RBC 4.68 L (4.70-6.10) M/uL RDW Std Deviation 46.7 H (36.4-46.3) fL MPV 9.1 L (9.4-12.4) fL Neut # (Auto) 8.45 H (1.40-6.50) K/uL [place] # (Auto) 0.90 H (0.11-0.59) K/uL Potassium 3.4 L (3.5-5.1) mmol/L Chloride 108 H (98-107) mmol/L POC Total CO2 (24-31) mmol/L POC BUN (7-18) mg/dl Lactate (0.4-2.0) mmol/L Procalcitonin 8.05 H (0-0.5) ng/ml 05/01/22 05/01/22 Range/Units 11:56 12:50 WBC (4.8-10.8) K/ul RBC (4.70-6.10) M/uL RDW Std Deviation (36.4-46.3) fL MPV (9.4-12.4) fL Neut # (Auto) (1.40-6.50) K/uL [place] # (Auto) (0.11-0.59) K/uL Potassium (3.5-5.1) mmol/L Chloride (98-107) mmol/L POC Total CO2 23 L (24-31) mmol/L POC BUN 24 H (7-18) mg/dl Lactate 2.9 H* (0.4-2.0) mmol/L Procalcitonin (0-0.5) ng/ml Diagnostic Findings CT angio chest PE protocol CT DOSE: 770.85 mGy.cm HISTORY: 72 years-old Male with L sided chest pain, descending aneurysm repair. Acute left-sided chest pain TECHNIQUE: Multiple CTA images of the chest were obtained after the intravenous administration of 115 ml Optiray. Coronal and sagittal MIPS were obtained from the axial data set and were submitted for review. All measurements were obtained according to NASCET criteria. A dose lowering technique was utilized adhering to the principles of ALARA. COMPARISON: CTA chest 02/27/2022, 01/28/2021, 12/23/2019 FINDINGS: CTA: The heart is normal in size. There is no pericardial effusion. Mild coronary artery calcifications. Prior median sternotomy. Unremarkable thoracic aorta. Segmental and subsegmental pulmonary arterial branches of the lung bases are suboptimally visualized secondary to respiratory motion artifact. No pulmonary emboli are identified. CT CHEST: Unremarkable thyroid. 1.6 cm subcarinal 1.1 cm right hilar lymph nodes are similar in size to prior. Moderate pulmonary emphysema. No pneumothorax, pleural effusion or overt pulmonary edema. Stable benign 8 mm solid nodule within the lateral segment right middle lobe. Mild dependent subsegmental left basilar atelectasis. 3 mm solid nodule of the left upper lobe on image 71 series 4. Mild bronchial wall thickening. Dense airspace consolidation with groundglass densities noted throughout the right lower lobe are new from prior. Tracheobronchial secretions with mild right basilar mucous plugging. 8 mm hypodense focus of the left hepatic lobe on image 19 series 2 is unchanged and favored to be benign. No acute process of the imaged upper abdomen. The osseous structures appear intact. IMPRESSION: 1. Dense airspace consolidation of the right lower lobe suggestive of pneumonia. 2. Tracheobronchial secretions with right basilar mucous plugging. Correlate clinically to exclude aspiration. 3. Likely reactive right hilar and subcarinal lymphadenopathy. 4. Moderate emphysema. 5. No pulmonary emboli identified. Medications Administered ER medications given: Normal saline 1 L bolus Morphine 4 mg IV DuoNeb 3 mL neb Solu-Medrol 125 mg IV DuoNeb 3 mL neb Normal saline 500 mL bolus Ceftriaxone 2 g IV Azithromycin 500 mg p.o. Ondansetron 4 mg IV Fentanyl 25 mcg IV ECG Indication: SOB/dyspnea Rate (beats per minute): 117 Rhythm: sinus tachycardia Findings: + nonspecific-ST abn, + PAC and + T-wave inversion (Inferior and lateral) Comparison ECG Date: from (February 27, 2022) Change: the following changes noted (T wave inversions are new) Code Status & VTE Plan Code Status Full VTE Prophylaxis Plan VTE Prophylaxis will be ordered: Yes PG Care Time/CCT Total # of Minutes Spent Total Time Spent with Patient: Total time spent is greater than 50% in coordination of care (as documented) at patient's floor/unit and/or counseling patient: Coding Level of Care Code 81728 INT INP/OBS CARE 3/75MIN Diagnoses Acute respiratory failure with hypoxia J96.01 Sepsis A41.9 Right lower lobe pneumonia J18.9 COPD exacerbation J44.1 ROSA (obstructive sleep apnea) G47.33 Gout M10.9 Depression F32.9 Memory impairment R41.3 Hypomagnesemia E83.42 Diabetes E11.9 Hypertension I10
[2022-05-01 16:14] LABS: Influenza A virus by PCR Negative (Neg); Influenza B virus by PCR Negative (Neg); RSV by PCR Negative (Neg); SARS CoV2 RNA(COVID-19) Ceph NEGATIVE (Negative)
[2022-05-01 16:53] LABS: Troponin I High Sensitivity 12.5 pg/ml (0-20)
[2022-05-01] MEDS ORDERED: ACETAMINOPHEN 325 MG TAB PO PRN (17:31)
[2022-05-01] MEDS ORDERED: INFLUENZA VACCINE HIGH DOSE PF 65+ 0.7 ML SYR IM ONE (18:41)
[2022-05-01] MEDS: AMPICILLIN/SULBACTAM SOD 3,000 MG in 0.9 % SODIUM CHLORIDE 100 ML IV SCH (18:47)
[2022-05-01] MEDS ORDERED: XOPENEX/ATROVENT 0.63mg/0.5MG NEB COMBO NEB SCH (19:00)
[2022-05-01] MEDS ORDERED: ONDANSETRON INJ 2 MG/ML 2 ML VIAL IV PRN (19:24)
[2022-05-01] MEDS ORDERED: DEXTROSE 50% 50 ML SYRINGE IV PRN (19:36)
[2022-05-01] MEDS ORDERED: GLUCOSE 40% GEL 15 GM TUBE PO PRN (19:36)
[2022-05-01] MEDS ORDERED: GLUCAGON FOR INJ 1 MG VIAL SQ PRN (19:36)
[2022-05-01] MEDS ORDERED: CARBOHYDRATES FOR HYPOGLYCEMIA PO PRN (19:36)
[2022-05-01] MEDS ORDERED: PHARMACY GLYCEMIC MGMT CONSULT PRN (19:36)
[2022-05-01] MEDS ORDERED: GLUCOSE 10 TAB/TUBE PO PRN (19:36)
[2022-05-01] MEDS: LEVALBUTEROL HCL 0.63 MG/3 ML NEB NEB SCH (19:42)
[2022-05-01] MEDS: IPRATROPIUM BROMIDE NEB SOLN 0.02% 2.5 ML VIAL INH SCH (19:42)
[2022-05-01] MEDS ORDERED: LANTUS PER UNIT CHARGE SQ ONE (20:30)
[2022-05-01 20:45] LABS: Magnesium 0.8 mg/dl (1.7-2.4)
[2022-05-01] MEDS: LACTATED RINGER'S 1,000 ML IV SCH (20:53)
[2022-05-01] MEDS: METOPROLOL SUCC 50MG EXT REL TAB PO SCH (21:00)
[2022-05-01] MEDS: SIMVASTATIN 40 MG TAB PO SCH (21:00)
[2022-05-01] MEDS: CHOLECALCIFEROL 5,000 UNITS 125 MCG TAB PO SCH (21:00)
[2022-05-01] MEDS: VENLAFAXINE HCL XR 75 MG CAPXR PO SCH (21:00)
[2022-05-01] MEDS: ASPIRIN 325 MG ECTAB PO SCH (21:00)
[2022-05-01] MEDS ORDERED: LANTUS PER UNIT CHARGE SQ SCH ×2 (21:00)
[2022-05-01] MEDS: CEROVITE ADV FORMULA TAB PO SCH (21:00)
[2022-05-01] MEDS: allopurinoL 100 MG TAB PO SCH (21:01)
[2022-05-01] MEDS: DONEPEZIL HCL 5 MG TAB PO SCH (21:04)
[2022-05-01] MEDS: INSULIN ASPART PER UNIT SC SCH (21:13)
[2022-05-01] MEDS: MAGNESIUM SULFATE / D5W 1 GM/100 ML BAG IV SCH ×2 (21:13→23:20)
[2022-05-01] MEDS ORDERED: POTASSIUM CHLORIDE CRTAB 20 MEQ TABCR PO STA (22:31)
[2022-05-01] MEDS: MAGNESIUM OXIDE 400 MG TAB PO SCH (23:22)
[2022-05-02] MEDS: IPRATROPIUM BROMIDE NEB SOLN 0.02% 2.5 ML VIAL INH SCH ×5 (00:52→23:59)
[2022-05-02] MEDS: LEVALBUTEROL HCL 0.63 MG/3 ML NEB NEB SCH ×5 (00:53→23:59)
[2022-05-02] MEDS: AMPICILLIN/SULBACTAM SOD 3,000 MG in 0.9 % SODIUM CHLORIDE 100 ML IV SCH ×4 (01:33→18:11)
[2022-05-02] MEDS: MAGNESIUM SULFATE / D5W 1 GM/100 ML BAG IV SCH ×2 (02:54→05:31)
[2022-05-02 08:00] LABS: Creatinine Clr Calc Pharmacy 71.1 ml/min; Est GFR (African American) 68.5 ml/min; Est GFR (Non-African American) 59.1 ml/min; Magnesium 2.2 mg/dl (1.7-2.4); Potassium 4.9 mmol/L (3.5-5.1)
[2022-05-02 08:04] LABS: Basophils # (auto) 0.07 K/uL (0-0.2); Basophils % (auto) 0.4 %; Echinocytes 2+; Hematocrit (blood only) 36.3 % (42.0-52.0); Hemoglobin 12.1 g/dl (14.0-18.0); Immature Granulocytes # (auto) 0.51 K/uL (0.01-0.20); Immature Granulocytes % (auto) 3.2 %; Lymphocytes # (auto) 1.28 K/uL (1.2-3.4); Lymphocytes % (auto) 8.1 %; Mean Corpuscular Hemoglobin 30.3 pg (25.0-34.0); Mean Corpuscular Hgb Conc 33.3 g/dL (32.0-36.0); Mean Corpuscular Volume 90.8 fL (80.0-100.0); Monocytes # (auto) 1.23 K/uL (0.11-0.59); Monocytes % (auto) 7.8 %; Neutrophils # (auto) 12.78 K/uL (1.40-6.50); Neutrophils % (auto) 80.5 %; Platelet Count 215 K/uL (130-400); RDW Coefficient of Variation 14.4 % (11.5-14.5); RDW Standard Deviation 47.4 fL (36.4-46.3); Toxic Vacuolation 1+; White Blood Count 15.87 K/ul (4.8-10.8)
[2022-05-02 08:45] LABS: Estimated Average Glucose 163 mg/dl; Hemoglobin A1C 7.3 % (4.5-5.6)
[2022-05-02] MEDS: AZITHROMYCIN 250 MG TAB PO SCH (08:58)
[2022-05-02] MEDS: UMECLIDINIUM/VILANTEROL 62.5/25MCG 7 PUFFS/INHALER INH SCH (08:59)
[2022-05-02] MEDS: MAGNESIUM OXIDE 400 MG TAB PO SCH ×2 (08:59→20:51)
[2022-05-02] MEDS: FLUTICASONE FUROATE 100MCG 14 PUFFS/INHALER INH SCH (08:59)
[2022-05-02] MEDS: ENOXAPARIN INJ 40 MG/0.4 ML SYR SQ SCH (09:00)
[2022-05-02] MEDS ORDERED: NON-FORMULARY MEDICATION (Fluticasone-Umeclidin-Vilanter [Trelegy Ellipta] 100-62.5-25 mcg INH SCH (09:00)
[2022-05-02] MEDS: methylPREDNISolone 40 MG in SYRINGE 0 ML IV SCH (09:00)
[2022-05-02] MEDS: INSULIN ASPART PER UNIT SC SCH ×4 (09:07→20:14)
[2022-05-02] MEDS: LANTUS PER UNIT CHARGE SQ SCH ×2 (09:08→20:28)
--- NOTE | 2022-05-02 13:52 | Pharmacy Report ---
Pharmacy Glycemic Short Note 2 - Date of Service May 02, 2022 - Glycemic Short BSG Results (Last 24 hours): 05/01/22 05/01/22 05/02/22 18:19 20:30 07:12 Glucose POC Glucose 142 H 195 H 205 H 05/02/22 05/02/22 07:27 11:29 Glucose 184 H POC Glucose 158 H OUTPATIENT ANTIDIABETIC REGIMEN: * Metformin 1000mg BID * Tresiba 75 units HS ASSESSMENT: * 72 year old male with type 2 diabetes who presented to [facility] ER with SOB. * In ED, patient was given 125mg of IV Solu-Medrol, and ordered ongoing 40mg Solu-Medrol IV once daily from 05/02-05/04. * Patient was started on Novolog with CF of 25 and CR of 9; parameters were tightened today at breakfast to 15-5, which yielded a lunch BSG of 158 mg/dL. Parameters will be maintained for today and reassessed tomorrow. * Patient was given 20 units of Lantus last night in the ED, fasting BSG 205 today. Total daily dose of Lantus today will be 40 units, which was derived from a calculated weight-based stress of 2. PLAN FOR INPATIENT GLYCEMIC CONTROL: * Hold outpatient oral diabetes medications * Basal insulin * Lantus 20 units SQ BID * Bolus insulin * NovoLog per scale ACHS or Q6hrs while NPO * Goal Range: Low 110 mg/dL - High 140 mg/dL * Correction Factor: 15 mg/dL/unit * Nutritional / Prandial insulin per carb ratio of 1 unit per 5 grams CHO consumed
[2022-05-02] MEDS: LACTATED RINGER'S 1,000 ML IV SCH (15:50)
[2022-05-02] MEDS: allopurinoL 100 MG TAB PO SCH (20:48)
[2022-05-02] MEDS: DONEPEZIL HCL 5 MG TAB PO SCH (20:50)
[2022-05-02] MEDS: CHOLECALCIFEROL 5,000 UNITS 125 MCG TAB PO SCH (20:50)
[2022-05-02] MEDS: METOPROLOL SUCC 50MG EXT REL TAB PO SCH (20:51)
[2022-05-02] MEDS: SIMVASTATIN 40 MG TAB PO SCH (20:52)
[2022-05-02] MEDS: CEROVITE ADV FORMULA TAB PO SCH (20:53)
[2022-05-02] MEDS: VENLAFAXINE HCL XR 75 MG CAPXR PO SCH (20:53)
--- NOTE | 2022-05-02 21:31 | Hospitalist Progress Note ---
Date of Service May 02, 2022 Assessment & Plan (1) Acute respiratory failure with hypoxia: Plan: Secondary to right lower lobe pneumonia +/- COPD exacerbation Cepheid: Influenza, COVID, RSV PCR negative Aim O2 sats > 90%, no CO2 retention on VBG, no need for ABG Patient continues to improve, now on 3 liters, continue antibiotics and flutter valve. (2) Sepsis: Plan: Source: PNA Lactate 2.9 -> 2.5, suspect due to hypoxia rather than fluids given lack of improvement after 1.5L NSS. Will start LR @ 125ml/hr overnight for 2L. qSOFA 0 - although borderline for both RR and BP (3) Right lower lobe pneumonia: Plan: Definitive lobar pneumonia on CT with procalcitonin 8.05. Ceftriaxone IV and azithromycin p.o. given in the ER. Switch antibiotics to Unasyn 3 g IV every 6 hourly for 7 days and azithromycin 500 mg p.o. daily for 3 days Sputum culture due to COPD Incentive spirometer Flutter valve obtain repeat culture (4) COPD exacerbation: Plan: Main driving etiology is his pneumonia as above but give concurrent wheezing noted by ER physician and his at bedside therefore will treat with short course of steroids Continue Solu-Medrol 40 mg IV for 2 further days Levalbuterol/ipratropium nebs 4 times daily Continue his usual maintenance inhaler Trelegy Ellipta or hospital formulary equivalent. (5) ROSA (obstructive sleep apnea): Plan: CPAP HS (6) Gout: Plan: No acute flare Continue allopurinol 100 mg p.o. daily (7) Depression: Plan: Continue venlafaxine 75 mg extended release p.o. daily (8) Memory impairment: Plan: Continue donepezil 5 mg p.o. daily (9) Hypomagnesemia: Plan: Chronic decreased levels. At level to initial labs. (10) Diabetes: Plan: Hemoglobin A1c 7.0 in September. Repeat with a.m. labs Usually on metformin 1000 mg p.o. twice daily and Tresiba 75 units HS We will split his usual Tresiba to basal bolus dosing during inpatient admission: Start Lantus 35 units at bedtime NovoLog: --Goal BSG Range: Low 110 mg/dL, High 140 mg/dL --Correction Factor: 15 mg/dL/unit --Carbohydrate ratio = 5 g/unit --BSGs ACHS if eating, q6h if npo (11) Hypertension: Plan: Stop lisinopril due to relative hypotension in the setting of pneumonia as above Restart when able Plan VTE prophylaxis - Lovenox 40 mg subcu daily Diet - T2DM Admission and Anticipated Discharge Date Admission Date: May 01, 2022 Subjective Patient continues to improve now on 3 liters. Having blood in phlegm. Review of Systems Review of Systems: All systems reviewed & are unremarkable except as noted in HPI & below Physical Exam Physical Exam: Constitutional: WD/WN, vitals as above Eyes: PERRL, conjunctivae normal, anicteric sclerae ENMT: external ear and nose normal, oropharynx normal Respiratory: no longer using accesory muscles to breath,breath sounds present, no diminished lung sounds, no rales, no rhonchi and no wheezes Gastrointestinal (Abdomen): normal bowel sounds, soft, nontender, no hepatosplenomegaly Musculoskeletal: no cyanosis or clubbing, extremities motor strength 5/5 Skin: no rashes, warm and dry Neurologic: moves all extremities and awake; not confused Psychiatric: A+Ox3, euthymic affect Results & Data Results & Data ([facility]) Vital Signs (Past 12 Hours) Vital Signs Temp Pulse Pulse Resp BP Pulse Ox Pulse Ox 05/02/22 19:17 36.8 C 78 19 161/91 H 99 05/02/22 19:15 81 18 94 05/02/22 17:31 96 05/02/22 16:23 78 20 95 05/02/22 15:53 79 05/02/22 13:03 67 18 96 05/02/22 15:06 36.9 C 79 24 154/81 H 93 05/02/22 11:12 36.6 C 69 22 128/74 96 05/02/22 10:08 66 O2 Del Method O2 Del Method O2 Flow Rate O2 Flow Rate 05/02/22 19:17 Nasal Cannula 2 05/02/22 19:15 Nasal Cannula 2 05/02/22 17:31 Nasal Cannula 2 05/02/22 16:23 Nasal Cannula 2 05/02/22 15:53 05/02/22 13:03 Nasal Cannula 4 05/02/22 15:06 Nasal Cannula 3 05/02/22 11:12 Nasal Cannula 6 05/02/22 10:08 PG Care Time/CCT Total # of Minutes Spent Total Time Spent with Patient: Total time spent is greater than 50% in coordination of care (as documented) at patient's floor/unit and/or counseling patient: Coding Level of Care Code 19502 SUB INP/OBS CARE 2/35MIN Diagnoses Acute respiratory failure with hypoxia J96.01 Sepsis A41.9 Right lower lobe pneumonia J18.9 Pneumonia type: due to unspecified organism COPD exacerbation J44.1 ROSA (obstructive sleep apnea) G47.33 Gout M10.9 Depression F32.9 Memory impairment R41.3 Hypomagnesemia E83.42 Diabetes E11.9 Hypertension I10 (1) Right lower lobe pneumonia Pneumonia type: due to unspecified organism Qualified Code(s): J18.9 - Pneumonia, unspecified organism
[2022-05-02] MEDS: ASPIRIN 325 MG ECTAB PO SCH (22:07)
[2022-05-03] MEDS: AMPICILLIN/SULBACTAM SOD 3,000 MG in 0.9 % SODIUM CHLORIDE 100 ML IV SCH ×4 (00:30→17:01)
[2022-05-03] MEDS: LEVALBUTEROL HCL 0.63 MG/3 ML NEB NEB SCH ×3 (07:01→19:21)
[2022-05-03] MEDS: IPRATROPIUM BROMIDE NEB SOLN 0.02% 2.5 ML VIAL INH SCH ×3 (07:01→19:21)
[2022-05-03] MEDS: INSULIN ASPART PER UNIT SC SCH ×4 (08:00→21:40)
[2022-05-03] MEDS: UMECLIDINIUM/VILANTEROL 62.5/25MCG 7 PUFFS/INHALER INH SCH (08:17)
[2022-05-03] MEDS: methylPREDNISolone 40 MG in SYRINGE 0 ML IV SCH (08:18)
[2022-05-03] MEDS: FLUTICASONE FUROATE 100MCG 14 PUFFS/INHALER INH SCH (08:18)
[2022-05-03] MEDS: AZITHROMYCIN 250 MG TAB PO SCH (08:19)
[2022-05-03] MEDS: MAGNESIUM OXIDE 400 MG TAB PO SCH ×2 (08:19→21:40)
[2022-05-03] MEDS: ENOXAPARIN INJ 40 MG/0.4 ML SYR SQ SCH (08:19)
[2022-05-03] MEDS ORDERED: LANTUS PER UNIT CHARGE SQ ONE (09:00)
[2022-05-03 11:36] LABS: BUN Creatinine Ratio 21.7 (10-20); C Reactive Protein 27.73 mg/dl (0-0.5); Calcium 8.8 mg/dl (8.5-10.1); Creatinine Clr Calc Pharmacy 76.2 ml/min; Est GFR (African American) 74.3 ml/min; Est GFR (Non-African American) 64.1 ml/min; Potassium 4.1 mmol/L (3.5-5.1)
--- NOTE | 2022-05-03 11:37 | XRay Report ---
XR chest 2V PA/lateral HISTORY: pneumonia COMPARISON: Chest 02/27/2022. Chest CTA 05/01/2022. FINDINGS: No pneumothorax. No pleural effusions. Emphysema again noted. There are postoperative swanson es. The heart is stable in size. A few left basilar linear densities favor subsegmental atelectasis. Hazy right lower lobe airspace opacity is again noted and is consistent with the patient's pneumonia. IMPRESSION: No significant change in the right lower lobe airspace opacity consistent with a pneumonia. ACT 112: Negative or not required by law. Electronically signed by: Joaquim Ornelas M.D. 05/03/2022 11:36 AM
[2022-05-03 11:52] LABS: Hematocrit (blood only) 36.6 % (42.0-52.0); Hemoglobin 12.1 g/dl (14.0-18.0); Mean Corpuscular Hemoglobin 30.2 pg (25.0-34.0); Mean Corpuscular Hgb Conc 33.1 g/dL (32.0-36.0); Mean Corpuscular Volume 91.3 fL (80.0-100.0); Mean Platelet Volume 9.6 fL (9.4-12.4); Platelet Count 205 K/uL (130-400); RDW Coefficient of Variation 14.5 % (11.5-14.5); RDW Standard Deviation 48.7 fL (36.4-46.3); Red Blood Count 4.01 M/uL (4.70-6.10); White Blood Count 16.11 K/ul (4.8-10.8)
[2022-05-03 11:53] LABS: Basophils # (auto) 0.05 K/uL (0-0.2); Basophils % (auto) 0.3 %; Echinocytes 1+; Eosinophils # (auto) 0.05 K/uL (0-0.50); Eosinophils % (auto) 0.3 %; Immature Granulocytes # (auto) 0.11 K/uL (0.01-0.20); Immature Granulocytes % (auto) 0.7 %; Lymphocytes # (auto) 0.87 K/uL (1.2-3.4); Lymphocytes % (auto) 5.4 %; Monocytes # (auto) 0.79 K/uL (0.11-0.59); Monocytes % (auto) 4.9 %; Neutrophils # (auto) 14.24 K/uL (1.40-6.50); Neutrophils % (auto) 88.4 %; Polychromasia 1+; Toxic Vacuolation 1+
--- NOTE | 2022-05-03 14:24 | Pharmacy Report ---
Pharmacy Glycemic Short Note 2 - Date of Service May 03, 2022 - Glycemic Short BSG Results (Last 24 hours): 05/02/22 05/02/22 05/03/22 16:03 20:12 08:18 Glucose POC Glucose 140 H 128 H 187 H 05/03/22 05/03/22 10:33 11:26 Glucose 165 H POC Glucose 114 H OUTPATIENT ANTIDIABETIC REGIMEN: * Metformin 1000mg BID * Tresiba 75 units HS ASSESSMENT: 05/03/22 * BSGs yesterday were [phone] mg/dL. Patient received 40 units of basal and 34 units of bolus (74 units of insulin total). * Fasting today is 187 mg/dL. * Decrease basal slightly to 30 units daily as patient's regimen is currently basal heavy. It is desirable to use more bolus insulin when steroids are being prescribed. * Loosened Novolog slightly since patient's BSGs continue to trend down. BACKGROUND * 72 year old male with type 2 diabetes who presented to [facility] ER with SOB. * In ED, patient was given 125mg of IV Solu-Medrol, and ordered ongoing 40mg Solu-Medrol IV once daily from 05/02-05/04. * Patient was started on Novolog with CF of 25 and CR of 9; parameters were tightened today at breakfast to 15-5, which yielded a lunch BSG of 158 mg/dL. Parameters will be maintained for today and reassessed tomorrow. * Patient was given 20 units of Lantus last night in the ED, fasting BSG 205 today. Total daily dose of Lantus today will be 40 units, which was derived from a calculated weight-based stress of 2. PLAN FOR INPATIENT GLYCEMIC CONTROL: * Hold outpatient oral diabetes medications * Basal insulin * Lantus 20 units SQ daily + 10 units HS * Bolus insulin * NovoLog per scale ACHS or Q6hrs while NPO * Goal Range: Low 110 mg/dL - High 140 mg/dL * Correction Factor: 15 mg/dL/unit * Nutritional / Prandial insulin per carb ratio of 1 unit per 6 grams CHO consumed
[2022-05-03] MEDS: SODIUM CHLOR 7% 4 ML NEB NEB SCH (19:21)
[2022-05-03] MEDS ORDERED: LANTUS PER UNIT CHARGE SQ SCH (21:00)
[2022-05-03] MEDS: ASPIRIN 325 MG ECTAB PO SCH (21:40)
[2022-05-03] MEDS: allopurinoL 100 MG TAB PO SCH (21:40)
[2022-05-03] MEDS: DONEPEZIL HCL 5 MG TAB PO SCH (21:40)
[2022-05-03] MEDS: CHOLECALCIFEROL 5,000 UNITS 125 MCG TAB PO SCH (21:40)
[2022-05-03] MEDS: METOPROLOL SUCC 50MG EXT REL TAB PO SCH (21:41)
[2022-05-03] MEDS: SIMVASTATIN 40 MG TAB PO SCH (21:41)
[2022-05-03] MEDS: VENLAFAXINE HCL XR 75 MG CAPXR PO SCH (21:41)
[2022-05-03] MEDS: CEROVITE ADV FORMULA TAB PO SCH (21:41)
--- NOTE | 2022-05-03 22:01 | Hospitalist Progress Note ---
Date of Service May 03, 2022 Assessment & Plan (1) Acute respiratory failure with hypoxia: Plan: Secondary to right lower lobe pneumonia +/- COPD exacerbation Cepheid: Influenza, COVID, RSV PCR negative Aim O2 sats > 90%, no CO2 retention on VBG, no need for ABG Patient continues to improve, now on room air, continue antibiotics and flutter valve. Added hypertonic nebs. will await sputum cultures (2) Sepsis: Plan: Source: PNA Lactate 2.9 -> 2.5, suspect due to hypoxia rather than fluids given lack of improvement after 1.5L NSS. Will start LR @ 125ml/hr overnight for 2L. qSOFA 0 - although borderline for both RR and BP (3) Right lower lobe pneumonia: Plan: Definitive lobar pneumonia on CT with procalcitonin 8.05. Ceftriaxone IV and azithromycin p.o. given in the ER. Switch antibiotics to Unasyn 3 g IV every 6 hourly for 7 days and azithromycin 500 mg p.o. daily for 3 days Sputum culture due to COPD Incentive spirometer Flutter valve obtain repeat culture (4) COPD exacerbation: Plan: Main driving etiology is his pneumonia as above but give concurrent wheezing noted by ER physician and his at bedside therefore will treat with short course of steroids Continue Solu-Medrol 40 mg IV for 2 further days Levalbuterol/ipratropium nebs 4 times daily Continue his usual maintenance inhaler Trelegy Ellipta or hospital formulary equivalent. (5) ROSA (obstructive sleep apnea): Plan: CPAP HS (6) Gout: Plan: No acute flare Continue allopurinol 100 mg p.o. daily (7) Depression: Plan: Continue venlafaxine 75 mg extended release p.o. daily (8) Memory impairment: Plan: Continue donepezil 5 mg p.o. daily (9) Hypomagnesemia: Plan: Chronic decreased levels. At level to initial labs. (10) Diabetes: Plan: Hemoglobin A1c 7.0 in September. Repeat with a.m. labs Usually on metformin 1000 mg p.o. twice daily and Tresiba 75 units HS We will split his usual Tresiba to basal bolus dosing during inpatient admission: Start Lantus 35 units at bedtime NovoLog: --Goal BSG Range: Low 110 mg/dL, High 140 mg/dL --Correction Factor: 15 mg/dL/unit --Carbohydrate ratio = 5 g/unit --BSGs ACHS if eating, q6h if npo (11) Hypertension: Plan: Stop lisinopril due to relative hypotension in the setting of pneumonia as above Restart when able Plan VTE prophylaxis - Lovenox 40 mg subcu daily Diet - T2DM Admission and Anticipated Discharge Date Admission Date: May 01, 2022 Subjective 72 yo male reports feeling much better today. He is stil coughing but he is now on room air. Review of Systems Review of Systems: All systems reviewed & are unremarkable except as noted in HPI & below Physical Exam Physical Exam: Constitutional: WD/WN, vitals as above Eyes: PERRL, conjunctivae normal, anicteric sclerae ENMT: external ear and nose normal, oropharynx normal Respiratory: no longer using accesory muscles to breath,breath sounds present, no diminished lung sounds, no rales, no rhonchi and no wheezes Gastrointestinal (Abdomen): normal bowel sounds, soft, nontender, no hepatosplenomegaly Musculoskeletal: no cyanosis or clubbing, extremities motor strength 5/5 Skin: no rashes, warm and dry Neurologic: moves all extremities and awake; not confused Psychiatric: A+Ox3, euthymic affect Results & Data Results & Data ([facility]) Vital Signs (Past 12 Hours) Vital Signs Temp Pulse Pulse Resp BP Pulse Ox O2 Del Method 05/03/22 21:39 65 05/03/22 20:48 177/84 H 05/03/22 20:03 36.7 C 65 16 218/87 H 98 Room Air 05/03/22 19:24 83 18 93 Room Air 05/03/22 16:43 36.6 C 70 19 176/81 H 94 Room Air 05/03/22 15:19 63 05/03/22 13:43 55 L 18 93 Room Air 05/03/22 11:28 36.7 C 61 20 176/79 H 94 Room Air PG Care Time/CCT Total # of Minutes Spent Total Time Spent with Patient: Total time spent is greater than 50% in coordination of care (as documented) at patient's floor/unit and/or counseling patient: Coding Level of Care Code 85424 SUB INP/OBS CARE 2/35MIN Diagnoses Acute respiratory failure with hypoxia J96.01 Sepsis A41.9 Right lower lobe pneumonia J18.9 Pneumonia type: due to unspecified organism COPD exacerbation J44.1 ROSA (obstructive sleep apnea) G47.33 Gout M10.9 Depression F32.9 Memory impairment R41.3 Hypomagnesemia E83.42 Diabetes E11.9 Hypertension I10 (1) Right lower lobe pneumonia Pneumonia type: due to unspecified organism Qualified Code(s): J18.9 - Pneumonia, unspecified organism
[2022-05-04] MEDS: IPRATROPIUM BROMIDE NEB SOLN 0.02% 2.5 ML VIAL INH SCH ×3 (00:09→12:17)
[2022-05-04] MEDS: LEVALBUTEROL HCL 0.63 MG/3 ML NEB NEB SCH ×3 (00:09→12:17)
[2022-05-04] MEDS: AMPICILLIN/SULBACTAM SOD 3,000 MG in 0.9 % SODIUM CHLORIDE 100 ML IV SCH ×3 (00:52→12:43)
[2022-05-04] MEDS: SODIUM CHLOR 7% 4 ML NEB NEB SCH (07:01)
[2022-05-04] MEDS: INSULIN ASPART PER UNIT SC SCH ×3 (08:00→16:00)
[2022-05-04] MEDS: UMECLIDINIUM/VILANTEROL 62.5/25MCG 7 PUFFS/INHALER INH SCH (08:01)
[2022-05-04] MEDS: MAGNESIUM OXIDE 400 MG TAB PO SCH (08:01)
[2022-05-04] MEDS: ENOXAPARIN INJ 40 MG/0.4 ML SYR SQ SCH (08:01)
[2022-05-04] MEDS: FLUTICASONE FUROATE 100MCG 14 PUFFS/INHALER INH SCH (08:01)
[2022-05-04 08:02] LABS: Hematocrit (blood only) 36.2 % (42.0-52.0); Hemoglobin 12.2 g/dl (14.0-18.0); Mean Corpuscular Hemoglobin 30.1 pg (25.0-34.0); Mean Corpuscular Hgb Conc 33.7 g/dL (32.0-36.0); Mean Corpuscular Volume 89.4 fL (80.0-100.0); Mean Platelet Volume 9.6 fL (9.4-12.4); Platelet Count 258 K/uL (130-400); RDW Coefficient of Variation 14.3 % (11.5-14.5); RDW Standard Deviation 46.9 fL (36.4-46.3); Red Blood Count 4.05 M/uL (4.70-6.10); White Blood Count 16.08 K/ul (4.8-10.8)
[2022-05-04 08:14] LABS: C Reactive Protein 11.06 mg/dl (0-0.5); Magnesium 1.6 mg/dl (1.7-2.4)
[2022-05-04] MEDS ORDERED: lisinopril 20 MG TAB PO STA (08:38)
[2022-05-04] MEDS ORDERED: LANTUS PER UNIT CHARGE SQ SCH (09:00)
== END 2022-05-04 17:18 | disposition home or self-care (01) | DRG 871 ==
LOC: ED 11:32 → EDINP 14:38 → SUATTDRO 14:38 → 2S 17:18

== ENCOUNTER 2022-11-17 20:28 | Inpatient (IN) ==
[2022-11-17] MEDS ORDERED: methylPREDNISolone 125 MG/2 ML VIAL IV STA (20:41)
[2022-11-17] MEDS ORDERED: ALBUT/IPRATROP 3MG/0.5MG NEB 3 ML VIAL NEB STA ×2 (20:41→21:44)
--- NOTE | 2022-11-17 20:55 | Emergency Department Note ---
Impression & Plan COPD exacerbation, Acute bronchitis, MIGUEL (acute kidney injury) ED Provider Note NAME: HORTENCIA HUGHES JR AGE: 72 SEX: M : 1950 ARRIVES VIA: Walk-In INFORMANT: Patient, the patient's significant other ED PROVIDER(S): [place] Thomas DO CHIEF COMPLAINT: Difficulty breathing HPI: The patient is a 72-year-old male who presented to the emergency department for an evaluation of difficulty breathing. The patient does not wear oxygen at home. The patient has a history of COPD. He feels that he is been having a COPD exacerbation over the course the last week. He was started on steroids by his primary care physician. The patient states he was feeling much better but started having worsening symptoms over the last 24 hours. He presented to the emergency department today because of shortness of breath. He does complain of productive cough. He denies having any fever or hemoptysis. He denies having lower extremity swelling. His significant other states that he has had pneumonia in the past with similar symptoms. ROS: See above HPI for pertinent positives & negatives. A total of 10 systems reviewed and were otherwise negative. PAST MEDICAL HISTORY: See Below PAST SURGICAL HISTORY: See Below FAMILY HISTORY: See Below SOCIAL HISTORY: See Below HOME MEDICATIONS: See Below ALLERGIES: See Below VITALS: See Below PHYSICAL EXAMINATION: GENERAL: The patient is awake and alert. The patient is somewhat anxious appearing. EYES: The conjunctivae are clear. The pupils are round and reactive. EARS, NOSE, MOUTH AND THROAT: The nose is without any evidence of any deformity. NECK: The neck is nontender and supple. RESPIRATORY: Diminished breath sounds are noted throughout. There is expiratory wheezing with prolonged expiratory phase. There was mild conversational dyspnea noted. CARDIOVASCULAR: Regular rate and rhythm noted there no murmurs rubs or gallops normal S1 normal S2. GASTROINTESTINAL: The abdomen is soft. Abdomen is nontender. MUSCULOSKELETAL/EXTREMITIES: There is no evidence of gross deformity full range of motion is noted in the hips and shoulders. SKIN: There is no obvious evidence of any rash. There are no petechiae, pallor or cyanosis noted. NEUROLOGIC: Patient is awake alert and oriented x3. MEDICAL DECISION MAKING: The patient is a 72-year-old male who presented to the emergency department for difficulty breathing. The patient has a history of COPD. He started having symptoms earlier in the week. He was started on a steroid by his primary care physician which did help his symptoms significantly. The patient continued to worsen and started having productive cough after the steroids were stopped. He presented to the emergency department for further evaluation. He was treated with IV fluids for slight elevation in his creatinine compared to baseline. He was also treated with multiple bronchodilator treatments IV antibiotics and IV steroids. On reevaluation he was somewhat improved but still had an oxygen requirement. For this reason I discussed his condition with the on-call [facility] hospitalist group. They have agreed to evaluate the patient in the emergency department for further management and disposition. Triage Nursing notes reviewed. Prior medical records reviewed Vital Signs: reviewed and remarkable for hypoxia and hypertension. Differential diagnosis: Reactive airway disease, pneumonia, pneumothorax, COPD, CHF, infections, cardiac ischemia, pulmonary embolism, musculoskeletal, gastrointestinal, as well as other pathologies. ER treatment provided: See below Diagnostics interpreted by me: ECG: EKG was obtained in the emergency department. My interpretation is normal sinus rhythm at 77 bpm. PACs were noted. Nonspecific interventricular conduction delay was noted. This was compared to a tracing from May 01, 2022. No changes were noted. Cardiac Monitoring: An order was placed for continuous cardiac monitoring. The monitor shows a rate of 80 bpm with sinus rhythm. Laboratory studies: As stated above and show below. Imaging studies: See below. Radiographic imaging was reviewed by myself Consultation(s): I discussed this case with Dr. Irving who is on-call for the [facility] hospitalist group. ED COURSE: Procedures: none Critical Care: I have personally spent greater than 40 minutes of critical care time in the direct management of this patient. This includes bedside care, interpretation of diagnostic studies, and testing, discussion with consultants, patient, and family members, and other required patient management activities. This 40 minutes is in excess of all separately billable procedures. Past Med/Surg History Medical History Abdominal bloating Acute respiratory failure with hypoxia Aortic valve insufficiency History of anesthesia reaction In 2009--during rotator cuff sx at [facility] pt had difficulty with breathing during sx, per pt they stopped the sx and moved it to [facility] and then pt had no further issues...pt states this the only time he has ever had any issues with anesthesia History of COVID-19 diagnosed 12/2019--mild symptoms, no symptoms now History of kidney stones Right lower lobe pneumonia Sepsis Surgical History H/O aortic aneurysm repair (~12/2006) 2006 @ [facility] [place]--follows with Dr. Alexander History of appendectomy History of arthroscopy of knee History of cardiac cath 2001 prior to AAA repair--no stents History of cardiac radiofrequency ablation (RFA) (~05/2017) for SVT History of colonoscopy last 03/2020 @ [facility] History of cystoscopy History of repair of left rotator cuff Hx of left cataract extraction Family History Father Colorectal cancer Grandmother (Paternal) Colorectal cancer Mother Diabetes Other Family history non-contributory No family history of adverse response to anesthesia Denies family history of Ovarian cancer Prostate cancer Myocardial infarction Breast cancer Social History Smoking Status: Former smoker Tobacco Type: Cigarettes Cigarettes Per Day: 20; Second Hand Exposure: No; Do You Dip or Chew Tobacco: No; Hx Alcohol Use: Yes Alcohol type: beer Alcohol Intake Frequency: 2-3 x/Week Hx Substance Use: No Preferred Language: Romanian Communication Ability: Effective Visual Impairment: No Limitations Hearing Ability: Normal Planning Engineer Required: No Beliefs That Will Affect Care: None marital status: Current Living Situation: Spouse current occupational status: retired How many Children do You have: 2 Feels Safe at Home: Yes Childhood Exposure to Second-Hand Smoke: No Diet: regular caffeine: Yes during the past year weight has: remained stable Dental Care, Regularly: No Physical Activity Frequency: Daily Seatbelt Use: always Sunscreen Use: No Assistive Devices: CPAP and Nebulizer Allergies Allergies Allergy/AdvReac Type Severity Reaction Status Date / Time codeine AdvReac Mild NAUSEA Verified 11/11/22 08:53 Home Meds Home Medications Medication Instructions Recorded Confirmed aspirin 325 mg tablet 325 mg PO QPM 01/11/18 11/17/22 ipratropium 0.5 mg-albuterol 3 mg 3 ml inhalation Q4H PRN Shortness 01/11/18 11/17/22 (2.5 mg base)/3 mL nebulization Of Breath Or Wheezing soln [id number] 300 mcg-K 60 1 tab PO QPM 01/11/18 11/17/22 mcg-lycop 600 mcg-lutein 300 mcg tablet (Centrum Silver Men) triamcinolone acetonide 0.1 % 1 appln topical BID PRN rash #1 g 01/01/19 11/17/22 topical cream cholecalciferol (vitamin D3) 125 5,000 unit PO QPM 12/31/19 11/17/22 mcg (5,000 unit) capsule lisinopril 40 mg tablet 40 mg PO HS 11/17/22 11/17/22 meloxicam 15 mg tablet 15 mg PO DAILY PRN Muscle Spasm 11/17/22 11/17/22 tamsulosin 0.4 mg capsule 0.4 mg PO HS 11/17/22 11/17/22 tramadol 50 mg tablet 50 mg PO HS PRN pain 11/17/22 11/17/22 Previous Rx's Medication Instructions Recorded CPAP Supplies #1 ea 07/25/22 albuterol sulfate 90 mcg/actuation 2 puff inhalation QID PRN 07/25/22 aerosol inhaler Shortness Of Breath Or Wheezing #8.5 grams allopurinol 100 mg tablet 100 mg PO QPM #90 tabs 08/07/22 donepezil 5 mg tablet 5 mg PO QPM #90 tabs 08/07/22 fluticasone fur. 100 mcg-umeclid 1 inh inhalation QAM #180 ea 08/07/22 62.5 mcg-vilant 25 mcg inhalat.powder (Trelegy Ellipta) metformin 1,000 mg tablet 1,000 mg PO BID #180 tabs 08/07/22 metoprolol succinate 50 mg 50 mg PO QPM #90 tabs 08/07/22 tablet,extended release 24 hr simvastatin 40 mg tablet 40 mg PO PM #90 tabs 08/07/22 venlafaxine 75 mg capsule,extended 75 mg PO QPM #90 caps 08/07/22 release 24 hr (Effexor XR) insulin degludec 200 unit/mL (3 75 unit (0.375 mL) subcut HS 90 11/01/22 mL) subcutaneous pen ( #36 mL FlexTouch U-200 insulin) Results & Data (ED) Vital Signs Vital Signs - 24 hr 11/17/22 20:33 11/17/22 20:49 11/17/22 20:40 Temperature 36.5 C Temperature Source Temporal Artery Scan Pulse Rate 84 82 Respiratory Rate 22 Respiratory Effort / Characteristics Non-Labored Spontaneous Respiratory Depth Normal Respiratory Pattern Regular Blood Pressure 169/79 H Blood Pressure Mean 109 Pulse Oximetry 89 L 90 Oxygen Delivery Method Room Air Nasal Cannula Oxygen Flow Rate 0 Sepsis Recent Fever Within 48 Hours No Sepsis New/Unexplained Change in Mental Status No Sepsis Action Taken by Nursing No Action Required Oxygen Flow Rate - Titration 2 Pulse Oximetry Post Tiitration 92 11/17/22 21:07 11/17/22 21:00 11/17/22 21:30 Temperature Temperature Source Pulse Rate 81 82 Respiratory Rate 19 21 Respiratory Effort / Characteristics Short of Breath Respiratory Depth Respiratory Pattern Blood Pressure 172/86 H Blood Pressure Mean 114 Pulse Oximetry 92 92 Oxygen Delivery Method Nasal Cannula Nasal Cannula Nasal Cannula Oxygen Flow Rate 2 2 2 Sepsis Recent Fever Within 48 Hours Sepsis New/Unexplained Change in Mental Status Sepsis Action Taken by Nursing Oxygen Flow Rate - Titration Pulse Oximetry Post Tiitration 11/17/22 21:34 11/17/22 22:00 11/17/22 22:30 Temperature Temperature Source Pulse Rate 80 84 93 H Respiratory Rate 21 13 19 Respiratory Effort / Characteristics Respiratory Depth Respiratory Pattern Blood Pressure 163/85 H 169/87 H 177/83 H Blood Pressure Mean 111 114 114 Pulse Oximetry 92 95 94 Oxygen Delivery Method Nasal Cannula Nebulizer Nasal Cannula Oxygen Flow Rate 2 7 2 Sepsis Recent Fever Within 48 Hours Sepsis New/Unexplained Change in Mental Status Sepsis Action Taken by Nursing Oxygen Flow Rate - Titration Pulse Oximetry Post Tiitration 11/17/22 22:36 11/17/22 23:07 11/17/22 23:00 Temperature Temperature Source Pulse Rate 82 80 78 Respiratory Rate 19 22 Respiratory Effort / Characteristics Respiratory Depth Respiratory Pattern Blood Pressure 177/72 H 183/96 H Blood Pressure Mean 107 125 Pulse Oximetry 90 94 Oxygen Delivery Method Nasal Cannula Nasal Cannula Oxygen Flow Rate 2 2 Sepsis Recent Fever Within 48 Hours Sepsis New/Unexplained Change in Mental Status Sepsis Action Taken by Nursing Oxygen Flow Rate - Titration Pulse Oximetry Post Tiitration Home Medications Current Medication List: was personally reviewed by me Laboratory Data Attestation: I reviewed the patient's lab results. 11/17/22 20:54 11/17/22 20:54 Lab Results 11/17/22 11/17/22 11/17/22 Range/Units 20:54 20:54 20:54 WBC 8.13 (4.8-10.8) K/ul RBC 4.14 L (4.70-6.10) M/uL Hgb 13.3 L (14.0-18.0) g/dl Hct 38.4 L (42.0-52.0) % MCV 92.8 (80.0-100.0) fL MCH 32.1 (25.0-34.0) pg MCHC 34.6 (32.0-36.0) g/dL RDW Std Deviation 47.1 H (36.4-46.3) fL RDW Coeff of Analilia 13.9 (11.5-14.5) % Plt Count 245 (130-400) K/uL MPV 9.0 L (9.4-12.4) fL Immature Gran % (Auto) 0.4 % Neut % (Auto) 71.7 % Lymph % (Auto) 12.3 % Mitchell % (Auto) 14.4 % Eos % (Auto) 0.6 % Baso % (Auto) 0.6 % Neut # (Auto) 5.83 (1.40-6.50) K/uL Lymph # (Auto) 1.00 L (1.20-3.40) K/uL Mitchell # (Auto) 1.17 H (0.11-0.59) K/uL Eos # (Auto) 0.05 (0.00-0.50) K/uL Baso # (Auto) 0.05 (0.00-0.20) K/uL Immature Gran # (Auto) 0.03 (0.01-0.20) K/uL Dohle Bodies 1+ PT 10.9 (9.0-12.0) Seconds INR 1.0 (0.9-1.1) APTT 24.8 (21.0-31.0) Seconds PTT Ratio 0.9 VBG pH (7.36-7.41) VBG pCO2 (38-50) mmHg VBG pO2 mmHg VBG HCO3 mmol/L VBG O2 Saturation % VBG Base Excess mEq/L Sodium 137 (136-145) mmol/L Potassium 4.5 (3.5-5.1) mmol/L Chloride 105 (98-107) mmol/L Carbon Dioxide 23 (21-32) mmol/L Anion Gap 9 (3-11) BUN 24 H (6-23) mg/dl Creatinine 1.87 H (0.6-1.4) mg/dl Est Cr Clr Drug Dosing 46.3 ml/min Est GFR ( Amer) 41.3 ml/min Est GFR (Non-Af Amer) 35.6 ml/min BUN/Creatinine Ratio 12.8 (10-20) Glucose 341 H* (70-99(Fasting)) mg/dl Lactate (0.4-2.0) mmol/L Calcium 8.9 (8.6-10.3) mg/dl Magnesium 1.2 L (1.7-2.4) mg/dl Total Bilirubin 0.5 (0.2-1.0) mg/dl AST 14 (13-39) U/L ALT 17 (7-52) U/L Alkaline Phosphatase 83 (34-104) U/L Troponin I High Sens 9.9 (0-20) pg/ml B-Natriuretic Peptide (0-100) pg/ml Total Protein 7.0 (6.0-8.3) gm/dl Albumin 3.8 (3.4-5.0) gm/dl Globulin 3.2 (2.5-4.0) gm/dl Albumin/Globulin Ratio 1.2 (0.9-2) Urine Color Urine Appearance (Clear) Urine pH (4.5-7.5) Ur Specific [place] (1.000-1.030) Urine Protein (Negative) Urine Glucose (UA) (Negative) Urine Ketones (Negative) Urine Blood (Negative) Urine Nitrite (Negative) Urine Bilirubin (Negative) Urine Urobilinogen (Negative) Ur Leukocyte Esterase (Negative) Adenovirus (PCR) (NotDetected) B. pertussis DNA (PCR) (NotDetected) B.parapertussis DNA PCR (NotDetected) C. pneumoniae DNA (PCR) (NotDetected) Coronavirus OC43 (PCR) (NotDetected) Coronavirus HKU1 (PCR) (NotDetected) Coronavirus 229E (PCR) (NotDetected) SARS-CoV-2 (PCR) (NotDetected) Coronavirus NL63 (PCR) (NotDetected) Human Metapneumovir PCR (NotDetected) Influenza Type A (PCR) (NotDetected) Influenza Type B (PCR) (NotDetected) M. pneumoniae (PCR) (NotDetected) Parainfluenza 1 (PCR) (NotDetected) Parainfluenza 2 (PCR) (NotDetected) Parainfluenza 3 (PCR) (NotDetected) Parainfluenza 4 (PCR) (NotDetected) RSV (PCR) (NotDetected) Entero/Rhino (PCR) (NotDetected) 11/17/22 11/17/22 11/17/22 Range/Units 20:54 20:54 20:56 WBC (4.8-10.8) K/ul RBC (4.70-6.10) M/uL Hgb (14.0-18.0) g/dl Hct (42.0-52.0) % MCV (80.0-100.0) fL MCH (25.0-34.0) pg MCHC (32.0-36.0) g/dL RDW Std Deviation (36.4-46.3) fL RDW Coeff of Analilia (11.5-14.5) % Plt Count (130-400) K/uL MPV (9.4-12.4) fL Immature Gran % (Auto) % Neut % (Auto) % Lymph % (Auto) % Mitchell % (Auto) % Eos % (Auto) % Baso % (Auto) % Neut # (Auto) (1.40-6.50) K/uL Lymph # (Auto) (1.20-3.40) K/uL Mitchell # (Auto) (0.11-0.59) K/uL Eos # (Auto) (0.00-0.50) K/uL Baso # (Auto) (0.00-0.20) K/uL Immature Gran # (Auto) (0.01-0.20) K/uL Dohle Bodies PT (9.0-12.0) Seconds INR (0.9-1.1) APTT (21.0-31.0) Seconds PTT Ratio VBG pH 7.42 H (7.36-7.41) VBG pCO2 33 L (38-50) mmHg VBG pO2 63 mmHg VBG HCO3 21 mmol/L VBG O2 Saturation 91.5 % VBG Base Excess -2.3 mEq/L Sodium (136-145) mmol/L Potassium (3.5-5.1) mmol/L Chloride (98-107) mmol/L Carbon Dioxide (21-32) mmol/L Anion Gap (3-11) BUN (6-23) mg/dl Creatinine (0.6-1.4) mg/dl Est Cr Clr Drug Dosing ml/min Est GFR ( Amer) ml/min Est GFR (Non-Af Amer) ml/min BUN/Creatinine Ratio (10-20) Glucose (70-99(Fasting)) mg/dl Lactate 1.9 (0.4-2.0) mmol/L Calcium (8.6-10.3) mg/dl Magnesium (1.7-2.4) mg/dl Total Bilirubin (0.2-1.0) mg/dl AST (13-39) U/L ALT (7-52) U/L Alkaline Phosphatase (34-104) U/L Troponin I High Sens (0-20) pg/ml B-Natriuretic Peptide 100 (0-100) pg/ml Total Protein (6.0-8.3) gm/dl Albumin (3.4-5.0) gm/dl Globulin (2.5-4.0) gm/dl Albumin/Globulin Ratio (0.9-2) Urine Color Urine Appearance (Clear) Urine pH (4.5-7.5) Ur Specific [place] (1.000-1.030) Urine Protein (Negative) Urine Glucose (UA) (Negative) Urine Ketones (Negative) Urine Blood (Negative) Urine Nitrite (Negative) Urine Bilirubin (Negative) Urine Urobilinogen (Negative) Ur Leukocyte Esterase (Negative) Adenovirus (PCR) (NotDetected) B. pertussis DNA (PCR) (NotDetected) B.parapertussis DNA PCR (NotDetected) C. pneumoniae DNA (PCR) (NotDetected) Coronavirus OC43 (PCR) (NotDetected) Coronavirus HKU1 (PCR) (NotDetected) Coronavirus 229E (PCR) (NotDetected) SARS-CoV-2 (PCR) (NotDetected) Coronavirus NL63 (PCR) (NotDetected) Human Metapneumovir PCR (NotDetected) Influenza Type A (PCR) (NotDetected) Influenza Type B (PCR) (NotDetected) M. pneumoniae (PCR) (NotDetected) Parainfluenza 1 (PCR) (NotDetected) Parainfluenza 2 (PCR) (NotDetected) Parainfluenza 3 (PCR) (NotDetected) Parainfluenza 4 (PCR) (NotDetected) RSV (PCR) (NotDetected) Entero/Rhino (PCR) (NotDetected) 11/17/22 11/17/22 Range/Units 21:03 21:27 WBC (4.8-10.8) K/ul RBC (4.70-6.10) M/uL Hgb (14.0-18.0) g/dl Hct (42.0-52.0) % MCV (80.0-100.0) fL MCH (25.0-34.0) pg MCHC (32.0-36.0) g/dL RDW Std Deviation (36.4-46.3) fL RDW Coeff of Analilia (11.5-14.5) % Plt Count (130-400) K/uL MPV (9.4-12.4) fL Immature Gran % (Auto) % Neut % (Auto) % Lymph % (Auto) % Mitchell % (Auto) % Eos % (Auto) % Baso % (Auto) % Neut # (Auto) (1.40-6.50) K/uL Lymph # (Auto) (1.20-3.40) K/uL Mitchell # (Auto) (0.11-0.59) K/uL Eos # (Auto) (0.00-0.50) K/uL Baso # (Auto) (0.00-0.20) K/uL Immature Gran # (Auto) (0.01-0.20) K/uL Dohle Bodies PT (9.0-12.0) Seconds INR (0.9-1.1) APTT (21.0-31.0) Seconds PTT Ratio VBG pH (7.36-7.41) VBG pCO2 (38-50) mmHg VBG pO2 mmHg VBG HCO3 mmol/L VBG O2 Saturation % VBG Base Excess mEq/L Sodium (136-145) mmol/L Potassium (3.5-5.1) mmol/L Chloride (98-107) mmol/L Carbon Dioxide (21-32) mmol/L Anion Gap (3-11) BUN (6-23) mg/dl Creatinine (0.6-1.4) mg/dl Est Cr Clr Drug Dosing ml/min Est GFR ( Amer) ml/min Est GFR (Non-Af Amer) ml/min BUN/Creatinine Ratio (10-20) Glucose (70-99(Fasting)) mg/dl Lactate (0.4-2.0) mmol/L Calcium (8.6-10.3) mg/dl Magnesium (1.7-2.4) mg/dl Total Bilirubin (0.2-1.0) mg/dl AST (13-39) U/L ALT (7-52) U/L Alkaline Phosphatase (34-104) U/L Troponin I High Sens (0-20) pg/ml B-Natriuretic Peptide (0-100) pg/ml Total Protein (6.0-8.3) gm/dl Albumin (3.4-5.0) gm/dl Globulin (2.5-4.0) gm/dl Albumin/Globulin Ratio (0.9-2) Urine Color Yellow Urine Appearance Clear (Clear) Urine pH 5.5 (4.5-7.5) Ur Specific [place] 1.031 H (1.000-1.030) Urine Protein Negative (Negative) Urine Glucose (UA) 3+ H (Negative) Urine Ketones Trace H (Negative) Urine Blood Negative (Negative) Urine Nitrite Negative (Negative) Urine Bilirubin Negative (Negative) Urine Urobilinogen Negative (Negative) Ur Leukocyte Esterase Negative (Negative) Adenovirus (PCR) Not Detected (NotDetected) B. pertussis DNA (PCR) Not Detected (NotDetected) B.parapertussis DNA PCR Not Detected (NotDetected) C. pneumoniae DNA (PCR) Not Detected (NotDetected) Coronavirus OC43 (PCR) Not Detected (NotDetected) Coronavirus HKU1 (PCR) Not Detected (NotDetected) Coronavirus 229E (PCR) Not Detected (NotDetected) SARS-CoV-2 (PCR) Not Detected (NotDetected) Coronavirus NL63 (PCR) Not Detected (NotDetected) Human Metapneumovir PCR Not Detected (NotDetected) Influenza Type A (PCR) Not Detected (NotDetected) Influenza Type B (PCR) Not Detected (NotDetected) M. pneumoniae (PCR) Not Detected (NotDetected) Parainfluenza 1 (PCR) Not Detected (NotDetected) Parainfluenza 2 (PCR) Not Detected (NotDetected) Parainfluenza 3 (PCR) Not Detected (NotDetected) Parainfluenza 4 (PCR) Not Detected (NotDetected) RSV (PCR) Not Detected (NotDetected) Entero/Rhino (PCR) Not Detected (NotDetected) Administered Medications Discontinued Medications Albuterol (Albut/Ipratrop 3mg/0.5mg Neb 3 Ml Vial) 3 ml NEB NOW STA; Protocol Stop: 11/17/22 20:42 Last Admin: 11/17/22 20:48 Dose: 3 ml Documented By: FIDE Albuterol (Albut/Ipratrop 3mg/0.5mg Neb 3 Ml Vial) 3 ml NEB NOW STA; Protocol Stop: 11/17/22 21:45 Last Admin: 11/17/22 21:51 Dose: 3 ml Documented By: FIDE Sodium Chloride (Nss 1000ml) 500 mls @ 999 mls/hr IV .Q31M ONE Stop: 11/17/22 22:32 Last Infusion: 11/17/22 22:57 Dose: 0 mls/hr Documented By: Admin: 11/17/22 22:09 Dose: 999 mls/hr Documented By: FIDE Magnesium Sulfate/Dextrose (Magnesium Sulfate / D5w) 1 gm in 100 mls @ 100 mls/hr IV NOW STA Stop: 11/17/22 23:02 Last Infusion: 11/18/22 00:01 Dose: 0 mls/hr Documented By: Infusion: 11/17/22 22:57 Dose: 100 mls/hr Documented By: Infusion: 11/17/22 22:35 Dose: 0 mls/hr Documented By: Admin: 11/17/22 22:09 Dose: 100 mls/hr Documented By: FIDE Ceftriaxone Sodium (Rocephin) 2,000 mg in 70 mls @ 140 mls/hr IV NOW STA Stop: 11/17/22 22:49 Last Infusion: 11/17/22 22:57 Dose: 0 mls/hr Documented By: Admin: 11/17/22 22:36 Dose: 140 mls/hr Documented By: FIDE Methylprednisolone (Methylprednisolone 125 Mg/2 Ml Vial) 125 mg IV NOW STA Stop: 11/17/22 20:42 Last Admin: 11/17/22 21:04 Dose: 125 mg Documented By: FIDE Imaging Data Attestation: I personally reviewed and interpreted this imaging study as follows: My Impression: 1 view chest x-ray was obtained in the emergency department. My interpretation is cardiomegaly, there is no definite infiltrate or free air, final report pending, this was compared to a chest x-ray from May 17, 2022. No significant changes were noted. Discharge Plan Visit Data Chief Complaint: Shortness of Breath/Dyspnea Stated Complaint: SOB, POSS COPB OR PNEUMONIA ED Provider: Montana Thomas Discharge Problem: COPD exacerbation, Acute bronchitis, MIGUEL (acute kidney injury) Patient Disposition: Being Evaluated by Hospitalist Forms Stand Alone Forms: My [facility] Prescriptions Prescriptions: No Action Tresiba FlexTouch U-200 200 unit/mL (3 mL) insulin pen 75 unit SQ HS 90 Days Qty: 36 3RF Rx Instructions: 90 day supply triamcinolone acetonide 0.1 % cream 1 appln topical BID PRN (Reason: rash) Qty: 1 allopurinol 100 mg tablet 100 mg PO QPM Qty: 90 3RF donepezil 5 mg tablet 5 mg PO QPM Qty: 90 0RF Trelegy Ellipta 100-62.5-25 mcg blister with device 1 inh INHALATION QAM Qty: 180 4RF metformin 1,000 mg tablet 1,000 mg PO BID Qty: 180 3RF metoprolol succinate 50 mg tablet extended release 24 hr 50 mg PO QPM Qty: 90 3RF simvastatin 40 mg tablet 40 mg PO PM Qty: 90 3RF venlafaxine [Effexor XR] 75 mg capsule,extended release 24hr 75 mg PO QPM Qty: 90 3RF albuterol sulfate 90 mcg/actuation HFA aerosol inhaler 2 puff INHALATION QID PRN (Reason: Shortness Of Breath Or Wheezing) Qty: 8.5 3RF (DME) CPAP Supplies Misc See Rx Instructions .MEDSUPPLY Qty: 1 0RF Rx Instructions: Refitting of the mask please. G47.33 cholecalciferol (vitamin D3) 125 mcg (5,000 unit) capsule 5,000 unit PO QPM ipratropium-albuterol 0.5 mg-3 mg(2.5 mg base)/3 mL Solution For Nebulization 3 ml INHALATION Q4H PRN (Reason: Shortness Of Breath Or Wheezing) aspirin 325 mg Tablet 325 mg PO QPM Centrum Silver Men 300-600-300 mcg Tablet 1 tab PO QPM tramadol 50 mg tablet 50 mg PO HS PRN (Reason: pain) meloxicam 15 mg tablet 15 mg PO DAILY PRN (Reason: Muscle Spasm) lisinopril 40 mg tablet 40 mg PO HS tamsulosin 0.4 mg capsule 0.4 mg PO HS Referrals Referrals: Hayes Mcduffie DO [Primary Care Provider] -
[2022-11-17 21:10] LABS: Base Excess VBG -2.3 mEq/L; HCO3 VBG 21 mmol/L; Oxygen Saturation VBG 91.5 %; PCO2 VBG 33 mmHg (38-50); PO2 VBG 63 mmHg; pH VBG 7.42 (7.36-7.41)
[2022-11-17 21:40] LABS: Albumin Globulin Ratio 1.2 (0.9-2); Albumin Level 3.8 gm/dl (3.4-5.0); BUN Creatinine Ratio 12.8 (10-20); Bilirubin,Total 0.5 mg/dl (0.2-1.0); Calcium 8.9 mg/dl (8.6-10.3); Creatinine Clr Calc Pharmacy 46.3 ml/min; Est GFR (African American) 41.3 ml/min; Est GFR (Non-African American) 35.6 ml/min; Globulin 3.2 gm/dl (2.5-4.0); Magnesium 1.2 mg/dl (1.7-2.4); Potassium 4.5 mmol/L (3.5-5.1); Troponin I High Sensitivity 9.9 pg/ml (0-20)
[2022-11-17 21:43] LABS: Hematocrit (blood only) 38.4 % (42.0-52.0); Hemoglobin 13.3 g/dl (14.0-18.0); Mean Corpuscular Hemoglobin 32.1 pg (25.0-34.0); Mean Corpuscular Hgb Conc 34.6 g/dL (32.0-36.0); Mean Corpuscular Volume 92.8 fL (80.0-100.0); Platelet Count 245 K/uL (130-400); RDW Coefficient of Variation 13.9 % (11.5-14.5); RDW Standard Deviation 47.1 fL (36.4-46.3); Red Blood Count 4.14 M/uL (4.70-6.10); White Blood Count 8.13 K/ul (4.8-10.8)
[2022-11-17 21:46] LABS: Appearance Urine Clear (Clear); Bilirubin Urine Negative (Negative); Blood Urine Negative (Negative); Color Urine Yellow; Glucose Urine UA 3+ (Negative); Ketones Urine Trace (Negative); Leukocyte Esterase Urine Negative (Negative); Nitrite Urine Negative (Negative); Protein Urine Negative (Negative); Specific Gravity Urine 1.031 (1.000-1.030); Urobilinogen Urine Negative (Negative); pH Urine 5.5 (4.5-7.5)
[2022-11-17 21:48] LABS: Partial Thromboplastin Ratio 0.9; Partial Thromboplastin Time 24.8 Seconds (21.0-31.0); Prothrombin Time 10.9 Seconds (9.0-12.0)
[2022-11-17] MEDS ORDERED: SODIUM CHLORIDE 0.9% 1000ML 500 ML IV ONE (22:02)
[2022-11-17] MEDS ORDERED: MAGNESIUM SULFATE / D5W 1 GM/100 ML BAG IV STA (22:03)
[2022-11-17 22:15] LABS: Adenovirus PCR Not Detected (NotDetected); Bordetella parapertussis PCR Not Detected (NotDetected); Bordetella pertussis PCR Not Detected (NotDetected); Chlamydia pneumoniae PCR Not Detected (NotDetected); Coronavirus 229E PCR Not Detected (NotDetected); Coronavirus CoV-2 (COVID19)PCR Not Detected (NotDetected); Coronavirus HKU1 PCR Not Detected (NotDetected); Coronavirus NL63 PCR Not Detected (NotDetected); Coronavirus OC43PCR Not Detected (NotDetected); Human Metapneumovirus PCR Not Detected (NotDetected); Influenza A PCR Not Detected (NotDetected); Influenza B PCR Not Detected (NotDetected); Mycoplasma pneumoniae PCR Not Detected (NotDetected); Parainfluenza Virus 1 PCR Not Detected (NotDetected); Parainfluenza Virus 2 PCR Not Detected (NotDetected); Parainfluenza Virus 3 PCR Not Detected (NotDetected); Parainfluenza Virus 4 PCR Not Detected (NotDetected); Respiratory Syncytial VirusPCR Not Detected (NotDetected); Rhinovirus/Enterovirus PCR Not Detected (NotDetected)
[2022-11-17] MEDS ORDERED: cefTRIAXone SODIUM 2,000 MG/70 ML BAG IV STA (22:20)
[2022-11-17 22:39] LABS: Basophils # (auto) 0.05 K/uL (0.00-0.20); Basophils % (auto) 0.6 %; Dohle Bodies 1+; Eosinophils # (auto) 0.05 K/uL (0.00-0.50); Eosinophils % (auto) 0.6 %; Immature Granulocytes # (auto) 0.03 K/uL (0.01-0.20); Immature Granulocytes % (auto) 0.4 %; Lymphocytes % (auto) 12.3 %; Monocytes # (auto) 1.17 K/uL (0.11-0.59); Monocytes % (auto) 14.4 %; Neutrophils # (auto) 5.83 K/uL (1.40-6.50); Neutrophils % (auto) 71.7 %
[2022-11-17] MEDS ORDERED: lisinopril 40 MG TAB PO STA (23:24)
[2022-11-17] MEDS ORDERED: allopurinoL 100 MG TAB PO STA (23:24)
[2022-11-17] MEDS ORDERED: TAMSULOSIN HCL 0.4 MG CAP PO ONE (23:24)
[2022-11-17] MEDS ORDERED: SIMVASTATIN 40 MG TAB PO STA (23:24)
[2022-11-17] MEDS ORDERED: ASPIRIN 325 MG ECTAB PO STA (23:24)
[2022-11-17] MEDS ORDERED: DONEPEZIL HCL 5 MG TAB PO STA (23:24)
[2022-11-17] MEDS ORDERED: METOPROLOL SUCC 50MG EXT REL TAB PO STA (23:24)
[2022-11-17] MEDS ORDERED: VENLAFAXINE HCL XR 75 MG CAPXR PO ONE (23:25)
[2022-11-17] MEDS ORDERED: INSULIN ASPART PER UNIT CHARGE SC STA (23:30)
--- NOTE | 2022-11-17 23:32 | History & Physical Report ---
Date of Service November 17, 2022 Assessment & Plan (1) COPD exacerbation: Plan: 72yo male presenting with 1 week of progressive shortness of breath, cough with increased yellow sputum. Hypoxic on room air in the ER requiring placement of supplemental O2 - now adequate oxygenation on 2L NC. Exam with diffuse wheezing and rhonchi. Labs largely unremarkable. CXR does not appear to have obvious infiltrate. -Admit to medical with telemetry -Continue supplemental O2 as needed - goal saturation 88-92% -Duoneb q4 -Albuterol q 2 hours PRN -Solumedrol 40mg IV TID -Doxycycline 100mg IV BID - patient received a dose of Ceftriaxone in the ER -Guaifenesin, Flutter valve (2) Depression: Plan: Chronic. Stable. -Continue Venlafaxine (3) Gout: Plan: Chronic. Stable -Continue Allopurinol 100mg po daily (4) ROSA (obstructive sleep apnea): Plan: Chronic. Patient is compliant with his home CPAP. -Continue CPAP qHS (5) Hypertension: Plan: Chronic. Elevated blood pressure in the ER. -Continue Lisinopril -Continue Metoprolol History of Present Illness Chief Complaint: shortness of breath Primary Care Provider: Hayes Mcduffie DO Barrett Trinh is a pleasant 72yo male with history of COPD (PFTs 06/10/22 with FEV1/FVC 70%, FEV1 82% - follows with Pulmonary) and ROSA presenting with one week of worsening shortness of breath. Patient was seen by his PCP on 11/11/22 and reported some mild respiratory complaints. He was prescribed Prednisone 50mg daily x 5 days. Patient completed his course of steroids as directed. He states that he initially had some improvement in his chest congestion, however, after the steroids finished he has had progressive symptoms. He reports worsening shortness of breath and cough productive for yellow sputum as well as significant audible wheezing. Today he reports severe shortness of breath and fatigue - slept most of the day. He denies fever, chills but has been very diaphoretic today with some nausea. He denies hemoptysis, edema, orthopnea, weight gain, chest pain or palpitation. He tested NEGATIVE for Covid-19 on 11/11/22 as well as today. In the ER he is afebrile, hypertensive otherwise stable. Hypoxic on arrival at 89% on room air - placed on supplemental O2 with improvement. ER Course: Lisinopril 40gm ASA 325mg Allopurinol 100mg Donezepil 5mg Simvastatin 40mg Metoprolol 50mg Venlafaxine 75mg Flomax 0.4mg Ceftriaxone 2gm Magnesium 1gm NSS x 500mL Albuterol 3mL neb x 1 Solumedrol 125mg Allergies Allergy/AdvReac Type Severity Reaction Status Date / Time codeine AdvReac Mild NAUSEA Verified 11/11/22 08:53 Home Medications Medication Instructions Recorded Confirmed Type aspirin 325 mg tablet 325 mg PO QPM 01/11/18 11/17/22 History ipratropium 0.5 mg-albuterol 3 mg 3 ml inhalation Q4H PRN Shortness 01/11/18 11/17/22 History (2.5 mg base)/3 mL nebulization Of Breath Or Wheezing soln [id number] 300 mcg-K 60 1 tab PO QPM 01/11/18 11/17/22 History mcg-lycop 600 mcg-lutein 300 mcg tablet (Centrum Silver Men) triamcinolone acetonide 0.1 % 1 appln topical BID PRN rash #1 g 01/01/19 11/17/22 History topical cream cholecalciferol (vitamin D3) 125 5,000 unit PO QPM 12/31/19 11/17/22 History mcg (5,000 unit) capsule CPAP Supplies #1 ea 07/25/22 11/17/22 Rx albuterol sulfate 90 mcg/actuation 2 puff inhalation QID PRN 07/25/22 11/17/22 Rx aerosol inhaler Shortness Of Breath Or Wheezing #8.5 grams allopurinol 100 mg tablet 100 mg PO QPM #90 tabs 08/07/22 11/17/22 Rx donepezil 5 mg tablet 5 mg PO QPM #90 tabs 08/07/22 11/17/22 Rx fluticasone fur. 100 mcg-umeclid 1 inh inhalation QAM #180 ea 08/07/22 11/17/22 Rx 62.5 mcg-vilant 25 mcg inhalat.powder (Trelegy Ellipta) metformin 1,000 mg tablet 1,000 mg PO BID #180 tabs 08/07/22 11/17/22 Rx metoprolol succinate 50 mg 50 mg PO QPM #90 tabs 08/07/22 11/17/22 Rx tablet,extended release 24 hr simvastatin 40 mg tablet 40 mg PO PM #90 tabs 08/07/22 11/17/22 Rx venlafaxine 75 mg capsule,extended 75 mg PO QPM #90 caps 08/07/22 11/17/22 Rx release 24 hr (Effexor XR) insulin degludec 200 unit/mL (3 75 unit (0.375 mL) subcut HS 90 11/01/22 11/17/22 Rx mL) subcutaneous pen (Tresiba days #36 mL FlexTouch U-200 insulin) lisinopril 40 mg tablet 40 mg PO HS 11/17/22 11/17/22 History meloxicam 15 mg tablet 15 mg PO DAILY PRN Muscle Spasm 11/17/22 11/17/22 History tamsulosin 0.4 mg capsule 0.4 mg PO HS 11/17/22 11/17/22 History tramadol 50 mg tablet 50 mg PO HS PRN pain 11/17/22 11/17/22 History Past Med/Surg History Medical History Abdominal bloating Acute respiratory failure with hypoxia Aortic valve insufficiency History of anesthesia reaction In 2009--during rotator cuff sx at [facility] pt had difficulty with breathing during sx, per pt they stopped the sx and moved it to [facility] and then pt had no further issues...pt states this the only time he has ever had any issues with anesthesia History of COVID-19 diagnosed 12/2019--mild symptoms, no symptoms now History of kidney stones Right lower lobe pneumonia Sepsis Surgical History H/O [place] (~12/2006[place] [facility] [place]. Alexander History of appendectomy History of arthroscopy of knee History of cardiac cath 2001 prior to AAA repair--no stents History of cardiac radiofrequency ablation (RFA) (~05/2017) for SVT History of colonoscopy last 03/2020 @ [facility] History of cystoscopy History of repair of left rotator cuff Hx of left cataract extraction Family History Father Colorectal cancer Grandmother (Paternal) Colorectal cancer Mother Diabetes Other Family history non-contributory No family history of adverse response to anesthesia Denies family history of Ovarian cancer Prostate cancer Myocardial infarction Breast cancer Social History Smoking Status: Former smoker Tobacco Type: Cigarettes Cigarettes Per Day: 20; Second Hand Exposure: No; Do You Dip or Chew Tobacco: No; Hx Alcohol Use: Yes Alcohol type: beer Alcohol Intake Frequency: 2-3 x/Week Hx Substance Use: No Preferred Language: Zambian Communication Ability: Effective Visual Impairment: No Limitations Hearing Ability: Normal Icu Tech Required: No Beliefs That Will Affect Care: None marital status: Current Living Situation: Spouse current occupational status: retired How many Children do You have: 2 Feels Safe at Home: Yes Childhood Exposure to Second-Hand Smoke: No Diet: regular caffeine: Yes during the past year weight has: remained stable Dental Care, Regularly: No Physical Activity Frequency: Daily Seatbelt Use: always Sunscreen Use: No Assistive Devices: CPAP and Nebulizer Review of Systems Review of Systems: All systems reviewed & are unremarkable except as noted in HPI & below Physical Exam Physical Exam: General: patient resting comfortably, NAD, non-toxic in appearance, AA&O x 4, NC in place Skin: warm, dry, intact, no rashes or lesions HEENT: NC/AT, PERRL, EOMI, anicteric sclera, conjunctiva without injection, external ear normal to inspection and nontender, nares patent, moist mucus membranes, dentition intact, no oropharyngeal lesions, neck supple, trachea midline, no LAD, no thyromegaly, no JVD Heart: +S1/S2, regular, no m/r/g Lungs: equal air entry bilaterally, coarse breath sounds bilaterally with dif fuse end-expiratory wheezes Abd: +BS, soft, NT/ND, no masses/organomegaly/ascites Ext: warm, 2+ pulses in UE/LE bilaterally, no clubbing/cyanosis or edema Neuro: nonfocal, patient AA&O x 4, speech intact, no facial droop, moving all extremities on command with equal strength 5/5 Results & Data Results & Data Vital Signs (Past 12 Hours) Vital Signs Temp Pulse Resp BP Pulse Ox O2 Del Method O2 Flow Rate 11/17/22 23:00 78 22 183/96 H 94 Nasal Cannula 2 11/17/22 23:07 80 11/17/22 22:36 82 19 177/72 H 90 Nasal Cannula 2 11/17/22 22:30 93 H 19 177/83 H 94 Nasal Cannula 2 11/17/22 22:00 84 13 169/87 H 95 Nebulizer 7 11/17/22 21:34 80 21 163/85 H 92 Nasal Cannula 2 11/17/22 21:30 82 21 92 Nasal Cannula 2 11/17/22 21:00 81 19 172/86 H 92 Nasal Cannula 2 11/17/22 21:07 Nasal Cannula 2 11/17/22 20:40 82 11/17/22 20:49 90 Nasal Cannula 0 11/17/22 20:33 36.5 C 84 22 169/79 H 89 L Room Air Laboratory Results Laboratory Results WBC 8.13 K/ul (4.8-10.8) 11/17/22 20:54 RBC 4.14 M/uL (4.70-6.10) L 11/17/22 20:54 Hgb 13.3 g/dl (14.0-18.0) L 11/17/22 20:54 Hct 38.4 % (42.0-52.0) L 11/17/22 20:54 MCV 92.8 fL (80.0-100.0) 11/17/22 20:54 MCH 32.1 pg (25.0-34.0) 11/17/22 20:54 MCHC 34.6 g/dL (32.0-36.0) 11/17/22 20:54 RDW Std Deviation 47.1 fL (36.4-46.3) H 11/17/22 20:54 RDW Coeff of Analilia 13.9 % (11.5-14.5) 11/17/22 20:54 Plt Count 245 K/uL (130-400) 11/17/22 20:54 MPV 9.0 fL (9.4-12.4) L 11/17/22 20:54 Immature Gran % (Auto) 0.4 % 11/17/22 20:54 Neut % (Auto) 71.7 % 11/17/22 20:54 Lymph % (Auto) 12.3 % 11/17/22 20:54 [place] % (Auto) 14.4 % 11/17/22 20:54 Eos % (Auto) 0.6 % 11/17/22 20:54 Baso % (Auto) 0.6 % 11/17/22 20:54 Neut # (Auto) 5.83 K/uL (1.40-6.50) 11/17/22 20:54 Lymph # (Auto) 1.00 K/uL (1.20-3.40) L 11/17/22 20:54 [place] # (Auto) 1.17 K/uL (0.11-0.59) H 11/17/22 20:54 Eos # (Auto) 0.05 K/uL (0.00-0.50) 11/17/22 20:54 Baso # (Auto) 0.05 K/uL (0.00-0.20) 11/17/22 20:54 Immature Gran # (Auto) 0.03 K/uL (0.01-0.20) 11/17/22 20:54 Dohle Bodies 1+ 11/17/22 20:54 PT 10.9 Seconds (9.0-12.0) 11/17/22 20:54 INR 1.0 (0.9-1.1) 11/17/22 20:54 APTT 24.8 Seconds (21.0-31.0) 11/17/22 20:54 PTT Ratio 0.9 11/17/22 20:54 VBG pH 7.42 (7.36-7.41) H 11/17/22 20:54 VBG pCO2 33 mmHg (38-50) L 11/17/22 20:54 VBG pO2 63 mmHg 11/17/22 20:54 VBG HCO3 21 mmol/L 11/17/22 20:54 VBG O2 Saturation 91.5 % 11/17/22 20:54 VBG Base Excess -2.3 mEq/L 11/17/22 20:54 Sodium 137 mmol/L (136-145) 11/17/22 20:54 Potassium 4.5 mmol/L (3.5-5.1) 11/17/22 20:54 Chloride 105 mmol/L (98-107) 11/17/22 20:54 Carbon Dioxide 23 mmol/L (21-32) 11/17/22 20:54 Anion Gap 9 (3-11) 11/17/22 20:54 BUN 24 mg/dl (6-23) H 11/17/22 20:54 Creatinine 1.87 mg/dl (0.6-1.4) H 11/17/22 20:54 Est Cr Clr Drug Dosing 46.3 ml/min 11/17/22 20:54 Est GFR ( Amer) 41.3 ml/min 11/17/22 20:54 Est GFR (Non-Af Amer) 35.6 ml/min 11/17/22 20:54 BUN/Creatinine Ratio 12.8 (10-20) 11/17/22 20:54 Glucose 341 mg/dl (70-99(Fasting)) H* 11/17/22 20:54 POC Glucose 328 mg/dl (70-99) H* 11/18/22 00:24 Lactate 1.9 mmol/L (0.4-2.0) 11/17/22 20:56 Calcium 8.9 mg/dl (8.6-10.3) 11/17/22 20:54 Magnesium 1.2 mg/dl (1.7-2.4) L 11/17/22 20:54 Total Bilirubin 0.5 mg/dl (0.2-1.0) 11/17/22 20:54 AST 14 U/L (13-39) 11/17/22 20:54 ALT 17 U/L (7-52) 11/17/22 20:54 Alkaline Phosphatase 83 U/L (34-104) 11/17/22 20:54 Troponin I High Sens 9.9 pg/ml (0-20) 11/17/22 20:54 B-Natriuretic Peptide 100 pg/ml (0-100) 11/17/22 20:54 Total Protein 7.0 gm/dl (6.0-8.3) 11/17/22 20:54 Albumin 3.8 gm/dl (3.4-5.0) 11/17/22 20:54 Globulin 3.2 gm/dl (2.5-4.0) 11/17/22 20:54 Albumin/Globulin Ratio 1.2 (0.9-2) 11/17/22 20:54 Urine Color Yellow 11/17/22 21:27 Urine Appearance Clear (Clear) 11/17/22 21:27 Urine pH 5.5 (4.5-7.5) 11/17/22 21: Ur Specific [place] 1.031 (1.000-1.030) H 11/17/22 21: Urine Protein Negative (Negative) 11/17/22 21: Urine Glucose (UA) 3+ (Negative) H 11/17/22 21: Urine Ketones Trace (Negative) H 11/17/22 21: Urine Blood Negative (Negative) 11/17/22 21: Urine Nitrite Negative (Negative) 11/17/22 21: Urine Bilirubin Negative (Negative) 11/17/22 21: Urine Urobilinogen Negative (Negative) 11/17/22 21: Ur Leukocyte Esterase Negative (Negative) 11/17/22 21:27 Adenovirus (PCR) Not Detected (NotDetected) 11/17/22 21:03 B. pertussis DNA (PCR) Not Detected (NotDetected) 11/17/22 21:03 B.parapertussis DNA PCR Not Detected (NotDetected) 11/17/22 21:03 C. pneumoniae DNA (PCR) Not Detected (NotDetected) 11/17/22 21:03 Coronavirus OC43 (PCR) Not Detected (NotDetected) 11/17/22 21:03 Coronavirus HKU1 (PCR) Not Detected (NotDetected) 11/17/22 21:03 Coronavirus 229E (PCR) Not Detected (NotDetected) 11/17/22 21:03 SARS-CoV-2 (PCR) Not Detected (NotDetected) 11/17/22 21:03 Coronavirus NL63 (PCR) Not Detected (NotDetected) 11/17/22 21:03 Human Metapneumovir PCR Not Detected (NotDetected) 11/17/22 21:03 Influenza Type A (PCR) Not Detected (NotDetected) 11/17/22 21:03 Influenza Type B (PCR) Not Detected (NotDetected) 11/17/22 21:03 M. pneumoniae (PCR) Not Detected (NotDetected) 11/17/22 21:03 Parainfluenza 1 (PCR) Not Detected (NotDetected) 11/17/22 21:03 Parainfluenza 2 (PCR) Not Detected (NotDetected) 11/17/22 21:03 Parainfluenza 3 (PCR) Not Detected (NotDetected) 11/17/22 21:03 Parainfluenza 4 (PCR) Not Detected (NotDetected) 11/17/22 21:03 RSV (PCR) Not Detected (NotDetected) 11/17/22 21:03 Entero/Rhino (PCR) Not Detected (NotDetected) 11/17/22 21:03 Code Status & VTE Plan VTE Prophylaxis Plan VTE Prophylaxis will be ordered: Yes PG Care Time/CCT Total # of Minutes Spent Total Time Spent with Patient: Total time spent is greater than 50% in coordination of care (as documented) at patient's floor/unit and/or counseling patient: Coding Level of Care Code 60780 INT INP/OBS CARE 3/75MIN Diagnoses COPD exacerbation J44.1 Depression F32.9 Gout M10.9 ROSA (obstructive sleep apnea) G47.33 Hypertension I10
[2022-11-18] MEDS ORDERED: GLUCAGON FOR INJ 1 MG VIAL SQ PRN (00:27)
[2022-11-18] MEDS ORDERED: GLUCOSE 40% GEL 15 GM TUBE PO PRN (00:27)
[2022-11-18] MEDS ORDERED: DEXTROSE 50% 50 ML SYRINGE IV PRN (00:27)
[2022-11-18] MEDS ORDERED: BENZONATATE 100 MG CAPSULE PO PRN (00:27)
[2022-11-18] MEDS ORDERED: ALBUTEROL 0.083% NEBU SOLN 3 ML VIAL NEB PRN (00:27)
[2022-11-18] MEDS ORDERED: traMADol HCL 50 MG TABLET PO PRN (00:27)
[2022-11-18] MEDS ORDERED: ACETAMINOPHEN 325 MG TAB PO PRN (00:27)
[2022-11-18] MEDS ORDERED: ONDANSETRON INJ 2 MG/ML 2 ML VIAL IV PRN (00:27)
[2022-11-18] MEDS ORDERED: GLUCOSE 10 TAB/TUBE PO PRN (00:27)
[2022-11-18] MEDS ORDERED: CARBOHYDRATES FOR HYPOGLYCEMIA PO PRN (00:27)
[2022-11-18] MEDS: DOXYCYCLINE HYCLATE 100 MG in DEXTROSE 5% 100 ML IV SCH ×2 (01:16→15:04)
[2022-11-18] MEDS: MAGNESIUM SULFATE / D5W 1 GM/100 ML BAG IV SCH ×3 (01:16→05:01)
[2022-11-18 01:50] LABS: Hemoglobin 12.9 g/dl (14.0-18.0); Mean Corpuscular Hemoglobin 31.4 pg (25.0-34.0); Mean Corpuscular Hgb Conc 33.9 g/dL (32.0-36.0); Mean Corpuscular Volume 92.5 fL (80.0-100.0); Mean Platelet Volume 8.9 fL (9.4-12.4); Platelet Count 232 K/uL (130-400); RDW Coefficient of Variation 13.9 % (11.5-14.5); RDW Standard Deviation 47.2 fL (36.4-46.3); Red Blood Count 4.11 M/uL (4.70-6.10); White Blood Count 6.63 K/ul (4.8-10.8)
[2022-11-18 02:12] LABS: BUN Creatinine Ratio 16.9 (10-20); Calcium 8.4 mg/dl (8.6-10.3); Creatinine Clr Calc Pharmacy 57.9 ml/min; Est GFR (African American) 54.8 ml/min; Est GFR (Non-African American) 47.3 ml/min; Magnesium 1.6 mg/dl (1.7-2.4); Potassium 4.1 mmol/L (3.5-5.1)
[2022-11-18] MEDS: INSULIN ASPART PER UNIT CHARGE SC SCH ×5 (02:26→21:30)
[2022-11-18] MEDS ORDERED: INSULIN HUMAN REGULAR PER UNIT 10 UNITS in SYRINGE 9.9 ML IV ONE (02:45)
[2022-11-18] MEDS: ALBUT/IPRATROP 3MG/0.5MG NEB 3 ML VIAL NEB SCH ×6 (03:24→23:10)
[2022-11-18] MEDS: methylPREDNISolone 40 MG in SYRINGE 0 ML IV SCH ×3 (06:34→21:28)
--- NOTE | 2022-11-18 07:33 | XRay Report ---
XR chest 1V portable CLINICAL HISTORY: Dyspnea. COMPARISON STUDY: Chest CT April 2022. Chest radiograph May 17, 2022. FINDINGS: There are median sternotomy wires. Mild cardiomegaly is noted without evidence for pulmonar y edema. There is no pneumothorax or pleural effusion. There is no consolidation to suggest pneumonia . IMPRESSION: No acute cardiopulmonary findings. ACT 112: Negative or not required by law. Electronically signed by: Clyde Tapia M.D. 11/18/2022 7:32 AM
[2022-11-18] MEDS ORDERED: LANTUS PER UNIT CHARGE SQ SCH (09:00)
[2022-11-18] MEDS ORDERED: NON-FORMULARY MEDICATION (Fluticasone-Umeclidin-Vilanter [Trelegy Ellipta] 100-62.5-25 mcg INH SCH (09:00)
[2022-11-18] MEDS: FLUTICASONE FUROATE 100MCG 14 PUFFS/INHALER INH SCH (09:17)
[2022-11-18] MEDS: guaiFENesin 600 MG TABCR PO SCH ×2 (09:18→21:28)
[2022-11-18] MEDS: UMECLIDINIUM/VILANTEROL 62.5/25MCG 7 PUFFS/INHALER INH SCH (09:18)
[2022-11-18] MEDS: ENOXAPARIN INJ 40 MG/0.4 ML SYR SQ SCH (09:19)
--- NOTE | 2022-11-18 16:55 | Hospitalist Progress Note ---
Date of Service November 18, 2022 Assessment & Plan (1) COPD exacerbation: Plan: 72yo male presenting with 1 week of progressive shortness of breath, cough with increased yellow sputum. Hypoxic on room air in the ER requiring placement of supplemental O2 - now adequate oxygenation on 2L NC. Exam continues with diffuse wheezing and rhonchi. Labs largely unremarkable. CXR does not appear to have obvious infiltrate. 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 now improved with control of glucose and received 500mL of NS on admission -follow BMP in AM -ok to continue home lisinopril (4) Diabetes: Plan: with hyperglycemia here 2/2 steroids increase Lantus to 30 units bid and tighten down CF typically well controlled with A1C here of only 7.2% holding home metformin (5) Hypomagnesemia: Plan: replace with IV mag follow level in AM (6) Gout: Plan: Chronic. Stable -Continue Allopurinol 100mg po daily (7) ROSA (obstructive sleep apnea): Plan: Chronic. Patient is compliant with his home CPAP. -Continue CPAP qHS (8) Hypertension: Plan: Chronic. continues with some elevation in BPs -Continue Lisinopril -Continue Metoprolol (9) Depression: Plan: Chronic. Stable. -Continue Venlafaxine Plan DVT proph-Lovenox Dispo-continued stay, possible dc to home in 1-2 days Admission and Anticipated Discharge Date Admission Date: November 17, 2022 Subjective Feeling better than yesterday. Less SOB, still some productive cough. No chest pain. Remains on supplemental O2. Is eating, no bowel or bladder issues. Tele with NSR, PACs Physical Exam Constitutional: WD/WN, vitals as above Neck: trachea midline, no thyromegaly Respiratory: normal respiratory effort and + cough Auscultation: + wheezes (diffuse, bilateral, expiratory) Cardiovascular: RRR, no murmur, no edema Chest (Breasts): Chest: normal inspection of chest Gastrointestinal (Abdomen): normal bowel sounds, soft, nontender, no hepatosplenomegaly Musculoskeletal: Extremities: extremities normal to inspection; no cyanosis and no clubbing Skin: no rashes, warm and dry Neurologic: moves all extremities and awake; no focal motor deficits Psychiatric: A+Ox3, euthymic affect Lymphatic: no lymphedema Results & Data Results & Data Vital Signs (Past 12 Hours) Vital Signs Pulse Pulse Resp BP BP Pulse Ox O2 Del Method 11/18/22 09:00 Nasal Cannula 11/18/22 15:06 85 11/18/22 15:11 80 18 182/81 H 93 Room Air 11/18/22 14:35 90 18 93 Nasal Cannula 11/18/22 11:30 77 18 95 Room Air 11/18/22 11:00 90 19 94 Nasal Cannula 11/18/22 07:26 76 16 94 Nasal Cannula 11/18/22 07:01 67 15 11/18/22 06:59 64 18 Nasal Cannula 11/18/22 06:36 146/80 H 11/18/22 06:36 76 15 Nasal Cannula 11/18/22 06:36 68 17 146/80 H 93 Nasal Cannula O2 Flow Rate 11/18/22 09:00 2 11/18/22 15:06 11/18/22 15:11 2 11/18/22 14:35 2 11/18/22 11:30 11/18/22 11:00 2 11/18/22 07:26 2 11/18/22 07:01 11/18/22 06:59 2 11/18/22 06:36 11/18/22 06:36 2 11/18/22 06:36 2 Laboratory Results CBC, BMP, magnesium reviewed PG Care Time/CCT Total # of Minutes Spent Total Time Spent with Patient: Total time spent is greater than 50% in coordination of care (as documented) at patient's floor/unit and/or counseling patient: Coding Level of Care Code 87333 SUB INP/OBS CARE 2/35MIN Diagnoses COPD exacerbation J44.1 Acute respiratory failure with hypoxia J96.01 MIGUEL (acute kidney injury) N17.9 Diabetes E11.9 Hypomagnesemia E83.42 Gout M10.9 ROSA (obstructive sleep apnea) G47.33 Hypertension I10 Depression F32.9
[2022-11-18] MEDS: lisinopril 40 MG TAB PO SCH (21:26)
[2022-11-18] MEDS: METOPROLOL SUCC 50MG EXT REL TAB PO SCH (21:26)
[2022-11-18] MEDS: VENLAFAXINE HCL XR 75 MG CAPXR PO SCH (21:26)
[2022-11-18] MEDS: DONEPEZIL HCL 5 MG TAB PO SCH (21:26)
[2022-11-18] MEDS: ASPIRIN 325 MG ECTAB PO SCH (21:28)
[2022-11-18] MEDS: allopurinoL 100 MG TAB PO SCH (21:28)
[2022-11-18] MEDS: LANTUS PER UNIT CHARGE SQ SCH (21:28)
--- NOTE | 2022-11-18 21:58 | Electrocardiogram Report ---
Test Reason : Blood Pressure : / mmHG Vent. Rate : 077 BPM Atrial Rate : 077 BPM P-R Int : 172 ms QRS Dur : 088 ms QT Int : 356 ms P-R-T Axes : 039 069 101 degrees QTc Int : 402 ms Sinus rhythm with Premature atrial complexes Nonspecific ST and T wave abnormality Abnormal ECG When compared with ECG of 01-MAY-2022 11:42, Vent. rate has decreased BY 40 BPM T wave inversion no longer evident in Inferolateral leads Confirmed by Willie Delcid ([id number]) on 11/18/2022 9:58:17 PM Referred By: REFERRED SELF Confirmed By:Willie Delcid
[2022-11-18] MEDS: TAMSULOSIN HCL 0.4 MG CAP PO SCH (22:51)
[2022-11-19] MEDS: DOXYCYCLINE HYCLATE 100 MG in DEXTROSE 5% 100 ML IV SCH ×2 (02:02→14:44)
[2022-11-19] MEDS: ALBUT/IPRATROP 3MG/0.5MG NEB 3 ML VIAL NEB SCH ×6 (04:27→23:39)
[2022-11-19] MEDS: methylPREDNISolone 40 MG in SYRINGE 0 ML IV SCH ×2 (05:45→21:46)
--- NOTE | 2022-11-19 05:49 | Electrocardiogram Report ---
Test Reason : Blood Pressure : / mmHG Vent. Rate : 085 BPM Atrial Rate : 085 BPM P-R Int : 140 ms QRS Dur : 100 ms QT Int : 370 ms P-R-T Axes : 000 066 083 degrees QTc Int : 440 ms Sinus rhythm with Premature supraventricular complexes Nonspecific ST and T wave abnormality When compared with ECG of 17-NOV-2022 20:42, No significant change was found Confirmed by Willie Delcid ([id number] on 11/19/2022 5:49:21 AM Referred By: REFERRED SELF Confirmed By:Willie Delcid
[2022-11-19 07:08] LABS: BUN Creatinine Ratio 23.7 (10-20); Calcium 8.4 mg/dl (8.6-10.3); Est GFR (African American) 96.1 ml/min; Est GFR (Non-African American) 82.9 ml/min; Magnesium 1.5 mg/dl (1.7-2.4); Potassium 4.4 mmol/L (3.5-5.1)
[2022-11-19] MEDS: FLUTICASONE FUROATE 100MCG 14 PUFFS/INHALER INH SCH (08:30)
[2022-11-19] MEDS: UMECLIDINIUM/VILANTEROL 62.5/25MCG 7 PUFFS/INHALER INH SCH (08:30)
[2022-11-19] MEDS: guaiFENesin 600 MG TABCR PO SCH ×2 (08:31→21:45)
[2022-11-19] MEDS: LANTUS PER UNIT CHARGE SQ SCH ×2 (09:26→21:47)
[2022-11-19] MEDS: MAGNESIUM SULFATE / D5W 1 GM/100 ML BAG IV SCH ×3 (09:26→13:37)
[2022-11-19] MEDS: INSULIN ASPART PER UNIT CHARGE SC SCH ×4 (09:27→20:32)
[2022-11-19] MEDS: ENOXAPARIN INJ 40 MG/0.4 ML SYR SQ SCH (09:28)
--- NOTE | 2022-11-19 13:29 | Hospitalist Progress Note ---
Date of Service November 19, 2022 Assessment & Plan (1) COPD exacerbation: Plan: 72yo male presenting with 1 week of progressive shortness of breath, cough with increased yellow sputum. Hypoxic on room air in the ER requiring placement of supplemental O2 CXR does not appear to have obvious infiltrate. BioFire RP negative Improving with less dyspnea since admission but wheezing persists Weaned to room air at rest but still with intermittent chest tightness and BHARDWAJ -collect sputum culture -Continue supplemental O2 as needed - goal saturation 88-92%-will check 2 step prior to discharge -continue Duoneb q4 and Albuterol q 2 hours PRN -continue Solumedrol but decrease frequency to 40mg IV BID -continue Doxycycline 100mg but change IV to PO BID - patient received a dose of Ceftriaxone in the ER -continue Guaifenesin, Flutter valve -gave 3 grams IV magnesium today -continue home maintenance inhalers (2) Acute respiratory failure with hypoxia: Plan: 2/2 COPD exacerbation treatment as above, improving (3) 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 now resolved with control of glucose and received 500mL of NS on admission -follow BMP in AM -ok to continue home lisinopril (4) Diabetes: Plan: with hyperglycemia here 2/2 steroids-improving now with higher doses of insulin Increase Lantus to 35 units bid and tighten down CR to 4 typically well controlled with A1C here of only 7.2% holding home metformin (5) Hypomagnesemia: Plan: replace with IV mag again today unclear reason why persistently low follow level in AM (6) Gout: Plan: Chronic. Stable -Continue Allopurinol 100mg po daily (7) ROSA (obstructive sleep apnea): Plan: Chronic. Patient is compliant with his home CPAP. -Continue CPAP qHS (8) Hypertension: Plan: Chronic. continues with some elevation in BPs -Continue Lisinopril -Continue Metoprolol (9) Depression: Plan: Chronic. Stable. -Continue Venlafaxine Plan DVT proph-Lovenox Dispo-continued stay, possible dc to home tomorrow Admission and Anticipated Discharge Date Admission Date: November 17, 2022 Subjective [place] very tight in the chest this AM and POx was 90% which worried him. This got better with neb treatment. Is coughing up sputum. Moving bowels, eating. The IV doxy burned his whole right arm this AM and his IV site infiltrated as per operations manager with NSR, frequent PACs Physical Exam Constitutional: WD/WN, vitals as above Neck: trachea midline, no thyromegaly Respiratory: normal respiratory effort and + cough Auscultation: + wheezes (diffuse, bilateral, expiratory) Cardiovascular: RRR, no murmur, no edema Chest (Breasts): Chest: normal inspection of chest Gastrointestinal (Abdomen): normal bowel sounds, soft, nontender, no hepatosplenomegaly Musculoskeletal: Extremities: extremities normal to inspection; no cyanosis and no clubbing Skin: no rashes, warm and dry Neurologic: moves all extremities and awake; no focal motor deficits Psychiatric: A+Ox3, euthymic affect Lymphatic: no lymphedema Results & Data Results & Data Vital Signs (Past 12 Hours) Vital Signs Temp Pulse Resp BP Pulse Ox O2 Del Method 11/19/22 11:20 97 H 16 92 Room Air 11/19/22 11:08 36.7 C 91 H 16 167/72 H 95 Room Air 11/19/22 07:34 36.7 C 74 18 152/82 H 90 Room Air 11/19/22 07:17 102 H 18 92 Room Air 11/19/22 06:07 99 H 146/74 H 11/19/22 04:47 36.3 C L 74 20 169/103 H 93 Room Air 11/19/22 04:27 76 18 90 Room Air Laboratory Results BMP, magnesium reviewed PG Care Time/CCT Total # of Minutes Spent Total Time Spent with Patient: Total time spent is greater than 50% in coordination of care (as documented) at patient's floor/unit and/or counseling patient: Coding Level of Care Code 76901 SUB INP/OBS CARE 2/35MIN Diagnoses COPD exacerbation J44.1 Acute respiratory failure with hypoxia J96.01 MIGUEL (acute kidney injury) N17.9 Diabetes E11.9 Hypomagnesemia E83.42 Gout M10.9 ROSA (obstructive sleep apnea) G47.33 Hypertension I10 Depression F32.9
[2022-11-19] MEDS: DOXYCYCLINE HYCLATE 100 MG CAP PO SCH (16:28)
[2022-11-19] MEDS ORDERED: SIMVASTATIN 40 MG TAB PO SCH (21:00)
[2022-11-19] MEDS: lisinopril 40 MG TAB PO SCH (21:45)
[2022-11-19] MEDS: VENLAFAXINE HCL XR 75 MG CAPXR PO SCH (21:45)
[2022-11-19] MEDS: METOPROLOL SUCC 50MG EXT REL TAB PO SCH (21:45)
[2022-11-19] MEDS: allopurinoL 100 MG TAB PO SCH (21:45)
[2022-11-19] MEDS: DONEPEZIL HCL 5 MG TAB PO SCH (21:45)
[2022-11-19] MEDS: TAMSULOSIN HCL 0.4 MG CAP PO SCH (21:45)
[2022-11-19] MEDS: ASPIRIN 325 MG ECTAB PO SCH (21:45)
[2022-11-20] MEDS: ALBUT/IPRATROP 3MG/0.5MG NEB 3 ML VIAL NEB SCH ×3 (03:48→11:34)
[2022-11-20 08:13] LABS: BUN Creatinine Ratio 22.5 (10-20); Creatinine Clr Calc Pharmacy 84.8 ml/min; Est GFR (African American) 85.9 ml/min; Est GFR (Non-African American) 74.1 ml/min; Potassium 4.3 mmol/L (3.5-5.1)
[2022-11-20 08:14] LABS: Calcium 8.7 mg/dl (8.6-10.3); Magnesium 1.7 mg/dl (1.7-2.4)
[2022-11-20] MEDS ORDERED: MAGNESIUM OXIDE 400 MG TAB PO SCH (09:00)
[2022-11-20] MEDS ORDERED: MAGNESIUM SULFATE / D5W 1 GM/100 ML BAG IV ONE (09:05)
[2022-11-20] MEDS: INSULIN ASPART PER UNIT CHARGE SC SCH ×2 (09:07→13:21)
[2022-11-20] MEDS: LANTUS PER UNIT CHARGE SQ SCH (09:07)
[2022-11-20] MEDS: methylPREDNISolone 40 MG in SYRINGE 0 ML IV SCH (09:07)
[2022-11-20] MEDS: FLUTICASONE FUROATE 100MCG 14 PUFFS/INHALER INH SCH (09:08)
[2022-11-20] MEDS: ENOXAPARIN INJ 40 MG/0.4 ML SYR SQ SCH (09:08)
[2022-11-20] MEDS: guaiFENesin 600 MG TABCR PO SCH (09:08)
[2022-11-20] MEDS: UMECLIDINIUM/VILANTEROL 62.5/25MCG 7 PUFFS/INHALER INH SCH (09:08)
[2022-11-20] MEDS: DOXYCYCLINE HYCLATE 100 MG CAP PO SCH (09:08)
--- NOTE | 2022-11-20 14:54 | Discharge Summary ---
Discharge Summary Date of Service November 20, 2022 Notes For Next Care Provider Medication Changes From Visit Augmentin 875mg po bid x 7 days Doxycycline 100mg po bid x 5 more days Prednisone 40mg po daily x 5 more days Admission HPI Per Admitting Provider Barrett Trinh is a pleasant 72yo male with history of COPD (PFTs 06/10/22 with FEV1/FVC 70%, FEV1 82% - follows with Pulmonary) and ROSA presenting with one week of worsening shortness of breath. Patient was seen by his PCP on 11/11/22 and reported some mild respiratory complaints. He was prescribed Prednisone 50mg daily x 5 days. Patient completed his course of steroids as directed. He states that he initially had some improvement in his chest congestion, however, after the steroids finished he has had progressive symptoms. He reports worsening shortness of breath and cough productive for yellow sputum as well as significant audible wheezing. Today he reports severe shortness of breath and fatigue - slept most of the day. He denies fever, chills but has been very diaphoretic today with some nausea. He denies hemoptysis, edema, orthopnea, weight gain, chest pain or palpitation. He tested NEGATIVE for Covid-19 on 11/11/22 as well as today. In the ER he is afebrile, hypertensive otherwise stable. Hypoxic on arrival at 89% on room air - placed on supplemental O2 with improvement. ER Course: Lisinopril 40gm ASA 325mg Allopurinol 100mg Donezepil 5mg Simvastatin 40mg Metoprolol 50mg Venlafaxine 75mg Flomax 0.4mg Ceftriaxone 2gm Magnesium 1gm NSS x 500mL Albuterol 3mL neb x 1 Solumedrol 125mg Principal Dx & Hospital Course #1 = Principal Diagnosis (1) COPD exacerbation: 72yo male presenting with 1 week of progressive shortness of breath, cough with increased yellow sputum. Hypoxic on room air in the ER requiring placement of supplemental O2 CXR does not appear to have obvious infiltrate. BioFire RP negative Much improved, still some residual wheezing but feels much better, ambulating halls, and passed 2 step walk test -collected sputum culture-pending at time of discharge -received supplemental O2 and weaned off prior to discharge -continue Duoneb q4 and Albuterol q 2 hours PRN -received Solumedrol IV and dc on prednisone 40mg po daily x 5 more days -continue Doxycycline 100mg PO BID and added Augmentin given h/o Strep pneumo resistant to doxy -continue Guaifenesin, Flutter valve -continue home maintenance inhalers -stable for dc to home (2) Acute respiratory failure with hypoxia: 2/2 COPD exacerbation treatment as above, resolved (3) MIGUEL (acute kidney injury): stone layout marker 1.8 on admission--> possibly due to dehydration from hyperglycemia? now resolved with control of glucose and received 500mL of NS on admission (4) Diabetes: with hyperglycemia here 2/2 steroids-improving now with higher doses of insulin typically well controlled with A1C here of only 7.2% restart home metformin and Tresiba on discharge (5) Hypomagnesemia: replaced and resolved continue mag oxide 400mg po daily and follow as outpt unclear why low-perhaps poor po intake? (6) Gout: Chronic. Stable -Continue Allopurinol 100mg po daily (7) ROSA (obstructive sleep apnea): Chronic. Patient is compliant with his home CPAP. -Continue CPAP qHS (8) Hypertension: Chronic. continues with some elevation in BPs -Continue Lisinopril -Continue Metoprolol (9) Depression: Chronic. Stable. -Continue Venlafaxine Plan DVT proph-Lovenox Dispo-dc to home Discharge Exam Constitutional WD/WN, vitals as above Neck trachea midline, no thyromegaly Respiratory normal respiratory effort Auscultation: + wheezes (mild, bilateral, improved) Cardiovascular RRR, no murmur, no edema Chest (Breasts) Chest: normal inspection of chest Gastrointestinal (Abdomen) normal bowel sounds, soft, nontender, no hepatosplenomegaly Musculoskeletal Extremities: extremities normal to inspection; no cyanosis and no clubbing Skin no rashes, warm and dry Neurologic moves all extremities and awake; no focal motor deficits Psychiatric A+Ox3, euthymic affect Lymphatic no lymphedema Updated Medication List Medication Instructions Recorded Confirmed Type aspirin 325 mg tablet 325 mg PO QPM 01/11/18 11/17/22 History ipratropium 0.5 mg-albuterol 3 mg 3 ml inhalation Q4H PRN Shortness 01/11/18 11/17/22 History (2.5 mg base)/3 mL nebulization Of Breath Or Wheezing soln yipdisny-px-adpre 300 mcg-K 60 1 tab PO QPM 01/11/18 11/17/22 History mcg-lycop 600 mcg-lutein 300 mcg tablet (Centrum Silver Men) triamcinolone acetonide 0.1 % 1 appln topical BID PRN rash #1 g 01/01/19 11/17/22 History topical cream cholecalciferol (vitamin D3) 125 5,000 unit PO QPM 12/31/19 11/17/22 History mcg (5,000 unit) capsule CPAP Supplies #1 ea 07/25/22 11/17/22 Rx albuterol sulfate 90 mcg/actuation 2 puff inhalation QID PRN 07/25/22 11/17/22 Rx aerosol inhaler Shortness Of Breath Or Wheezing #8.5 grams allopurinol 100 mg tablet 100 mg PO QPM #90 tabs 08/07/22 11/17/22 Rx donepezil 5 mg tablet 5 mg PO QPM #90 tabs 08/07/22 11/17/22 Rx fluticasone fur. 100 mcg-umeclid 1 inh inhalation QAM #180 ea 08/07/22 11/17/22 Rx 62.5 mcg-vilant 25 mcg inhalat.powder (Trelegy Ellipta) metformin 1,000 mg tablet 1,000 mg PO BID #180 tabs 08/07/22 11/17/22 Rx metoprolol succinate 50 mg 50 mg PO QPM #90 tabs 08/07/22 11/17/22 Rx tablet,extended release 24 hr simvastatin 40 mg tablet 40 mg PO PM #90 tabs 08/07/22 11/17/22 Rx venlafaxine 75 mg capsule,extended 75 mg PO QPM #90 caps 08/07/22 11/17/22 Rx release 24 hr (Effexor XR) insulin degludec 200 unit/mL (3 75 unit (0.375 mL) subcut HS 90 11/01/22 11/17/22 Rx mL) subcutaneous pen ( #36 mL FlexTouch U-200 insulin) lisinopril 40 mg tablet 40 mg PO HS 11/17/22 11/17/22 History meloxicam 15 mg tablet 15 mg PO DAILY PRN Muscle Spasm 11/17/22 11/17/22 History tamsulosin 0.4 mg capsule 0.4 mg PO HS 11/17/22 11/17/22 History tramadol 50 mg tablet 50 mg PO HS PRN pain 11/17/22 11/17/22 History amoxicillin 875 mg-potassium 1 tab PO BIDM #13 tabs 11/20/22 Rx clavulanate 125 mg tablet doxycycline hyclate 100 mg capsule 100 mg PO BID #10 caps 11/20/22 Rx prednisone 20 mg tablet 40 mg PO DAILY 5 days #10 tabs 11/20/22 Rx Hospital Stay Data Consultations 11/17/22 22:28 ED Decision to Admit Stat Pending Results Patient Have Any Pending Studies at Discharge: Yes (Final sputum and blood cultures) Discharge Instructions Given to Patient (Per Discharging Provider) Please finish out 5 more days of the prednisone. You will need 5 more days of doxycycline and 7 days of the Augmentin antibiotics. Please ask your PCP office to follow up on the final results of your sputum culture. Total Time Total Time Spent Total Time Spent (In Minutes): 35 min Coding Level of Care Code 78446 INP/OBS DISCH >30 MIN Diagnoses COPD exacerbation J44.1 Acute respiratory failure with hypoxia J96.01 MIGUEL (acute kidney injury) N17.9 Diabetes E11.9 Hypomagnesemia E83.42 Gout M10.9 ORSA (obstructive sleep apnea) G47.33 Hypertension I10 Depression F32.9
[2022-11-20] MEDS ORDERED: AMOXICILLIN/CLAVULANATE 875 MG TAB PO SCH (17:00)
== END 2022-11-20 16:05 | disposition home or self-care (01) | DRG 190 ==
LOC: ED 20:28 → SUATTDRO 23:18 → EDINP 23:18 → 2N 11-18 00:28